=== PATIENT | male | born 1930 | race Caucasian/White ===

== ENCOUNTER → 2016-09-11 | Outpatient (REF) | payer MEDICARE | LOC: M SFHCPLAZ 17:48 | PROVIDERS: ATTEND Dermatology | DX: C44.42 Squamous cell carcinoma of skin of scalp and neck (principal) | CPT/HCPCS: 11100; 88305; G0463 ==

== ENCOUNTER 2017-03-07 16:56 | Inpatient (IN) | payer MEDICARE ==
[~2017-03-07] VITALS: Ht 193 cm; Wt 74.4 kg
[2017-03-07] MEDS ORDERED: ATEN25TA PO (17:24)
[2017-03-07] MEDS ORDERED: ELIQ2.5T PO (17:24)
[2017-03-07] MEDS ORDERED: FURO20TA2 PO ×2 (17:24→20:06)
[2017-03-07] MEDS ORDERED: ASPI1TAB PO (17:24)
[2017-03-07] MEDS ORDERED: LEVO25TA5 PO (17:24)
[2017-03-07] MEDS ORDERED: SPIR25TA2 PO (17:24)
[2017-03-07] MEDS ORDERED: MUCI600T37 PO (17:25)
[2017-03-07] MEDS ORDERED: cefTRIAXone SOD 2 GM in D5W 50 ML IV ONE (19:30)
[2017-03-07] MEDS ORDERED: AZITHROMYCIN INJ 500 MG, VIAL MATE ADAPTER 1 EACH in D5W 250 ML IV ONE (19:30)
--- NOTE | 2017-03-07 19:35 | REP ---
CHEST X-RAY, PA AND LATERAL: 03/07/2017. Comparison: 10/22/2012, 09/16/2012. Clinical history: Cough. Findings: Two views provided. Lungs are hyperinflated. 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 Patchy atelectasis or infiltrate adjacent to left heart border, likely in the lingula. Globular enlarged heart noted. Left atrial and ventricular enlargement may be present. Right heart is prominent. I cannot exclude a pericardial effusion. Heart has similar appearance, but smaller in the 2013 study. Pulmonary artery hypertension is seen. I do not see venous hypertension or pulmonary edema. The aorta and airway intact and normal for age. Degenerative changes in the spine. Impression. 1. Some patchy infiltrate, atelectasis in the lingula adjacent to left heart border. 2. Large cardiac silhouette somewhat globular with right heart enlargement. Appearance similar but the heart larger than on the 2013 study. 3. No vascular redistribution or pulmonary edema. Some fibrosis and COPD again seen. Signed by Jewel Hernandez MD 03/07/2017 08:17 P
[2017-03-07 20:02] LABS: BASO % 0.2 % (0.0-1.0); EOS # 0.2 10^3/uL (0.0-0.50); EOS % 2.7 % (0.0-3.0); IMMATURE GRANULOCYTE % 0.5 % (0-0); LYMPH # 1.9 10^3/uL (1.5-4.5); MEAN CORPUSCULAR HEMOGLOBIN 33.5 pg (27.0-33.0); MEAN CORPUSCULAR HGB CONC 33.5 g/dl (32.0-36.5); MONO # 0.4 10^3/uL (0.0-0.8); NEUTROPHILS # 5.5 10^3/uL (1.8-7.7); NEUTROPHILS % 67.6 % (36.0-66.0); PLATELET COUNT, AUTOMATED 287 10^3/uL (150-450); RED CELL DISTRIBUTION WIDTH 14.3 % (11.5-14.5); WHITE BLOOD COUNT 8.1 10^3/uL (4.0-10.0)
[2017-03-07] MEDS ORDERED: ATEN50TA2 PO (20:06)
[2017-03-07] MEDS ORDERED: VITMTA PO (20:06)
[2017-03-07 20:16] LABS: INR 1.33
[2017-03-07 20:35] LABS: ALBUMIN 3.6 GM/DL (3.2-5.2); ALKALINE PHOSPHATASE 119 U/L (45-117); ALT/SGPT 26 U/L (12-78); ANION GAP 4 MEQ/L (8-16); AST/SGOT 22 U/L (15-37); BILIRUBIN,DIRECT 0.5 MG/DL (0.0-0.2); BILIRUBIN,TOTAL 1.2 MG/DL (0.2-1.0); BLOOD UREA NITROGEN 24 MG/DL (7-18); CALCIUM LEVEL 9.2 MG/DL (8.8-10.2); CARBON DIOXIDE LEVEL 34 MEQ/L (21-32); CHLORIDE LEVEL 99 MEQ/L (98-107); CREATININE FOR GFR 1.22 MG/DL (0.70-1.30); GLOMERULAR FILTRATION RATE > 60.0 (>35); GLUCOSE, FASTING 112 MG/DL (83-110); POTASSIUM SERUM 3.9 MEQ/L (3.5-5.1); SODIUM LEVEL 137 MEQ/L (136-145); TOTAL PROTEIN 8.1 GM/DL (6.4-8.2)
[2017-03-07 22:11] LABS: FERRITIN 406 NG/ML (26-388); MAGNESIUM LEVEL 2.4 MG/DL (1.8-2.4); PERCENT SATURATION 12.5 % (19.7-50.0); TOTAL IRON BINDING CAPACITY 240 UG/DL (250-450)
[2017-03-07] MEDS ORDERED: ACETAMINOPHEN TAB 650MG DOSE (2X325MG) PO PRN (22:15)
[2017-03-07] MEDS ORDERED: BISACODYL 5 MG TAB PO PRN (22:15)
[2017-03-07] MEDS ORDERED: ONDANSETRON 4MG/2ML VIAL (J2405) IV PRN (22:15)
[2017-03-07 22:20] LABS: VITAMIN B12 LEVEL 756 PG/ML (247-911)
[2017-03-07 22:21] LABS: FOLATE > 24.0 NG/ML (>5.4)
--- NOTE | 2017-03-07 22:50 | REPUSA ---
CT of the chest without contrast Clinical statement: infiltrate, pleural effusion. Technique: Multiple axial CT images were obtained with 5 mm cuts through the chest without administra tion of contrast. Comparison: 11/07/2012. Findings: There is no thoracic lymphadenopathy. The visualized portions of the thyroid gland is unrem arkable. There is infiltrate and consolidation in the left upper lobe. Smaller areas of infiltrate ar e seen in the lower lobes bilaterally. Limited imaging of the upper abdomen does not demonstrate any acute abnormalities. There are no suspicious osseous lesions. Impression: 1. Left upper lobe pneumonia. 2. Minimal infiltrate/atelectasis in the lung bases bilaterally.
[2017-03-07] MEDS ORDERED: IPRATROPIUM 0.5MG/ALBUTEROL 2.5MG INH SOL UD 3ML (DUONEB)(J7620) NEB PRN (23:00)
--- NOTE | 2017-03-08 00:14 | HPE ---
DATE OF ADMISSION: 03/07/2017 ATTENDING DOCTOR: Dr. Arredondo TIME PATIENT WAS SEEN: 10:00 p.m. PRIMARY CARE PROVIDER: [facility] SPREADER OPERATOR AUTOMATIC: Dr. Vuong CHIEF COMPLAINT: Shortness of breath and chills. HISTORY OF THE PRESENT ILLNESS: An 86-year-old male with a past medical history of chronic anemia, elevated bilirubin, heart failure with unclear type, hypertension, chronic atrial fibrillation - on Eliquis, history of basal cell carcinoma and squamous cell carcinoma of the skin, hypothyroidism, presented with increased chills and shortness of breath for the past 4 days. Per patient, it was initially thought to be a cold. He went to primary care provider and was given Mucinex. He also had blood work done. However, result has not came back yet. Otherwise, he admits to some cough initially, which produces yellow sputum. However, he no longer coughs up sputum. Otherwise, he denies any chest pain, any palpitations, any abdominal pain, nausea, vomiting, diarrhea, constipation. Denies any problem with urination. Denies any blood in the urine. Denies any weight loss or sick contact. He does admit to some poor memory that started recently. He also will have a skin biopsy for back lesions in a few weeks. His last followup with Dr. Vuong was back in December; next one will be in April 2017. ALLERGIES: No known drug allergies. HOME MEDICATIONS: - Eliquis 2.5 mg one tablet by mouth twice a day - aspirin 81 mg one tablet by mouth daily - atenolol 25 mg one tablet by mouth daily - furosemide 40 mg one tablet by mouth three times per week - Saturday, Saturday, Saturday - furosemide 20 mg one tablet by mouth four times weekly - Saturday, Saturday, , Saturday - Mucinex 600 mg one tablet by mouth twice a day - Synthroid 25 mg one tablet by mouth daily - multivitamin one tablet by mouth daily - spironolactone 25 mg one tablet by mouth daily PAST MEDICAL HISTORY: 1. Anemia, macrocytic. 2. Elevated bilirubin. 3. History of heart failure; however, the patient is unclear the degree of heart failure. He was, in fact, unaware he has heart failure. 4. Hypertension. 5. Chronic atrial fibrillation. 6. History of basal cell carcinoma, squamous cell carcinoma in situ. 7. Hypothyroidism. PAST SURGICAL HISTORY: 1. Appendectomy. 2. Right knee cartilage removal. 3. Colonoscopy with polyps removed. 4. Cataract surgery. SOCIAL HISTORY: Patient lives alone and regularly mows the lawn and was able to walk one mile without any problem. 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 Denies any smoking, drinking or recreational drug use. FAMILY HISTORY: Noncontributory. REVIEW OF SYSTEMS: GENERAL: Denies any recent traveling, sick contact. Admits to chills. Denies any fever that was measured. Denies any weight changes. The patient does admit to poor memory lately. HEENT: Denies any changes with vision, smell, hearing or taste. CARDIOVASCULAR: Denies any chest pain. Admits to shortness of breath and the shortness of breath seems to increase with talking. PULMONARY: Denies any chest pain. Admits to shortness of breath. Again, breathing seems to be labored when patient lays down, per patient's daughter; however, only for the past few days. However, the patient denies any shortness of breath when he tried to walk or exert. GASTROINTESTINAL: Denies any abdominal pain, nausea, vomiting, diarrhea, constipation, any blood in the stool. GENITOURINARY: Denies any problem with urination, any blood in the urine, dysuria, burning on urination. MUSCULOSKELETAL: Denies any pain anywhere. ENDOCRINE: Denies any heat or cold intolerance. Denies any polydipsia. The patient does admit to polyuria, however, and he is on Lasix. HEMATOLOGY/ONCOLOGY: Denies any night sweats, any ease of bruising, any bleeding anywhere, any weight changes. NEUROLOGICAL: Denies any changes with sensations, any blurred vision, any weakness on any site of his body. SKIN: Denies any rash or ulcerations, lumps or bumps anywhere. PSYCHIATRIC: Denies any anxiety, depression. PHYSICAL EXAMINATION: VITAL SIGNS: Temperature 98.4, pulse 68, respirations 18, blood pressure 150/96, oxygen was saturating at 96% on room air. GENERAL: The patient is a thin looking elderly male who was alert, awake, oriented times three, who looks younger than his stated age and was pleasant and appears to be quite energetic for his age. HEENT: Normocephalic, atraumatic. Extraocular motor intact. Mucosa moist. NECK: Supple. No neck lymphadenopathy. CARDIOVASCULAR: Irregularly irregular. Variable S1, S2. No significant murmur. LUNGS: With diffuse rales and rhonchi on the left base of the lung; otherwise, no wheezing. ABDOMEN: Positive bowel sounds, soft, nontender, nondistended. No peritoneal signs. No ecchymosis. No organomegaly. EXTREMITIES: Patient does have trace pitting edema at bilateral ankle. SKIN: Warm and dry. NEUROLOGICAL: Cranial nerves II-XII intact. No focal neurologic deficit. LABORATORY DATA: WBC 8.1, hemoglobin 12.6, hematocrit 37.6 with a platelet count of 287, MCV of 100. Sodium 137, potassium 3.9, chloride 99, bicarbonate of 34, BUN 24, creatinine 1.22, GFR greater than 60, fasting glucose 112, calcium 9.2, magnesium 2.4, iron 30, TIBC 240, transferrin percentage saturation 12.5%, ferritin 406, total bilirubin 1.2, direct bilirubin 0.5, AST 22, ALT 26, alkaline phosphatase 119, CK 109, CK-MB 5.1, troponin less than 0.02. BNP was, however, elevated at 2418. However, baseline is unknown. Total protein 8.1, albumin 3.6, vitamin B12 756, folate greater than 24, TSH 1.06. Coagulation panel shows PT 16.8, INR 1.33, PTT 42. Blood culture times two are pending. The rest of the panel is pending. Influenza is negative. Patient had a PA and lateral chest x-ray in the emergency room - shows some patchy infiltrate, atelectasis in the lingula adjacent to left heart border, and a large cardiac silhouette somewhat globular with right heart enlargement and appearance similar but the heart is larger than 2013 study. Some fibrosis and COPD, again, was seen. CT of the chest without contrast was done as well. Official result is pending. We have reviewed the formal results, revealed that the patient does have a lingular infiltrate and does have a mild amount of atelectasis at the right base region as well, and the patient also has cardiomegaly. The patient does not have a pleural effusion, however. ASSESSMENT AND PLAN: 86-year-old male with a past medical history of heart failure, unknown type, chronic atrial fibrillation, hypertension, elevated bilirubin, chronic anemia, history of basal cell carcinoma and squamous cell carcinoma in situ, hypothyroidism, presented with: 1. Community-acquired pneumonia of left upper lingular. Patient did receive azithromycin and Rocephin in the emergency room. Will continue. Patient does not have an actual white count and does look quite energetic. Influenza panel in the emergency room has been negative. Will order respiratory panel as well and order the sputum culture. Otherwise, will continue to monitor the patient. Chest x-ray was read by radiologist that the patient has a certain degree of chronic obstructive pulmonary disease (COPD) changes; therefore, DuoNeb as needed has been added. In addition, CT does show some atelectasis. Therefore, incentive spirometry, as well as Acapella has been added. 2. History of heart failure with a BNP of 2418. However, on physical examination , the patient does not appear to be fluid overloaded. Continue to monitor. Continue home Lasix for now. Continue spironolactone and atenolol. 3. History of hypertension. Continue Lasix and atenolol. 4. History of chronic atrial fibrillation. Continue beta sd, Eliquis. 5. History of basal cell, squamous cell carcinoma in situ on the skin. Patient is scheduled to have a biopsy. The patient will have outpatient followup. 6. History of hypothyroidism. Thyroid-stimulating hormone (TSH) appears to be within normal range. Continue home Synthroid. 7. Deep vein thrombosis (DVT) prophylaxis with sequential compression device (SCD) and subcutaneous Lovenox. 8. Fluids, electrolytes and diet: The patient currently does not need any fluid due to patient is able to eat and drink normally. Potassium is at around 4, which is appropriate. Will continue patient on a 2-gram sodium and fluid restriction of 2 liters per 24 hours. CODE STATUS: Patient's daughter stated that he is DO NOT RESUSCITATE (DNR), DO NOT INTUBATE (DNI), and she will bring in the Medical Orders for Life-Sustaining Treatment (MOLST) form in the morning. DISPOSITION: The patient does have community-acquired pneumonia; however, no actual white count and he does look energetic. However, he does admit to shortness of breath as well, which is likely caused by pneumonia. Other possibilities are from heart failure exacerbation. The patient does have an increased BNP; however, this could be his baseline as well due to per him, he has not had any increased swelling and the examination does not show jugular venous distention (JVD). Continue to monitor patient for now. Will obtain records from Dr. Vuong's office regarding most recent echocardiogram due to patient's ejection fraction is not on record. Patient has been discussed with attending doctor, Dr. Arredondo. My preceptor for this patient encounter was Dr. Arredondo. The preceptor was physically present in the building during the encounter and was fully available. As needed, all aspects of the patient interview, examination, medical decision making process, and medical care plan development were reviewed and approved by the preceptor. The preceptor is aware and concurs with the plan as stated in the body of this note and will attest to such by his/her co-signature. ALESHA
[2017-03-08 00:50] VITALS: BP 150/84
[2017-03-08] MEDS: APIXABAN 2.5 MG TAB (ELIQUIS) PO SCH ×3 (01:05→20:10)
[2017-03-08] MEDS: guaiFENesin ER 600 MG TAB PO SCH ×3 (01:05→20:10)
[2017-03-08 04:22] LABS: BASO % 0.3 % (0.0-1.0); EOS # 0.2 10^3/uL (0.0-0.50); EOS % 2.5 % (0.0-3.0); IMMATURE GRANULOCYTE % 0.6 % (0-0); LYMPH # 1.6 10^3/uL (1.5-4.5); LYMPH % 20.5 % (24.0-44.0); MEAN CORPUSCULAR HEMOGLOBIN 33.5 pg (27.0-33.0); MEAN CORPUSCULAR HGB CONC 34.1 g/dl (32.0-36.5); MEAN CORPUSCULAR VOLUME 98.5 fl (80.0-96.0); MONO # 0.4 10^3/uL (0.0-0.8); MONO % 5.7 % (0.0-5.0); NEUTROPHILS # 5.4 10^3/uL (1.8-7.7); NEUTROPHILS % 70.4 % (36.0-66.0); PLATELET COUNT, AUTOMATED 234 10^3/uL (150-450); RED CELL DISTRIBUTION WIDTH 14.1 % (11.5-14.5); WHITE BLOOD COUNT 7.7 10^3/uL (4.0-10.0)
[2017-03-08 04:45] LABS: ANION GAP 3 MEQ/L (8-16); BLOOD UREA NITROGEN 23 MG/DL (7-18); CALCIUM LEVEL 8.7 MG/DL (8.8-10.2); CARBON DIOXIDE LEVEL 33 MEQ/L (21-32); CHLORIDE LEVEL 103 MEQ/L (98-107); CREATININE FOR GFR 1.14 MG/DL (0.70-1.30); GLOMERULAR FILTRATION RATE > 60.0 (>35); GLUCOSE, FASTING 102 MG/DL (83-110); POTASSIUM SERUM 4.1 MEQ/L (3.5-5.1); SODIUM LEVEL 139 MEQ/L (136-145)
[2017-03-08 05:00] LABS: MEAN CORPUSCULAR HEMOGLOBIN 33.1 pg (27.0-33.0); MEAN CORPUSCULAR HGB CONC 33.8 g/dl (32.0-36.5); MEAN CORPUSCULAR VOLUME 98.1 fl (80.0-96.0); PLATELET COUNT, AUTOMATED 234 10^3/uL (150-450); RED CELL DISTRIBUTION WIDTH 14.3 % (11.5-14.5); WHITE BLOOD COUNT 7.6 10^3/uL (4.0-10.0)
[2017-03-08 05:29] LABS: RETIC HEMOGLOBIN EQUIVALENT 34.2 pg (24-36); RETICULOCYTE % 0.7 % (0.5-1.5)
[2017-03-08 06:00] VITALS: BP 132/67
[2017-03-08] MEDS: LEVOTHYROXINE 25MCG TABLET (0.025MG) PO SCH (06:06)
--- NOTE | 2017-03-08 07:15 | ECGEPIP ---
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
[2017-03-08] MEDS ORDERED: FUROSEMIDE 40 MG TAB PO SCH (09:00)
[2017-03-08] MEDS ORDERED: FUROSEMIDE 40 MG/4 ML VIAL (J1940) IV SCH (09:00)
[2017-03-08] MEDS ORDERED: ENOXAPARIN 40 MG/0.4 ML SYRINGE (J1650) SC SCH (09:00)
[2017-03-08] MEDS: SENOKOT S TAB PO SCH ×2 (09:07→20:10)
[2017-03-08] MEDS: MULTIVITAMINS/MINERALS THERAP 1 TAB PO SCH (09:07)
[2017-03-08] MEDS: ASPIRIN 81 MG ENTERIC TAB PO SCH (09:07)
[2017-03-08] MEDS: ATENOLOL 25 MG TAB PO SCH (09:07)
[2017-03-08] MEDS: SPIRONOLACTONE 25 MG TAB PO SCH (09:07)
[2017-03-08 14:00] VITALS: BP 126/63
--- NOTE | 2017-03-08 14:28 | IPNPDOC ---
Date Seen The patient was seen on 03/08/17. Progress Note SUBJECTIVE: Patient complains of continued SOB and cough, he does not feel significantly different then his arrival to the ER. OBJECTIVE PHYSICAL EXAMINATION: VITAL SIGNS: Please see below. GENERAL: AAOx3, Tall healthy male sitting in bed, nad, appears well, coughs during exam HEENT: no cervical LAD, PERRL, EOMI, mmm CARDIOVASCULAR: S1S2 RESPIRATORY: Fairly clear to auscultation. ABDOMINAL: BS+, soft, nt, nd EXTREMITIES: no c/c/e LABORATORY DATA: Please see below. MICROBIOLOGY: Please see below. IMAGIN. Left upper lobe pneumonia. 2. Minimal infiltrate/atelectasis in the lung bases bilaterally. DVT prophylaxis ordered?: Lovenox ASSESSMENT AND PLAN: This is a 86-year-old man with Human Rhinovirus/ Enterovirus with possible superimposed CAP. PROBLEMS: 1. SOB/Cough: Likely secondary to rhinovirus, however he does have some imaging concerning for PNA, he does not have leukocytosis or fever. For now will con't with IV Abx and monitor, provide supportive care and monitor for improvement. My suspicion for PNA is lower but for now will f/u cultures and cover. 2. CHF: appears compensated c/w Lasix, Betablocker, aldactone. 3. AFIB: rate ctrld, and anticoagulated. 4. Hypothyroidism: con't with synthroid DISPOSITION: Pending clinical improvement, may be able to return home as early as tomorrow. VS, I&O, 24H, Fishbone Vital Signs/I&O Vital Signs Date Time Temp Pulse Resp B/P (MAP) Pulse Ox O2 Delivery O2 Flow Rate FiO2 03/08/17 09:07 77 132/67 03/08/17 06:00 98.8 19 98 Room Air I&O- Last 24 Hours up to 6 AM 03/09/17 06:00 Intake Total 300 ml Output Total 0 ml Balance 300 ml Laboratory Data 24H LABS Laboratory Tests 2 03/07/17 19:46: Immature Granulocyte % (Auto) 0.5H, White Blood Count 8.1, Red Blood Count 3.76L , Hemoglobin 12.6L, Hematocrit 37.6L, Mean Corpuscular Volume 100.0H, Mean Corpuscular Hemoglobin 33.5H, Mean Corpuscular Hemoglobin Concent 33.5, Red Cell Distribution Width 14.3, Platelet Count 287, Neutrophils (%) (Auto) 67.6H, Lymphocytes (%) (Auto) 24.0, Monocytes (%) (Auto) 5.0, Eosinophils (%) (Auto) 2.7, Basophils (%) (Auto) 0.2, Neutrophils # (Auto) 5.5, Lymphocytes # (Auto) 1.9, Monocytes # (Auto) 0.4, Eosinophils # (Auto) 0.2, Basophils # (Auto) 0.0, Immature Granulocyte # (Auto) 0.0, Nucleated Red Blood Cells % (auto) 0.0, Prothrombin Time 16.8H, Prothromb Time International Ratio 1.33, Activated Partial Thromboplast Time 42.0H, Anion Gap 4L, Glomerular Filtration Rate > 60.0 , Calcium Level 9.2, Magnesium Level 2.4, Iron Level 30L, Total Iron Binding Capacity 240L, Transferrin % Saturation 12.5L, Ferritin 406H, Aspartate Amino Transf (AST/SGOT) 22, Alanine Aminotransferase (ALT/SGPT) 26, Alkaline Phosphatase 119H, Total Bilirubin 1.2H, Direct Bilirubin 0.5H, Total Creatine Kinase 109, Creatine Kinase MB 5.1H, Creatine Kinase MB Relative Index 4.67H, Troponin I < 0.02, YX-[id number]-[id number]-Type Natriuretic Peptide 2418H, Total Protein 8.1, Albumin 3.6, Albumin/Globulin Ratio 0.80L, Vitamin B12 Level 756, Folate > 24.0 , Thyroid Stimulating Hormone (TSH) 1.060 03/08/17 04:15: Immature Granulocyte % (Auto) 0.6H, White Blood Count 7.7, Red Blood Count 3.25L , Hemoglobin 10.9L, Hematocrit 32.0L, Mean Corpuscular Volume 98.5H, Mean Corpuscular Hemoglobin 33.5H, Mean Corpuscular Hemoglobin Concent 34.1, Red Cell Distribution Width 14.1, Platelet Count 234, Neutrophils (%) (Auto) 70.4H, Lymphocytes (%) (Auto) 20.5L, Monocytes (%) (Auto) 5.7H, Eosinophils (%) (Auto) 2.5, Basophils (%) (Auto) 0.3, Neutrophils # (Auto) 5.4, Lymphocytes # (Auto) 1.6, Monocytes # (Auto) 0.4, Eosinophils # (Auto) 0.2, Basophils # (Auto) 0.0, Immature Granulocyte # (Auto) 0.1H, Nucleated Red Blood Cells % (auto) 0.0, Anion Gap 3L, Glomerular Filtration Rate > 60.0, Calcium Level 8.7L, Total Creatine Kinase 83, Creatine Kinase MB 4.0H, Creatine Kinase MB Relative Index 4.81H, Troponin I < 0.02, Blood Urea Nitrogen 23H, Creatinine 1.14, Sodium Level 139, Potassium Level 4.1, Chloride Level 103, Carbon Dioxide Level 33H 03/08/17 04:50: Nucleated Red Blood Cells % (auto) 0.0, Reticulocyte # (auto) 22.4, Percent Reticulocyte Count 0.7, Reticulocyte Hemoglobin Equivalent 34.2 03/08/17 11:47: Total Creatine Kinase 86, Creatine Kinase MB 3.6, Creatine Kinase MB Relative Index 4.18H, Troponin I < 0.02 CBC/BMP Laboratory Tests 03/07/17 19:46 Red Blood Count 3.76 L, Mean Corpuscular Volume 100.0 H, Mean Corpuscular Hemoglobin 33.5 H, Mean Corpuscular Hemoglobin Concent 33.5, Red Cell Distribution Width 14.3, Neutrophils (%) (Auto) 67.6 H, Lymphocytes (%) (Auto) 24.0, Monocytes (%) (Auto) 5.0, Eosinophils (%) (Auto) 2.7, Basophils (%) (Auto ) 0.2, Neutrophils # (Auto) 5.5, Lymphocytes # (Auto) 1.9, Monocytes # (Auto) 0.4, Eosinophils # (Auto) 0.2, Basophils # (Auto) 0.0 03/08/17 04:15 Red Blood Count 3.25 L, Mean Corpuscular Volume 98.5 H, Mean Corpuscular Hemoglobin 33.5 H, Mean Corpuscular Hemoglobin Concent 34.1, Red Cell Distribution Width 14.1, Neutrophils (%) (Auto) 70.4 H, Lymphocytes (%) (Auto) 20.5 L, Monocytes (%) (Auto) 5.7 H, Eosinophils (%) (Auto) 2.5, Basophils (%) ( Auto) 0.3, Neutrophils # (Auto) 5.4, Lymphocytes # (Auto) 1.6, Monocytes # (Auto ) 0.4, Eosinophils # (Auto) 0.2, Basophils # (Auto) 0.0, Calcium Level 8.7 L 03/08/17 04:50 Red Blood Count 3.08 L, Mean Corpuscular Volume 98.1 H, Mean Corpuscular Hemoglobin 33.1 H, Mean Corpuscular Hemoglobin Concent 33.8, Red Cell Distribution Width 14.3 Microbiology Microbiology 03/07/17 Blood Culture, Received Pending 03/07/17 Blood Culture, Received Pending 03/08/17 Respiratory Virus Panel (PCR) ([facility]) - Final, Complete Human Rhinovirus/Enterovirus 03/07/17 Influenza Virus Type A Antigen - Final, Complete 03/07/17 Influenza Virus Type B Antigen - Final, Complete RAMIRO ABBOTT MD Mar 08, 2017 14:28
[2017-03-08] MEDS ORDERED: cefTRIAXone SOD 1 GM in D5W 50 ML IV SCH (20:00)
[2017-03-08] MEDS ORDERED: AZITHROMYCIN INJ 500 MG, VIAL MATE ADAPTER 1 EACH in D5W 250 ML IV SCH (21:00)
[2017-03-08 22:00] VITALS: BP 120/60
[2017-03-09] MEDS: LEVOTHYROXINE 25MCG TABLET (0.025MG) PO SCH (05:50)
[2017-03-09 06:00] VITALS: BP 147/70
[2017-03-09 06:06] LABS: BASO % 0.3 % (0.0-1.0); EOS # 0.2 10^3/uL (0.0-0.50); EOS % 2.5 % (0.0-3.0); IMMATURE GRANULOCYTE % 0.7 % (0-0); LYMPH # 1.7 10^3/uL (1.5-4.5); LYMPH % 24.1 % (24.0-44.0); MEAN CORPUSCULAR HEMOGLOBIN 32.7 pg (27.0-33.0); MEAN CORPUSCULAR HGB CONC 32.8 g/dl (32.0-36.5); MEAN CORPUSCULAR VOLUME 99.7 fl (80.0-96.0); MONO # 0.4 10^3/uL (0.0-0.8); NEUTROPHILS # 4.6 10^3/uL (1.8-7.7); NEUTROPHILS % 66.4 % (36.0-66.0); PLATELET COUNT, AUTOMATED 261 10^3/uL (150-450); RED CELL DISTRIBUTION WIDTH 14.2 % (11.5-14.5); WHITE BLOOD COUNT 6.9 10^3/uL (4.0-10.0)
[2017-03-09 06:29] LABS: ANION GAP 4 MEQ/L (8-16); BLOOD UREA NITROGEN 26 MG/DL (7-18); CALCIUM LEVEL 8.8 MG/DL (8.8-10.2); CARBON DIOXIDE LEVEL 33 MEQ/L (21-32); CHLORIDE LEVEL 103 MEQ/L (98-107); CREATININE FOR GFR 1.15 MG/DL (0.70-1.30); GLOMERULAR FILTRATION RATE > 60.0 (>35); GLUCOSE, FASTING 105 MG/DL (83-110); POTASSIUM SERUM 4.2 MEQ/L (3.5-5.1); SODIUM LEVEL 140 MEQ/L (136-145)
[2017-03-09] MEDS ORDERED: INFLUENZA VIRUS VACCINE HIGH DOSE 0.5 ML SYRINGE (90662) IM ONE (09:00)
[2017-03-09] MEDS ORDERED: PREVNAR 13 VACCINE SYRINGE (CPT CODE:90670) IM ONE (09:00)
[2017-03-09] MEDS: guaiFENesin ER 600 MG TAB PO SCH (09:12)
[2017-03-09] MEDS: SENOKOT S TAB PO SCH (09:13)
[2017-03-09] MEDS: ASPIRIN 81 MG ENTERIC TAB PO SCH (09:13)
[2017-03-09] MEDS: MULTIVITAMINS/MINERALS THERAP 1 TAB PO SCH (09:13)
[2017-03-09] MEDS: APIXABAN 2.5 MG TAB (ELIQUIS) PO SCH (09:13)
[2017-03-09] MEDS: SPIRONOLACTONE 25 MG TAB PO SCH (09:13)
[2017-03-09 09:15] VITALS: BP 125/59
[2017-03-09] MEDS: ATENOLOL 25 MG TAB PO SCH (09:15)
[2017-03-09] MEDS ORDERED: LEVO500T3 PO (11:24)
--- NOTE | 2017-03-09 20:02 | DSES ---
DATE OF ADMISSION: 03/07/2017 DATE OF DISCHARGE: 03/09/2017 DISCHARGE DIAGNOSIS: Community-acquired pneumonia. SECONDARY DIAGNOSES: 1. Rhinovirus and enterovirus infection. 2. Shortness of breath. 3. Congestive heart failure (CHF). 4. Atrial fibrillation. 5. Hypothyroidism. HOSPITAL COURSE: The patient is an 86-year-old man who had progressively worsening shortness of breath, as well as worsening cough. He had some positive sick contacts. He lives alone. His daughter came to visit him and noted that he was feeling this way and did not feel well enough to go to his primary care provider and as such she brought him into the emergency room. He had some studies concerning for pneumonia. He was admitted to the medical service and started on treatment for community-acquired pneumonia. His symptoms have gradually improved. His respiratory PCR did return positive for human rhinovirus/enterovirus. We had suspicions that his symptoms were primarily related to this and not bacterial process. However, he had this for several days and the symptoms had worsened and it is possible that he had a superimposed bacterial infection. He did not have a fever or significant leukocytosis while here. He was treated with supportive measures and antibiotics and his symptoms improved. He did not require any supplemental oxygen. SUBJECTIVE: The patient feels great and wants to go home. He has no complaints. He tells me that he still has a mild cough with shortness of breath, but it is improving. OBJECTIVE: VITAL SIGNS: Temperature 97, pulse 60, respiratory rate 17, blood pressure 147/70, oxygen saturation 98% on room air. GENERAL: He is a very pleasant, elderly, man sitting up in a recliner playing cards. He did not appear to be in any acute distress whatsoever. HEENT: Cranial nerves II through XII grossly intact. He has moist mucous membranes. No elevation in central venous pressure. CARDIOVASCULAR EXAM: S1, S2. Regular. RESPIRATORY EXAM: Quite clear today. ABDOMINAL EXAM: Benign. EXTREMITIES: No clubbing, cyanosis or edema. LABORATORY STUDIES: WBC 6.9, hemoglobin 10.9, platelets 261. Chemistry panel: Sodium 140, potassium 4.2, chloride 103, bicarbonate 33, BUN 26, creatinine 1.1. He had multiple sets of cardiac enzymes, which were negative. He had TSH within normal limits. Microbiology is outlined above. IMAGING: The patient had a CT scan of his chest, which revealed left upper lobe pneumonia. Minimal infiltrate, atelectasis in the lung bases bilaterally. ASSESSMENT AND PLAN: This is an 86-year-old man with human rhinovirus infection with possible superimposed community-acquired pneumonia. 1. Shortness of breath and cough secondary to rhinovirus. He did have a concerning imaging for possible superimposed pneumonia. He was provided with ceftriaxone and azithromycin while in the hospital. He will be discharged on a short course of levofloxacin to cover for community-acquired pneumonia. I suspect that his symptoms are primarily due to rhinovirus and enterovirus and will resolve on their own. He did not require supplemental oxygen. No fevers. No leukocytosis. He is at his baseline functional status and independent of activities of daily living. A significant amount of time was spent at bedside answering all of his questions and his daughter's questions to their satisfaction. 2. Congestive heart failure (CHF). He appears compensated. He will continue with Lasix, beta sd and aldactone. 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 3. Atrial fibrillation. He is rate controlled and anticoagulated. This was continued during his stay. 4. Hypothyroidism. He was continued on Synthroid. DISPOSITION: The patient is being discharged home where he lives alone. He is independent with his activities of daily living. He is at his functional baseline. His clinical syndrome has improved. He is to followup with his primary care provider in 7 days. His activity and diet are as prior to admission. He is to return to the emergency room if his symptoms worsen. MEDICATIONS: At the time of discharge: - levofloxacin 500 mg daily for 5 days - Eliquis 2.5 mg twice a day - aspirin 81 mg daily - atenolol 25 mg daily - furosemide 40 mg three times a week on Saturday, Saturday and Saturday and 20 mg four times a week on Saturday, Saturday, and Saturday - Mucinex 600 mg twice a day as needed for cough - Synthroid 25 mcg daily - multivitamin one tablet daily - spironolactone 25 mg daily Greater than 30 minutes was spent organizing disposition.
[2017-03-10] MEDS ORDERED: FUROSEMIDE 20 MG TAB PO SCH (09:00)
== END 2017-03-09 15:31 | disposition home or self-care (01) | DRG 865 ==
LOC: M ED 16:56 → M ED INP 22:34 → M MSPAV 03-08 00:49
PROVIDERS: ADMIT Internal Medicine; ATTEND Internal Medicine
DX: B34.8 Other viral infections of unspecified site (principal); J18.9 Pneumonia, unspecified organism; D53.9 Nutritional anemia, unspecified; I11.0 Hypertensive heart disease with heart failure; I50.9 Heart failure, unspecified; I48.2 Chronic atrial fibrillation; J84.10 Pulmonary fibrosis, unspecified; E03.9 Hypothyroidism, unspecified; Z85.828 Personal history of other malignant neoplasm of skin; Z79.01 Long term (current) use of anticoagulants; Z79.82 Long term (current) use of aspirin; Z79.899 Other long term (current) drug therapy

== ENCOUNTER 2017-06-20 12:13 | Emergency (ER) | payer MEDICARE | END 2017-06-20 15:04 | disposition home or self-care (01) | LOC: M ED 12:13 | DX: S42.034A Nondisplaced fracture of lateral end of right clavicle, initial encounter for closed fracture (principal); I48.91 Unspecified atrial fibrillation; I15.9 Secondary hypertension, unspecified; I10 Essential (primary) hypertension; W00.0XXA Fall on same level due to ice and snow, initial encounter; Y92.89 Other specified places as the place of occurrence of the external cause; Y93.01 Activity, walking, marching and hiking | CPT/HCPCS: 73030 ==

== ENCOUNTER 2018-11-10 08:59 | Inpatient (IN) | payer MEDICARE ==
[~2018-11-10] VITALS: Ht 198.1 cm; Wt 74.2 kg
[~2018-11-10 08:59] MED LIST: ASPI81TA26 PO; ATEN25TA PO; ATEN50TA2 PO; ELIQ2.5T PO; FURO20TA2 PO; LEVO25TA5 PO; LEVO500T3 PO; MUCI600T37 PO; SPIR-10 PO; VITMTA PO
[2018-11-10] MEDS ORDERED: FUROSEMIDE 20 MG TAB PO SCH ×2 (09:00)
[2018-11-10] MEDS ORDERED: MORPHINE 2 MG/ML 1ML SYRINGE (J2270) IV ONE ×2 (09:30→10:15)
[2018-11-10] MEDS ORDERED: ONDANSETRON 4MG/2ML VIAL (J2405) IV ONE (09:30)
[2018-11-10 09:44] LABS: BASO % 0.1 % (0.0-1.0); EOS % 0.5 % (0.0-3.0); HEMATOCRIT 28.2 % (42.0-52.0); HEMOGLOBIN 9.6 g/dl (13.5-17.5); LYMPH # 1.4 10^3/uL (1.5-4.5); LYMPH % 18.1 % (24.0-44.0); MEAN CORPUSCULAR HEMOGLOBIN 34.8 pg (27.0-33.0); MEAN CORPUSCULAR VOLUME 102.2 fl (80.0-96.0); MONO # 0.4 10^3/uL (0.0-0.8); MONO % 4.7 % (0.0-5.0); NEUTROPHILS # 5.9 10^3/uL (1.8-7.7); NEUTROPHILS % 76.1 % (36.0-66.0); PLATELET COUNT, AUTOMATED 259 10^3/uL (150-450); RED BLOOD COUNT 2.76 10^6/uL (4.30-6.10); WHITE BLOOD COUNT 7.7 10^3/uL (4.0-10.0)
[2018-11-10 09:58] LABS: CALCIUM LEVEL 8.3 MG/DL (8.8-10.2); CREATININE FOR GFR 1.46 MG/DL (0.70-1.30); GLOMERULAR FILTRATION RATE 48.6 (>35)
--- NOTE | 2018-11-10 10:10 | REP ---
Clinical: Left lower extremity pain . Technique: Bear scale and color Doppler evaluation using linear high frequency transducer. Findings: Ultrasound examination of the left lower extremity deep venous structures from the common femoral vein to the popliteal vein demonstrates normal compressibility flow and wave patterns in response to respiration and augmentation. There is no evidence for deep venous thrombosis. 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 Impression: No evidence for deep venous thrombosis. Electronically Signed by Luis Angel Ash MD 11/10/2018 10:01 A
[2018-11-10 10:24] LABS: ERYTHROCYTE SEDIMENTATION RATE 107 mm/hr (0-30)
[2018-11-10] MEDS ORDERED: PHARMACY COMMENT (10:55)
[2018-11-10] MEDS ORDERED: MORPHINE 4 MG/ML 1ML VIAL/SYRINGE (J2270) IV PRN (11:45)
--- NOTE | 2018-11-10 12:06 | HPEPDOC ---
[facility] Medical History & Physical Date of Admission Nov 10, 2018 Date of Service: Nov 10, 2018 History and Physical CHIEF COMPLAINT: LLE pain and swelling HISTORY OF PRESENT ILLNESS: Patient is a 88-year-old female with past medical history of A. fib on Eliquis, hypertension, hypothyroid, heart failure brought into ER by [id number] with concern for worsening left lower extremity swelling after a lawnmower accident 1 week prior. Patient reportedly has had trauma to bilateral lower extremity below the knee from the lawnmower and has been following with Dr. Paez in wound care for the past week. Has had debridement post incident and has been doing fine up until this past weekend when his left leg become erythematous with worsening pain for the past 2 days. He denies any fever, chills or any other complaints apart from the pain. Family also expressed concern about patient's ability to take care of self as he lives alone at this time and unable to ambulate freely. PAST MEDICAL HISTORY: Refer to [facility] PAST SURGICAL HISTORY: Appendectomy Right knee surgery Cataract surgery Skin cancer of his scalp resection SOCIAL HISTORY: Denies tobacco, alcohol or illicit drug use. FAMILY HISTORY: father- CAD ALLERGIES: Please see below. REVIEW OF SYSTEMS: 10 point review of system negative except as stated in HPI HOME MEDICATIONS: Please see below. PHYSICAL EXAMINATION: General: Severe distress only with munipulation of leg and dressings otherwise comfortable, Alert Eyes: Normal sclera, EOMI, JESUS HENT: Atraumatic, neck supple, moist mucous membranes Cardiovascular: Normal rate, normal rhythm. No murmurs appreciated. Pulmonary: Clear to auscultation b/l, no wheezing GI: Soft, nontender, nondistended Skin: b/l dressing in LE below the knees. L. leg significantly larger than the right with surrounding erythema. Multiple open skin wounds covered underneath blue dressing. Significant tenderness. Neuro: CN grossly intact. No focal deficits. Strengths equal b/l. Psych: oriented x 3 LABORATORY DATA: See below. IMAGING: LE US- Impression: No evidence for deep venous thrombosis. MICROBIOLOGY: Please see below. ASSESSMENT AND PLAN: 1. LLE cellulitis - likely infection 2/2 traumatic wound. - Has been following with Dr. Paez, packing in place. - Consult wound care for in hospital care. - Given rapid progression of erythema and what appear to be pustulent areas, will start on vancomycin. - f/u bloood and wound cultures. - taper abx as soon as possible. - Pain control. 2. HTN - Resume home meds. 3. Afib - Resume home meds. - c/w Eliquis for AC. 4. CHF - Euvolemic at this time. - Resume home meds. 5. Hypothyroidism - c/w home dose synthroid DVT ppx: Already on Eliquis. No SCD given wounds. Code status: DNR Vital Signs Vital Signs Date Time Temp Pulse Resp B/P (MAP) Pulse Ox O2 Delivery O2 Flow Rate FiO2 11/10/18 10:13 20 11/10/18 09:41 71 197/90 98 11/10/18 09:14 96.6 Room Air Laboratory Data Labs 24H Laboratory Tests 2 11/10/18 09:22: Immature Granulocyte % (Auto) 0.5, White Blood Count 7.7, Red Blood Count 2.76L, Hemoglobin 9.6L, Hematocrit 28.2L, Mean Corpuscular Volume 102.2H, Mean Corpuscular Hemoglobin 34.8H, Mean Corpuscular Hemoglobin Concent 34.0, Red Cell Distribution Width 15.6H, Platelet Count 259, Neutrophils (%) (Auto) 76.1H, Lymphocytes (%) (Auto) 18.1L, Monocytes (%) (Auto) 4.7, Eosinophils (%) (Auto) 0.5, Basophils (%) (Auto) 0.1, Neutrophils # (Auto) 5.9, Lymphocytes # (Auto) 1.4L, Monocytes # (Auto) 0.4, Eosinophils # (Auto) 0.0, Basophils # (Auto) 0.0, Nucleated Red Blood Cells % (auto) 0.0, Erythrocyte Sedimentation Rate 107H, Anion Gap 8, Glomerular Filtration Rate 48.6, Blood Urea Nitrogen 30H, Creatinine 1.46H, Sodium Level 139, Potassium Level 4.0, Chloride Level 106, Carbon Dioxide Level 25, Calcium Level 8.3L, C-Reactive Protein, Quantitative 16.00H CBC/BMP Laboratory Tests 11/10/18 09:22 Red Blood Count 2.76 L, Mean Corpuscular Volume 102.2 H, Mean Corpuscular Hemoglobin 34.8 H, Mean Corpuscular Hemoglobin Concent 34.0, Red Cell Distribut ion Width 15.6 H, Neutrophils (%) (Auto) 76.1 H, Lymphocytes (%) (Auto) 18.1 L, Monocytes (%) (Auto) 4.7, Eosinophils (%) (Auto) 0.5, Basophils (%) (Auto) 0.1, Neutrophils # (Auto) 5.9, Lymphocytes # (Auto) 1.4 L, Monocytes # (Auto) 0.4, Eosinophils # (Auto) 0.0, Basophils # (Auto) 0.0, Calcium Level 8.3 L Microbiology Microbiology 11/10/18 Blood Culture, Received Pending 11/10/18 Blood Culture, Received Pending Home Medications Scheduled Apixaban (Eliquis) 2.5 Mg Tab, 2.5 MG PO BID Aspirin (Aspirin EC) 81 Mg Tab, 81 MG PO DAILY Atenolol (Atenolol) 50 Mg Tab, 25 MG PO DAILY Furosemide (Furosemide) 20 Mg Tab, 40 MG PO 3XW SATURDAY, SATURDAY, SATURDAY PATIENT TAKES 40MG IN THE MORNING, ALL OTHER DAYS OF THE WEEK PATIENT TAKES 20MG BID Furosemide (Furosemide) 20 Mg Tab, 20 MG PO BID SATURDAY, SATURDAY, SATURDAY PATIENT TAKES 40MG IN THE MORNING, ALL OTHER DAYS OF THE WEEK PATIENT TAKES 20MG BID Levothyroxine Sodium (Levothyroxine Sodium) 25 Mcg Tab, 25 MCG PO DAILY Multivitamins (Thera M Plus Tablet) 1 Tab Tab, 1 TAB PO DAILY Spironolactone (Spironolactone) 25 Mg Tab, 25 MG PO DAILY Miscellaneous Medications [Pharmacy Comment] PATIENT HAS NOT TAKEN ANY MEDS SINCE SATURDAY Allergies Coded Allergies: No Known Allergies (Unverified , 03/07/17) A-FIB/CHADSVASC A-FIB History Current/History of A-Fib/PAF?: Yes Current PO Anticoag Therapy: Yes IRA HAWTHORNE MD Nov 10, 2018 12:06
[2018-11-10] MEDS: oxyCODONE 5MG TAB PO PRN (12:13)
[2018-11-10] MEDS ORDERED: VANCOMYCIN HCL 1,000 MG, VIAL MATE ADAPTER 1 EACH in D5W 250 ML IV ONE (13:00)
[2018-11-10] MEDS ORDERED: ceFAZolin SOD 1 GM in D5W MINI-BAG PLUS 50 ML IV SCH (13:00)
[2018-11-10] MEDS: APIXABAN 2.5 MG TAB (ELIQUIS) PO SCH ×2 (13:20→21:49)
[2018-11-10] MEDS: SPIRONOLACTONE 25 MG TAB PO SCH (13:20)
[2018-11-10] MEDS: FUROSEMIDE 20 MG TAB PO SCH (13:20)
[2018-11-10] MEDS: ATENOLOL 25 MG TAB PO SCH (13:21)
[2018-11-10] MEDS: LEVOTHYROXINE 25MCG TABLET (0.025MG) PO SCH (13:21)
[2018-11-10] MEDS: MULTIVITAMINS/MINERALS THERAP 1 TAB PO SCH (13:22)
[2018-11-10] MEDS: ASPIRIN 81 MG ENTERIC TAB PO SCH (13:23)
[2018-11-10 14:00] VITALS: BP 153/71
--- NOTE | 2018-11-10 15:11 | PHACANCOPD ---
PHARMACY VANCOMYCIN DOSING Pt Demographics Demographics Patient Age:88 , Weight:74.200 , Gender: male Adjusted Body Weight Date: 11/10/18, Adjusted Body Weight: Kg Events Past 24 Hours Events Past 24 Hours: YES: Pending Diagnostics Vancomycin Vancomycin indication: LLE CELLULITIS Vancomycin Target Ranges: 15-20 mcg/ml Vancomycin Load Y/N: Yes Load Dose Date Time Vancomycin Load Dose: 1500mg Date: 11/10/18 Time: 1300 Vancomycin Dose Date: 11/10/18. Current Vancomycin Dose: Intermittent Dosing?: No Labs Labs Item Value Date Time Creatinine 1.46 MG/DL H 11/10/1822 Blood Urea Nitrogen 30 MG/DL H 11/10/1822 C-Reactive Protein, Quantitative 16.00 MG/DL H 11/10/18921 White Blood Count 7.7 10^3/uL 11/10/18921 Erythrocyte Sedimentation Rate 107 mm/hr H 11/10/18921 Micro Microbiology 11/10/18 Blood Culture, Received Pending 11/10/18 Blood Culture, Received Pending 11/10/18 Gram Stain, Received Pending 11/10/18 Wound Culture, Received Pending Creatinine Clearance Date:11/10/18. Est Creatinine Clearance: [~35ml/min]. Assessment and Plan Maintaining Current Dose?: Yes Reason for dose change: No Dose Change Pharmacist Note Pharmacist Note Date: 11/10/18. Pharmacist note: Day #1 empiric vancomycin therapy initiated with a 1500mg loading dose, followed by a maintenance regimen of 1g IV Q24H for the treatment of LLE cellulitis - aiming for a goal trough of 15-20mcg/ml. Patient presented with LLE swelling after a lawnmower accident ~1 week ago. He has been following with Dr Paez outpatient, and is s/p debridement of the area with no improvement. WBC is WNL, however, CRP and ESR are elevated. The patient is currently afebrile. No PMH of MRSA or vanco use here at [facility]. Blood and wound cultures are pending. Scr is 1.46 today - baseline unknown. It is noted hat the patient is also on diuretics. We will continue to monitor the patients renal function and schedule a trough level accordingly. NIKKI [facility] Nov 10, 2018 15:11
[2018-11-10] MEDS ORDERED: VANCOMYCIN HCL 500 MG in D5W MINI-BAG PLUS 100 ML IV ONE (16:00)
[2018-11-10] MEDS: ACETAMINOPHEN TAB 650MG DOSE (2X325MG) PO PRN (21:51)
[2018-11-10 22:00] VITALS: BP 119/84
[2018-11-11] MEDS: oxyCODONE 5MG TAB PO PRN ×2 (03:10→18:01)
[2018-11-11] MEDS: LEVOTHYROXINE 25MCG TABLET (0.025MG) PO SCH (05:40)
[2018-11-11 06:00] VITALS: BP 113/55
[2018-11-11 06:06] LABS: HEMATOCRIT 25.5 % (42.0-52.0); HEMOGLOBIN 8.4 g/dl (13.5-17.5); MEAN CORPUSCULAR HEMOGLOBIN 33.5 pg (27.0-33.0); MEAN CORPUSCULAR HGB CONC 32.9 g/dl (32.0-36.5); MEAN CORPUSCULAR VOLUME 101.6 fl (80.0-96.0); PLATELET COUNT, AUTOMATED 265 10^3/uL (150-450); RED BLOOD COUNT 2.51 10^6/uL (4.30-6.10); WHITE BLOOD COUNT 7.4 10^3/uL (4.0-10.0)
[2018-11-11 06:34] LABS: CALCIUM LEVEL 8.3 MG/DL (8.8-10.2); CREATININE FOR GFR 1.53 MG/DL (0.70-1.30); GLOMERULAR FILTRATION RATE 46.1 (>35)
[2018-11-11] MEDS: MULTIVITAMINS/MINERALS THERAP 1 TAB PO SCH (08:03)
[2018-11-11] MEDS: SPIRONOLACTONE 25 MG TAB PO SCH (08:03)
[2018-11-11] MEDS: ASPIRIN 81 MG ENTERIC TAB PO SCH (08:03)
[2018-11-11] MEDS: APIXABAN 2.5 MG TAB (ELIQUIS) PO SCH ×2 (08:03→21:02)
[2018-11-11] MEDS: FUROSEMIDE 20 MG TAB PO SCH ×2 (08:03→21:02)
[2018-11-11] MEDS: ATENOLOL 25 MG TAB PO SCH (08:07)
[2018-11-11] MEDS: ACETAMINOPHEN TAB 650MG DOSE (2X325MG) PO PRN (08:11)
[2018-11-11 09:45] LABS: ERYTHROCYTE SEDIMENTATION RATE 86 mm/hr (0-30)
[2018-11-11] MEDS ORDERED: ISOVUE-370 76% 100ML VIAL (Q9967) As Ordered ONE (09:49)
[2018-11-11] MEDS: PIPERACILLIN/TAZOBACTAM SOD 3.375 GM in D5W MINI-BAG PLUS 50 ML IV SCH ×3 (10:34→21:01)
--- NOTE | 2018-11-11 10:46 | IPNPDOC ---
Date Seen The patient was seen on 11/11/18. Progress Note SUBJECTIVE: Patient was stable overnight with no reported acute events. However, reported worsening pain and erythema and pain this morning. 10/10 at rest. Patient had no pain yesterday when LLE was not manipulated for wound observation. He remained afebrile and HD stable overnight. OBJECTIVE PHYSICAL EXAMINATION: VITAL SIGNS: Please see below. General: Mild distress but severe when LLE is munipulated. Eyes: Normal sclera, EOMI, JESUS HENT: Atraumatic, neck supple, moist mucous membranes Cardiovascular: Normal rate, normal rhythm. Pulmonary: Clear to auscultation b/l, no wheezing GI: Soft, nontender, nondistended Skin: b/l dressing in LE below the knees. L. leg larger than the right with surrounding erythema. Multiple open skin wounds covered underneath dressing. Severe tenderness. Neuro: CN grossly intact. No focal deficits. Strengths equal b/l. Psych: oriented x 3 LABORATORY DATA, IMAGING STUDIES, MICROBIOLOGY: Please see below. IMAGING: LE US- Impression: No evidence for deep venous thrombosis. MICROBIOLOGY: Please see below. ASSESSMENT AND PLAN: 1. LLE cellulitis - likely superimposing infection 2/2 traumatic wound. - Has been following with Dr. Paez, packing in place. - Consult wound care for in hospital care. - Patient had been on vancomycin. Rapid progression of pain and worsening erythema today is concerning. - Patient has no evidence of systemic toxicity however. Afebrile with no leukocytosis. Elevated ESR/CRP. - Concern for necrotic infection because of acute worsening in pain and erythema. - No crepitus was appreciated as of this morning although pain was out of proportion. - Zosyn and clindamycin added. - CT of LLE now. f/u findings. - Surgery consulted for evaluation. - Pain control. 2. HTN - Resume home meds. 3. Afib - Resume home meds. - c/w Eliquis for AC. 4. CHF - Euvolemic at this time. - Resume home meds. 5. Hypothyroidism - c/w home dose synthroid DVT ppx: Already on Eliquis. No SCD given wounds. Code status: DNR VS, I&O, 24H, Fishbone Vital Signs/I&O Vital Signs Date Time Temp Pulse Resp B/P (MAP) Pulse Ox O2 Delivery O2 Flow Rate FiO2 11/11/18 08:11 18 11/11/18 08:07 88 132/62 11/11/18 06:00 98.1 97 11/10/18 12:30 Room Air I&O- Last 24 Hours up to 6 AM 11/11/18 06:00 Intake Total 820 ml Output Total 2000 ml Balance -1180 ml Laboratory Data 24H LABS Laboratory Tests 2 11/11/18 05:27: Nucleated Red Blood Cells % (auto) 0.0, Erythrocyte Sedimentation Rate 86H, A nion Gap 7L, Glomerular Filtration Rate 46.1, Blood Urea Nitrogen 35H, Creatinine 1.53H, Sodium Level 139, Potassium Level 4.0, Chloride Level 105, Carbon Dioxide Level 27, Calcium Level 8.3L, Lactate Dehydrogenase 216, Total Creatine Kinase 63, C-Reactive Protein, Quantitative 13.00H CBC/BMP Laboratory Tests 11/11/18 05:27 Red Blood Count 2.51 L, Mean Corpuscular Volume 101.6 H, Mean Corpuscular Hemoglobin 33.5 H, Mean Corpuscular Hemoglobin Concent 32.9, Red Cell Distribu tion Width 16.0 H, Calcium Level 8.3 L Microbiology Microbiology 11/10/18 Blood Culture - Preliminary, Resulted No growth after 24 hours . All specim... 11/10/18 Blood Culture - Preliminary, Resulted No growth after 24 hours . All specim... 11/10/18 Gram Stain - Final, Resulted 11/10/18 Wound Culture, Resulted Pending IRA HAWTHORNE MD Nov 11, 2018 10:46
--- NOTE | 2018-11-11 10:49 | REP ---
CT of the left femur with IV contrast: There are no lytic, blastic or destructive skeletal changes to suggest osteomyelitis. There are small lucencies in the distal femoral metaphysis compatible with osteoporosis. There is slightly increased density in the fascial planes posteriorly medially compatible with inflammation. There is no focal fluid collection to suggest abscess or hematoma. There is no mass. Impression: Slightly increased density in the fascial planes posteriorly compatible with inflammation. There is no focal fluid collection to suggest abscess or hematoma. There is no mass. There is no evidence of osteomyelitis. There are tiny lucencies in the distal femur compatible with osteoporosis. Electronically Signed by Lokesh Fung MD 11/11/2018 10:40 A
[2018-11-11] MEDS: CLINDAMYCIN 600 MG in APPROPRIATE DILUENT 1 EA IV SCH ×2 (11:33→18:01)
[2018-11-11] MEDS ORDERED: VANCOMYCIN HCL 1,000 MG, VIAL MATE ADAPTER 1 EACH in D5W 250 ML IV SCH (13:00)
[2018-11-11 14:00] VITALS: BP 125/67
--- NOTE | 2018-11-11 14:13 | REP ---
CT of the left tibia fibula with IV contrast: There is diffuse soft tissue edema throughout the fascial planes and skin. There is no focal fluid collection to suggest abscess or hematoma. No mass is identified. There are no lytic, blastic or destructive skeletal changes to suggest osteomyelitis. There are small lucencies in the distal femoral metaphysis, the distal tibial metaphysis and a distal fibula compatible with osteoporosis. Impression: Diffuse soft tissue edema including edema of the skin. No focal fluid collection or mass to suggest abscess or hematoma. No evidence of osteomyelitis. Small lucencies in the distal femur, distal tibia and distal fibula compatible with osteoporosis Electronically Signed by Lokesh Fung MD 11/11/2018 02:04 P
[2018-11-11] MEDS: MORPHINE 4 MG/ML 1ML VIAL/SYRINGE (J2270) IV PRN ×2 (14:36→21:04)
[2018-11-11 22:00] VITALS: BP 134/70
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
[2018-11-12] MEDS: CLINDAMYCIN 600 MG in APPROPRIATE DILUENT 1 EA IV SCH ×3 (04:10→18:00)
[2018-11-12] MEDS: PIPERACILLIN/TAZOBACTAM SOD 3.375 GM in D5W MINI-BAG PLUS 50 ML IV SCH ×4 (05:44→22:32)
[2018-11-12] MEDS: LEVOTHYROXINE 25MCG TABLET (0.025MG) PO SCH (05:44)
[2018-11-12 06:00] VITALS: BP 126/72
[2018-11-12 06:35] LABS: HEMATOCRIT 27.3 % (42.0-52.0); HEMOGLOBIN 9.1 g/dl (13.5-17.5); MEAN CORPUSCULAR HEMOGLOBIN 33.7 pg (27.0-33.0); MEAN CORPUSCULAR HGB CONC 33.3 g/dl (32.0-36.5); MEAN CORPUSCULAR VOLUME 101.1 fl (80.0-96.0); PLATELET COUNT, AUTOMATED 305 10^3/uL (150-450); WHITE BLOOD COUNT 7.7 10^3/uL (4.0-10.0)
[2018-11-12 06:56] LABS: CALCIUM LEVEL 8.4 MG/DL (8.8-10.2); CREATININE FOR GFR 1.63 MG/DL (0.70-1.30); GLOMERULAR FILTRATION RATE 42.8 (>35); POTASSIUM SERUM 4.1 MEQ/L (3.5-5.1)
[2018-11-12] MEDS: oxyCODONE 5MG TAB PO PRN ×2 (07:19→22:31)
--- NOTE | 2018-11-12 08:39 | IPNPDOC ---
Date Seen The patient was seen on 11/12/18. Progress Note SUBJECTIVE: Patient reports feeling better today. Still has pain in LLE but had improved significantly from yesterday morning. Swelling and erythema also regressed as well. OBJECTIVE PHYSICAL EXAMINATION: VITAL SIGNS: Please see below. General: Mild distress but severe when LLE is munipulated. Eyes: Normal sclera, EOMI, JESUS HENT: Atraumatic, neck supple, moist mucous membranes Cardiovascular: Normal rate, normal rhythm. Pulmonary: Clear to auscultation b/l, no wheezing GI: Soft, nontender, nondistended Skin: b/l dressing in LE below the knees. L. leg larger than the right with rush rrounding erythema. Multiple open skin wounds with overlying necrotic tissue. Neuro: CN grossly intact. No focal deficits. Strengths equal b/l. Psych: oriented x 3 LABORATORY DATA, IMAGING STUDIES, MICROBIOLOGY: Please see below. IMAGING: LE US- Impression: No evidence for deep venous thrombosis. MICROBIOLOGY: Please see below. ASSESSMENT AND PLAN: 1. LLE cellulitis - likely superimposing infection 2/2 traumatic wound. - Has been following with Dr. Paez, packing in place. - Wound care consult. - Patient had been on vancomycin, added Zosyn and clinda yesterday 2/2 rapid progression of pain of erythema. Had improved significantly since then. - CT of LLE now with diffuse soft tissue swelling. - Surgery evaluated, appreciated assistance. - Pain control. 2. HTN - Resume home meds. 3. Afib - Resume home meds. - c/w Eliquis for AC. 4. CHF - Euvolemic at this time. - Resume home meds. 5. Hypothyroidism - c/w home dose synthroid DVT ppx: Already on Eliquis. No SCD given wounds. Code status: DNR VS, I&O, 24H, Fishbone Vital Signs/I&O Vital Signs Date Time Temp Pulse Resp B/P (MAP) Pulse Ox O2 Delivery O2 Flow Rate FiO2 11/12/18 07:50 18 11/12/18 06:00 97.4 63 126/72 (90) 98 11/10/18 12:30 Room Air I&O- Last 24 Hours up to 6 AM 11/12/18 06:00 Intake Total 1405 ml Output Total 1210 ml Balance 195 ml Laboratory Data 24H LABS Laboratory Tests 2 11/12/18 05:27: Nucleated Red Blood Cells % (auto) 0.0, Anion Gap 7L, Glomerular Filtration Rate 42.8, Blood Urea Nitrogen 36H, Creatinine 1.63H, Sodium Level 140, Potassium Level 4.1, Chloride Level 104, Carbon Dioxide Level 29, Calcium Level 8.4L CBC/BMP Laboratory Tests 11/12/18 05:27 Red Blood Count 2.70 L, Mean Corpuscular Volume 101.1 H, Mean Corpuscular Hemoglobin 33.7 H, Mean Corpuscular Hemoglobin Concent 33.3, Red Cell Distribution Width 15.9 H, Calcium Level 8.4 L Microbiology Microbiology 11/10/18 Blood Culture - Preliminary, Resulted No growth after 24 hours . All specim... 11/10/18 Blood Culture - Preliminary, Resulted No growth after 24 hours . All specim... 11/10/18 Gram Stain - Final, Resulted 11/10/18 Wound Culture, Resulted Pending IRA HAWTHORNE MD Nov 12, 2018 08:39
[2018-11-12] MEDS: MORPHINE 4 MG/ML 1ML VIAL/SYRINGE (J2270) IV PRN (08:49)
[2018-11-12] MEDS: FUROSEMIDE 20 MG TAB PO SCH (08:50)
[2018-11-12] MEDS: MULTIVITAMINS/MINERALS THERAP 1 TAB PO SCH (08:51)
[2018-11-12] MEDS: SPIRONOLACTONE 25 MG TAB PO SCH (08:51)
[2018-11-12] MEDS: ASPIRIN 81 MG ENTERIC TAB PO SCH (08:51)
[2018-11-12] MEDS: APIXABAN 2.5 MG TAB (ELIQUIS) PO SCH ×2 (08:51→22:30)
[2018-11-12] MEDS: ATENOLOL 25 MG TAB PO SCH (08:51)
[2018-11-12] MEDS ORDERED: DOCUSATE SODIUM 100 MG CAP PO PRN (13:45)
[2018-11-12 14:00] VITALS: BP 106/57
--- NOTE | 2018-11-12 14:05 | NUR ---
Pt w/ severe cognitive impairment, scoring 17/30 on Mini Mental State Exam. Significant deficits noted in immediate, delayed, and episodic recall, orientation to time, and mental flexibility. Supplemental informal assessments reinforce these observations and show modified independence w/ complex problem-solving ability. Pt w/ strongly aware of his memory deficits, which he reported began approximately 3 years ago. Clinician discussed results of cognitive evaluation w/ pt and w/ daughter via phone. Daughter confirms that pt's memory has declined w/ age, but believes that new medications w/ hospitalization may also play a factor. Regardless, the daughter was agreeable to seeking means of additional assistance for pt on discharge from facility. Clinician also educated the daughter and pt regarding cognitive skills needed for driving, and that based on his performance during evaluation, the pt would be safest to avoid driving. Cognitive tx recommended for compensatory strategy training and continued education to pt and family on cognitive limitations & needs. Addendum: 11/12/[address] [facility] Amended: Links added.
[2018-11-12] MEDS: SILVER SULFADIAZINE 1% CR 50 GM JAR TOP SCH ×3 (15:16→22:30)
[2018-11-12 22:00] VITALS: BP 134/70
[2018-11-12] MEDS: ACETAMINOPHEN TAB 650MG DOSE (2X325MG) PO PRN (22:32)
[2018-11-13] MEDS ORDERED: oxyCODONE 5MG TAB PO ONE (02:30)
[2018-11-13] MEDS: CLINDAMYCIN 600 MG in APPROPRIATE DILUENT 1 EA IV SCH ×3 (02:56→19:17)
[2018-11-13 05:55] LABS: HEMATOCRIT 28.9 % (42.0-52.0); HEMOGLOBIN 9.6 g/dl (13.5-17.5); MEAN CORPUSCULAR HEMOGLOBIN 33.3 pg (27.0-33.0); MEAN CORPUSCULAR HGB CONC 33.2 g/dl (32.0-36.5); MEAN CORPUSCULAR VOLUME 100.3 fl (80.0-96.0); PLATELET COUNT, AUTOMATED 340 10^3/uL (150-450); RED BLOOD COUNT 2.88 10^6/uL (4.30-6.10); WHITE BLOOD COUNT 10.4 10^3/uL (4.0-10.0)
[2018-11-13 06:00] VITALS: BP 138/70
[2018-11-13 06:19] LABS: CALCIUM LEVEL 8.1 MG/DL (8.8-10.2); CREATININE FOR GFR 1.77 MG/DL (0.70-1.30); GLOMERULAR FILTRATION RATE 38.9 (>35)
[2018-11-13] MEDS: PIPERACILLIN/TAZOBACTAM SOD 3.375 GM in D5W MINI-BAG PLUS 50 ML IV SCH ×4 (06:24→22:08)
[2018-11-13] MEDS: LEVOTHYROXINE 25MCG TABLET (0.025MG) PO SCH (06:25)
[2018-11-13] MEDS: SPIRONOLACTONE 25 MG TAB PO SCH (08:17)
[2018-11-13] MEDS: ASPIRIN 81 MG ENTERIC TAB PO SCH (08:17)
[2018-11-13] MEDS: SILVER SULFADIAZINE 1% CR 50 GM JAR TOP SCH ×2 (08:18→22:08)
[2018-11-13] MEDS: APIXABAN 2.5 MG TAB (ELIQUIS) PO SCH ×2 (08:18→22:08)
[2018-11-13] MEDS: MULTIVITAMINS/MINERALS THERAP 1 TAB PO SCH (08:18)
[2018-11-13] MEDS: ATENOLOL 25 MG TAB PO SCH (08:18)
[2018-11-13] MEDS: FUROSEMIDE 20 MG TAB PO SCH ×2 (08:18→22:07)
--- NOTE | 2018-11-13 10:42 | IPN ---
DATE: 11/12/2018 The patient overall has been doing relatively well. States that his left leg is hurting less than it was previously. He is not having any fevers or chills and his white count remains normal. His leg edema in his on his physical exam is much better than it was before you can see old ecchymosis, hematoma / eschar on his leg and I removed his dressing today and some eschar is starting to slough off. Otherwise no significant cellulitis is appreciated at this time. IMPRESSION AND PLAN: The patient has improvement of his overall status. I do feel that it is reasonable to have him continue with dressing changes, although after removal of the small amount of eschar with the dressings. He was having some significant discomfort and thus we changed over to Silvadene for him and I will recheck him tomorrow.
--- NOTE | 2018-11-13 10:56 | IPN ---
DATE: 11/13/2018 The patient has been doing well overnight. States that his pain is much better since starting the Silvadene and tolerated it better. His white count did bump a little bit this morning, although I wonder if it is starting to be some hemoconcentration given his hematocrit and platelet count also came up. Otherwise, his leg seems less edematous, no erythema, mostly ecchymosis that is resolving. His eschar is starting to lift on the medial aspect and it appears there is probably a hematoma underneath this. I was able to just remove the dark eschar showing the hematoma under this and we were able to just generally debride this back with some gauze. IMPRESSION AND PLAN: The patient has a hematoma as well as some skin loss in this area and first of all will continue with some dressing changes, but I do feel that depending on how he does we may need to start some packing of the wound. I have also asked the nurses to use some peroxide to clean out the old blood in this area and this I anticipate should start to clear out nicely. Active aggressive debridement with his anticoagulation is contraindicated at this time.
[2018-11-13] MEDS: oxyCODONE 5MG TAB PO PRN (11:54)
[2018-11-13] MEDS: LACTOBACILLUS ACIDOPHILUS CAP (BACID) PO SCH ×2 (12:18→22:08)
[2018-11-13 14:00] VITALS: BP 108/57
[2018-11-13 22:00] VITALS: BP 140/70
--- NOTE | 2018-11-13 22:12 | IPNPDOC ---
Subjective Date Seen The patient was seen on 11/13/18. Subjective Chief Complaint/HPI 88-year-old man with history of hypothyroidism, CHF and A. fib. Patient was admitted after a lawnmower accident resulting in leg wounds. He has developed superimposed cellulitis. Reports improved pain today General: Reports: Normal Appetite; Denies: Chills, Night Sweats, Fatigue, Malaise Eyes: Denies: Pain, Vision change ENT: Denies: Head Aches, Ear Pain, Dysphagia Skin: Denies: Rash, Lesions, Breakdown Pulmonary: Denies: Dyspnea, Cough Cardiovascular: Denies: Chest Pain, Palpitations, Orthopnea, Paroxysmal Noc. Dyspnea, Lt Headedness Gastrointestinal: Denies: Nausea, Vomiting, Abdominal Pain, Diarrhea, Constipation Hematologic: Denies: Bruising, Bleeding Excessively Musculoskeletal: Denies: Neck Pain, Back Pain, Joint Pain, Muscle Pain, Spasms Neurological: Denies: Weakness, Numbness, Change in speech, Confusion Psych: Reports: Mood Normal; Denies: Depression, Memory Issues Objective Physical Examination General Exam: Positive: Alert, No Acute Distress Eye Exam: Positive: PERRLA, Conjunctiva & lids normal, EOMI; Negative: Sclera icteric ENT Exam: Positive: Atraumatic, Mucous membr. moist/pink, Pharynx Normal Neck Exam: Positive: Supple; Negative: JVD, thyromegaly Chest Exam: Positive: Clear to auscultation, Normal air movement Heart Exam: Positive: Rate Normal, Regular Rhythm, Normal S1, Normal S2; Negative: Murmurs, Rubs Abdomen Exam: Positive: Normal bowel sounds, Soft; Negative: Tenderness, Hepatospenomegaly Extremity Exam: Positive: Edema, Tenderness Skin Exam: Positive: Rash Neuro Exam: Positive: Normal Gait, Normal Speech, Cranial Nerves 3-12 NL, Reflexes 2+ Psych Exam: Positive: Mental status NL, Mood NL, Oriented x 3 Assessment /Plan Assessment 88-year-old male with hypothyroid, CHF and A. fib presented with cellulitis around leg wounds continue clindamycin and zosyn for now surgery following continue wound care hypothyroid stable continue synthroid afib stable continue eliquis for stroke prevention continue rate control chronic chf euvolemic continue maintenance diuretics Plan/VTE VTE Prophylaxis Ordered?: Yes VS, I&O, 24H, Fishbone Vital Signs/I&O Vital Signs Date Time Temp Pulse Resp B/P (MAP) Pulse Ox O2 Delivery O2 Flow Rate FiO2 11/13/18 14:00 97.5 64 16 108/57 (74) 99 11/10/18 12:30 Room Air I&O- Last 24 Hours up to 6 AM 11/13/18 06:00 Intake Total 940 ml Output Total 1120 ml Balance -180 ml Laboratory Data 24H LABS Laboratory Tests 2 11/13/18 05:31: Nucleated Red Blood Cells % (auto) 0.0, Anion Gap 6L, Glomerular Filtration Rate 38.9, Blood Urea Nitrogen 36H, Creatinine 1.77H, Sodium Level 141, Potassium Level 4.0, Chloride Level 106, Carbon Dioxide Level 29, Calcium Level 8.1L CBC/BMP Laboratory Tests 11/13/18 05:31 Red Blood Count 2.88 L, Mean Corpuscular Volume 100.3 H, Mean Corpuscular Hemo globin 33.3 H, Mean Corpuscular Hemoglobin Concent 33.2, Red Cell Distribution Width 15.9 H, Calcium Level 8.1 L Microbiology Microbiology 11/10/18 Blood Culture - Preliminary, Resulted No Growth after 72 hours. All specime... 11/10/18 Blood Culture - Preliminary, Resulted No Growth after 72 hours. All specime... 11/10/18 Gram Stain - Final, Complete 11/10/18 Wound Culture - Final, Complete Pseudomonas Aeruginosa Enterococcus Faecalis HERIBERTO CHRISTENSEN MD Nov 13, 2018 22:12
[2018-11-14] MEDS: CLINDAMYCIN 600 MG in APPROPRIATE DILUENT 1 EA IV SCH ×3 (02:50→18:05)
[2018-11-14] MEDS: PIPERACILLIN/TAZOBACTAM SOD 3.375 GM in D5W MINI-BAG PLUS 50 ML IV SCH ×4 (03:41→23:20)
[2018-11-14] MEDS: oxyCODONE 5MG TAB PO PRN ×2 (04:30→20:18)
[2018-11-14] MEDS: LEVOTHYROXINE 25MCG TABLET (0.025MG) PO SCH (05:42)
[2018-11-14 05:56] LABS: HEMATOCRIT 28.6 % (42.0-52.0); HEMOGLOBIN 9.3 g/dl (13.5-17.5); MEAN CORPUSCULAR HEMOGLOBIN 33.2 pg (27.0-33.0); MEAN CORPUSCULAR HGB CONC 32.5 g/dl (32.0-36.5); MEAN CORPUSCULAR VOLUME 102.1 fl (80.0-96.0); PLATELET COUNT, AUTOMATED 337 10^3/uL (150-450); WHITE BLOOD COUNT 9.2 10^3/uL (4.0-10.0)
[2018-11-14 06:00] VITALS: BP 132/72
[2018-11-14 06:24] LABS: CALCIUM LEVEL 8.2 MG/DL (8.8-10.2); CREATININE FOR GFR 1.81 MG/DL (0.70-1.30); GLOMERULAR FILTRATION RATE 37.9 (>35)
[2018-11-14] MEDS: APIXABAN 2.5 MG TAB (ELIQUIS) PO SCH ×2 (08:58→20:19)
[2018-11-14] MEDS: LACTOBACILLUS ACIDOPHILUS CAP (BACID) PO SCH ×2 (08:58→20:17)
[2018-11-14] MEDS: FUROSEMIDE 20 MG TAB PO SCH (08:58)
[2018-11-14] MEDS: SILVER SULFADIAZINE 1% CR 50 GM JAR TOP SCH ×2 (08:59→20:20)
[2018-11-14] MEDS: SPIRONOLACTONE 25 MG TAB PO SCH (08:59)
[2018-11-14] MEDS: ASPIRIN 81 MG ENTERIC TAB PO SCH (08:59)
[2018-11-14] MEDS: ATENOLOL 25 MG TAB PO SCH (08:59)
[2018-11-14] MEDS: MULTIVITAMINS/MINERALS THERAP 1 TAB PO SCH (08:59)
[2018-11-14 14:00] VITALS: BP 136/66
--- NOTE | 2018-11-14 20:29 | IPNPDOC ---
Subjective Date Seen The patient was seen on 11/14/18. Subjective Chief Complaint/HPI 88-year-old man with history of hypothyroidism, CHF and A. fib. Patient was admitted after a lawnmower accident resulting in leg wounds. He has developed superimposed cellulitis. no complaints General: Reports: Normal Appetite; Denies: Chills, Night Sweats, Fatigue, Malaise Objective Physical Examination General Exam: Positive: Alert, No Acute Distress Eye Exam: Positive: PERRLA, Conjunctiva & lids normal, EOMI; Negative: Sclera icteric ENT Exam: Positive: Atraumatic, Mucous membr. moist/pink, Pharynx Normal Neck Exam: Positive: Supple; Negative: JVD, thyromegaly Chest Exam: Positive: Clear to auscultation, Normal air movement Heart Exam: Positive: Rate Normal, Regular Rhythm, Normal S1, Normal S2; Negative: Murmurs, Rubs Abdomen Exam: Positive: Normal bowel sounds, Soft; Negative: Tenderness, Hepatospenomegaly Extremity Exam: Positive: Edema, Tenderness Skin Exam: Positive: Rash Neuro Exam: Positive: Normal Gait, Normal Speech, Cranial Nerves 3-12 NL, Re flexes 2+ Psych Exam: Positive: Mental status NL, Mood NL, Oriented x 3 Assessment /Plan Assessment 88-year-old male with hypothyroid, CHF and A. fib presented with cellulitis around leg wounds continue clindamycin and zosyn for now surgery following continue wound care hypothyroid stable continue synthroid afib stable continue eliquis for stroke prevention continue rate control chronic chf euvolemic continue maintenance diuretics Plan/VTE VTE Prophylaxis Ordered?: Yes VS, I&O, 24H, Fishbone Vital Signs/I&O Vital Signs Date Time Temp Pulse Resp B/P (MAP) Pulse Ox O2 Delivery O2 Flow Rate FiO2 11/14/18 20:18 20 11/14/18 14:00 97.4 68 136/66 (89) 100 11/10/18 12:30 Room Air I&O- Last 24 Hours up to 6 AM 11/14/18 06:00 Intake Total 1840 ml Output Total 625 ml Balance 1215 ml Laboratory Data 24H LABS Laboratory Tests 2 11/14/18 05:28: Nucleated Red Blood Cells % (auto) 0.0, Anion Gap 7L, Glomerular Filtration Rate 37.9, Blood Urea Nitrogen 41H, Creatinine 1.81H, Sodium Level 138, Potassium Level 4.0, Chloride Level 104, Carbon Dioxide Level 27, Calcium Level 8.2L CBC/BMP Laboratory Tests 11/14/18 05:28 Red Blood Count 2.80 L, Mean Corpuscular Volume 102.1 H, Mean Corpuscular Hemoglobin 33.2 H, Mean Corpuscular Hemoglobin Concent 32.5, Red Cell Distribution Width 15.9 H, Calcium Level 8.2 L Microbiology Microbiology 11/10/18 Blood Culture - Preliminary, Resulted No Growth after 72 hours. All specime... 11/10/18 Blood Culture - Preliminary, Resulted No Growth after 72 hours. All specime... 11/10/18 Gram Stain - Final, Complete 11/10/18 Wound Culture - Final, Complete Pseudomonas Aeruginosa Enterococcus Faecalis HERIBERTO CHRISTENSEN MD Nov 14, 2018 20:29
[2018-11-14 22:00] VITALS: BP 130/61
[2018-11-14] MEDS ORDERED: CALCIUM CARBONATE 500 MG CHEW U/D PO ONE (23:00)
[2018-11-15] MEDS: CLINDAMYCIN 600 MG in APPROPRIATE DILUENT 1 EA IV SCH ×3 (04:26→18:24)
[2018-11-15] MEDS: diphenhydrAMINE CREAM 30GM TOP PRN (04:44)
[2018-11-15] MEDS: PIPERACILLIN/TAZOBACTAM SOD 3.375 GM in D5W MINI-BAG PLUS 50 ML IV SCH ×4 (05:57→22:18)
[2018-11-15] MEDS: LEVOTHYROXINE 25MCG TABLET (0.025MG) PO SCH (05:57)
[2018-11-15 06:00] VITALS: BP 136/63
[2018-11-15 06:11] LABS: BASO # 0.1 10^3/uL (0.0-0.2); BASO % 0.6 % (0.0-1.0); EOS # 0.2 10^3/uL (0.0-0.50); EOS % 2.4 % (0.0-3.0); HEMATOCRIT 27.4 % (42.0-52.0); HEMOGLOBIN 9.1 g/dl (13.5-17.5); LYMPH # 1.6 10^3/uL (1.5-4.5); LYMPH % 18.8 % (24.0-44.0); MEAN CORPUSCULAR HGB CONC 33.2 g/dl (32.0-36.5); MEAN CORPUSCULAR VOLUME 102.2 fl (80.0-96.0); MONO # 0.4 10^3/uL (0.0-0.8); MONO % 5.1 % (0.0-5.0); NEUTROPHILS # 6.1 10^3/uL (1.8-7.7); NEUTROPHILS % 72.1 % (36.0-66.0); PLATELET COUNT, AUTOMATED 331 10^3/uL (150-450); RED BLOOD COUNT 2.68 10^6/uL (4.30-6.10); WHITE BLOOD COUNT 8.4 10^3/uL (4.0-10.0)
[2018-11-15 06:43] LABS: ALBUMIN 2.8 GM/DL (3.2-5.2); BILIRUBIN,TOTAL 1.3 MG/DL (0.2-1.0); CALCIUM LEVEL 7.8 MG/DL (8.8-10.2); CREATININE FOR GFR 1.56 MG/DL (0.70-1.30); MAGNESIUM LEVEL 2.8 MG/DL (1.8-2.4); POTASSIUM SERUM 4.4 MEQ/L (3.5-5.1); TOTAL PROTEIN 6.1 GM/DL (6.4-8.2)
[2018-11-15] MEDS: LACTOBACILLUS ACIDOPHILUS CAP (BACID) PO SCH ×2 (09:58→22:18)
[2018-11-15] MEDS: ATENOLOL 25 MG TAB PO SCH (09:59)
[2018-11-15] MEDS: MULTIVITAMINS/MINERALS THERAP 1 TAB PO SCH (09:59)
[2018-11-15] MEDS: SPIRONOLACTONE 25 MG TAB PO SCH (09:59)
[2018-11-15] MEDS: ASPIRIN 81 MG ENTERIC TAB PO SCH (09:59)
[2018-11-15] MEDS: APIXABAN 2.5 MG TAB (ELIQUIS) PO SCH ×2 (09:59→22:17)
[2018-11-15] MEDS: FUROSEMIDE 20 MG TAB PO SCH ×2 (10:00→22:18)
[2018-11-15] MEDS: oxyCODONE 5MG TAB PO PRN (12:34)
[2018-11-15] MEDS: SILVER SULFADIAZINE 1% CR 50 GM JAR TOP SCH ×2 (13:30→22:18)
[2018-11-15 14:00] VITALS: BP 138/64
[2018-11-15] MEDS: MORPHINE 4 MG/ML 1ML VIAL/SYRINGE (J2270) IV PRN (16:15)
[2018-11-15 18:45] LABS: CK-MB VALUE MASS 2.9 NG/ML (<3.6); MB/CK RELATIVE INDEX 3.72 (< OR =4); TROPONIN I 0.02 NG/ML (< 0.10)
--- NOTE | 2018-11-15 20:37 | IPNPDOC ---
Subjective Date Seen The patient was seen on 11/15/18. Subjective Chief Complaint/HPI 88-year-old man with history of hypothyroidism, CHF and A. fib. Patient was admitted after a lawnmower accident resulting in leg wounds. He has developed superimposed cellulitis. having chest pain during dressing change. described as pinching lasting a minute and occurring every few minutes A full 10pt ROS was performed. Negative excepted as documented above in the hpi Objective Physical Examination General Exam: Positive: Alert, No Acute Distress Eye Exam: Positive: PERRLA, Conjunctiva & lids normal, EOMI; Negative: Sclera icteric ENT Exam: Positive: Atraumatic, Mucous membr. moist/pink, Pharynx Normal Neck Exam: Positive: Supple; Negative: JVD, thyromegaly Chest Exam: Positive: Clear to auscultation, Normal air movement Heart Exam: Positive: Rate Normal, Regular Rhythm, Normal S1, Normal S2; Negative: Murmurs, Rubs Abdomen Exam: Positive: Normal bowel sounds, Soft; Negative: Tenderness, Hepatospenomegaly Extremity Exam: Positive: Edema, Tenderness Skin Exam: Positive: Rash Neuro Exam: Positive: Normal Gait, Normal Speech, Cranial Nerves 3-12 NL, Reflexes 2+ Psych Exam: Positive: Mental status NL, Mood NL, Oriented x 3 Assessment /Plan Assessment 88-year-old male with hypothyroid, CHF and A. fib presented with cellulitis around leg wounds continue clindamycin and zosyn for now surgery following continue wound care hypothyroid stable continue synthroid afib stable continue eliquis for stroke prevention continue rate control chronic chf euvolemic continue maintenance diuretics chest pain atypical description ekg unchanged first troponin wnl repeat tonight low suspicion for cardiac cp Plan/VTE VTE Prophylaxis Ordered?: Yes VS, I&O, 24H, Fishbone Vital Signs/I&O Vital Signs Date Time Temp Pulse Resp B/P (MAP) Pulse Ox O2 Delivery O2 Flow Rate FiO2 11/15/18 16:26 18 11/15/18 14:00 97.4 83 138/64 (88) 100 11/10/18 12:30 Room Air I&O- Last 24 Hours up to 6 AM 11/15/18 05:59 Intake Total 2190 ml Output Total 800 ml Balance 1390 ml Laboratory Data 24H LABS Laboratory Tests 2 11/14/18 23:12: Troponin I 0.02 11/15/18 05:57: Troponin I < 0.02, Immature Granulocyte % (Auto) 1.0, White Blood Count 8.4, Red Blood Count 2.68L, Hemoglobin 9.1L, Hematocrit 27.4L, Mean Corpuscular Volume 102.2H, Mean Corpuscular Hemoglobin 34.0H, Mean Corpuscular Hemoglobin Concent 33.2, Red Cell Distribution Width 15.8H, Platelet Count 331, Neutrophils (%) (Auto) 72.1H, Lymphocytes (%) (Auto) 18.8L, Monocytes (%) (Auto) 5.1H, Eosinophils (%) (Auto) 2.4, Basophils (%) (Auto) 0.6, Neutrophils # (Auto) 6.1, Lymphocytes # (Auto) 1.6, Monocytes # (Auto) 0.4, Eosinophils # (Auto) 0.2, Bas ophils # (Auto) 0.1, Nucleated Red Blood Cells % (auto) 0.0, Anion Gap 9, Glomerular Filtration Rate 45.0, Blood Urea Nitrogen 42H, Creatinine 1.56H, Sodium Level 140, Potassium Level 4.4, Chloride Level 105, Carbon Dioxide Level 26, Calcium Level 7.8L, Aspartate Amino Transf (AST/SGOT) 20, Alanine Aminotransferase (ALT/SGPT) 19, Alkaline Phosphatase 77, Total Bilirubin 1.3H, Total Protein 6.1L, Albumin 2.8L, Magnesium Level 2.8H, Albumin/Globulin Ratio 0.85L, Procalcitonin 0.16 11/15/18 17:57: Troponin I 0.02, Total Creatine Kinase 78, Creatine Kinase MB 2.9, Creatine Kin ase MB Relative Index 3.72 CBC/BMP Laboratory Tests 11/15/18 05:57 Red Blood Count 2.68 L, Mean Corpuscular Volume 102.2 H, Mean Corpuscular Hemoglobin 34.0 H, Mean Corpuscular Hemoglobin Concent 33.2, Red Cell Distribution Width 15.8 H, Neutrophils (%) (Auto) 72.1 H, Lymphocytes (%) (Auto) 18.8 L, Monocytes (%) (Auto) 5.1 H, Eosinophils (%) (Auto) 2.4, Basophils (%) (Auto) 0.6, Neutrophils # (Auto) 6.1, Lymphocytes # (Auto) 1.6, Monocytes # (Auto) 0.4, Eosinophils # (Auto) 0.2, Basophils # (Auto) 0.1, Calcium Level 7.8 L, Aspartate Amino Transf (AST/SGOT) 20, Alanine Aminotransferase (ALT/SGPT) 19, Alkaline Phosphatase 77, Total Bilirubin 1.3 H, Total Protein 6.1 L, Albumin 2.8 L Microbiology Microbiology 11/10/18 Blood Culture - Final, Complete NO GROWTH AFTER 5 DAYS 11/10/18 Blood Culture - Final, Complete NO GROWTH AFTER 5 DAYS 11/10/18 Gram Stain - Final, Complete 11/10/18 Wound Culture - Final, Complete Pseudomonas Aeruginosa Enterococcus Faecalis HERIBERTO CHRISTENSEN MD Nov 15, 2018 20:37
[2018-11-15] MEDS ORDERED: RAMELTEON 8 MG TAB (ROZEREM) PO ONE (21:00)
[2018-11-15 22:00] VITALS: BP 124/64
[2018-11-15 23:47] LABS: CK-MB VALUE MASS 2.7 NG/ML (<3.6); CPK CREATINE PHOSPHOKINASE 65 U/L (39-308); MB/CK RELATIVE INDEX 4.15 (< OR =4); TROPONIN I < 0.02 NG/ML (< 0.10)
[2018-11-16] MEDS: CLINDAMYCIN 600 MG in APPROPRIATE DILUENT 1 EA IV SCH ×3 (03:22→18:07)
[2018-11-16] MEDS: PIPERACILLIN/TAZOBACTAM SOD 3.375 GM in D5W MINI-BAG PLUS 50 ML IV SCH ×4 (04:45→21:54)
[2018-11-16] MEDS: LEVOTHYROXINE 25MCG TABLET (0.025MG) PO SCH (05:11)
[2018-11-16] MEDS: ACETAMINOPHEN TAB 650MG DOSE (2X325MG) PO PRN (05:14)
[2018-11-16 06:00] VITALS: BP 141/70
[2018-11-16] MEDS ORDERED: CEPACOL LOZENGE PO PRN (06:00)
[2018-11-16] MEDS: ATENOLOL 25 MG TAB PO SCH (09:45)
[2018-11-16] MEDS: SPIRONOLACTONE 25 MG TAB PO SCH (09:45)
[2018-11-16] MEDS: FUROSEMIDE 20 MG TAB PO SCH ×2 (09:45→21:55)
[2018-11-16] MEDS: MULTIVITAMINS/MINERALS THERAP 1 TAB PO SCH (09:46)
[2018-11-16] MEDS: APIXABAN 2.5 MG TAB (ELIQUIS) PO SCH ×2 (09:46→21:54)
[2018-11-16] MEDS: ASPIRIN 81 MG ENTERIC TAB PO SCH (09:46)
[2018-11-16] MEDS: diphenhydrAMINE CREAM 30GM TOP PRN (09:46)
[2018-11-16] MEDS: LACTOBACILLUS ACIDOPHILUS CAP (BACID) PO SCH ×2 (09:46→21:54)
[2018-11-16] MEDS ORDERED: diphenhydrAMINE 25 MG CAP PO ONE (11:00)
[2018-11-16] MEDS: MORPHINE 4 MG/ML 1ML VIAL/SYRINGE (J2270) IV PRN ×2 (11:03→22:06)
[2018-11-16] MEDS: SILVER SULFADIAZINE 1% CR 50 GM JAR TOP SCH ×2 (11:07→21:55)
[2018-11-16 14:00] VITALS: BP 133/64
--- NOTE | 2018-11-16 18:02 | IPNPDOC ---
Subjective Date Seen The patient was seen on 11/16/18. Subjective Chief Complaint/HPI 88-year-old man with history of hypothyroidism, CHF and A. fib. Patient was admitted after a lawnmower accident resulting in leg wounds. He has developed superimposed cellulitis. no further chest pain A full 10pt ROS was performed. Negative excepted as documented above in the hpi Objective Physical Examination General Exam: Positive: Alert, No Acute Distress Eye Exam: Positive: PERRLA, Conjunctiva & lids normal, EOMI; Negative: Sclera icteric ENT Exam: Positive: Atraumatic, Mucous membr. moist/pink, Pharynx Normal Neck Exam: Positive: Supple; Negative: JVD, thyromegaly Chest Exam: Positive: Clear to auscultation, Normal air movement Heart Exam: Positive: Rate Normal, Regular Rhythm, Normal S1, Normal S2; Negative: Murmurs, Rubs Abdomen Exam: Positive: Normal bowel sounds, Soft; Negative: Tenderness, Hepatospenomegaly Extremity Exam: Positive: Edema, Tenderness Skin Exam: Positive: Rash Neuro Exam: Positive: Normal Gait, Normal Speech, Cranial Nerves 3-12 NL, Reflexes 2+ Psych Exam: Positive: Mental status NL, Mood NL, Oriented x 3 Assessment /Plan Plan/VTE VTE Prophylaxis Ordered?: Yes Plan 88-year-old male with hypothyroid, CHF and A. fib presented with cellulitis around leg wounds continue clindamycin and zosyn for now surgery following continue wound care hypothyroid stable continue synthroid afib stable continue eliquis for stroke prevention continue rate control chronic chf euvolemic continue maintenance diuretics chest pain resolved not cardiac in nature VS, I&O, 24H, Fishbone Vital Signs/I&O Vital Signs Date Time Temp Pulse Resp B/P (MAP) Pulse Ox O2 Delivery O2 Flow Rate FiO2 11/16/18 14:00 97.5 58 17 133/64 (87) 95 11/10/18 12:30 Room Air I&O- Last 24 Hours up to 6 AM 11/16/18 06:00 Intake Total 2380 ml Output Total 1870 ml Balance 510 ml Laboratory Data 24H LABS Laboratory Tests 2 11/15/18 23:10: Total Creatine Kinase 65, Creatine Kinase MB 2.7, Creatine Kinase MB Relative Index 4.15H, Troponin I < 0.02 Microbiology Microbiology 11/10/18 Blood Culture - Final, Complete NO GROWTH AFTER 5 DAYS 11/10/18 Blood Culture - Final, Complete NO GROWTH AFTER 5 DAYS 11/10/18 Gram Stain - Final, Complete 11/10/18 Wound Culture - Final, Complete Pseudomonas Aeruginosa Enterococcus Faecalis HERIBERTO CHRISTENSEN MD Nov 16, 2018 18:02
[2018-11-16] MEDS: oxyCODONE 5MG TAB PO PRN (18:06)
[2018-11-16 22:00] VITALS: BP 136/71
--- NOTE | 2018-11-17 01:21 | ECGEPIP ---
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 PRIOR TRACING ON 11/14/2018 AT 11:04 P.M. Electronically Signed on 11-17-2018 1:21:04 EDT by Dayne Vuong
[2018-11-17] MEDS: CLINDAMYCIN 600 MG in APPROPRIATE DILUENT 1 EA IV SCH ×3 (02:59→18:04)
[2018-11-17] MEDS: PIPERACILLIN/TAZOBACTAM SOD 3.375 GM in D5W MINI-BAG PLUS 50 ML IV SCH ×4 (03:30→22:00)
[2018-11-17 06:00] VITALS: BP 116/64
[2018-11-17] MEDS: LEVOTHYROXINE 25MCG TABLET (0.025MG) PO SCH (06:02)
[2018-11-17] MEDS: ASPIRIN 81 MG ENTERIC TAB PO SCH (09:47)
[2018-11-17] MEDS: LACTOBACILLUS ACIDOPHILUS CAP (BACID) PO SCH ×2 (09:47→22:01)
[2018-11-17] MEDS: SILVER SULFADIAZINE 1% CR 50 GM JAR TOP SCH ×2 (09:52→18:19)
[2018-11-17] MEDS: MULTIVITAMINS/MINERALS THERAP 1 TAB PO SCH (09:52)
[2018-11-17] MEDS: APIXABAN 2.5 MG TAB (ELIQUIS) PO SCH ×2 (09:52→22:01)
[2018-11-17] MEDS: MORPHINE 4 MG/ML 1ML VIAL/SYRINGE (J2270) IV PRN ×2 (09:59→14:55)
[2018-11-17 10:15] VITALS: BP 96/52
[2018-11-17 12:02] VITALS: BP 126/68
[2018-11-17] MEDS: FUROSEMIDE 20 MG TAB PO SCH (12:02)
[2018-11-17] MEDS: ATENOLOL 25 MG TAB PO SCH (12:02)
[2018-11-17] MEDS: SPIRONOLACTONE 25 MG TAB PO SCH (12:02)
[2018-11-17 12:04] VITALS: BP 126/68
[2018-11-17] MEDS: oxyCODONE 5MG TAB PO PRN (12:04)
[2018-11-17] MEDS ORDERED: CLIN150C14 PO (12:16)
[2018-11-17] MEDS ORDERED: LEVO250T12 PO (12:19)
[2018-11-17] MEDS ORDERED: RISATAB3 PO (12:21)
[2018-11-17] MEDS ORDERED: OXYCO5TA PO (12:21)
[2018-11-17 14:00] VITALS: BP 126/65
[2018-11-17] MEDS: diphenhydrAMINE CREAM 30GM TOP PRN (19:18)
[2018-11-17 22:00] VITALS: BP 118/60
[2018-11-18] MEDS: CLINDAMYCIN 600 MG in APPROPRIATE DILUENT 1 EA IV SCH ×2 (02:57→11:04)
[2018-11-18] MEDS: PIPERACILLIN/TAZOBACTAM SOD 3.375 GM in D5W MINI-BAG PLUS 50 ML IV SCH ×2 (03:42→09:35)
[2018-11-18] MEDS: LEVOTHYROXINE 25MCG TABLET (0.025MG) PO SCH (05:24)
[2018-11-18 06:00] VITALS: BP 115/56
[2018-11-18] MEDS: MORPHINE 4 MG/ML 1ML VIAL/SYRINGE (J2270) IV PRN (08:10)
[2018-11-18 08:26] VITALS: BP 122/56
[2018-11-18] MEDS: ATENOLOL 25 MG TAB PO SCH (08:37)
[2018-11-18] MEDS: APIXABAN 2.5 MG TAB (ELIQUIS) PO SCH (08:37)
[2018-11-18] MEDS: SPIRONOLACTONE 25 MG TAB PO SCH (08:37)
[2018-11-18] MEDS: LACTOBACILLUS ACIDOPHILUS CAP (BACID) PO SCH (08:38)
[2018-11-18] MEDS: SILVER SULFADIAZINE 1% CR 50 GM JAR TOP SCH (08:38)
[2018-11-18] MEDS: FUROSEMIDE 20 MG TAB PO SCH (08:38)
[2018-11-18] MEDS: MULTIVITAMINS/MINERALS THERAP 1 TAB PO SCH (08:38)
[2018-11-18] MEDS: ASPIRIN 81 MG ENTERIC TAB PO SCH (08:39)
[2018-11-18] MEDS: oxyCODONE 5MG TAB PO PRN (11:04)
--- NOTE | 2018-11-19 07:17 | ECGEPIP ---
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
--- NOTE | 2018-11-19 14:18 | IPNPDOC ---
Subjective Date Seen The patient was seen on 11/17/18. Subjective Chief Complaint/HPI 88-year-old man with history of hypothyroidism, CHF and A. fib. Patient was admitted after a lawnmower accident resulting in leg wounds. He has developed superimposed cellulitis. Pt is feeling better. We have discussed discharge options with his daughter and himself. Plan is to discharge to rehab. A full 10pt ROS was performed. Negative excepted as documented above in the hpi Objective Physical Examination General Exam: Positive: Alert, No Acute Distress Eye Exam: Positive: PERRLA, Conjunctiva & lids normal, EOMI; Negative: Sclera icteric ENT Exam: Positive: Atraumatic, Mucous membr. moist/pink, Pharynx Normal Neck Exam: Positive: Supple; Negative: JVD, thyromegaly Chest Exam: Positive: Clear to auscultation, Normal air movement Heart Exam: Positive: Rate Normal, Regular Rhythm, Normal S1, Normal S2; Negative: Murmurs, Rubs Abdomen Exam: Positive: Normal bowel sounds, Soft; Negative: Tenderness, Hepatospenomegaly Extremity Exam: Positive: Edema, Tenderness Skin Exam: Positive: Rash Neuro Exam: Positive: Normal Gait, Normal Speech, Cranial Nerves 3-12 NL, Reflexes 2+ Psych Exam: Positive: Mental status NL, Mood NL, Oriented x 3 Assessment /Plan Assessment 88-year-old male with hypothyroid, CHF and A. fib presented with cellulitis around leg wounds convert abx to po surgery following continue wound care hypothyroid stable continue synthroid afib stable continue eliquis for stroke prevention continue rate control chronic chf euvolemic continue maintenance diuretics chest pain resolved not cardiac in nature plan to dc today (11/17/18) Plan/VTE VTE Prophylaxis Ordered?: Yes VS, I&O, 24H, Fishbone Vital Signs/I&O Vital Signs Date Time Temp Pulse Resp B/P (MAP) Pulse Ox O2 Delivery O2 Flow Rate FiO2 11/18/18 11:34 16 11/18/18 08:26 122/56 (78) 11/18/18 06:00 97.2 66 98 I&O- Last 24 Hours up to 6 AM 11/19/18 05:59 Intake Total 845 ml Output Total 370 ml Balance 475 ml Laboratory Data Microbiology Microbiology 11/10/18 Blood Culture - Final, Complete NO GROWTH AFTER 5 DAYS 11/10/18 Blood Culture - Final, Complete NO GROWTH AFTER 5 DAYS 11/10/18 Gram Stain - Final, Complete 11/10/18 Wound Culture - Final, Complete Pseudomonas Aeruginosa Enterococcus Faecalis HERIBERTO CHRISTENSEN MD Nov 19, 2018 14:18
--- NOTE | 2018-11-19 14:25 | DS.PDOC ---
Discharge Summary General Date of Admission Nov 10, 2018 at 11:40 Date of Discharge 7 Discharge Summary PROCEDURES PERFORMED DURING STAY: [None]. ADMITTING DIAGNOSES: 1. Laceration to both legs 2. superimposed cellulitis on traumatic wound DISCHARGE DIAGNOSES: 1. Laceration to both legs 2. superimposed cellulitis on traumatic wound COMPLICATIONS/CHIEF COMPLAINT: Cellulitis Of Left Leg. HISTORY OF PRESENT ILLNESS: Patient is a 88-year-old female with past medical history of A. fib on Eliquis, hypertension, hypothyroid, heart failure brought into ER by [id number] with concern for worsening left lower extremity swelling after a lawnmower accident 1 week prior. Patient reportedly has had trauma to bilateral lower extremity below the knee from the lawnmower and has been following with Dr. Paez in wound care for the past week. Has had debridement post incident and has been doing fine up until this past weekend when his left leg become erythematous with worsening pain for the past 2 days. He denies any fever, chills or any other complaints apart from the pain. Family also expressed concern about patient's ability to take care of self as he lives alone at this time and unable to ambulate freely. HOSPITAL COURSE: pt was admitted and treated with iv antibiotics. Pain and exam worsened and surgery was called for wound care. He improved and antibiotics were changed to oral guided by wound culture. He was discharged to rehab for further wound care DISCHARGE MEDICATIONS: Please see below. ALLERGIES: Please see below. PHYSICAL EXAMINATION ON DISCHARGE: VITAL SIGNS: Please see below. General Exam: Positive: Alert, No Acute Distress Eye Exam: Positive: PERRLA, Conjunctiva & lids normal, EOMI; Negative: Sclera icteric ENT Exam: Positive: Atraumatic, Mucous membr. moist/pink, Pharynx Normal Neck Exam: Positive: Supple; Negative: JVD, thyromegaly Chest Exam: Positive: Clear to auscultation, Normal air movement Heart Exam: Positive: Rate Normal, Regular Rhythm, Normal S1, Normal S2; Negative: Murmurs, Rubs Abdomen Exam: Positive: Normal bowel sounds, Soft; Negative: Tenderness, Hepatospenomegaly Extremity Exam: Positive: Edema, Tenderness Skin Exam: Positive: Rash Neuro Exam: Positive: Normal Gait, Normal Speech, Cranial Nerves 3-12 NL, Reflexes 2+ Psych Exam: Positive: Mental status NL, Mood NL, Oriented x 3 LABORATORY DATA: Please see below. ACTIVITY: [As tolerated]. DIET: [cardiac] DISPOSITION: [facility]. DISCHARGE CONDITION: [Stable]. Vital Signs/I&Os Vital Signs Date Time Temp Pulse Resp B/P (MAP) Pulse Ox O2 Delivery O2 Flow Rate FiO2 11/18/18 11:34 16 11/18/18 08:26 122/56 (78) 11/18/18 06:00 97.2 66 98 I&O- Last 24 Hours up to 6 AM 11/19/18 05:59 Intake Total 845 ml Output Total 370 ml Balance 475 ml Microbiology Microbiology 11/10/18 Blood Culture - Final, Complete NO GROWTH AFTER 5 DAYS 11/10/18 Blood Culture - Final, Complete NO GROWTH AFTER 5 DAYS 11/10/18 Gram Stain - Final, Complete 11/10/18 Wound Culture - Final, Complete Pseudomonas Aeruginosa Enterococcus Faecalis Discharge Medications Scheduled Apixaban (Eliquis) 2.5 Mg Tab, 2.5 MG PO BID, (Reported) Aspirin (Aspirin EC) 81 Mg Tab, 81 MG PO DAILY, (Reported) Atenolol (Atenolol) 50 Mg Tab, 25 MG PO DAILY, (Reported) Clindamycin Hcl (Clindamycin HCl) 150 Mg Capsule, 150 MG PO TID, (Reported) Furosemide (Furosemide) 20 Mg Tab, 40 MG PO 3XW, (Reported) SATURDAY, SATURDAY, SATURDAY PATIENT TAKES 40MG IN THE MORNING, ALL OTHER DAYS OF THE WEEK PATIENT TAKES 20MG BID Furosemide (Furosemide) 20 Mg Tab, 20 MG PO BID, (Reported) SATURDAY, SATURDAY, SATURDAY PATIENT TAKES 40MG IN THE MORNING, ALL OTHER DAYS OF THE WEEK PATIENT TAKES 20MG BID L.acidoph/L.bulg/B.bif/S.therm (Shyann-Bid Caplet) 1 Each Tablet, 2 EA PO BID Levofloxacin (Levofloxacin) 250 Mg Tablet, 1 TAB PO Q48HP, (Reported) Levothyroxine Sodium (Levothyroxine Sodium) 25 Mcg Tab, 25 MCG PO DAILY, (Reported) Multivitamins (Thera M Plus Tablet) 1 Tab Tab, 1 TAB PO DAILY, (Reported) Spironolactone (Spironolactone) 25 Mg Tab, 25 MG PO DAILY, (Reported) Scheduled PRN Oxycodone HCl (Oxycodone HCl) 5 Mg Tablet, 5-10 MG PO Q6HP PRN for pain Allergies Coded Allergies: No Known Allergies (Unverified , 03/07/17) HERIBERTO CHRISTENSEN MD Nov 19, 2018 14:25
== END 2018-11-18 12:41 | DRG 605 ==
LOC: M ED 08:59 → EDBD 08:59 → M ED INP 11:40 → M MSPAV 12:48
PROVIDERS: ADMIT Student in an Organized Health Care Education/Training Program; ATTEND Hospitalist
DX: S81.812A Laceration without foreign body, left lower leg, initial encounter (principal); L03.116 Cellulitis of left lower limb; S81.811A Laceration without foreign body, right lower leg, initial encounter; I11.0 Hypertensive heart disease with heart failure; I48.91 Unspecified atrial fibrillation; I50.9 Heart failure, unspecified; E03.9 Hypothyroidism, unspecified; R07.89 Other chest pain; Z79.01 Long term (current) use of anticoagulants; Z90.49 Acquired absence of other specified parts of digestive tract; Z85.828 Personal history of other malignant neoplasm of skin; Z98.49 Cataract extraction status, unspecified eye; Z79.82 Long term (current) use of aspirin; Z79.899 Other long term (current) drug therapy; Z66 Do not resuscitate; W28.XXXA Contact with powered lawn mower, initial encounter; Y93.H9 Activity, other involving exterior property and land maintenance, building and construction; Y92.017 Garden or yard in single-family (private) house as the place of occurrence of the external cause

== ENCOUNTER → 2018-11-24 | Outpatient (CLI) | payer MEDICARE ==
[~2018-11-24] MED LIST changes: +ACET1TAB55 PO; +BISAC5TA PO; +CLIN150C14 PO; +JUVE1POW PO; +LASI40TA9 PO; +LEVO250T12 PO; +MILKSUS3 PO; +OXYC5CAP56 PO; +OXYCO5TA PO; +PHARMACY COMMENT; +RISATAB3 PO
== END ==
LOC: M RAD 11:56
PROVIDERS: ATTEND Physician Assistant
DX: I10 Essential (primary) hypertension (principal)

== ENCOUNTER → 2018-11-24 | Outpatient (REF) ==
[~2018-11-24] MED LIST changes: -ACET1TAB55 PO; -BISAC5TA PO; -JUVE1POW PO; -LASI40TA9 PO; -MILKSUS3 PO; -OXYC5CAP56 PO
[2018-11-24 12:28] LABS: HEMATOCRIT 27.9 % (42.0-52.0); MEAN CORPUSCULAR HEMOGLOBIN 33.3 pg (27.0-33.0); MEAN CORPUSCULAR HGB CONC 32.3 g/dl (32.0-36.5); MEAN CORPUSCULAR VOLUME 103.3 fl (80.0-96.0); PLATELET COUNT, AUTOMATED 318 10^3/uL (150-450); WHITE BLOOD COUNT 6.9 10^3/uL (4.0-10.0)
[2018-11-24 12:55] LABS: ERYTHROCYTE SEDIMENTATION RATE 67 mm/hr (0-30)
[2018-11-24 13:00] LABS: C REACTIVE PROTEIN QUANTITATIV 2.59 MG/DL (0.00-0.30); CREATININE FOR GFR 1.27 MG/DL (0.70-1.30); GLOMERULAR FILTRATION RATE 57.1 (>35); POTASSIUM SERUM 4.2 MEQ/L (3.5-5.1); THYROID STIMULATING HORMONE 3.03 uIU/ML (0.358-3.740)
== END ==
DX: I10 Essential (primary) hypertension (principal)

== ENCOUNTER → 2018-11-24 | Outpatient (CLI) | payer MEDICARE ==
[~2018-11-24] MED LIST changes: +ACET1TAB55 PO; +BISAC5TA PO; +JUVE1POW PO; +LASI40TA9 PO; +MILKSUS3 PO; +OXYC5CAP56 PO
--- NOTE | 2018-11-24 13:38 | REP ---
LEFT LOWER EXTREMITY DUPLEX DOPPLER ARTERIAL ULTRASOUND: Real-time ultrasound evaluation and duplex Doppler interrogation of the left lower extremity arterial system is performed. Triphasic waveforms are seen in the common femoral artery with monophasic waveforms in the superficial femoral and popliteal arteries as well as in all of the calf arteries. However, there is no evidence of significant stenosis or occlusion of any of the arterial structures. Left posterior tibial artery is not optimally evaluated due to an overlying open soft tissue wound with bandaging material. There is increased flow in the region of the foot with soft tissue edema. PEAK SYSTOLIC VELOCITY LEFT Common femoral artery 73.9 cm/s Profunda 57.6 Proximal SFA 81.8 Superficial femoral artery mid 76.2 Superficial femoral artery distal 97.6 Popliteal 68.2 Proximal anterior tibial artery 54.9 Tibial peroneal trunk 74.4 Proximal posterior tibial artery 76.2 Distal anterior tibial artery 147.0 IMPRESSION: No definite stenosis or occlusion of the left lower extremity arterial system. Electronically Signed by Lokesh Bear MD 11/25/2018 09:56 A
== END ==
LOC: M CARPUL 12:02
PROVIDERS: ATTEND Physician Assistant
DX: I51.7 Cardiomegaly (principal); Z79.82 Long term (current) use of aspirin; Z79.899 Other long term (current) drug therapy

== ENCOUNTER → 2018-11-27 | Outpatient (CLI) | payer MEDICARE ==
--- NOTE | 2018-11-27 21:11 | ECHO ---
DATE OF PROCEDURE: 11/27/2018 REFERRING PROVIDER: WALE Bridges INDICATION: Cardiomegaly. Height 198 cm, weight 75 kg. DIMENSIONS: IVS: 1.3 LV: 4.2 LVPW: 1.3 LA: 4.8 Aorta: 3.5 IVC: 3.3 FINDINGS The study is of good technical quality. The patient is in atrial fibrillation with controlled rate. Left ventricle is normal size and grossly normal systolic function, I estimate left ventricular ejection fraction (LVEF) around 60%. There is subtle septal wall motion abnormality, likely related to right ventricle (RV) dysfunction. Right ventricle is dilated and hypokinetic. There is severe biatrial enlargement, right atrium is much larger than left. No pericardial effusion is noted. Aortic valve appears sclerotic, but it has three cusps and preserved mobility. There is normally appearing mitral valve with some systolic buckling but no agnes prolapse. Tricuspid valve appears to be prolapsing mildly. Pulmonic valve appears normal. Doppler interrogation reveals no aortic stenosis and trace insufficiency. There is approximately moderate mitral insufficiency but severe tricuspid insufficiency with central TR jet likely corresponding to dilated tricuspid annulus. Mild pulmonic insufficiency is also noted. Calculated pulmonary artery pressure is in 40s corresponding to moderate pulmonary hypertension. Evaluation of diastolic function is inconclusive due to underlying atrial fibrillation. CONCLUSIONS: 1. Study is of good technical quality. 2. Normal left ventricular (LV) size with mild left ventricular hypertrophy (LVH) and preserved LV systolic function. 3. Dilated hypokinetic right ventricle. 4. Severe biatrial enlargement. 5. Moderate mitral insufficiency. 6. Severe tricuspid insufficiency. 7. Very high central venous pressure. 8. At least moderate pulmonary hypertension. COMMENT: Subacute bacterial endocarditis (SBE) prophylaxis is not recommended.
== END ==
LOC: M CARPUL 10:35
PROVIDERS: ATTEND Physician Assistant
DX: I51.7 Cardiomegaly (principal)

== ENCOUNTER → 2018-11-28 | Outpatient (REF) ==
[~2018-11-28] MED LIST changes: +ACET650T15 PO; +ACETTAB15 PO; +AMIT50TA PO; +APAP325T4 PO; +ASPE16CR TOP; +ASPI81CH33 PO; +ATOR40TA75 PO; +AYR0.65S NARES; +BISA10SU27 PR; +CEFD300CAP PO; +CIPR500T3 PO; +COLA100C5 PO; +ENEMENE PR; +ENSU1LIQ36 PO; +EUCE1CRE2 TOP; +FLAG500T PO; +FURO40TA2 PO; +LASI20TA3 PO; +MIRA3350 PO; +MULTCAP PO; +POTA20TA6 PO; +PROC20004 SC; +SODIGEL; +TYLE650T35 PO
[2018-11-28 17:50] LABS: BLOOD UREA NITROGEN 41 MG/DL (7-18); CALCIUM LEVEL 8.6 MG/DL (8.8-10.2); CARBON DIOXIDE LEVEL 29 MEQ/L (21-32); CHLORIDE LEVEL 106 MEQ/L (98-107); CREATININE FOR GFR 1.13 MG/DL (0.70-1.30); GLOMERULAR FILTRATION RATE > 60.0 (>35); GLUCOSE, FASTING 90 MG/DL (70-100); SODIUM LEVEL 143 MEQ/L (136-145)
[2018-11-28 17:56] LABS: POTASSIUM SERUM 4.8 MEQ/L (3.5-5.1)
== END ==
PROVIDERS: ATTEND Physician Assistant
DX: S81.802A Unspecified open wound, left lower leg, initial encounter (principal); Y92.89 Other specified places as the place of occurrence of the external cause; Y93.89 Activity, other specified; X58.XXXA Exposure to other specified factors, initial encounter; Y99.8 Other external cause status

== ENCOUNTER → 2018-12-01 | Outpatient (CLI) | payer MEDICARE ==
[~2018-12-01] MED LIST changes: -ACET650T15 PO; -ACETTAB15 PO; -AMIT50TA PO; -APAP325T4 PO; -ASPE16CR TOP; -ASPI81CH33 PO; -ATOR40TA75 PO; -AYR0.65S NARES; -BISA10SU27 PR; -CEFD300CAP PO; -CIPR500T3 PO; -COLA100C5 PO; -ENEMENE PR; -ENSU1LIQ36 PO; -EUCE1CRE2 TOP; -FLAG500T PO; -FURO40TA2 PO; -LASI20TA3 PO; -MIRA3350 PO; -MULTCAP PO; -POTA20TA6 PO; -PROC20004 SC; -SODIGEL; -TYLE650T35 PO
[2018-12-01 11:11] LABS: HEMATOCRIT 29.4 % (42.0-52.0); HEMOGLOBIN 9.5 g/dl (13.5-17.5); MEAN CORPUSCULAR HEMOGLOBIN 33.6 pg (27.0-33.0); MEAN CORPUSCULAR HGB CONC 32.3 g/dl (32.0-36.5); MEAN CORPUSCULAR VOLUME 103.9 fl (80.0-96.0); PLATELET COUNT, AUTOMATED 282 10^3/uL (150-450); RED BLOOD COUNT 2.83 10^6/uL (4.30-6.10); WHITE BLOOD COUNT 6.6 10^3/uL (4.0-10.0)
[2018-12-01 11:40] LABS: ALBUMIN 3.1 GM/DL (3.2-5.2); ALT/SGPT 17 U/L (12-78); BILIRUBIN,TOTAL 1.2 MG/DL (0.2-1.0); BLOOD UREA NITROGEN 42 MG/DL (7-18); CALCIUM LEVEL 8.8 MG/DL (8.8-10.2); CARBON DIOXIDE LEVEL 33 MEQ/L (21-32); CHLORIDE LEVEL 104 MEQ/L (98-107); CREATININE FOR GFR 1.16 MG/DL (0.70-1.30); GLOMERULAR FILTRATION RATE > 60.0 (>35); GLUCOSE, FASTING 88 MG/DL (70-100); POTASSIUM SERUM 4.4 MEQ/L (3.5-5.1); SODIUM LEVEL 141 MEQ/L (136-145); TOTAL PROTEIN 6.7 GM/DL (6.4-8.2)
== END ==
LOC: M LAB 10:36
PROVIDERS: ATTEND Surgery Vascular Surgery
DX: I70.202 Unspecified atherosclerosis of native arteries of extremities, left leg (principal)

== ENCOUNTER → 2018-12-01 | Outpatient (REF) | payer MEDICARE ==
[2018-12-01 19:59] LABS: ALBUMIN 3.1 GM/DL (3.2-5.2); ALT/SGPT 18 U/L (12-78); BILIRUBIN,TOTAL 0.9 MG/DL (0.2-1.0); BLOOD UREA NITROGEN 46 MG/DL (7-18); CALCIUM LEVEL 8.9 MG/DL (8.8-10.2); CARBON DIOXIDE LEVEL 30 MEQ/L (21-32); CHLORIDE LEVEL 103 MEQ/L (98-107); CREATININE FOR GFR 1.19 MG/DL (0.70-1.30); GLOMERULAR FILTRATION RATE > 60.0 (>35); GLUCOSE, FASTING 111 MG/DL (70-100); POTASSIUM SERUM 4.4 MEQ/L (3.5-5.1); SODIUM LEVEL 140 MEQ/L (136-145); TOTAL PROTEIN 6.4 GM/DL (6.4-8.2)
[2018-12-01 20:24] LABS: HEMATOCRIT 29.3 % (42.0-52.0); HEMOGLOBIN 9.5 g/dl (13.5-17.5); MEAN CORPUSCULAR HEMOGLOBIN 33.6 pg (27.0-33.0); MEAN CORPUSCULAR HGB CONC 32.4 g/dl (32.0-36.5); MEAN CORPUSCULAR VOLUME 103.5 fl (80.0-96.0); PLATELET COUNT, AUTOMATED 285 10^3/uL (150-450); RED BLOOD COUNT 2.83 10^6/uL (4.30-6.10); WHITE BLOOD COUNT 6.8 10^3/uL (4.0-10.0)
== END ==
PROVIDERS: ATTEND Physician Assistant
DX: I70.202 Unspecified atherosclerosis of native arteries of extremities, left leg (principal)

== ENCOUNTER → 2018-12-03 | Outpatient (CLI) | payer MEDICARE ==
[~2018-12-03] MED LIST changes: +BUPIVACAINE HCL 0.5% 10 ML VIAL As Ordered ONE; +HEPARIN 1,000 UNITS/ML 10ML VIAL (FOR RADIOLOGY& DIALYSIS ONLY) As Ordered ONE; +ISOVUE-300 61% 50ML VIAL (Q9967) As Ordered ONE; +LIDOCAINE 1% MDV 20ML VIAL As Ordered ONE; +LIDOCAINE 2% MDV 20 ML VIAL As Ordered ONE; +MIDAZOLAM INJ 2 MG/2 ML VIAL (J2250) As Ordered ONE; +PERCOCET 5MG/325MG TAB As Ordered ONE; +PROTAMINE SULF INJ 50 MG/5 ML VIAL (J2720) As Ordered ONE; +diazePAM 5 MG TAB As Ordered ONE; +diphenhydrAMINE INJ 50MG/ML VIAL (J1200) As Ordered ONE; +fentaNYL 100 MCG/2 ML INJECTION (J3010) As Ordered ONE
--- NOTE | 2018-12-03 14:52 | ROOPDOC ---
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 Ultrasound-guided access right common femoral artery 2. Left lower extremity arteriogram with runoff, and selective views left common femoral artery and left popliteal artery 3. Angioplasty of the left anterior tibial and peroneal arteries with 3 x 220 [place] balloon 4. Completion arteriograms 5. Attempted to place minx closure right common femoral artery, aborted 6. Closure with manual pressure right common femoral access site SURGEON: Delia Muñoz MD ANESTHESIA: 5 mL lidocaine local anesthesia. Moderate intravenous conscious sedation was supervised by Dr. Muñoz. The patient was independently mon itored by registered nurse assigned to the Department of radiology using automated blood pressure, EKG, and pulse oximetry. The detailed conscious sedation record is permanently stored in the hospital information system. The following is a conscious sedation record: Start time 13:30, stop time 14:33, Versed 1 mg IV, fentanyl 100 g IV. INDICATION FOR PROCEDURE: Mr. Osorio is a very pleasant 88-year-old patient with a severe crush injury and open wounds that has been nonhealing for 1 month on the left lower extremity, on the calf and ankle. He had a noninvasive arterial duplex that suggested some distal arterial insufficiency. His wound is severe, and at risk for limb loss, and we like to give him every opportunity for healing. We have discussed the risks benefits and alternatives to an arteriogram with potential intervention. His creatinine is 1.16 and GFR is greater than 60. We will use as minimal contrast is possible in this elderly patient. The patient is family were extensively counseled and informed consent was obtained. INTERPRETATION: 1. The iliofemoral system is widely patent including the common iliac artery, hypogastric, external iliac artery, common femoral artery, profunda, and superficial femoral artery. No areas of stenosis or significant plaque is noted. The popliteal artery is also widely patent. The patient has excellent flow through large vessels. No flow limitation noted in the proximal system. 2. Distally, in the tibial system, the main runoff is through the posterior tibial artery which is widely patent. The anterior tibial artery has several areas of focal stenosis of between 30 and 70% in the proximal and mid vessel. The peroneal artery has a few focal areas of heavy stenosis in the mid vessel. 3. After angioplasty of the anterior tibial and peroneal arteries, they are both widely patent with excellent 3 vessel runoff to the foot. No significant residual stenosis is noted. No emboli, dissection, or extravasation is noted. PROCEDURE: The patient was brought to the angiographic suite in stable condition and placed supine on the fluoroscopic table. His bilateral groins were prepped and draped in sterile fashion. A timeout was performed. Sedation was administered without complication. Local anesthesia was administered to the skin and subcutaneous tissue over the right common femoral artery and a microneedle was used to access the artery under ultrasound guidance. Wire was passed through this access and a micro-sheath was placed and flushed with saline. We then advanced a Glidewire and fluoroscopic guidance into the distal aorta and exchanger sheath for 6 [place] sheath and flushed the sheath with saline. We went up and over the bifurcation with his Omni flush catheter and arteriograms were performed first in the iliac system, then the catheter was advanced over the wire and the SFA and further arteriograms were performed. We were pleased to see widely patent flow throughout the iliofemoral system in the popliteal artery. There was some intermittent areas of stenosis throughout the anterior tibial in the proximal and mid vessel, and in the mid peroneal artery. We advanced her Glidewire into the popliteal artery under fluoroscopic guidance and exchanger sheath for 90 cm 6 [place] sheath and flushed the sheath with saline. We then selected the anterior tibial artery with the 18 wire and the glide cath. We angioplasty the proximal and mid anterior tibial artery 3 times at low i nflations for three-minute inflations with a 3 x 220 [place] balloon. Following this, there was a dramatic improvement in flow in the anterior tibial artery. We then selected the peroneal artery with the V 18 wire and angioplasty for 2 three-minute inflations with a 3 x 220 [place] balloon. Following this, we had widely patent 3 vessel runoff to the foot. No residual significant stenosis was present. We then exchange the sheath over the Glidewire for a short 6 [place] sheath. The sheath was flushed with saline. We attempted to deploy a minx closure device at the access site. The device did not fail, but the patient tried to sit up and he he Valsalva right we were deploying it and the balloon came through the vessel. We then held manual pressure for 30 minutes. Hemostasis was achieved and sterile dressings were applied. The patient was monitored for 5 hours post procedure. ESTIMATED BLOOD LOSS: Approximately 5 mL. COMPLICATIONS: None. PLAN: The patient will be discharged home after 5 hours of bedrest if stable. He can resume his anticoagulation in the morning. He will return to clinic in one week to check his perfusion in his groin access site on the right common femoral artery. He should resume local wound care per Dr. Paez's orders. DELIA MUÑOZ MD Dec 03, 2018 14:52
[2018-12-03] MEDS: diazePAM 5 MG TAB PO ONE (17:33)
[2018-12-03] MEDS: PERCOCET 5MG/325MG TAB PO ONE (17:34)
[2018-12-03 18:15] VITALS: BP 137/60
== END ==
LOC: M IRPRO 11:16
PROVIDERS: ATTEND Surgery Vascular Surgery
DX: I70.248 Atherosclerosis of native arteries of left leg with ulceration of other part of lower leg (principal); L97.829 Non-pressure chronic ulcer of other part of left lower leg with unspecified severity
CPT/HCPCS: 37228; 37232; 75710; 99152; 99153; C1725; C1760; C1769; C1887; C1894; J2250; J3010; Q9967

== ENCOUNTER → 2018-12-03 | Outpatient (REF) ==
[~2018-12-03] MED LIST changes: -BUPIVACAINE HCL 0.5% 10 ML VIAL As Ordered ONE; -HEPARIN 1,000 UNITS/ML 10ML VIAL (FOR RADIOLOGY& DIALYSIS ONLY) As Ordered ONE; -ISOVUE-300 61% 50ML VIAL (Q9967) As Ordered ONE; -LIDOCAINE 1% MDV 20ML VIAL As Ordered ONE; -LIDOCAINE 2% MDV 20 ML VIAL As Ordered ONE; -MIDAZOLAM INJ 2 MG/2 ML VIAL (J2250) As Ordered ONE; -PERCOCET 5MG/325MG TAB As Ordered ONE; -PROTAMINE SULF INJ 50 MG/5 ML VIAL (J2720) As Ordered ONE; -diazePAM 5 MG TAB As Ordered ONE; -diphenhydrAMINE INJ 50MG/ML VIAL (J1200) As Ordered ONE; -fentaNYL 100 MCG/2 ML INJECTION (J3010) As Ordered ONE
[2018-12-03 09:47] LABS: HEMATOCRIT 28.8 % (42.0-52.0); HEMOGLOBIN 9.4 g/dl (13.5-17.5); MEAN CORPUSCULAR HEMOGLOBIN 33.5 pg (27.0-33.0); MEAN CORPUSCULAR HGB CONC 32.6 g/dl (32.0-36.5); MEAN CORPUSCULAR VOLUME 102.5 fl (80.0-96.0); PLATELET COUNT, AUTOMATED 287 10^3/uL (150-450); RED BLOOD COUNT 2.81 10^6/uL (4.30-6.10); WHITE BLOOD COUNT 6.5 10^3/uL (4.0-10.0)
[2018-12-03 10:11] LABS: BLOOD UREA NITROGEN 42 MG/DL (7-18); C REACTIVE PROTEIN QUANTITATIV 5.44 MG/DL (0.00-0.30); CALCIUM LEVEL 8.9 MG/DL (8.8-10.2); CARBON DIOXIDE LEVEL 30 MEQ/L (21-32); CHLORIDE LEVEL 105 MEQ/L (98-107); CREATININE FOR GFR 1.18 MG/DL (0.70-1.30); GLOMERULAR FILTRATION RATE > 60.0 (>35); GLUCOSE, FASTING 91 MG/DL (70-100); POTASSIUM SERUM 4.7 MEQ/L (3.5-5.1); SODIUM LEVEL 140 MEQ/L (136-145)
[2018-12-03 10:15] LABS: ERYTHROCYTE SEDIMENTATION RATE 77 mm/hr (0-30)
== END ==
DX: S81.809A Unspecified open wound, unspecified lower leg, initial encounter (principal)

== ENCOUNTER → 2018-12-09 | Outpatient (REF) | payer MEDICARE ==
[2018-12-09 09:26] LABS: HEMATOCRIT 30.7 % (42.0-52.0); HEMOGLOBIN 9.9 g/dl (13.5-17.5); MEAN CORPUSCULAR HEMOGLOBIN 33.1 pg (27.0-33.0); MEAN CORPUSCULAR HGB CONC 32.2 g/dl (32.0-36.5); MEAN CORPUSCULAR VOLUME 102.7 fl (80.0-96.0); PLATELET COUNT, AUTOMATED 292 10^3/uL (150-450); RED BLOOD COUNT 2.99 10^6/uL (4.30-6.10); WHITE BLOOD COUNT 6.6 10^3/uL (4.0-10.0)
[2018-12-09 09:42] LABS: BLOOD UREA NITROGEN 47 MG/DL (7-18); C REACTIVE PROTEIN QUANTITATIV 2.51 MG/DL (0.00-0.30); CARBON DIOXIDE LEVEL 26 MEQ/L (21-32); CHLORIDE LEVEL 105 MEQ/L (98-107); CREATININE FOR GFR 1.18 MG/DL (0.70-1.30); GLOMERULAR FILTRATION RATE > 60.0 (>35); GLUCOSE, FASTING 128 MG/DL (70-100); POTASSIUM SERUM 4.1 MEQ/L (3.5-5.1); SODIUM LEVEL 141 MEQ/L (136-145)
[2018-12-09 10:01] LABS: ERYTHROCYTE SEDIMENTATION RATE 65 mm/hr (0-30)
== END ==
PROVIDERS: ATTEND Physician Assistant
DX: S81.809A Unspecified open wound, unspecified lower leg, initial encounter (principal)

== ENCOUNTER → 2018-12-16 | Outpatient (REF) ==
[2018-12-16 08:39] LABS: HEMATOCRIT 28.6 % (42.0-52.0); HEMOGLOBIN 9.1 g/dl (13.5-17.5); MEAN CORPUSCULAR HEMOGLOBIN 32.2 pg (27.0-33.0); MEAN CORPUSCULAR HGB CONC 31.8 g/dl (32.0-36.5); MEAN CORPUSCULAR VOLUME 101.1 fl (80.0-96.0); PLATELET COUNT, AUTOMATED 250 10^3/uL (150-450); RED BLOOD COUNT 2.83 10^6/uL (4.30-6.10); WHITE BLOOD COUNT 6.4 10^3/uL (4.0-10.0)
[2018-12-16 09:15] LABS: BLOOD UREA NITROGEN 39 MG/DL (7-18); C REACTIVE PROTEIN QUANTITATIV 1.84 MG/DL (0.00-0.30); CALCIUM LEVEL 8.5 MG/DL (8.8-10.2); CARBON DIOXIDE LEVEL 29 MEQ/L (21-32); CHLORIDE LEVEL 105 MEQ/L (98-107); CREATININE FOR GFR 1.14 MG/DL (0.70-1.30); FREE T4 1.12 NG/DL (0.76-1.46); GLOMERULAR FILTRATION RATE > 60.0 (>35); GLUCOSE, FASTING 85 MG/DL (70-100); POTASSIUM SERUM 4.1 MEQ/L (3.5-5.1); SODIUM LEVEL 141 MEQ/L (136-145)
[2018-12-16 09:25] LABS: ERYTHROCYTE SEDIMENTATION RATE 60 mm/hr (0-30)
[2018-12-16 11:01] LABS: FERRITIN 159 NG/ML (26-388); IRON (FE) 26 UG/DL (65-175); PERCENT SATURATION 9.3 % (19.7-50.0); TOTAL IRON BINDING CAPACITY 279 UG/DL (250-450)
[2018-12-16 11:06] LABS: FOLATE > 24.0 NG/ML (>5.4); VITAMIN B12 LEVEL 471 PG/ML (247-911)
== END ==
DX: I70.248 Atherosclerosis of native arteries of left leg with ulceration of other part of lower leg (principal)

== ENCOUNTER → 2018-12-22 | Outpatient (REF) | DX: N18.9 Chronic kidney disease, unspecified (principal) ==

== ENCOUNTER → 2018-12-23 | Outpatient (REF) ==
[2018-12-23 10:41] LABS: HEMATOCRIT 29.2 % (42.0-52.0); HEMOGLOBIN 9.3 g/dl (13.5-17.5); MEAN CORPUSCULAR HEMOGLOBIN 31.6 pg (27.0-33.0); MEAN CORPUSCULAR HGB CONC 31.8 g/dl (32.0-36.5); MEAN CORPUSCULAR VOLUME 99.3 fl (80.0-96.0); PLATELET COUNT, AUTOMATED 269 10^3/uL (150-450); RED BLOOD COUNT 2.94 10^6/uL (4.30-6.10); WHITE BLOOD COUNT 6.2 10^3/uL (4.0-10.0)
== END ==
DX: D64.9 Anemia, unspecified (principal)

== ENCOUNTER → 2018-12-30 | Outpatient (REF) ==
[2018-12-30 09:47] LABS: HEMOGLOBIN 9.4 g/dl (13.5-17.5); MEAN CORPUSCULAR HEMOGLOBIN 31.3 pg (27.0-33.0); MEAN CORPUSCULAR HGB CONC 32.4 g/dl (32.0-36.5); MEAN CORPUSCULAR VOLUME 96.7 fl (80.0-96.0); PLATELET COUNT, AUTOMATED 285 10^3/uL (150-450); WHITE BLOOD COUNT 6.2 10^3/uL (4.0-10.0)
[2018-12-30 10:18] LABS: C REACTIVE PROTEIN QUANTITATIV 2.17 MG/DL (0.00-0.30); CALCIUM LEVEL 8.8 MG/DL (8.8-10.2); CREATININE FOR GFR 1.27 MG/DL (0.70-1.30); GLOMERULAR FILTRATION RATE 57.1 (>35); POTASSIUM SERUM 4.3 MEQ/L (3.5-5.1)
[2018-12-30 10:45] LABS: ERYTHROCYTE SEDIMENTATION RATE 60 mm/hr (0-30)
== END ==
DX: I87.313 Chronic venous hypertension (idiopathic) with ulcer of bilateral lower extremity (principal)

== ENCOUNTER → 2018-12-31 | Outpatient (REF) ==
[2018-12-31 15:18] LABS: HEMATOCRIT 28.1 % (42.0-52.0); HEMOGLOBIN 8.9 g/dl (13.5-17.5); MEAN CORPUSCULAR HGB CONC 31.7 g/dl (32.0-36.5); MEAN CORPUSCULAR VOLUME 97.9 fl (80.0-96.0); PLATELET COUNT, AUTOMATED 259 10^3/uL (150-450); RED BLOOD COUNT 2.87 10^6/uL (4.30-6.10); WHITE BLOOD COUNT 6.3 10^3/uL (4.0-10.0)
[2018-12-31 16:21] LABS: CALCIUM LEVEL 8.9 MG/DL (8.8-10.2); CREATININE FOR GFR 1.28 MG/DL (0.70-1.30); GLOMERULAR FILTRATION RATE 56.6 (>35); POTASSIUM SERUM 4.3 MEQ/L (3.5-5.1)
== END ==
DX: E87.70 Fluid overload, unspecified (principal)

== ENCOUNTER → 2019-01-02 | Outpatient (REF) ==
[~2019-01-02] MED LIST changes: +ACET650T15 PO; +ACETTAB15 PO; +AMIT50TA PO; +APAP325T4 PO; +ASPE16CR TOP; +ASPI81CH33 PO; +ATOR40TA75 PO; +AYR0.65S NARES; +BISA10SU27 PR; +CEFD300CAP PO; +CIPR500T3 PO; +COLA100C5 PO; +ENEMENE PR; +ENSU1LIQ36 PO; +EUCE1CRE2 TOP; +FLAG500T PO; +FURO40TA2 PO; +LASI20TA3 PO; +MIRA3350 PO; +MULTCAP PO; +POTA20TA6 PO; +PROC20004 SC; +SODIGEL; +TYLE650T35 PO
[2019-01-02 09:55] LABS: HEMOGLOBIN 9.4 g/dl (13.5-17.5); MEAN CORPUSCULAR HEMOGLOBIN 31.3 pg (27.0-33.0); MEAN CORPUSCULAR HGB CONC 32.4 g/dl (32.0-36.5); MEAN CORPUSCULAR VOLUME 96.7 fl (80.0-96.0); PLATELET COUNT, AUTOMATED 279 10^3/uL (150-450); WHITE BLOOD COUNT 6.2 10^3/uL (4.0-10.0)
[2019-01-02 10:27] LABS: CALCIUM LEVEL 8.9 MG/DL (8.8-10.2); CREATININE FOR GFR 1.22 MG/DL (0.70-1.30); GLOMERULAR FILTRATION RATE 59.8 (>35); POTASSIUM SERUM 4.1 MEQ/L (3.5-5.1)
== END ==
DX: R60.9 Edema, unspecified (principal)

== ENCOUNTER → 2019-01-06 | Outpatient (REF) ==
[~2019-01-06] MED LIST changes: -ACET650T15 PO; -ACETTAB15 PO; -AMIT50TA PO; -APAP325T4 PO; -ASPE16CR TOP; -ASPI81CH33 PO; -ATOR40TA75 PO; -AYR0.65S NARES; -BISA10SU27 PR; -CEFD300CAP PO; -CIPR500T3 PO; -COLA100C5 PO; -ENEMENE PR; -ENSU1LIQ36 PO; -EUCE1CRE2 TOP; -FLAG500T PO; -FURO40TA2 PO; -LASI20TA3 PO; -MIRA3350 PO; -MULTCAP PO; -POTA20TA6 PO; -PROC20004 SC; -SODIGEL; -TYLE650T35 PO
[2019-01-06 08:42] LABS: HEMATOCRIT 28.1 % (42.0-52.0); HEMOGLOBIN 9.2 g/dl (13.5-17.5); MEAN CORPUSCULAR HEMOGLOBIN 32.2 pg (27.0-33.0); MEAN CORPUSCULAR HGB CONC 32.7 g/dl (32.0-36.5); MEAN CORPUSCULAR VOLUME 98.3 fl (80.0-96.0); PLATELET COUNT, AUTOMATED 235 10^3/uL (150-450); RED BLOOD COUNT 2.86 10^6/uL (4.30-6.10)
[2019-01-06 09:13] LABS: C REACTIVE PROTEIN QUANTITATIV 2.74 MG/DL (0.00-0.30); CALCIUM LEVEL 8.7 MG/DL (8.8-10.2); CREATININE FOR GFR 1.24 MG/DL (0.70-1.30); GLOMERULAR FILTRATION RATE 58.7 (>35); POTASSIUM SERUM 4.1 MEQ/L (3.5-5.1)
[2019-01-06 09:16] LABS: ERYTHROCYTE SEDIMENTATION RATE 65 mm/hr (0-30)
== END ==
DX: I87.313 Chronic venous hypertension (idiopathic) with ulcer of bilateral lower extremity (principal)

== ENCOUNTER → 2019-01-06 | Outpatient (REF) | DX: R60.9 Edema, unspecified (principal) ==

== ENCOUNTER → 2019-01-09 | Outpatient (REF) ==
[2019-01-09 11:06] LABS: BLOOD UREA NITROGEN 62 MG/DL (7-18); CALCIUM LEVEL 8.5 MG/DL (8.8-10.2); CARBON DIOXIDE LEVEL 31 MEQ/L (21-32); CHLORIDE LEVEL 102 MEQ/L (98-107); CREATININE FOR GFR 1.21 MG/DL (0.70-1.30); GLOMERULAR FILTRATION RATE > 60.0 (>35); GLUCOSE, FASTING 83 MG/DL (70-100); POTASSIUM SERUM 4.3 MEQ/L (3.5-5.1); SODIUM LEVEL 141 MEQ/L (136-145)
== END ==
DX: L97.911 Non-pressure chronic ulcer of unspecified part of right lower leg limited to breakdown of skin (principal); L97.912 Non-pressure chronic ulcer of unspecified part of right lower leg with fat layer exposed

== ENCOUNTER → 2019-01-13 | Outpatient (REF) ==
--- NOTE | 2019-01-13 16:43 | REP ---
Chest, single AP view with the patient upright: Comparison is 03/07/2017. There is cardiomegaly, unchanged. There is mild diffuse interstitial coarsening, unchanged. This could represent vascular engorgement or chronic lung disease. The jennifer, mediastinum, skeletal structures are unremarkable. Electronically Signed by Lokesh Fung MD 01/13/2019 04:35 P
== END ==
PROVIDERS: ATTEND Physician Assistant
DX: I51.7 Cardiomegaly (principal)

== ENCOUNTER → 2019-01-14 | Outpatient (REF) ==
[~2019-01-14] MED LIST changes: +ACET650T15 PO; +ACETTAB15 PO; +AMIT50TA PO; +APAP325T4 PO; +ASPE16CR TOP; +ASPI81CH33 PO; +ATOR40TA75 PO; +AYR0.65S NARES; +BISA10SU27 PR; +CEFD300CAP PO; +CIPR500T3 PO; +COLA100C5 PO; +ENEMENE PR; +ENSU1LIQ36 PO; +EUCE1CRE2 TOP; +FLAG500T PO; +FURO40TA2 PO; +LASI20TA3 PO; +MIRA3350 PO; +MULTCAP PO; +POTA20TA6 PO; +PROC20004 SC; +SODIGEL; +TYLE650T35 PO
== END ==
PROVIDERS: ATTEND Physician Assistant
DX: I51.7 Cardiomegaly (principal)

== ENCOUNTER → 2019-01-16 | Outpatient (REF) ==
[~2019-01-16] MED LIST changes: -ACET650T15 PO; -ACETTAB15 PO; -AMIT50TA PO; -APAP325T4 PO; -ASPE16CR TOP; -ASPI81CH33 PO; -ATOR40TA75 PO; -AYR0.65S NARES; -BISA10SU27 PR; -CEFD300CAP PO; -CIPR500T3 PO; -COLA100C5 PO; -ENEMENE PR; -ENSU1LIQ36 PO; -EUCE1CRE2 TOP; -FLAG500T PO; -FURO40TA2 PO; -LASI20TA3 PO; -MIRA3350 PO; -MULTCAP PO; -POTA20TA6 PO; -PROC20004 SC; -SODIGEL; -TYLE650T35 PO
--- NOTE | 2019-01-16 12:44 | REP ---
Left hip: Two views. History: Left hip pain after a fall. Findings: AP and frog-leg views of the left hip show no evidence of fracture or subluxation. Femoral head is smooth and rounded. Joint spaces preserved. Periarticular soft tissues are unremarkable. Impression: Negative radiographs of the left hip. No fracture seen. Electronically Signed by Jeffery Dimas MD 01/16/2019 04:01 P
--- NOTE | 2019-01-16 12:45 | REP ---
Lumbar spine series: Five views. History: Low back pain after a fall. Findings: Lumbar vertebral body heights are preserved. No fracture or collapse is seen. There are degenerative spondylosis changes with fairly advanced degenerative disc disease at L5-S1, L2-3, and to some degree L4-5. There is osteoarthritic facet sclerosis and hypertrophy bilaterally at L4-5 and L5-S1. Sacrum and SI joints are intact. Psoas margins are symmetric. Impression: Degenerative spondylosis changes. No fracture seen. Electronically Signed by Jeffery Dimas MD 01/16/2019 04:02 P
== END ==
PROVIDERS: ATTEND Physician Assistant
DX: M47.9 Spondylosis, unspecified (principal); M25.552 Pain in left hip

== ENCOUNTER → 2019-01-20 | Outpatient (REF) | payer MEDICARE ==
[2019-01-20 11:01] LABS: HEMATOCRIT 29.1 % (42.0-52.0); HEMOGLOBIN 9.5 g/dl (13.5-17.5); MEAN CORPUSCULAR HGB CONC 32.6 g/dl (32.0-36.5); PLATELET COUNT, AUTOMATED 252 10^3/uL (150-450); RED BLOOD COUNT 2.97 10^6/uL (4.30-6.10); WHITE BLOOD COUNT 5.6 10^3/uL (4.0-10.0)
[2019-01-20 11:20] LABS: C REACTIVE PROTEIN QUANTITATIV 6.8 MG/DL (0.00-0.30); CALCIUM LEVEL 8.7 MG/DL (8.8-10.2); CREATININE FOR GFR 1.22 MG/DL (0.70-1.30); GLOMERULAR FILTRATION RATE 59.8 (>35); POTASSIUM SERUM 4.2 MEQ/L (3.5-5.1)
[2019-01-20 11:24] LABS: ERYTHROCYTE SEDIMENTATION RATE 70 mm/hr (0-20)
== END ==
PROVIDERS: ATTEND Physician Assistant
DX: D64.9 Anemia, unspecified (principal); R60.9 Edema, unspecified

== ENCOUNTER → 2019-02-03 | Outpatient (REF) ==
[2019-02-03 10:10] LABS: HEMATOCRIT 29.8 % (42.0-52.0); HEMOGLOBIN 9.5 g/dl (13.5-17.5); MEAN CORPUSCULAR HEMOGLOBIN 30.6 pg (27.0-33.0); MEAN CORPUSCULAR HGB CONC 31.9 g/dl (32.0-36.5); MEAN CORPUSCULAR VOLUME 96.1 fl (80.0-96.0); PLATELET COUNT, AUTOMATED 273 10^3/uL (150-450); WHITE BLOOD COUNT 6.8 10^3/uL (4.0-10.0)
[2019-02-03 10:32] LABS: C REACTIVE PROTEIN QUANTITATIV 7.17 MG/DL (0.00-0.30); CALCIUM LEVEL 8.8 MG/DL (8.8-10.2); CREATININE FOR GFR 1.34 MG/DL (0.70-1.30); GLOMERULAR FILTRATION RATE 53.7 (>35); POTASSIUM SERUM 3.8 MEQ/L (3.5-5.1)
[2019-02-03 10:46] LABS: ERYTHROCYTE SEDIMENTATION RATE 68 mm/hr (0-20)
== END ==
PROVIDERS: ATTEND Physician Assistant
DX: D64.9 Anemia, unspecified (principal)

== ENCOUNTER 2019-02-09 00:45 | Emergency (ER) | payer MEDICARE ==
[~2019-02-09] VITALS: Ht 198.1 cm; Wt 84.1 kg
[2019-02-09 01:15] LABS: BASO % 0.4 % (0.0-1.0); EOS # 0.1 10^3/uL (0.0-0.5); EOS % 1.5 % (0.0-3.0); HEMATOCRIT 26.3 % (42.0-52.0); HEMOGLOBIN 8.4 g/dl (13.5-17.5); LYMPH # 1.8 10^3/uL (1.5-5.0); LYMPH % 24.4 % (24.0-44.0); MEAN CORPUSCULAR HEMOGLOBIN 30.1 pg (27.0-33.0); MEAN CORPUSCULAR HGB CONC 31.9 g/dl (32.0-36.5); MEAN CORPUSCULAR VOLUME 94.3 fl (80.0-96.0); MONO # 0.6 10^3/uL (0.0-0.8); MONO % 7.4 % (0.0-5.0); NEUTROPHILS % 65.9 % (36.0-66.0); PLATELET COUNT, AUTOMATED 228 10^3/uL (150-450); RED BLOOD COUNT 2.79 10^6/uL (4.30-6.10); WHITE BLOOD COUNT 7.5 10^3/uL (4.0-10.0)
[2019-02-09 01:26] LABS: INR 1.64; PROTHROMBIN TIME 19.2 SECONDS (11.8-14.0)
[2019-02-09] MEDS ORDERED: ASPIRIN 81 MG CHEW TABLET PO ONE (01:30)
[2019-02-09 01:43] LABS: ALBUMIN 2.8 GM/DL (3.2-5.2); ALT/SGPT 16 U/L (12-78); BILIRUBIN,DIRECT 0.3 MG/DL (0.0-0.2); BILIRUBIN,TOTAL 0.6 MG/DL (0.2-1.0); CK-MB VALUE MASS 2.3 NG/ML (<3.6); CPK CREATINE PHOSPHOKINASE 72 U/L (39-308); LIPASE 318 U/L (73-393); MB/CK RELATIVE INDEX 3.19 (< OR =4); TOTAL PROTEIN 6.5 GM/DL (6.4-8.2); TROPONIN I < 0.02 NG/ML (< 0.10)
[2019-02-09 02:58] LABS: CALCIUM LEVEL 8.3 MG/DL (8.8-10.2); CREATININE FOR GFR 1.38 MG/DL (0.70-1.30); GLOMERULAR FILTRATION RATE 51.9 (>35); POTASSIUM SERUM 4.7 MEQ/L (3.5-5.1)
[2019-02-09 03:30] VITALS: BP 129/60
--- NOTE | 2019-02-09 07:50 | ED PDOC ---
Post-Departure Follow-Up received a call from dr mckenzie. last night cxr - he cannot r/o left sided ptx vs skin fold. sw adrian mckenzie - to call pt for c/b mlg Wojciech-Carlos Bear MD Feb 09, 2019 07:50
--- NOTE | 2019-02-09 07:58 | REP ---
Portable chest, 01:06 a.m., single AP view with the patient upright: Comparison is 01/13/2019 . There is a focal lucency along the right lateral chest wall, possibly a pneumothorax. No interstitial markings projected within this zone of lucency. As a change from the comparison study. Lung tenorio otherwise clear. Cardiac size is enlarged, unchanged. The jennifer, mediastinum, skeletal structures are well. Impression: Probable pneumothorax along the right lateral chest wall. Results are discussed by telephone with emergency room physician, Dr. Bear. Electronically Signed by Lokesh Fung MD 02/09/2019 07:50 A
--- NOTE | 2019-02-09 21:23 | ECGEPIP ---
[facility] - ED Test Date: 2019-02-09 Pat Name: RONALD GILL Department: Room: - Gender: Male Speech Pathologist: raysa : 1930 Requested By: SOFÍA Manjarrez Order Number: [id number] Reading MD: Manoj Nunez Measurements Intervals [place] Rate: 75 P: [place]: 0 QRS: 78 QRSD: 98 T: 33 QT: 399 QTc: 448 Interpretive Statements ATRIAL FIBRILLATION Nonspecific T wave abnormality Similar to tracing done 11-15-18 but with normalized QTc Electronically Signed on 02-09-2019 21:23:00 EDT by Manoj Nunez
== END 2019-02-09 04:52 | disposition home or self-care (01) ==
LOC: M ED 00:45 → EDBD 00:45 → M ED 04:52
DX: R07.89 Other chest pain (principal); I48.91 Unspecified atrial fibrillation; I25.9 Chronic ischemic heart disease, unspecified; Z79.82 Long term (current) use of aspirin; Z79.891 Long term (current) use of opiate analgesic; Z79.899 Other long term (current) drug therapy

== ENCOUNTER → 2019-02-09 | Outpatient (REF) ==
--- NOTE | 2019-02-09 18:52 | REP ---
CHEST PA AND LATERAL: 02/09/2019. Comparison: Portable chest 02/09/2019, 01/13/2019: two-view 03/07/2017, CT 03/07/2017. Clinical history: Possible pneumothorax. Two-view show the lungs well inflated. There is some basilar fibrotic change. Cardiomegaly with left atrial and ventricular enlargement and some right heart enlargement again seen. A lucency along the right lateral chest wall and portable chest earlier today is not present and markings are seen. This represents a skin fold on the portable chest. No apical pneumothorax, mediastinal air or other acute finding. Calcified tortuous aorta unchanged. Airway intact. Some minor apical pleural scarring noted. Degenerative changes in the spine and shoulders as before. No free air. Impression: 1. There is no evidence of pneumothorax, the finding on the portable chest represented a skin fold. It is no longer visible. 2. 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 No agnes edema, dense consolidation or definite effusion. Electronically Signed by Jewel Hernandez MD 02/09/2019 07:20 P
== END ==
LOC: M RAD 11:13
PROVIDERS: ATTEND Physician Assistant
DX: J44.9 Chronic obstructive pulmonary disease, unspecified (principal); J84.10 Pulmonary fibrosis, unspecified; I51.7 Cardiomegaly

== ENCOUNTER → 2019-02-17 | Outpatient (REF) ==
[2019-02-17 09:26] LABS: MEAN CORPUSCULAR HEMOGLOBIN 29.9 pg (27.0-33.0); MEAN CORPUSCULAR VOLUME 93.3 fl (80.0-96.0); PLATELET COUNT, AUTOMATED 224 10^3/uL (150-450); RED BLOOD COUNT 2.68 10^6/uL (4.30-6.10); WHITE BLOOD COUNT 5.5 10^3/uL (4.0-10.0)
[2019-02-17 09:43] LABS: C REACTIVE PROTEIN QUANTITATIV 3.49 MG/DL (0.00-0.30); CALCIUM LEVEL 8.6 MG/DL (8.8-10.2); CREATININE FOR GFR 1.29 MG/DL (0.70-1.30); GLOMERULAR FILTRATION RATE 56.1 (>35); POTASSIUM SERUM 4.1 MEQ/L (3.5-5.1)
[2019-02-17 10:05] LABS: ERYTHROCYTE SEDIMENTATION RATE 126 mm/hr (0-20)
== END ==
PROVIDERS: ATTEND Internal Medicine
DX: S81.802D Unspecified open wound, left lower leg, subsequent encounter (principal); S81.801S Unspecified open wound, right lower leg, sequela

== ENCOUNTER → 2019-02-18 | Outpatient (REF) ==
[2019-02-18 08:56] LABS: HEMOGLOBIN 8.7 g/dl (13.5-17.5); MEAN CORPUSCULAR HEMOGLOBIN 30.1 pg (27.0-33.0); MEAN CORPUSCULAR HGB CONC 32.2 g/dl (32.0-36.5); MEAN CORPUSCULAR VOLUME 93.4 fl (80.0-96.0); PLATELET COUNT, AUTOMATED 231 10^3/uL (150-450); RED BLOOD COUNT 2.89 10^6/uL (4.30-6.10); WHITE BLOOD COUNT 5.2 10^3/uL (4.0-10.0)
== END ==
PROVIDERS: ATTEND Internal Medicine
DX: D64.9 Anemia, unspecified (principal)

== ENCOUNTER → 2019-03-02 | Outpatient (CLI) | payer MEDICARE ==
--- NOTE | 2019-03-02 13:29 | REP ---
Bilateral lower extremity duplex venous ultrasound: Reflux exam. History: Venous insufficiency. Findings: The deep veins are anechoic and fully from the groin to the popliteal fossa in both lower extremities on two-dimensional scanning. Color flow and spectral Doppler interrogation are unremarkable bilaterally. There is no evidence of DVT on either side. Reflux findings: No true or typical greater saphenous vein is seen on either side. Anterior and posterior communicating vessels are seen. A single anterior communicating vein courses in the right lower extremity straight to the distal thigh with reflux greater than 0.5 seconds within it. This measures 4 mm in AP dimension at midthigh level, 3.7 mm proximally, and 3.0 mm distally. At mid thigh there is 1.6 seconds of duration reflux and at the knee 2.3 second duration reflux. The lesser saphenous vein on the right measures 4.1 mm with no observable reflux. Reflux greater than 0.5 seconds was observed in the right common femoral, proximal mid and distal femoral vein on the right side as well. On the left the anterior communicator main bifurcates in the proximal thigh and these two vessels continue to the distal thigh without observable reflux. This measures 6.5 mm in AP dimension in the proximal thigh and tapers to 1.4 mm at the knee. No deep system or superficial system reflux is observed on the left. IMPRESSION: There is no evidence of DVT on either side. Superficial and deep system reflux are noted on the right. Electronically Signed by Jeffery Dimas MD 03/02/2019 01:56 P
== END ==
LOC: M RAD 10:37
PROVIDERS: ATTEND Surgery Vascular Surgery
DX: I87.2 Venous insufficiency (chronic) (peripheral) (principal); I70.242 Atherosclerosis of native arteries of left leg with ulceration of calf; I70.243 Atherosclerosis of native arteries of left leg with ulceration of ankle

== ENCOUNTER → 2019-03-10 | Outpatient (REF) ==
[2019-03-10 15:58] LABS: HEMOGLOBIN 7.9 g/dl (13.5-17.5); MEAN CORPUSCULAR HEMOGLOBIN 30.9 pg (27.0-33.0); MEAN CORPUSCULAR HGB CONC 31.6 g/dl (32.0-36.5); MEAN CORPUSCULAR VOLUME 97.7 fl (80.0-96.0); PLATELET COUNT, AUTOMATED 182 10^3/uL (150-450); RED BLOOD COUNT 2.56 10^6/uL (4.30-6.10); WHITE BLOOD COUNT 4.2 10^3/uL (4.0-10.0)
[2019-03-10 16:28] LABS: ALBUMIN 2.8 GM/DL (3.2-5.2); ALT/SGPT 17 U/L (12-78); BILIRUBIN,TOTAL 0.9 MG/DL (0.2-1.0); BLOOD UREA NITROGEN 76 MG/DL (7-18); CALCIUM LEVEL 8.6 MG/DL (8.8-10.2); CARBON DIOXIDE LEVEL 26 MEQ/L (21-32); CHLORIDE LEVEL 107 MEQ/L (98-107); CK-MB VALUE MASS 3.1 NG/ML (<3.6); CPK CREATINE PHOSPHOKINASE 106 U/L (39-308); CREATININE FOR GFR 1.48 MG/DL (0.70-1.30); GLOMERULAR FILTRATION RATE 47.9 (>35); GLUCOSE, FASTING 116 MG/DL (70-100); MB/CK RELATIVE INDEX 2.92 (< OR =4); POTASSIUM SERUM 4.6 MEQ/L (3.5-5.1); SODIUM LEVEL 139 MEQ/L (136-145); TOTAL PROTEIN 7.6 GM/DL (6.4-8.2); TROPONIN I < 0.02 NG/ML (< 0.10)
== END ==
PROVIDERS: ATTEND Internal Medicine
DX: R07.89 Other chest pain (principal)

== ENCOUNTER → 2019-03-11 | Outpatient (REF) ==
[2019-03-11 08:56] LABS: CALCIUM LEVEL 8.8 MG/DL (8.8-10.2); CREATININE FOR GFR 1.43 MG/DL (0.70-1.30); GLOMERULAR FILTRATION RATE 49.8 (>35); POTASSIUM SERUM 4.1 MEQ/L (3.5-5.1)
== END ==
PROVIDERS: ATTEND Internal Medicine
DX: D64.9 Anemia, unspecified (principal)

== ENCOUNTER → 2019-03-13 | Outpatient (REF) | PROVIDERS: ATTEND Internal Medicine | DX: D64.9 Anemia, unspecified (principal) ==

== ENCOUNTER → 2019-03-16 | Outpatient (REF) ==
[~2019-03-16] MED LIST changes: +TYLE650T35 PO
[2019-03-16 11:27] LABS: HEMATOCRIT 23.4 % (42.0-52.0); HEMOGLOBIN 7.6 g/dl (13.5-17.5); MEAN CORPUSCULAR HEMOGLOBIN 31.9 pg (27.0-33.0); MEAN CORPUSCULAR HGB CONC 32.5 g/dl (32.0-36.5); MEAN CORPUSCULAR VOLUME 98.3 fl (80.0-96.0); PLATELET COUNT, AUTOMATED 202 10^3/uL (150-450); RED BLOOD COUNT 2.38 10^6/uL (4.30-6.10); WHITE BLOOD COUNT 5.2 10^3/uL (4.0-10.0)
[2019-03-16 11:47] LABS: ERYTHROCYTE SEDIMENTATION RATE 129 mm/hr (0-20)
[2019-03-16 12:01] LABS: BLOOD UREA NITROGEN 81 MG/DL (7-18); C REACTIVE PROTEIN QUANTITATIV 3.28 MG/DL (0.00-0.30); CALCIUM LEVEL 8.7 MG/DL (8.8-10.2); CARBON DIOXIDE LEVEL 26 MEQ/L (21-32); CHLORIDE LEVEL 106 MEQ/L (98-107); CREATININE FOR GFR 1.49 MG/DL (0.70-1.30); FERRITIN 78 NG/ML (26-388); FREE T4 0.83 NG/DL (0.76-1.46); GLOMERULAR FILTRATION RATE 47.5 (>35); GLUCOSE, FASTING 102 MG/DL (70-100); IRON (FE) 32 UG/DL (65-175); PERCENT SATURATION 8.9 % (19.7-50.0); POTASSIUM SERUM 4.1 MEQ/L (3.5-5.1); SODIUM LEVEL 140 MEQ/L (136-145); TOTAL IRON BINDING CAPACITY 361 UG/DL (250-450); TOTAL PROTEIN 7.4 GM/DL (6.4-8.2)
[2019-03-17 13:42] LABS: ALBUMIN 3.21 GM/DL (3.29-5.55); ALBUMIN % 43.4 % (55.8-66.1); ALPHA-1-GLOBULIN % 4.9 % (2.9-4.9); ALPHA-1-GLOBULINS 0.36 GM/DL (0.17-0.41); ALPHA-2-GLOBULINS 0.63 GM/DL (0.42-0.99); ALPHA-2-GLOBULINS % 8.5 % (7.1-11.8); BETA-1-GLOBULINS 0.53 GM/DL (0.28-0.60); BETA-1-GLOBULINS % 7.2 % (4.7-7.2); BETA-2-GLOBULINS 1.26 GM/DL (0.19-0.55)
[2019-03-17 13:43] LABS: GAMMA GLOBULINS 1.41 GM/DL (0.65-1.58)
== END ==
PROVIDERS: ATTEND Internal Medicine
DX: D64.9 Anemia, unspecified (principal)

== ENCOUNTER 2019-03-17 08:08 | Outpatient (CLI) | payer MEDICARE ==
[2019-03-17] VITALS (9 sets, daily range): BP systolic 122–141; BP diastolic 60–84
[~2019-03-17] VITALS: Ht 193 cm; Wt 91.8 kg
[~2019-03-17 08:08] MED LIST changes: -TYLE650T35 PO
[2019-03-17] MEDS ORDERED: TYLE650T35 PO (08:50)
[2019-03-17] MEDS ORDERED: diphenhydrAMINE 25 MG CAP PO ONE (09:00)
[2019-03-17] MEDS ORDERED: ACETAMINOPHEN TAB 650MG DOSE (2X325MG) PO ONE (09:00)
[2019-03-17] MEDS ORDERED: FUROSEMIDE 40 MG TAB PO ONE (11:00)
== END 2019-03-17 14:00 | disposition home or self-care (01) ==
LOC: M INFU 08:08
PROVIDERS: ATTEND Physician Assistant
DX: D64.9 Anemia, unspecified (principal)
CPT/HCPCS: 36430; P9016

== ENCOUNTER → 2019-03-18 | Outpatient (REF) ==
[~2019-03-18] MED LIST changes: +TYLE650T35 PO
[2019-03-18 09:43] LABS: HEMATOCRIT 25.5 % (42.0-52.0); HEMOGLOBIN 8.1 g/dl (13.5-17.5); MEAN CORPUSCULAR HGB CONC 31.8 g/dl (32.0-36.5); MEAN CORPUSCULAR VOLUME 97.7 fl (80.0-96.0); PLATELET COUNT, AUTOMATED 182 10^3/uL (150-450); RED BLOOD COUNT 2.61 10^6/uL (4.30-6.10); WHITE BLOOD COUNT 5.2 10^3/uL (4.0-10.0)
== END ==
PROVIDERS: ATTEND Physician Assistant
DX: D64.9 Anemia, unspecified (principal)

== ENCOUNTER → 2019-03-19 | Outpatient (REF) ==
[2019-03-19 11:06] LABS: HEMATOCRIT 27.7 % (42.0-52.0); HEMOGLOBIN 8.6 g/dl (13.5-17.5); MEAN CORPUSCULAR HEMOGLOBIN 30.9 pg (27.0-33.0); MEAN CORPUSCULAR VOLUME 99.6 fl (80.0-96.0); PLATELET COUNT, AUTOMATED 200 10^3/uL (150-450); RED BLOOD COUNT 2.78 10^6/uL (4.30-6.10); WHITE BLOOD COUNT 5.7 10^3/uL (4.0-10.0)
== END ==
PROVIDERS: ATTEND Physician Assistant
DX: D64.9 Anemia, unspecified (principal)

== ENCOUNTER 2019-03-25 11:19 | Outpatient (CLI) | payer MEDICARE ==
[~2019-03-25] VITALS: Ht 198.1 cm; Wt 91.8 kg
[2019-03-25] VITALS (8 sets, daily range): BP systolic 116–140; BP diastolic 57–79
[~2019-03-25 11:19] MED LIST changes: +ACETAMINOPHEN TAB 650MG DOSE (2X325MG) PO SCH; +diphenhydrAMINE 25 MG CAP PO SCH
[2019-03-25] MEDS ORDERED: FUROSEMIDE 40 MG TAB PO ONE (11:30)
== END 2019-03-25 18:10 | disposition home or self-care (01) ==
LOC: M INFU 11:19
PROVIDERS: ATTEND Physician Assistant
DX: D64.9 Anemia, unspecified (principal)
CPT/HCPCS: 36415; 36430; 86850; 86900; 86901; 86920; P9016

== ENCOUNTER → 2019-03-25 | Outpatient (REF) ==
[2019-03-25 10:10] LABS: MEAN CORPUSCULAR HEMOGLOBIN 31.4 pg (27.0-33.0); MEAN CORPUSCULAR HGB CONC 31.7 g/dl (32.0-36.5); PLATELET COUNT, AUTOMATED 187 10^3/uL (150-450); RED BLOOD COUNT 2.04 10^6/uL (4.30-6.10); WHITE BLOOD COUNT 5.1 10^3/uL (4.0-10.0)
[2019-03-25 10:13] LABS: HEMATOCRIT 20.2 % (42.0-52.0)
[2019-03-25 10:14] LABS: HEMOGLOBIN 6.4 g/dl (13.5-17.5)
== END ==
PROVIDERS: ATTEND Physician Assistant
DX: D64.9 Anemia, unspecified (principal)

== ENCOUNTER → 2019-03-26 | Outpatient (REF) ==
[~2019-03-26] MED LIST changes: -ACETAMINOPHEN TAB 650MG DOSE (2X325MG) PO SCH; -diphenhydrAMINE 25 MG CAP PO SCH
[2019-03-26 07:09] LABS: HEMATOCRIT 24.8 % (42.0-52.0); HEMOGLOBIN 7.9 g/dl (13.5-17.5); MEAN CORPUSCULAR HEMOGLOBIN 31.2 pg (27.0-33.0); MEAN CORPUSCULAR HGB CONC 31.9 g/dl (32.0-36.5); PLATELET COUNT, AUTOMATED 181 10^3/uL (150-450); RED BLOOD COUNT 2.53 10^6/uL (4.30-6.10); WHITE BLOOD COUNT 6.3 10^3/uL (4.0-10.0)
== END ==
PROVIDERS: ATTEND Internal Medicine
DX: D64.9 Anemia, unspecified (principal)

== ENCOUNTER 2019-03-27 08:22 | Outpatient (CLI) | payer MEDICARE ==
[2019-03-27] VITALS (8 sets, daily range): BP systolic 117–141; BP diastolic 59–78
[~2019-03-27] VITALS: Ht 200.7 cm; Wt 91.8 kg
[~2019-03-27 08:22] MED LIST changes: +ACETAMINOPHEN TAB 650MG DOSE (2X325MG) PO SCH; +diphenhydrAMINE 25 MG CAP PO SCH
[2019-03-27] MEDS ORDERED: FUROSEMIDE 40 MG TAB PO ONE (09:00)
== END 2019-03-27 14:00 | disposition home or self-care (01) ==
LOC: M INFU 08:22
PROVIDERS: ATTEND Physician Assistant
DX: D64.9 Anemia, unspecified (principal)
CPT/HCPCS: 36430; P9016

== ENCOUNTER → 2019-03-30 | Outpatient (REF) ==
[~2019-03-30] MED LIST changes: -ACETAMINOPHEN TAB 650MG DOSE (2X325MG) PO SCH; -diphenhydrAMINE 25 MG CAP PO SCH
[2019-03-30 10:39] LABS: HEMATOCRIT 25.8 % (42.0-52.0); MEAN CORPUSCULAR HEMOGLOBIN 31.3 pg (27.0-33.0); MEAN CORPUSCULAR VOLUME 100.8 fl (80.0-96.0); PLATELET COUNT, AUTOMATED 231 10^3/uL (150-450); RED BLOOD COUNT 2.56 10^6/uL (4.30-6.10); WHITE BLOOD COUNT 6.3 10^3/uL (4.0-10.0)
== END ==
PROVIDERS: ATTEND Internal Medicine
DX: D64.9 Anemia, unspecified (principal)

== ENCOUNTER → 2019-04-01 | Outpatient (REF) ==
[2019-04-01 09:50] LABS: HEMOGLOBIN 7.2 g/dl (13.5-17.5); MEAN CORPUSCULAR HEMOGLOBIN 30.8 pg (27.0-33.0); MEAN CORPUSCULAR VOLUME 102.6 fl (80.0-96.0); PLATELET COUNT, AUTOMATED 211 10^3/uL (150-450); RED BLOOD COUNT 2.34 10^6/uL (4.30-6.10); WHITE BLOOD COUNT 5.8 10^3/uL (4.0-10.0)
[2019-04-01 10:08] LABS: BLOOD UREA NITROGEN 61 MG/DL (7-18); C REACTIVE PROTEIN QUANTITATIV 4.55 MG/DL (0.00-0.30); CALCIUM LEVEL 8.5 MG/DL (8.8-10.2); CARBON DIOXIDE LEVEL 26 MEQ/L (21-32); CHLORIDE LEVEL 109 MEQ/L (98-107); CREATININE FOR GFR 1.36 MG/DL (0.70-1.30); GLOMERULAR FILTRATION RATE 52.8 (>35); GLUCOSE, FASTING 108 MG/DL (70-100); POTASSIUM SERUM 3.9 MEQ/L (3.5-5.1); SODIUM LEVEL 141 MEQ/L (136-145)
[2019-04-01 10:17] LABS: ERYTHROCYTE SEDIMENTATION RATE 106 mm/hr (0-20)
[2019-04-01 11:08] LABS: VITAMIN B12 LEVEL 751 PG/ML
[2019-04-01 11:09] LABS: FOLATE 21.1 NG/ML
[2019-04-02 11:15] LABS: IMMUNOTYPING SERUM IGM ABNORMAL (NORMAL); IMMUNOTYPING SERUM KAPPA ABNORMAL (NORMAL)
== END ==
PROVIDERS: ATTEND Internal Medicine
DX: D64.9 Anemia, unspecified (principal)

== ENCOUNTER → 2019-04-04 | Outpatient (REF) | payer MEDICARE ==
[2019-04-04 11:03] LABS: HEMOGLOBIN 8.6 g/dl (13.5-17.5); MEAN CORPUSCULAR HEMOGLOBIN 31.4 pg (27.0-33.0); MEAN CORPUSCULAR HGB CONC 31.9 g/dl (32.0-36.5); MEAN CORPUSCULAR VOLUME 98.5 fl (80.0-96.0); PLATELET COUNT, AUTOMATED 202 10^3/uL (150-450); RED BLOOD COUNT 2.74 10^6/uL (4.30-6.10); WHITE BLOOD COUNT 6.1 10^3/uL (4.0-10.0)
== END ==
LOC: M LABSMT 10:43
PROVIDERS: ATTEND Internal Medicine
DX: D64.9 Anemia, unspecified (principal)

== ENCOUNTER → 2019-04-05 | Outpatient (REF) | payer MEDICARE ==
[2019-04-05 07:30] LABS: HEMATOCRIT 27.3 % (42.0-52.0); HEMOGLOBIN 8.5 g/dl (13.5-17.5); MEAN CORPUSCULAR HEMOGLOBIN 31.4 pg (27.0-33.0); MEAN CORPUSCULAR HGB CONC 31.1 g/dl (32.0-36.5); MEAN CORPUSCULAR VOLUME 100.7 fl (80.0-96.0); PLATELET COUNT, AUTOMATED 195 10^3/uL (150-450); RED BLOOD COUNT 2.71 10^6/uL (4.30-6.10)
== END ==
PROVIDERS: ATTEND Internal Medicine
DX: Z79.899 Other long term (current) drug therapy (principal)

== ENCOUNTER → 2019-04-06 | Outpatient (REF) | payer MEDICARE ==
[2019-04-06 12:20] LABS: HEMATOCRIT 32.1 % (42.0-52.0); HEMOGLOBIN 9.9 g/dl (13.5-17.5); MEAN CORPUSCULAR HEMOGLOBIN 30.8 pg (27.0-33.0); MEAN CORPUSCULAR HGB CONC 30.8 g/dl (32.0-36.5); PLATELET COUNT, AUTOMATED 179 10^3/uL (150-450); RED BLOOD COUNT 3.21 10^6/uL (4.30-6.10); WHITE BLOOD COUNT 5.7 10^3/uL (4.0-10.0)
--- NOTE | 2019-04-06 18:00 | REPPI ---
RIGHT HAND AND FINGERS: Three views of the right hand and fingers are performed. I see no acute fracture or dislocation. There is moderately severe narrowing at the radiocarpal and ulnocarpal joints with subchondral sclerosis. There is mild diffuse narrowing of the second through fifth metacarpal phalangeal and interphalangeal joints with mild scattered spurring. Oval calcification along the third middle phalanx laterally may represent an old fracture. Scattered vascular calcifications are seen. IMPRESSION: Degenerative changes without acute fracture or dislocation. Unreviewed
== END ==
PROVIDERS: ATTEND Physician Assistant
DX: D64.9 Anemia, unspecified (principal)

== ENCOUNTER → 2019-04-08 | Outpatient (REF) ==
[2019-04-08 09:00] LABS: HEMATOCRIT 27.2 % (42.0-52.0); HEMOGLOBIN 8.4 g/dl (13.5-17.5); MEAN CORPUSCULAR HEMOGLOBIN 30.5 pg (27.0-33.0); MEAN CORPUSCULAR HGB CONC 30.9 g/dl (32.0-36.5); MEAN CORPUSCULAR VOLUME 98.9 fl (80.0-96.0); PLATELET COUNT, AUTOMATED 223 10^3/uL (150-450); RED BLOOD COUNT 2.75 10^6/uL (4.30-6.10); WHITE BLOOD COUNT 6.4 10^3/uL (4.0-10.0)
== END ==
PROVIDERS: ATTEND Internal Medicine
DX: D64.9 Anemia, unspecified (principal)

== ENCOUNTER 2019-04-12 13:15 | Inpatient (IN) | payer MEDICARE ==
[~2019-04-12] VITALS: Ht 198.1 cm; Wt 106.1 kg
--- NOTE | 2019-04-12 14:22 | REP ---
REASON FOR EXAMINATION: Altered mental status. TECHNIQUE: 4.5 mm contiguous transaxial sections were obtained from the skull base to the cerebral convexities with thin cuts through the posterior fossa without the administration of intravenous contrast. FINDINGS: The ventricles and sulci are consistent with the patient's age. There are no extra-axial fluid collections. There is no mass effect. The deep cerebral white matter is consistent with the patient's age. The orbital and petrous structures , cerebellopontine angles, and posterior fossa are unremarkable. The sella turcica, cavernous, and paracavernous structures are essentially unremarkable. The visualized portions of the paranasal sinuses and mastoid air cells are clear. Images of the skull base show no gross abnormality. IMPRESSION: Essentially unremarkable CT examination of the brain. No change from 06/20/2017. There are age-related changes, status quo. Electronically Signed by Mani Yepez DO 04/12/2019 03:08 P
[2019-04-12 14:28] LABS: BASO % 0.3 % (0.0-1.0); EOS # 0.1 10^3/uL (0.0-0.5); HEMOGLOBIN 7.9 g/dl (13.5-17.5); LYMPH # 1.1 10^3/uL (1.5-5.0); LYMPH % 12.8 % (24.0-44.0); MEAN CORPUSCULAR HEMOGLOBIN 30.7 pg (27.0-33.0); MEAN CORPUSCULAR HGB CONC 30.4 g/dl (32.0-36.5); MEAN CORPUSCULAR VOLUME 101.2 fl (80.0-96.0); MONO # 0.7 10^3/uL (0.0-0.8); MONO % 7.3 % (0.0-5.0); NEUTROPHILS # 6.9 10^3/uL (1.5-8.5); NEUTROPHILS % 78.1 % (36.0-66.0); PLATELET COUNT, AUTOMATED 224 10^3/uL (150-450); RED BLOOD COUNT 2.57 10^6/uL (4.30-6.10); WHITE BLOOD COUNT 8.9 10^3/uL (4.0-10.0)
--- NOTE | 2019-04-12 14:30 | REP ---
REASON: Altered mental status. No trauma. There is a cervical kyphosis. Vertebral body height is within normal limits. There is advanced disc space narrowing at every level. This is seen particularly universally at C5-6. The facet joints are well aligned bilaterally. Hypertrophic degenerative facet and uncovertebral joint changes are present at every level bilaterally. There is no abnormal perispinal soft tissue swelling. IMPRESSION: Advanced chronic changes as described above. Electronically Signed by Mani Yepez DO 04/12/2019 03:08 P
--- NOTE | 2019-04-12 14:35 | REP ---
REASON: History of fibrosis and cardiomegaly. Now having altered mental status. There is global cardiomegaly. There is interstitial fibrosis. There is discoid atelectasis on the left. IMPRESSION: Likely chronic changes as described above. Correlate clinically to rule out the possibility of acute disease superimposed on chronic change. Electronically Signed by Mani Yepez DO 04/12/2019 03:09 P
[2019-04-12 15:08] LABS: ALBUMIN 2.5 GM/DL (3.2-5.2); ALT/SGPT 24 U/L (12-78); BILIRUBIN,DIRECT 0.5 MG/DL (0.0-0.2); BLOOD UREA NITROGEN 79 MG/DL (7-18); CALCIUM LEVEL 8.3 MG/DL (8.8-10.2); CARBON DIOXIDE LEVEL 26 MEQ/L (21-32); CHLORIDE LEVEL 107 MEQ/L (98-107); CK-MB VALUE MASS 2.9 NG/ML (<3.6); CPK CREATINE PHOSPHOKINASE 149 U/L (39-308); CREATININE FOR GFR 1.93 MG/DL (0.70-1.30); GLOMERULAR FILTRATION RATE 35.2 (>35); GLUCOSE, FASTING 125 MG/DL (70-100); MB/CK RELATIVE INDEX 1.95 (< OR =4); POTASSIUM SERUM 4.5 MEQ/L (3.5-5.1); SODIUM LEVEL 140 MEQ/L (136-145); TOTAL PROTEIN 7.6 GM/DL (6.4-8.2); TROPONIN I < 0.02 NG/ML (< 0.10)
[2019-04-12] MEDS ORDERED: APAP325T4 PO (15:25)
[2019-04-12] MEDS ORDERED: LASI20TA3 PO (15:25)
[2019-04-12] MEDS ORDERED: COLA100C5 PO (15:26)
[2019-04-12] MEDS ORDERED: AYR0.65S NARES (15:33)
[2019-04-12] MEDS ORDERED: ACETTAB15 PO (15:33)
[2019-04-12] MEDS ORDERED: ATEN25TA PO (15:33)
[2019-04-12] MEDS ORDERED: ATOR40TA75 PO (15:33)
[2019-04-12] MEDS ORDERED: ENEMENE PR (15:33)
[2019-04-12] MEDS ORDERED: MULTCAP PO (15:33)
[2019-04-12] MEDS ORDERED: SODIGEL (15:33)
[2019-04-12] MEDS ORDERED: MILKSUS3 PO (15:33)
[2019-04-12] MEDS ORDERED: SPIR-10 PO (15:33)
[2019-04-12] MEDS ORDERED: EUCE1CRE2 TOP (15:33)
[2019-04-12] MEDS ORDERED: MIRA3350 PO (15:33)
[2019-04-12] MEDS ORDERED: ENSU1LIQ36 PO (15:33)
[2019-04-12] MEDS ORDERED: POTA20TA6 PO (15:33)
[2019-04-12] MEDS ORDERED: AMIT50TA PO (15:33)
[2019-04-12] MEDS ORDERED: ASPE16CR TOP (15:33)
[2019-04-12] MEDS ORDERED: BISA10SU27 PR (15:33)
[2019-04-12] MEDS ORDERED: ACET650T15 PO (15:33)
[2019-04-12] MEDS ORDERED: ASPI81CH33 PO (15:33)
[2019-04-12] MEDS ORDERED: DOCUSATE SODIUM 100 MG CAP PO SCH (16:00)
--- NOTE | 2019-04-12 17:13 | REPVR ---
PROCEDURE INFORMATION: Exam: US Duplex Bilateral Lower Extremity Veins Exam date and time: 04/12/2019 4:47 PM Age: 88 years old Clinical history: Edema, localized; Lower extremity, bilateral; Additional info: Swelling legs TECHNIQUE: Imaging protocol: Real-time duplex ultrasound of the Bilateral Lower Extremities with 2-D sparks scale, color Doppler flow and spectral waveform analysis with image documentation. Complete exam focused on the bilateral lower extremity veins. COMPARISON: US Duplex, Ext LOWER veins, bilat 03/02/2019 10:55 AM FINDINGS: Right deep veins: Unremarkable. The common femoral, femoral, proximal profunda femoral and popliteal veins are patent without thrombus. Normal Doppler waveforms. Normal compressibility and/or augmentation response. Right superficial veins: Saphenofemoral junction is patent without thrombus. Left deep veins: Unremarkable. The common femoral, femoral, proximal profunda femoral and popliteal veins are patent without thrombus. Normal Doppler waveforms. Normal compressibility and/or augmentation response. Left superficial veins: Saphenofemoral junction is patent without thrombus. Soft tissues: Edema of bilateral lower extremity. IMPRESSION: No DVT of bilateral lower extremity. Electronically signed by: Zacarias Quigley On 04/12/2019 17:13:17 PM
[2019-04-12] MEDS ORDERED: GLUCOSE 4 GM CHEW TABLET PO PRN (17:15)
[2019-04-12] MEDS ORDERED: DEXTROSE 50% 50 ML SYRINGE IV PRN (17:15)
[2019-04-12] MEDS ORDERED: GLUCAGON FOR INJ 1 MG VIAL (J1610) SC PRN (17:15)
[2019-04-12] MEDS ORDERED: SODIUM CHLORIDE NASAL 0.65% SPRAY BTL (OCEAN) PRN (17:15)
[2019-04-12] MEDS ORDERED: NS 500 ML IV ONE (17:30)
[2019-04-12] MEDS ORDERED: GOLYTELY SOLN 4000 ML BTL PO ONE (18:00)
[2019-04-12 18:30] VITALS: BP 136/79
--- NOTE | 2019-04-12 19:13 | IPNPDOC ---
Date Seen The patient was seen on 04/12/19. Progress Note GI RECOMMENDATIONS, DR. COPE: PCU transfer postpone endoscopy until pt is more stable either or sat. liquid diet VS, I&O, 24H, Fishbone Vital Signs/I&O Vital Signs Date Time Temp Pulse Resp B/P (MAP) Pulse Ox O2 Delivery O2 Flow Rate FiO2 04/12/19 18:30 97.5 90 12 136/79 (98) 95 Room Air Laboratory Data 24H LABS Laboratory Tests 2 04/12/19 14:02: Immature Granulocyte % (Auto) 0.5, Neutrophils (%) (Auto) 78.1H, Lymphocytes (%) (Auto) 12.8L, Monocytes (%) (Auto) 7.3H, Eosinophils (%) (Auto) 1.0, Basophils (%) (Auto) 0.3, Neutrophils # (Auto) 6.9, Lymphocytes # (Auto) 1.1L, Monocytes # (Auto) 0.7, Eosinophils # (Auto) 0.1, Basophils # (Auto) 0.0, Nucleated Red Blood Cells % (auto) 0.0, Urine Color YELLOW, Urine Appearance CLOUDYH, Urine pH 5.0, Urine Specific [place] 1.013, Urine Protein 2+H, Urine Glucose (UA) NEGATIVE, Urine Ketones NEGATIVE, Urine Blood 3+H, Urine Nitrite NEGATIVE, Urine Bilirubin NEGATIVE, Urine Urobilinogen 0.2, Urine Leukocyte Esterase 3+H, Urine WBC (Auto) 79H, Urine RBC (Auto) TNTCH, Urine Hyaline Casts (Auto) 0, Urine Bacteria (Auto) 2+H, Urine Squamous Epithelial Cells 0, Urine Mucus (Auto) SMALL, Urine Sperm (Auto) , Anion Gap 7L, Glomerular Filtration Rate 35.2, Lactic Acid Level 2.2*H, Calcium Level 8.3L, Total Bilirubin 1.0, Direct Bilirubin 0.5H, Aspartate Amino Transf (AST/SGOT) 29, Alanine Aminotransferase (ALT/SGPT) 24, Alkaline Phosphatase 170H, Ammonia 17, Total Creatine Kinase 149, Creatine Kinase MB 2.9, Creatine Kinase MB Relative Index 1.95, Troponin I < 0.02, Total Protein 7.6, Albumin 2.5L, Albumin/Globulin Ratio 0.49L, Thyroid Stimulating Hormone (TSH) 10.400H 04/12/19 14:03: Bedside Glucose (Misc Panel) 129H CBC/BMP Laboratory Tests 04/12/19 14:02 Microbiology Microbiology 04/12/19 Blood Culture, Received Pending 04/12/19 Urine Culture, Received Pending 04/12/19 Blood Culture, Received Pending CATE OWENS MD Apr 12, 2019 19:13
--- NOTE | 2019-04-12 19:24 | ECGEPIP ---
[facility] - ED Test Date: 2019-04-12 Pat Name: RONALD GILL Department: Room: - Gender: Male Crisis Therapist: YIFAN : 1930 Requested By: Carlos Rossi Order Number: [id number] Reading MD: Carlos Rossi Measurements Intervals [place] Rate: 90 P: DC: 0 QRS: 89 QRSD: 101 T: 93 QT: 384 QTc: 470 Interpretive Statements ATRIAL FIBRILLATION NONSPECIFIC T-WAVE ABNORMALITY - TO CONSIDER ISCHEMIA ABNORMAL RHYTHM ECG PROLONGED QTC BASELINE ARTIFACT MAY AFFECT READING BASELINE WANDERING MAY AFFECT READING CW 02/09/[address] T WAVE CHANGES - TO CONSIDER ISCHEMIA CLINICAL CORRELATION ADVISED Electronically Signed on 04-12-2019 19:24:31 EST by Carlos Rossi
--- NOTE | 2019-04-12 19:58 | HPE ---
DATE OF ADMISSION: 04/12/2019 PRIMARY CARE PROVIDER: Devan Ureña MD at [facility] CHIEF COMPLAINT: Generalized weakness. HISTORY OF PRESENT ILLNESS: This is an 88-year-old male, [facility] resident, DO NOT RESUSCITATE, DO NOT INTUBATE, healthcare proxy is the patient's daughter, Camilla Oro [phone], brought to the emergency room due to complaints of fall, found on the floor today at 4:00 a.m. and generalized weakness. The patient has altered mental status and appeared to be delusional, worsened in the past 2 days. History is obtained from the patient's daughter present at the bedside. According to the daughter, the patient has been found to be severely anemic for the past 3 weeks requiring 2 unit red blood cell transfusion, became constipated on oral iron supplements and was given intravenous iron by primary care provider at [facility]. He was sent to gastroenterology on 04/03/2019, Dr. Kapadia, with plans for a colonoscopy after medical clearance from Dr. Vuong. The patient saw Dr. Vuong on 04/08/2019, who felt that the patient was stable for anesthesia to undergo an esophagogastroduodenoscopy (EGD) and colonoscopy. The patient's Eliquis has been held since then. He also saw oncology and had a bone marrow biopsy on 04/09/2019, Dr. Richter, and an outpatient appointment with ENT scheduled for 04/21/2019 for epistaxis as cause for the patient's blood loss anemia. He had one out of three heme positive stools as an outpatient, and per the daughter at the bedside, she had him stick paper clips into his nose. Per nursing at [facility], the patient had epistaxis with Eliquis that was about a teaspoon of blood loss, which subsides with pressure. The patient is usually picking his nose at the residential because of severe dryness and picks at the formed clots. Per the daughter at the bedside, the patient usually clots without any problems, but no significant blood loss has been seen where the patient has required cauterization or an emergency room visit. The patient otherwise is very demented and denied any bright red blood per rectum, melena or black tarry stools. Yesterday he had complained of soreness in his groin. He was found to have edematous testicles and at 4:00 a.m. this morning he was found on the floor at [facility] where he had injured his scalp and his arm on the right where he had fallen, as well as the right knee. The patient appeared to be delusional according to the daughter at the bedside, but he still recognizes her. At times he will not make any sense. He complained of generalized weakness, lower extremity weakness that has worsened for the past 2 days but has been going for the past month. The patient did not recall falling today at 4:00 a.m. He has cuts on his right hand, which have been swollen before. Hand x-rays were negative according to the patient's daughter. He has chronic lower extremity wounds with two on the left and one on the right, chronically bound. He had an evaluation by Dr. Muñoz of vascular surgery in the past and usually managed by Dr. Paez with daily wound care and dressing changes. He was told to continue with compression stockings and to elevate his lower extremities. The patient has refused as it hurts his back even with a recliner and two pillows when he is sitting down. The patient otherwise denies any chest pain, pressure, tightness, palpitations, lightheadedness, or dizziness at the bedside. No history of peptic ulcer disease. He had prior colonoscopy with polyps removed many years ago. PAST MEDICAL HISTORY: 1. Chronic anemia. 2. Diastolic heart failure. 3. Pulmonary hypertension. 4. Severe tricuspid regurgitation. 5. Left ventricle hypertrophy. 6. Moderate mitral insufficiency. 7. Anemia requiring 8 units red blood cell transfusion. 8. Bone marrow biopsy 04/09/[address] Richter. 9. Epistaxis. 10. Hypertension. 11. Chronic atrial fibrillation on Eliquis, held since 03/27/2019. 12. History of basal cell carcinoma, squamous cell carcinoma in situ. 13. Hypothyroidism. 14. Atherosclerosis with nonhealing wounds of the left lower extremity. 15. Chronic kidney disease stage III. 16. Enterococcus pseudomonas on the left lower extremity. PAST SURGICAL HISTORY: 1. Ultrasound guided access of the right common femoral artery. 2. Left lower extremity arteriogram with run off. 3. Angioplasty of left anterior tibial and peroneal arteries with 3 x 220 [place] balloon completion arteriograms, attempted Mynx closure of the right common femoral, which was aborted. 4. Appendectomy. 5. Right knee cartilage removal. 6. Colonoscopy with polyps removed. 7. Cataract surgery. SOCIAL HISTORY: DO NOT RESUSCITATE, DO NOT INTUBATE. Camilla is the healthcare proxy, daughter, . The patient lives at [facility]. FAMILY HISTORY: Noncontributory due to advanced age. REVIEW OF SYSTEMS: As per history of present illness. PHYSICAL EXAMINATION: VITAL SIGNS: Temperature 97.4, pulse 82, respiratory rate 18, blood pressure 119/68, 97% on room air. GENERAL: Awake, alert and oriented to person only. He does answer questions and he is cooperative but disoriented to date. Anicteric sclerae. No jaundice. Slight pallor. Dry, mucous membranes. No jugular venous distention (JVD). No thyromegaly. NECK: Supple. Full range of motion. No cervical lymphadenopathy or thyromegaly. LUNGS: Diminished but clear to auscultation. No wheezing, rales or rhonchi. HEART: S1, S2. Systolic ejection murmur at the left lower sternal border. EXTREMITIES: Open wound on the right lower extremity. Some serosanguineous drainage. No tunneling noted. Left lower extremity with serosanguineous drainage, no tunneling. Localized edema. LABORATORY DATA: White count 8.9, hemoglobin 7.9, hematocrit 26, platelet count 224. Previous hemoglobin 8.1, hematocrit 25.9. Lactic acid of 2.2, creatinine 1.93. Sodium 140, potassium 4.5, chloride 107, bicarbonate 26, and glucose of 125. IMAGING STUDIES: CT of the head negative, no change from 06/20/2017. Age related changes. Chest x-ray showed chronic changes, correlate to rule out possibility of acute disease superimposed on chronic changes. Cervical spine CT showed advanced chronic changes, C5-C6. Finger x-ray on 04/06/2019 showed degenerative changes without acute fracture or dislocation. ASSESSMENT AND PLAN: 88-year-old [facility] resident with advanced dementia, occult GI bleed versus myelodysplastic syndrome or myeloma, chronic kidney disease stage III, atrial fibrillation on chronic Eliquis, held since 03/27/2019, presents with heme positive stool, fall due to symptomatic anemia. CURRENT ISSUES: 1. Symptomatic anemia with generalized weakness and falls secondary to anemia. The patient has been typed and crossed and will be transfused 2 units of red blood cells. Per Dr. Kapadia, who has been consulted, the patient is to have a bowel prep and esophagogastroduodenoscopy (EGD) and colonoscopy in the morning, nothing by mouth after midnight and IV fluids if needed. The patient's Eliquis has been held. He has been cleared by his breakfast and room attendant, Dr. Vuong. 2. Medical clearance. The patient had a visit with Dr. Vuong on 04/08/2019 and cleared the patient for colonoscopy and EGD. 3. Diastolic heart failure, currently compensated with severe tricuspid regurgitation. Monitor input and output and daily weights. 4. Epistaxis. The patient is currently off of Eliquis. He was is to see ENT. Saline nasal spray three times a day and every 2 hours as needed. 5. Acute blood loss anemia with heme positive stool, occult GI bleed. The patient has not had any agnes bright red blood melena or black tarry stools. EGD and colonoscopy tomorrow with Dr. Kapadia, who has been consulted. The patient is nothing by mouth after midnight. Clears for dinner this evening and only medications to be given. 6. Chronic atrial fibrillation. Currently rate controlled off the Eliquis for EGD and colonoscopy. 7. Hypothyroidism. We will check TSH level. 8. History of basal cell and squamous cell cancer in situ. 9. Abnormal SPEP and UPEP. The patient had a bone marrow biopsy by Dr. Richter, await results in the morning. 10. Acute on chronic renal failure stage III. Gentle IV fluid hydration while nothing by mouth. Fingersticks every 6 hours and hypoglycemic protocol. 11. Deep vein thrombosis (DVT) prophylaxis with compression stockings. 12. Chronic lower extremity wounds with peripheral vascular disease. Teleconferencing with Dr. Paez. Resume home regimen.
--- NOTE | 2019-04-12 20:08 | REPVR ---
PROCEDURE INFORMATION: Exam: US Scrotum Exam date and time: 04/12/2019 6:15 PM Age: 88 years old Clinical history: Edema; Additional info: Edema R/O torsion TECHNIQUE: Imaging protocol: Real-time ultrasound of the scrotum and contents with color Doppler and image documentation. COMPARISON: No relevant prior studies available. FINDINGS: Right testicle: The right testicle measures 2.6 x 2.1 x 2.5 cm. Homogeneous echotexture. Normal vascular flow. Left testicle: The left testicle measures 2.6 x 2.1 x 2.1 cm. Normal vascular flow. A simple 4.4 mm left testicular cyst is noted. Inferior to the left testicle, there is demonstration of a lobulated cystic structure or lesion which measures 4.4 x 2.4 x 2.1 cm. This appearance is nonspecific. Consider epididymal body cysts versus herniated bowel. Epididymides: The right epididymal head measures 6.7 mm. The left epididymal head measures 7.0 mm. Scrotum: There are bilateral hydroceles. The scrotal wall is diffusely thickened and edematous/phlegmonous, more so on the right. The right scrotal wall is more hypervascular. IMPRESSION: 1. No testicular torsion. 2. Bilateral hydroceles. 3. Bilateral scrotal wall thickening with edema/phlegmon, more prominent and more hypervascular on the right. 4. Left testicular cyst incidentally noted. Electronically signed by: Brenda Monzon On 04/12/2019 20:07:33 PM
[2019-04-12 21:00] VITALS: BP 129/80
[2019-04-12] MEDS: SODIUM CHLORIDE NASAL 0.65% SPRAY BTL (OCEAN) SCH (21:00)
[2019-04-12 21:50] VITALS: BP 129/80
[2019-04-12] MEDS: ACETAMINOPHEN TAB 650MG DOSE (2X325MG) PO PRN (21:55)
[2019-04-12] MEDS: MIRALAX *UNIT DOSE* 17GM PACKET PO SCH (21:56)
[2019-04-12 22:15] VITALS: BP 137/67
[2019-04-12 22:20] VITALS: BP 118/57; PULSE 92
[2019-04-12] MEDS: NITROGLYCERIN 0.4 MG SUBL TABLET SL PRN ×2 (22:55→23:10)
[2019-04-12 23:00] VITALS: BP 118/57
[2019-04-13] VITALS (11 sets, daily range): BP systolic 110–146; BP diastolic 57–88
[2019-04-13 00:23] LABS: HEMATOCRIT 27.6 % (42.0-52.0); HEMOGLOBIN 8.6 g/dl (13.5-17.5)
[2019-04-13 00:43] LABS: CK-MB VALUE MASS 2.4 NG/ML (<3.6); CPK CREATINE PHOSPHOKINASE 139 U/L (39-308); MB/CK RELATIVE INDEX 1.72 (< OR =4); TROPONIN I < 0.02 NG/ML (< 0.10)
[2019-04-13] MEDS ORDERED: MORPHINE 2 MG/ML 1ML VIAL (J2270) IV ONE ×2 (01:15→04:15)
[2019-04-13] MEDS ORDERED: D5W/0.45% SODIUM CHLORIDE 1,000 ML IV SCH (02:00)
[2019-04-13] MEDS ORDERED: QUEtiapine FUMARATE 25 MG TAB PO ONE (04:15)
[2019-04-13] MEDS: cefTRIAXone SOD 1 GM in D5W MINI-BAG PLUS 50 ML IV SCH ×2 (04:20→17:30)
[2019-04-13] MEDS: ACETAMINOPHEN TAB 650MG DOSE (2X325MG) PO PRN ×2 (04:46→21:23)
[2019-04-13 05:52] LABS: CK-MB VALUE MASS 2.6 NG/ML (<3.6); CPK CREATINE PHOSPHOKINASE 154 U/L (39-308); MB/CK RELATIVE INDEX 1.68 (< OR =4); TROPONIN I < 0.02 NG/ML (< 0.10)
[2019-04-13 07:51] LABS: HEMATOCRIT 30.5 % (42.0-52.0); HEMOGLOBIN 9.5 g/dl (13.5-17.5); MEAN CORPUSCULAR HEMOGLOBIN 30.5 pg (27.0-33.0); MEAN CORPUSCULAR HGB CONC 31.1 g/dl (32.0-36.5); MEAN CORPUSCULAR VOLUME 98.1 fl (80.0-96.0); PLATELET COUNT, AUTOMATED 242 10^3/uL (150-450); RED BLOOD COUNT 3.11 10^6/uL (4.30-6.10); WHITE BLOOD COUNT 9.1 10^3/uL (4.0-10.0)
[2019-04-13 07:55] LABS: CALCIUM LEVEL 8.5 MG/DL (8.8-10.2); CREATININE FOR GFR 1.79 MG/DL (0.70-1.30); GLOMERULAR FILTRATION RATE 38.4 (>35); POTASSIUM SERUM 4.5 MEQ/L (3.5-5.1)
[2019-04-13] MEDS ORDERED: ACETAMINOPHEN 500 MG TAB PO ONE (08:30)
[2019-04-13] MEDS ORDERED: GOLYTELY SOLN 4000 ML BTL PO ONE ×2 (09:00→16:00)
[2019-04-13] MEDS: SODIUM CHLORIDE NASAL 0.65% SPRAY BTL (OCEAN) SCH ×3 (09:23→21:23)
[2019-04-13] MEDS: MIRALAX *UNIT DOSE* 17GM PACKET PO SCH ×2 (09:26→21:22)
[2019-04-13 10:48] LABS: FREE T4 0.96 NG/DL (0.76-1.46); THYROID STIMULATING HORMONE 8.96 uIU/ML (0.358-3.740)
--- NOTE | 2019-04-13 10:49 | IPNPDOC ---
Date Seen The patient was seen on 04/13/19. Progress Note SUBJECTIVE: Patient is a poor historian. It was reported overnight that the patient was unable to sleep at night due to low back pain but the patient denies that this morning. Otherwise patient denies chest pain, shortness breath, nausea, vomiting, fevers, chills. OBJECTIVE PHYSICAL EXAMINATION: VITAL SIGNS: Please see below. GENERAL: Pleasant 88 year old male sitting up in bed awake alert but not oriented (baseline) speaking in complete sentences no acute distress HEENT: Moist mucous membranes no JVD CARDIOVASCULAR: S1 S2 regular no additional heart sounds appreciated. (There is hx of tricuspid regurg but unable to asses on todays exam) RESPIRATORY: Clear to auscultation bilaterally. ABDOMINAL: Bowel sounds present abdomen soft and nontender EXTREMITIES: No clubbing cyanosis or edema. Chronic wounds in the lower extremity bilaterally wrapped. No weeping or discharge noted. NEUROLOGICAL: no gross focal deficits appreciated PSYCHOLOGICAL: Appropriate LABORATORY DATA, MICROBIOLOGY: Please see below. IMAGING STUDIES: 04/12/[address] CT examination of the brain. No change from 06/20/2017. There are age-related changes, status quo. Chest X-ray Likely chronic changes as described above. Correlate clinically to rule out the possibility of acute disease superimposed on chronic change. Cervical Spine CT There is a cervical kyphosis. Vertebral body height is within normal limits. There is advanced disc space narrowing at every level. This is seen parti cularly universally at C5-6. The facet joints are well aligned bilaterally. Hypertrophic degenerative facet and uncovertebral joint changes are present at every level bilaterally. There is no abnormal perispinal soft tissue swelling. Vascular US No DVT of bilateral lower extremity. Scrotum US 1. No testicular torsion. 2. Bilateral hydroceles. 3. Bilateral scrotal wall thickening with edema/phlegmon, more prominent and more hypervascular on the right. 4. Left testicular cyst incidentally noted. ASSESSMENT AND PLAN: This is a 88-year-old Male presents with fall secondary symptomatic anemia. PROBLEMS: 1. Symptomatic anemia with generalized weakness -transfused 2 units of red blood cells. -Dr. Kapadia consulted - EGD and colonoscopy tomorrow, prep today -Eliquis on hold, -Cardiac clearance from cardiology (Dr. Vuong) will be faxed over today. -Bone marrow biopsy done 04/10/19, results pending 2. Fall secondary to Symptomatic anemia. Refer to above for plan. 3. Diastolic heart failure with severe tricuspid regurgitation. - currently compensated - input and output and daily weights. 4. Epistaxis. - hold Eliquis -c/w Saline nasal spray TID and q2h PRN 5. Chronic atrial fibrillation -rate controlled hold Eliquis -EGD and colonoscopy tomorrow 6. Hypothyroidism -TSH level are elevated >10 -Possible secondary to euthyroid sick syndrome? -repeat levels today 7 History of basal cell and squamous cell cancer in situ. 8. Abnormal SPEP and UPEP - Dr. Richter,- Bone marrow biopsy done 04/10/19, results pending 9. Acute on chronic renal failure stage III. Gentle IV fluid hydration while NPO -FSBS q6hR. 10. Chronic lower extremity wounds with peripheral vascular disease. -See Dr. Paez outpatient - Resume home regimen. 11. Low back pain -K-pad -Tylenol 1,000mg once now 12. Dementia -Baseline mentation- only aware of self, but not place or time -Daughter is healthcare proxy 13. Abnormal UA -not the best historian -Currently on Ceftriaxone -Urine Culture had >100,000 gram negative rods, ID in the AM -desclate in the AM, once sensitivity return, -need antibiotics therapy for 7 days today, because UTI in male DVT prophylaxis: Teds and sequentials DISPOSITION: Prep today for EGD and colonoscopy tomorrow MEDICAL ATTENDING PHYSICIAN ADDENDUM: I have independently interviewed and examined the patient, and agree with the physical findings, assessment, and management plan as documented above by my Resident physician. VS, I&O, 24H, Fishbone Vital Signs/I&O Vital Signs Date Time Temp Pulse Resp B/P (MAP) Pulse Ox O2 Delivery O2 Flow Rate FiO2 04/13/19 08:00 I&O- Last 24 Hours up to 6 AM 04/13/19 06:00 Intake Total 1390 ml Output Total 1400 ml Balance -10 ml Laboratory Data 24H LABS Laboratory Tests 2 04/12/19 14:02: Immature Granulocyte % (Auto) 0.5, Neutrophils (%) (Auto) 78.1H, Lymphocytes (%) (Auto) 12.8L, Monocytes (%) (Auto) 7.3H, Eosinophils (%) (Auto) 1.0, Basophils (%) (Auto) 0.3, Neutrophils # (Auto) 6.9, Lymphocytes # (Auto) 1.1L, Monocytes # (Auto) 0.7, Eosinophils # (Auto) 0.1, Basophils # (Auto) 0.0, Nucleated Red Blood Cells % (auto) 0.0, Urine Color YELLOW, Urine Appearance CLOUDYH, Urine pH 5.0, Urine Specific [place] 1.013, Urine Protein 2+H, Urine Glucose (UA) NEGATIVE, Urine Ketones NEGATIVE, Urine Blood 3+H, Urine Nitrite NEGATIVE, Urine Bilirubin NEGATIVE, Urine Urobilinogen 0.2, Urine Leukocyte Esterase 3+H, Urine WBC (Auto) 79H, Urine RBC (Auto) TNTCH, Urine Hyaline Casts (Auto) 0, Urine Bacteria (Auto) 2+H, Urine Squamous Epithelial Cells 0, Urine Mucus (Auto) SMALL, Urine Sperm (Auto) , Anion Gap 7L, Glomerular Filtration Rate 35.2, Lactic Acid Level 2.2*H, Calcium Level 8.3L, Total Bilirubin 1.0, Direct Bilirubin 0.5H, Aspartate Amino Transf (AST/SGOT) 29, Alanine Aminotransferase (ALT/SGPT) 24, Alkaline Phosphatase 170H, Ammonia 17, Total Creatine Kinase 149, Creatine Kinase MB 2.9, Creatine Kinase MB Relative Index 1.95, Troponin I < 0.02, Total Protein 7.6, Albumin 2.5L, Albumin/Globulin Ratio 0.49L, Thyroid Stimulating Hormone (TSH) 10.400H 04/12/19 14:03: Bedside Glucose (Misc Panel) 129H 04/12/19 23:22: Lactic Acid Level 1.5, Total Creatine Kinase 139, Creatine Kinase MB 2.4, Creatine Kinase MB Relative Index 1.72, Troponin I < 0.02 04/13/19 05:17: Nucleated Red Blood Cells % (auto) 0.2H, Anion Gap 11, Glomerular Filtration Rate 38.4, Calcium Level 8.5L, Total Creatine Kinase 154, Creatine Kinase MB 2.6, Creatine Kinase MB Relative Index 1.68, Troponin I < 0.02 CBC/BMP Laboratory Tests 04/12/19 14:02 04/13/19 00:07 04/13/19 05:17 Microbiology Microbiology 04/12/19 Blood Culture, Received Pending 04/12/19 Urine Culture, Received Pending 04/12/19 Blood Culture, Received Pending ANGIE PATEL DO Apr 13, 2019 10:49 CATE OWENS MD Apr 13, 2019 16:26
[2019-04-13 12:09] LABS: HEMATOCRIT 30.2 % (42.0-52.0); HEMOGLOBIN 9.6 g/dl (13.5-17.5)
[2019-04-13] MEDS ORDERED: SLF 3 ML SYR IV PRN (17:15)
[2019-04-13] MEDS: PHENAZOPYRIDINE 100 MG TAB PO SCH ×2 (17:34→21:23)
[2019-04-13] MEDS: POLYVINYL ALCOHOL OPHTH SOLN 15 ML(LIQUITEARS) OU SCH ×2 (17:34→21:23)
--- NOTE | 2019-04-13 21:14 | ECGEPIP ---
[facility] Test Date: 2019-04-13 Pat Name: RONALD GILL Department: Room: [place] [address] Gender: Male Fork Operator: BRUCE : [id number] Requested By: Belén Metcalf [facility] Order Number: [id number] Reading MD: Natalya Vivar Measurements Intervals [place] Rate: 88 P: [place]: 0 QRS: 83 QRSD: 117 T: 150 QT: 417 QTc: 507 Interpretive Statements ATRIAL FIBRILLATION MODERATE INTRAVENTRICULAR CONDUCTION DELAY NONSPECIFIC T-WAVE ABNORMALITY PROLONGED QT INTERVAL SIMILAR TO 04/12/19, DIFFERENCE LIKELY DUE TO LEAD PLACEMENT Electronically Signed on 04-13-2019 21:14:28 EST by Natalya Vivar
[2019-04-13] MEDS: SLF 3 ML SYR IV SCH (21:23)
[2019-04-14] VITALS: BP 136/80
[2019-04-14 04:00] VITALS: BP 162/74
[2019-04-14] MEDS: SLF 3 ML SYR IV SCH ×3 (05:04→20:20)
[2019-04-14 05:47] LABS: HEMATOCRIT 30.9 % (42.0-52.0); HEMOGLOBIN 9.6 g/dl (13.5-17.5); MEAN CORPUSCULAR HEMOGLOBIN 30.3 pg (27.0-33.0); MEAN CORPUSCULAR HGB CONC 31.1 g/dl (32.0-36.5); MEAN CORPUSCULAR VOLUME 97.5 fl (80.0-96.0); PLATELET COUNT, AUTOMATED 243 10^3/uL (150-450); RED BLOOD COUNT 3.17 10^6/uL (4.30-6.10); WHITE BLOOD COUNT 8.1 10^3/uL (4.0-10.0)
[2019-04-14 06:09] LABS: CALCIUM LEVEL 8.6 MG/DL (8.8-10.2); CREATININE FOR GFR 1.42 MG/DL (0.70-1.30); GLOMERULAR FILTRATION RATE 50.2 (>35); POTASSIUM SERUM 3.5 MEQ/L (3.5-5.1)
[2019-04-14 08:00] VITALS: BP 133/81
[2019-04-14] MEDS: DIMETHICONE 2% OINTMENT(VANIPLY) 70GM TUBE TOP SCH ×2 (09:00→18:25)
[2019-04-14] MEDS: POLYVINYL ALCOHOL OPHTH SOLN 15 ML(LIQUITEARS) OU SCH ×3 (09:35→20:20)
[2019-04-14] MEDS: SODIUM CHLORIDE NASAL 0.65% SPRAY BTL (OCEAN) SCH ×3 (09:36→20:20)
[2019-04-14] MEDS: PHENAZOPYRIDINE 100 MG TAB PO SCH ×3 (09:36→20:20)
[2019-04-14] MEDS: MIRALAX *UNIT DOSE* 17GM PACKET PO SCH ×2 (09:37→20:19)
[2019-04-14 12:00] VITALS: BP 140/71
[2019-04-14] MEDS: ACETAMINOPHEN TAB 650MG DOSE (2X325MG) PO PRN (12:27)
[2019-04-14] MEDS ORDERED: KETOROLAC 30 MG/ML VIAL (J1885) IV ONE (13:15)
[2019-04-14] MEDS ORDERED: CETIRIZINE (ZyrTEC) 10 MG TAB PO ONE (13:30)
[2019-04-14] MEDS ORDERED: BENZONATATE 100 MG CAP PO ONE (13:30)
--- NOTE | 2019-04-14 14:04 | IPNPDOC ---
Date Seen The patient was seen on 04/14/19. Progress Note SUBJECTIVE: Patient is a poor historian. It was reported that he finished his prep for the colonoscopy this afternoon. He will have his teleconference with Jeannine later this morning. He continues to have itchy eyes, no productive cough and some possible discomfort in his left rib with inhalation during exam. Otherwise patient denies shortness breath, nausea, vomiting, fevers, chills. OBJECTIVE PHYSICAL EXAMINATION: VITAL SIGNS: Please see below. GENERAL: Pleasant 88 year old male sitting up in bed awake alert but not ruben ented (baseline) speaking in complete sentences no acute distress HEENT: Moist mucous membranes, JVD noted on exam CARDIOVASCULAR: S1 S2 irregular slightly tachycardic (102bpm) with 1/6 systolic murmur in the left 5th intercostal space with no radiation RESPIRATORY: Clear to auscultation bilaterally. no wheezing ronchi, rales noted. ABDOMINAL: Bowel sounds present abdomen soft and nontender GENITOURINARY: Significant and genitalia swelling of the scrotum and penis with Lugo in place. Urine in bag orange in color likely secondary to Pyridium. EXTREMITIES: No clubbing cyanosis or edema. Chronic wounds in the lower extremity examined during teleconference , some greenish discharge noted on the left medial with no necrotic tissue noted bilatearlly. 3+ pitting edema bilaterally up to hips. NEUROLOGICAL: no gross focal deficits appreciated PSYCHOLOGICAL: Appropriate LABORATORY DATA, MICROBIOLOGY: Please see below. IMAGING STUDIES: 04/12/[address] CT examination of the brain. No change from 06/20/2017. There are age-related changes, status quo. Chest X-ray Likely chronic changes as described above. Correlate clinically to rule out the possibility of acute disease superimposed on chronic change. Cervical Spine CT There is a cervical kyphosis. Vertebral body height is within normal limits. There is advanced disc space narrowing at every level. This is seen particularly universally at C5-6. The facet joints are well aligned bilaterally. Hypertrophic degenerative facet and uncovertebral joint changes are present at every level bilaterally. There is no abnormal perispinal soft tissue swelling. Vascular US No DVT of bilateral lower extremity. Scrotum US 1. No testicular torsion. 2. Bilateral hydroceles. 3. Bilateral scrotal wall thickening with edema/phlegmon, more prominent and more hypervascular on the right. 4. Left testicular cyst incidentally noted. ASSESSMENT AND PLAN: This is a 88-year-old Male presents with fall secondary symptomatic anemia. PROBLEMS: 1. Symptomatic anemia with generalized weakness -transfused 2 units of red blood cells. -Dr. Kapadia consulted -EGD and colonoscopy today -Eliquis on hold -Cardiac clearance from cardiology (Dr. Vuong) will be faxed over today. -Bone marrow biopsy done 04/10/19, results pending, pathology was called and was possible results after thanksgiving. 2. Fall secondary to Symptomatic anemia. Refer to above for plan -imaging on admission negative for fracture -pain on exam today. -toradol 15mg x1 iv today, monitor to see if improving. if helps with pain can put on Toradol 10mg x5 days. -can consider left rib xray if still suspicious of rib fracture after colonoscopy later this evening. 3. Diastolic heart failure with severe tricuspid regurgitation with moderate elevated pulmonary artery pressures - currently compensated - input and output and daily weights. 4. Epistaxis. - hold Eliquis -c/w Saline nasal spray TID and q2h PRN 5. Chronic atrial fibrillation -rate controlled, no rvr noted. -continue to hold Eliquis -EGD and colonoscopy today 6. Hypothyroidism -Possible secondary to euthyroid sick syndrome? 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 8. Abnormal SPEP and UPEP - Dr. Richter,- Bone marrow biopsy done 04/10/19, results pending 9. Acute on chronic renal failure stage III.(improving) -Gentle IV fluid hydration while NPO 10. Chronic lower extremity wounds with peripheral vascular disease. -See Dr. Paez outpatient -teleconference today at12:45. follow his recommendations. 11. Cough -with dry itchy eyes and cough. will treat with zyrtec and monitor if symptoms improve, it not can consider PPI after EGD findings today 12. Dementia -Baseline mentation- only aware of self, but not place or time -Daughter is healthcare proxy 13. Complicated UTI -Abnormal UA in male -not the best historian -Currently on Ceftriaxone -Urine Culture + E. coli - Sensitive to 3rd gen cephalosporins -switch to cefdinir for antibiotics coverage for 10-14 days. -pyridium on board for possible bladder spasm discontinue in 2 days. DVT prophylaxis: Teds and sequentials DISPOSITION: EGD and colonoscopy today, wound consult today, ATTENDING NOTE I have personally evaluated and examined the patient. Discussed with residents and student regarding plan of care and agree with the above assessment and plan. VS, I&O, 24H, Fishbone Vital Signs/I&O Vital Signs Date Time Temp Pulse Resp B/P (MAP) Pulse Ox O2 Delivery O2 Flow Rate FiO2 04/14/19 08:00 97.9 97 18 133/81 (98) 93 Nasal Cannula 2.0 I&O- Last 24 Hours up to 6 AM 04/14/19 05:59 Intake Total 480 ml Output Total 800 ml Balance -320 ml Laboratory Data 24H LABS Laboratory Tests 2 04/14/19 04:50: Nucleated Red Blood Cells % (auto) 0.2H, Anion Gap 7L, Glomerular Filtration Rate 50.2, Calcium Level 8.6L CBC/BMP Laboratory Tests 04/14/19 04:50 Microbiology Microbiology 04/12/19 Blood Culture - Preliminary, Resulted No growth after 24 hours . All specim... 04/12/19 Urine Culture - Final, Complete Escherichia Coli 04/12/19 Blood Culture - Preliminary, Resulted No growth after 24 hours . All specim... ANGIE PATEL DO Apr 14, 2019 12:04 IRA HAWTHORNE MD Apr 14, 2019 18:32
--- NOTE | 2019-04-14 14:07 | CR.PDOC ---
General Date of Consultation: Apr 14, 2019 Referring Provider: CATE OWENS MD Attending Physician: SALONI COPE MD Consultation PCP / Hospitalist: Dr. Owens. Reason for consult: Anemia and rule out GI bleeding. 88 year old male patient ( [facility] resident), with HTN, Atrial fibrillation (on Eliquis, which is on hold due to new onset severe anemia), CHF (following with the Dr. Vuong), peripheral venous insufficiency, venous ulcers in lower extremity, CKD III ( Cr- 1.36), was recently seen in GI clinic and planned for EGD and Colonoscopy and ENT evaluation for epistaxis is now admitted to hospital for altered mental status and fall and left testicular enlargement. Patiet is being treated for UTI, normal CT head and no testicular torsion on Ultrasound. Patient is also noted with anemia and GI consulted inpatient evaluation for EGD and Colonoscopy. Patient is alert and awake but not able to provide any history and is only oriented to person. Patient denies any active GI symptoms except for constipation. Patient does not recal lthe last time he noted nasal bleeding. Pertinent negative GI symptoms: Patient denies fever, sick contacts, recent travel, nausea, vomiting, diarrhea, abdominal pain, loss of appetite, early satiety or unintentional weight loss. No history of hematemesis, melena or hematochezia. Patient reports regular bowel movements. Review of Systems: Limited due to patient's mental status. Home medications: reviewed. Antithrombotic agents: - Eliquis on hold by his PCP in [facility]. Medical h/o: As above. Surgical h/o: None on abdomen. Social h/o: currently in [facility], patient has HCP -- daughter- Camilla Oro ( # [phone]), Alcohol: Denies , smoking: Denies , IVDA/ drugs: denies . Family h/o of GI cancers - None Prior Endoscopies: None in [facility]. Prior GI evaluations: - as above was seen in GI clinic around 1-2 weeks ago. Exam: Vitals: reviewed General: Alert and oriented x 1, not in distress HEENT: NO pallor, no icterus. Normal oropharynx, NO cervical lymph nodes. Chest: symmetric with bilateral clear air entry, CVS: S1, S2 heard, normal, no murmurs . Abdomen: non-distended, no surgical scars, soft, non-tender, no palpable masses, normal bowel sounds heard. Rectal exam: Patient refused / Deferred at this time in view of scheduled colonoscopy. Extremities: no pedal edema, pulses palpable. 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 Moves all extremities Skin: no rash. Labs: reviewed. Imaging: reviewed. Impression: -- Severe anemia with drop in hemoglobin depite blood transfusion, in patient previously on anticoagulation -- with chronic constipation and dark formed stools which are Occult blood positive, but no overt active GI bleeding. DDx- Colon polyps vs AVM vs PUD vs less likely small bowel AVMs. In view of severe anemia - need to rule out other hematological disorders -- patient following with hematology ( bone marrow biopsy pending). -- Nose bleeding -- patient is scheduled to see ENT in clinic in april. -- Chronic constipation -- no prior Colonoscopy. Recommendations: -- Patient and his daughter are educated about the test results, possible differential diagnoses and All questions answered. -- Further work up and management for scrotal swelling and worsening mental status as per primary team. -- Monitor Hemoglobin and transfuse as needed to keep hemoglobin around 8-9 gm/ dL. -- Optimization of the patient medical status prior to Endoscopic procedures. -- Will schedule for EGD and diagnostic colonoscopy after optimization of the patient by primary team. The procedures, indications, risks (bleeding, perforation, infection, hypotension, respiratory depression, allergy, need for endotracheal intubation, surgery, colostomy, cardiac arrest, even ), benefits, limitations (e.g., missing a lesion), and all other alternatives (including no intervention) were explained to the patient and his daughter ( HCP) who understood and gave consent for the procedures. -- Post procedure recommendations as per operative/ procedure notes. Plan of care discussed with patient and primary team. Patient verbalized understanding and agreed with the plan. Vital Signs/I&O Vital Signs Date Time Temp Pulse Resp B/P (MAP) Pulse Ox O2 Delivery O2 Flow Rate FiO2 04/14/19 12:00 98.0 98 18 140/71 (94) 96 Nasal Cannula 2.0 I&O- Last 24 Hours up to 6 AM 04/14/19 06:00 Intake Total 480 ml Output Total 1350 ml Balance -870 ml Laboratory Data Labs 24H Laboratory Tests 2 04/14/19 04:50: Nucleated Red Blood Cells % (auto) 0.2H, Anion Gap 7L, Glomerular Filtration Rate 50.2, Calcium Level 8.6L CBC/BMP Laboratory Tests 04/14/19 04:50 Microbiology Microbiology 04/12/19 Blood Culture - Preliminary, Resulted No growth after 24 hours . All specim... 04/12/19 Urine Culture - Final, Complete Escherichia Coli 04/12/19 Blood Culture - Preliminary, Resulted No growth after 24 hours . All specim... Allergies Coded Allergies: No Known Allergies (Unverified , 03/07/17) Home Medications Scheduled Acetaminophen (Acetaminophen ER) 650 Mg Tablet.er, 650 MG PO BID, (Reported) Amitriptyline HCl (Amitriptyline HCl) 50 Mg Tablet, 50 MG PO QHS, (Reported) Argin/Glut/Cahmb/Collag/Mv-Min (Shahid Packet) 1 Each Powd.pack, 1 EACH PO BID, (Reported) Aspirin (Aspirin) 81 Mg Tab.chew, 81 MG PO DAILY, (Reported) Atenolol (Atenolol) 25 Mg Tablet, 25 MG PO DAILY, (Reported) Atorvastatin Calcium (Atorvastatin Calcium) 40 Mg Tablet, 40 MG PO QHS, (Reported) Colloidal Oatmeal (Eucerin Eczema Relief) 226 Gm Cream..g., 1 APLCT TOP DAILY, (Reported) Docusate Sodium (Colace) 100 Mg Capsule, 100 MG PO TID, (Reported) Furosemide (Lasix) 20 Mg Tablet, 60 MG PO BID, (Reported) FOR 3 DAYS, STARTED 04/10/19 Lactose-Reduced Food (Ensure Enlive) 237 Ml Liquid, 237 ML PO BID, (Reported) Lidocaine HCl (Aspercreme) 4% Cream..g., 1 APLCT TOP TID, (Reported) Multivitamin (Multivitamins) 1 Each Capsule, 1 CAP PO DAILY, (Reported) Polyethylene Glycol 3350 (Miralax) 119 Gm Powder, 17 GRAM PO BID, (Reported) DISSOLVE IN 4-6 OZ OF LIQUID Potassium Chloride (Potassium Chloride) 20 Meq Tab.er.prt, 20 MEQ PO DAILY, (Reported) Sodium Chloride ([place] Saline) 0.65% [place], 1 SPRAY NARES BID, (Reported) USE PRIOR TO USING NOSE GEL Sodium Chloride ([place] Saline Nasal Gel) 14.1 Gm Gel..gram., 1 APLCT NA BID, (Reported) Spironolactone (Spironolactone) 25 Mg Tablet, 25 MG PO DAILY, (Reported) Scheduled PRN Acetaminophen (Acetaminophen) 325 Mg Tablet, 650 MG PO DAILY PRN for FEVER, (Reported) Acetaminophen/Diphenhydramine (Acetadryl 500-25 mg [place]) 1 Each Tablet, 1 EACH PO QHS PRN for INSOMNIA, (Reported) Bisacodyl (Bisacodyl) 10 Mg Supp.rect, 10 MG [place] DAILY PRN for CONSTIPATION, (Reported) Magnesium Hydroxide (Milk of Magnesia) 400 Mg/5 Ml Oral.susp, 2,400 MG PO DAILY PRN for CONSTIPATION, (Reported) Sodium Phosphate,[place]-Dibasic (Enema) 133 Ml Enema, 1 HANS [place] DAILY PRN for CON STIPATION, (Reported) SALONI COPE MD Apr 14, 2019 14:07
[2019-04-14] MEDS ORDERED: FUROSEMIDE 40 MG/4 ML VIAL (J1940) IV ONE (14:30)
[2019-04-14] MEDS ORDERED: LIDOCAINE 2% INJ 100 MG/5 ML SDV (FOR ANES.) As Ordered ONE (15:54)
[2019-04-14] MEDS ORDERED: PROPOFOL 500 MG/50 ML VIAL As Ordered ONE (15:54)
[2019-04-14] MEDS ORDERED: fentaNYL 100 MCG/2 ML INJECTION (J3010) As Ordered ONE (15:54)
[2019-04-14] MEDS ORDERED: PHENYLephrine HCL 500 MCG/5 ML (100MCG/ML) SYRINGE (J2370) As Ordered ONE (16:56)
[2019-04-14] MEDS ORDERED: ePHEDrine SULFATE 25 MG/5 ML(5MG/ML) SYRINGE As Ordered ONE (17:03)
--- NOTE | 2019-04-14 17:35 | ROOR ---
Patient Name: Jacobo Nava Procedure Date: 04/14/2019 2:27 PM Date of : 1930 Age: 88 Gender: Male Note Status: Finalized Procedure: Upper GI endoscopy Indications: Gastrointestinal bleeding of unknown origin, Acute post hemorrhagic anemia, Occult blood in stool Providers: Cain Kapadia MD Referring MD: Octavia Arellano MD Requesting Provider: TOMMIE SINGER JR, MD Medicines: Monitored Anesthesia Care Complications: No immediate complications. Procedure: Pre-Anesthesia Assessment: - Prior to the procedure, a History and Physical was performed, and patient medications and allergies were reviewed. The patient is competent. The risks and benefits of the procedure and the sedation options and risks were discussed with the patient. All questions were answered and informed consent was obtained. Patient identification and proposed procedure were verified by the physician, the nurse and the anesthesiologist in the procedure room. Mental Status Examination: alert and oriented. Airway Examination: normal oropharyngeal airway and neck mobility. Respiratory Examination: clear to auscultation. CV Examination: normal. Prophylactic Antibiotics: The patient does not require prophylactic antibiotics. Prior Anticoagulants: The patient has taken no previous anticoagulant or antiplatelet agents. ASA Grade Assessment: III - A patient with severe systemic disease. After reviewing the risks and benefits, the patient was deemed in satisfactory condition to undergo the procedure. The anesthesia plan was to use monitored anesthesia care (MAC). Immediately prior to administration of medications, the patient was re-assessed for adequacy to receive sedatives. The heart rate, respiratory rate, oxygen saturations, blood pressure, adequacy of pulmonary ventilation, and response to care were monitored throughout the procedure. The physical status of the patient was re-assessed after the procedure. The Endoscope was introduced through the mouth, and advanced to the second part of duodenum. The upper GI endoscopy was accomplished without difficulty. The patient tolerated the procedure well. Findings: LA Grade A (one or more mucosal breaks less than 5 mm, not extending between tops of 2 mucosal folds) esophagitis with no bleeding was found in the distal esophagus. Scattered moderate inflammation characterized by erosions, erythema, friability and granularity was found in the gastric body and in the gastric antrum. There is no endoscopic evidence of bleeding or angioectasia in the entire examined stomach. A few diffuse erosions without bleeding were found in the duodenal bulb. The second portion of the duodenum was normal. Impression: - LA Grade A reflux esophagitis. - Gastritis. - Duodenal erosions without bleeding. - Normal second portion of the duodenum. - No specimens collected. Recommendation: - Patient has a contact number available for emergencies. The signs and symptoms of potential delayed complications were discussed with the patient. Return to normal activities tomorrow. Written discharge instructions were provided to the patient. - Resume previous diet. - Perform an H. pylori serology. - If positive for H. pylori, give therapy with antibiotic course.. - Use Prilosec (omeprazole) 40 mg PO Daily - to be taken front maker lockstitch on empty stomach for 8 weeks. - Return to primary care physician. Cain Kapadia MD Cain Kapadia MD 04/14/2019 5:35:16 PM Electronically signed by Cain Kapadia MD Number of Addenda: 0 Note Initiated On: 04/14/2019 2:27 PM Estimated Blood Loss: Estimated blood loss was minimal.
--- NOTE | 2019-04-14 17:41 | ROOR ---
Patient Name: Jacobo Nava Procedure Date: 04/14/2019 2:22 PM Date of : 1930 Age: 88 Gender: Male Note Status: Finalized Procedure: Colonoscopy Indications: Heme positive stool, Acute post hemorrhagic anemia Providers: Cain Kapadia MD Referring MD: Octavia Arellano MD Requesting Provider: TOMMIE SINGER JR, MD Medicines: Monitored Anesthesia Care Complications: No immediate complications. Procedure: Pre-Anesthesia Assessment: - Prior to the procedure, a History and Physical was performed, and patient medications and allergies were reviewed. The patient is competent. The risks and benefits of the procedure and the sedation options and risks were discussed with the patient. All questions were answered and informed consent was obtained. Patient identification and proposed procedure were verified by the physician, the nurse and the anesthesiologist in the procedure room. Mental Status Examination: alert and oriented. Prophylactic Antibiotics: The patient does not require prophylactic antibiotics. Prior Anticoagulants: The patient has taken no previous anticoagulant or antiplatelet agents. After reviewing the risks and benefits, the patient was deemed in satisfactory condition to undergo the procedure. The anesthesia plan was to use minimal sedation / analgesia (anxiolysis). Immediately prior to administration of medications, the patient was re-assessed for adequacy to receive sedatives. The heart rate, respiratory rate, oxygen saturations, blood pressure, adequacy of pulmonary ventilation, and response to care were monitored throughout the procedure. The physical status of the patient was re-assessed after the procedure. The Colonoscope was introduced through the anus and advanced to the terminal ileum, with identification of the appendiceal orifice and IC valve. The colonoscopy was performed without difficulty. The patient tolerated the procedure well. The quality of the bowel preparation was good. The terminal ileum, ileocecal valve, appendiceal orifice, and rectum were photographed. Scope insertion time was 4 minutes. Scope withdrawal time was 8 minutes. The total duration of the procedure was 12 minutes. Findings: The perianal and digital rectal examinations were normal. Two semi-sessile polyps were found in the recto-sigmoid colon and cecum. The polyps were 3 to 6 mm in size. Polypectomy was not attempted due to the patient having a bleeding disorder and avoid additional bleeding. Multiple small and large-mouthed diverticula were found in the sigmoid colon. There was evidence of diverticular spasm. Non-bleeding external and internal hemorrhoids were found during retroflexion. The hemorrhoids were large. There is no endoscopic evidence of bleeding or angioectasia in the entire colon. Impression: - Two 3 to 6 mm polyps at the recto-sigmoid colon and in the cecum. Resection not attempted. - Moderate diverticulosis in the sigmoid colon. There was evidence of diverticular spasm. - Non-bleeding external and internal hemorrhoids. - No specimens collected. Recommendation: - Patient has a contact number available for emergencies. The signs and symptoms of potential delayed complications were discussed with the patient. Return to normal activities tomorrow. Written discharge instructions were provided to the patient. - High fiber diet. - Continue present medications. - Repeat colonoscopy in 6 months per protocol, for retreatment and depending on clinical and functional status. - Return to GI clinic in 6 months. - Refer to an ENT specialist as previously scheduled. - Return to primary care physician. Cain Kapadia MD Cain Kapadia MD 04/14/2019 5:41:06 PM Electronically signed by Cain Kapadia MD Number of Addenda: 0 Note Initiated On: 04/14/2019 2:22 PM Estimated Blood Loss: Estimated blood loss: none.
[2019-04-14] MEDS ORDERED: ONDANSETRON 4MG/2ML VIAL (J2405) IV PRN (17:45)
[2019-04-14] MEDS ORDERED: NS 1,000 ML IV SCH (17:45)
[2019-04-14] MEDS: KETOROLAC TROMETHAMINE 10 MG TAB PO SCH ×2 (18:00→23:38)
[2019-04-14 18:15] VITALS: BP 126/66
[2019-04-14 20:00] VITALS: BP 131/62
[2019-04-14] MEDS: CEFDINIR 300 MG CAP (OMNICEF) PO SCH (20:20)
[2019-04-14] MEDS ORDERED: FUROSEMIDE 40 MG/4 ML VIAL (J1940) IV SCH (21:00)
[2019-04-14] MEDS: FUROSEMIDE 40 MG/4 ML VIAL (J1940) IV SCH (23:38)
[2019-04-15] VITALS: BP 152/82
[2019-04-15] MEDS: ACETAMINOPHEN TAB 650MG DOSE (2X325MG) PO PRN ×3 (02:32→21:34)
[2019-04-15] MEDS ORDERED: METHOCARBAMOL 500 MG TAB PO ONE (02:45)
[2019-04-15] MEDS: BENZONATATE 100 MG CAP PO PRN (03:15)
[2019-04-15 04:00] VITALS: BP 133/78
[2019-04-15 05:25] LABS: HEMATOCRIT 30.3 % (42.0-52.0); HEMOGLOBIN 9.3 g/dl (13.5-17.5); MEAN CORPUSCULAR HEMOGLOBIN 30.4 pg (27.0-33.0); MEAN CORPUSCULAR HGB CONC 30.7 g/dl (32.0-36.5); PLATELET COUNT, AUTOMATED 234 10^3/uL (150-450); RED BLOOD COUNT 3.06 10^6/uL (4.30-6.10); WHITE BLOOD COUNT 8.8 10^3/uL (4.0-10.0)
[2019-04-15] MEDS: KETOROLAC TROMETHAMINE 10 MG TAB PO SCH (05:39)
[2019-04-15] MEDS: FUROSEMIDE 40 MG/4 ML VIAL (J1940) IV SCH (05:39)
[2019-04-15] MEDS: SLF 3 ML SYR IV SCH ×3 (05:39→21:34)
[2019-04-15 05:46] LABS: CALCIUM LEVEL 7.7 MG/DL (8.8-10.2); CREATININE FOR GFR 1.43 MG/DL (0.70-1.30); GLOMERULAR FILTRATION RATE 49.8 (>35); POTASSIUM SERUM 3.2 MEQ/L (3.5-5.1)
[2019-04-15] MEDS ORDERED: POTASSIUM CHLORIDE 10 MEQ SR TABLET PO ONE ×2 (07:30→13:00)
[2019-04-15 07:51] LABS: MAGNESIUM LEVEL 2.4 MG/DL (1.8-2.4)
[2019-04-15 08:00] VITALS: BP 129/74
--- NOTE | 2019-04-15 08:53 | REP ---
Clinical: Trauma. Technique: Frontal view of the chest with multiple views of the the left hemithorax. Findings: Frontal view of the chest demonstrates stable cardiomegaly with chronic changes and suggestions for perihilar opacities and right basilar atelectasis. Multiple views of the left hemithorax demonstrates no obvious acute rib fracture or pathology. Impression: 1. Stable cardiomegaly and diffuse chronic interstitial changes. Subtle perihilar opacities and right basilar atelectasis cannot be excluded. 2. No left rib fracture or obvious pathology appreciated. Electronically Signed by Luis Angel Ash MD 04/15/2019 08:45 A
[2019-04-15] MEDS: MIRALAX *UNIT DOSE* 17GM PACKET PO SCH ×2 (09:21→20:26)
[2019-04-15] MEDS: SODIUM CHLORIDE NASAL 0.65% SPRAY BTL (OCEAN) SCH ×3 (09:22→21:33)
[2019-04-15] MEDS: CEFDINIR 300 MG CAP (OMNICEF) PO SCH ×2 (09:22→21:34)
[2019-04-15] MEDS: PHENAZOPYRIDINE 100 MG TAB PO SCH (09:22)
[2019-04-15] MEDS: POLYVINYL ALCOHOL OPHTH SOLN 15 ML(LIQUITEARS) OU SCH ×3 (09:23→21:34)
[2019-04-15] MEDS ORDERED: metOLazone 5 MG TAB PO ONE (10:00)
[2019-04-15] MEDS ORDERED: BUMETANIDE 1 MG TAB PO SCH (11:15)
--- NOTE | 2019-04-15 11:15 | IPNPDOC ---
Date Seen The patient was seen on 04/15/19. Progress Note SUBJECTIVE: Patient is a poor historian. States that he is feeling much better this morning he does not have any discomfort. When asked about his left rib pain that he is complaining about is yesterday he states he is unable to elaborate. He continues to have fluid overload in the lower extremities. He is happy that he is sitting up and he is not coughing as much this morning. He denies shortness breath, nausea, vomiting, fevers, chills. OBJECTIVE PHYSICAL EXAMINATION: VITAL SIGNS: Please see below. GENERAL: Pleasant 88 year old male sitting up in chair awake alert but not oriented (baseline) speaking in complete sentences no acute distress HEENT: Moist mucous membranes, JVD noted on exam (improving but still present) CARDIOVASCULAR: S1 S2 irregular but rate controlled with 1/6 systolic murmur in the left 5th intercostal space with no radiation RESPIRATORY: Diminished bilaterally due to lack of effort but sounds clear with minimal bibasilar crackles ABDOMINAL: Bowel sounds present abdomen soft and nontender GENITOURINARY: Significant and genitalia swelling of the scrotum and penis with Lugo in place. Urine in bag orange in color likely secondary to Pyridium. EXTREMITIES: No clubbing cyanosis. Some greenish discharge noted on the left medial with no necrotic tissue noted bilatearlly. 3+ pitting edema bilaterally up to hips. NEUROLOGICAL: no gross focal deficits appreciated PSYCHOLOGICAL: Appropriate LABORATORY DATA, MICROBIOLOGY: Please see below. IMAGING STUDIES: 04/12/[address] CT examination of the brain. No change from 06/20/2017. There are age-related changes, status quo. Chest X-ray Likely chronic changes as described above. Correlate clinically to rule out the possibility of acute disease superimposed on chronic change. Cervical Spine CT There is a cervical kyphosis. Vertebral body height is within normal limits. There is advanced disc space narrowing at every level. This is seen particularly universally at C5-6. The facet joints are well aligned bilaterally. Hypertrophic degenerative facet and uncovertebral joint changes are present at every level bilaterally. There is no abnormal perispinal soft tissue swelling. Vascular US No DVT of bilateral lower extremity. Scrotum US 1. No testicular torsion. 2. Bilateral hydroceles. 3. Bilateral scrotal wall thickening with edema/phlegmon, more prominent and more hypervascular on the right. 4. Left testicular cyst incidentally noted. ASSESSMENT AND PLAN: This is a 88-year-old Male presents with fall secondary symptomatic anemia. PROBLEMS: 1. Symptomatic anemia with generalized weakness (Stable) - Transfused 2 units of red blood cells. - Colonscopy - Two 3 to 6 mm polyps at the recto-sigmoid colon and in the cecum. No resection. - EGD- LA Grade A reflux esophagitis. Gastritis. Duodenal erosions without bleeding. - Continue to hold Eliquis, discussed with family about risk vs benefit - Bone marrow biopsy done 04/10/19, results pending, pathology was called and was possible results after thanksgiving. 2. Fall secondary to Symptomatic anemia. Refer to above for plan - imaging on admission negative for fracture - pain control today. Was given Robaxin overnight. We'll monitor - Rib x-ray negative for fractures 3. Diastolic heart failure with severe tricuspid regurgitation with moderate elevated pulmonary artery pressures - currently uncompensated - Bumex 2 mg twice a day and one-time dose metolazone today to achieve euvolemic status - input and output and daily weights. 4. Epistaxis. - c/w Saline nasal spray TID and q2h PRN 5. Chronic atrial fibrillation -rate controlled, no rvr noted. -continue to hold Eliquis and will need discuss with family about risks versus benefits if need to continue 6. Hypothyroidism -Possible secondary to euthyroid sick syndrome? 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 8. Abnormal SPEP and UPEP - Dr. Richter,- Bone marrow biopsy done 04/10/19, results pending 9. Acute on chronic renal failure stage III.(improving) -Gentle IV fluid hydration while NPO 10. Chronic lower extremity wounds with peripheral vascular disease. -See Dr. Paez outpatient will follow his recommendations. 11. Cough -with dry itchy eyes and cough -c/w Fifi Hyman 12. Dementia -Baseline mentation- only aware of self, but not place or time -Daughter is healthcare proxy 13. Complicated UTI -Urine Culture + E. coli - Sensitive to 3rd gen cephalosporins -C/w efdinir for antibiotics coverage for 10-14 days. DVT prophylaxis: Teds and sequentials DISPOSITION: Achieve euvolemic status possible discharge in 24-48 hrs. ATTENDING NOTE I have personally evaluated and examined the patient. Discussed with residents and student regarding plan of care and agree with the above assessment and plan. VS, I&O, 24H, Fishbone Vital Signs/I&O Vital Signs Date Time Temp Pulse Resp B/P (MAP) Pulse Ox O2 Delivery O2 Flow Rate FiO2 04/15/19 08:00 97.7 97 20 129/74 (92) 94 Nasal Cannula 2.0 I&O- Last 24 Hours up to 6 AM 04/15/19 06:00 Intake Total 800 ml Output Total 1200 ml Balance -400 ml Laboratory Data 24H LABS Laboratory Tests 2 04/15/19 05:01: Nucleated Red Blood Cells % (auto) 0.0, Anion Gap 7L, Glomerular Filtration Rate 49.8, Calcium Level 7.7L, Magnesium Level 2.4 CBC/BMP Laboratory Tests 04/15/19 05:01 Microbiology Microbiology 04/12/19 Blood Culture - Preliminary, Resulted No Growth after 48 hours. All Specime... 04/12/19 Urine Culture - Final, Complete Escherichia Coli 04/12/19 Blood Culture - Preliminary, Resulted No Growth after 48 hours. All Specime... ANGIE PATEL DO Apr 15, 2019 11:15 IRA HAWTHORNE MD Apr 15, 2019 13:40
[2019-04-15 12:00] VITALS: BP 118/66
[2019-04-15] MEDS ORDERED: BUMETANIDE 1 MG TAB PO ONE (12:00)
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
[2019-04-15 20:00] VITALS: BP 152/78
[2019-04-15] MEDS: BUMETANIDE 1 MG TAB PO SCH (21:34)
[2019-04-16] VITALS: BP 129/72
[2019-04-16] MEDS ORDERED: AMITRIPTYLINE 50 MG TAB PO ONE (01:30)
[2019-04-16] MEDS: ACETAMINOPHEN TAB 650MG DOSE (2X325MG) PO PRN ×2 (01:46→20:07)
[2019-04-16 04:00] VITALS: BP 160/86
[2019-04-16] MEDS ORDERED: SARNA LOTION 225 ML BTL TOP PRN (04:15)
[2019-04-16 05:16] LABS: HEMATOCRIT 31.2 % (42.0-52.0); HEMOGLOBIN 9.7 g/dl (13.5-17.5); MEAN CORPUSCULAR HEMOGLOBIN 29.9 pg (27.0-33.0); MEAN CORPUSCULAR HGB CONC 31.1 g/dl (32.0-36.5); MEAN CORPUSCULAR VOLUME 96.3 fl (80.0-96.0); PLATELET COUNT, AUTOMATED 246 10^3/uL (150-450); RED BLOOD COUNT 3.24 10^6/uL (4.30-6.10); WHITE BLOOD COUNT 7.8 10^3/uL (4.0-10.0)
[2019-04-16 05:31] LABS: CALCIUM LEVEL 8.3 MG/DL (8.8-10.2); CREATININE FOR GFR 1.61 MG/DL (0.70-1.30); GLOMERULAR FILTRATION RATE 43.4 (>35); POTASSIUM SERUM 3.6 MEQ/L (3.5-5.1)
[2019-04-16] MEDS: SLF 3 ML SYR IV SCH ×3 (05:49→22:00)
[2019-04-16] MEDS: POLYVINYL ALCOHOL OPHTH SOLN 15 ML(LIQUITEARS) OU SCH ×3 (08:14→20:06)
[2019-04-16] MEDS: CEFDINIR 300 MG CAP (OMNICEF) PO SCH ×2 (08:14→20:07)
[2019-04-16] MEDS: DIMETHICONE 2% OINTMENT(VANIPLY) 70GM TUBE TOP SCH (08:14)
[2019-04-16] MEDS: BUMETANIDE 1 MG TAB PO SCH ×2 (08:14→20:07)
[2019-04-16] MEDS: SODIUM CHLORIDE NASAL 0.65% SPRAY BTL (OCEAN) SCH ×3 (08:14→20:06)
[2019-04-16] MEDS: MIRALAX *UNIT DOSE* 17GM PACKET PO SCH ×2 (08:14→20:07)
[2019-04-16 08:34] VITALS: BP 146/86
[2019-04-16] MEDS ORDERED: VANICREAM MOISTURIZING SKIN CREAM 113GM TUBE TOP SCH (09:00)
--- NOTE | 2019-04-16 09:29 | IPNPDOC ---
Date Seen The patient was seen on 04/16/19. Progress Note SUBJECTIVE: Patient is a poor historian. but is feeling well. He does not complaining of itchy skin this morning but overnight it was reported patient was pruritic overnight. He denies shortness breath, nausea, vomiting, fevers, chills. OBJECTIVE PHYSICAL EXAMINATION: VITAL SIGNS: Please see below. GENERAL: Pleasant 88 year old male sitting up in chair awake alert but not oriented (baseline) speaking in complete sentences no acute distress HEENT: Moist mucous membranes, JVD noted on exam ( continue improving but still present) CARDIOVASCULAR: S1 S2 irregular slightly (tachycardic) with 1/6 systolic murmur in the left 5th intercostal space with no radiation RESPIRATORY: Diminished bilaterally due to lack of effort but sounds clear with minimal bibasilar crackles ABDOMINAL: Bowel sounds present abdomen soft and nontender GENITOURINARY: Significant and genitalia swelling of the scrotum and penis with Lugo in place. Urine in bag orange in color likely secondary to Pyridium. EXTREMITIES: No clubbing cyanosis. Some greenish discharge noted on the left medial with no necrotic tissue noted bilatearlly. 3+ pitting edema bilaterally up to hips. NEUROLOGICAL: no gross focal deficits appreciated PSYCHOLOGICAL: Appropriate LABORATORY DATA, MICROBIOLOGY: Please see below. IMAGING STUDIES: 04/12/[address] examination of the brain. No change from 06/20/2017. There are age-related changes, status quo. Chest X-ray Likely chronic changes as described above. Correlate clinically to rule out the possibility of acute disease superimposed on chronic change. Cervical Spine CT There is a cervical kyphosis. Vertebral body height is within normal limits. There is advanced disc space narrowing at every level. This is seen particularly universally at C5-6. The facet joints are well aligned bilaterally. Hypertrophic degenerative facet and uncovertebral joint changes are present at every level bilaterally. There is no abnormal perispinal soft tissue swelling. Vascular US No DVT of bilateral lower extremity. Scrotum US 1. No testicular torsion. 2. Bilateral hydroceles. 3. Bilateral scrotal wall thickening with edema/phlegmon, more prominent and more hypervascular on the right. 4. Left testicular cyst incidentally noted. 04/15/19 Ribs X-ray Impression: 1. Stable cardiomegaly and diffuse chronic interstitial changes. Subtle perihilar opacities and right basilar atelectasis cannot be excluded. 2. No left rib fracture or obvious pathology appreciated. ASSESSMENT AND PLAN: This is a 88-year-old Male presents with fall secondary symptomatic anemia. PROBLEMS: Diastolic heart failure with severe tricuspid regurgitation with moderate elevated pulmonary artery pressures - currently uncompensated but improving - c/w Bumex 2 mg twice a day - input and output and daily weights. -monitor kidney function Symptomatic anemia with generalized weakness (Stable) - 2 units PRBC - Colonscopy - Two 3 to 6 mm polyps at the recto-sigmoid colon and in the cecum. No resection. - EGD- LA Grade A reflux esophagitis. Gastritis. Duodenal erosions without bleeding. - we recommend discontinue home Elquis, need to discuss with family about risk vs benefit - Bone marrow biopsy done 04/10/19, results pending, pathology was called and was possible results after thanksgi. Fall secondary to Symptomatic anemia. Refer to above for plan - imaging on admission negative for fracture - pain control today. Was given Robaxin overnight. We'll monitor - Rib x-ray negative for fractures Epistaxis. - c/w Saline nasal spray TID and q2h PRN] -ENT appointment next week 04/21? Chronic atrial fibrillation -rate controlled, no rvr noted. - we recommend discontinue home Eliquis, need to discuss with family about risk vs benefit Hypothyroidism -Possible secondary to euthyroid sick syndrome? 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 Abnormal SPEP and UPEP - Dr. 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 -See Dr. Paez outpatient will follow his recommendations. Dementia -Baseline mentation- only aware of self, but not place or time Complicated UTI -Urine Culture + E. coli - Sensitive to 3rd gen cephalosporins -C/w efdinir for antibiotics coverage for 10-14 days. DVT prophylaxis: Teds and sequentials DISPOSITION: Achieve euvolemic status possible discharge in the AM, ATTENDING NOTE I have personally evaluated and examined the patient. Discussed with residents and student regarding plan of care and agree with the above assessment and plan. VS, I&O, 24H, Fishbone Vital Signs/I&O Vital Signs Date Time Temp Pulse Resp B/P (MAP) Pulse Ox O2 Delivery O2 Flow Rate FiO2 04/16/19 08:34 98.0 107 20 146/86 (106) 97 Nasal Cannula 2.0 I&O- Last 24 Hours up to 6 AM 04/16/19 06:00 Intake Total 3222 ml Output Total 5250 ml Balance -2028 ml Laboratory Data 24H LABS Laboratory Tests 2 04/16/19 04:43: Nucleated Red Blood Cells % (auto) 0.0, Anion Gap 6L, Glomerular Filtration Rate 43.4, Calcium Level 8.3L CBC/BMP Laboratory Tests 04/16/19 04:43 Microbiology Microbiology 04/12/19 Blood Culture - Preliminary, Resulted No Growth after 72 hours. All specime... 04/12/19 Urine Culture - Final, Complete Escherichia Coli 04/12/19 Blood Culture - Preliminary, Resulted No Growth after 72 hours. All specime... ANGIE PATEL DO Apr 16, 2019 09:29 IRA HAWTHORNE MD Apr 16, 2019 10:17
[2019-04-16 09:43] LABS: MAGNESIUM LEVEL 2.2 MG/DL (1.8-2.4)
[2019-04-16 12:00] VITALS: BP 154/79
[2019-04-16] MEDS ORDERED: CEFD300CAP PO (14:27)
[2019-04-16] MEDS: BENZONATATE 100 MG CAP PO PRN ×2 (15:34→20:07)
[2019-04-16] MEDS: ATENOLOL 25 MG TAB PO SCH (15:34)
[2019-04-16 16:00] VITALS: BP 148/85
[2019-04-16 20:00] VITALS: BP 124/73
[2019-04-16] MEDS ORDERED: AMITRIPTYLINE 50 MG TAB PO SCH (21:00)
[2019-04-17] VITALS: BP 117/66
[2019-04-17 04:00] VITALS: BP 102/59
[2019-04-17] MEDS: SLF 3 ML SYR IV SCH (04:49)
[2019-04-17] MEDS: ACETAMINOPHEN TAB 650MG DOSE (2X325MG) PO PRN (04:50)
[2019-04-17] MEDS: BENZONATATE 100 MG CAP PO PRN (04:50)
[2019-04-17 05:45] LABS: HEMATOCRIT 29.5 % (42.0-52.0); HEMOGLOBIN 9.3 g/dl (13.5-17.5); MEAN CORPUSCULAR HEMOGLOBIN 29.9 pg (27.0-33.0); MEAN CORPUSCULAR HGB CONC 31.5 g/dl (32.0-36.5); MEAN CORPUSCULAR VOLUME 94.9 fl (80.0-96.0); PLATELET COUNT, AUTOMATED 247 10^3/uL (150-450); RED BLOOD COUNT 3.11 10^6/uL (4.30-6.10); WHITE BLOOD COUNT 7.6 10^3/uL (4.0-10.0)
[2019-04-17 06:08] LABS: CALCIUM LEVEL 8.4 MG/DL (8.8-10.2); CREATININE FOR GFR 1.48 MG/DL (0.70-1.30); GLOMERULAR FILTRATION RATE 47.9 (>35); MAGNESIUM LEVEL 1.9 MG/DL (1.8-2.4); POTASSIUM SERUM 3.1 MEQ/L (3.5-5.1)
[2019-04-17] MEDS ORDERED: POTASSIUM CHLORIDE 10 MEQ SR TABLET PO ONE ×2 (06:45→07:45)
[2019-04-17] MEDS: MIRALAX *UNIT DOSE* 17GM PACKET PO SCH (07:50)
[2019-04-17] MEDS: BUMETANIDE 1 MG TAB PO SCH (07:50)
[2019-04-17] MEDS: SODIUM CHLORIDE NASAL 0.65% SPRAY BTL (OCEAN) SCH (07:50)
[2019-04-17] MEDS: POLYVINYL ALCOHOL OPHTH SOLN 15 ML(LIQUITEARS) OU SCH (07:50)
[2019-04-17 07:51] VITALS: BP 102/59
[2019-04-17] MEDS: ATENOLOL 25 MG TAB PO SCH (07:51)
[2019-04-17] MEDS: CEFDINIR 300 MG CAP (OMNICEF) PO SCH (07:51)
[2019-04-17 08:00] VITALS: BP 127/67
[2019-04-17] MEDS ORDERED: LASI20TA3 PO (11:36)
--- NOTE | 2019-04-17 15:25 | DS.PDOC ---
Discharge Summary General Date of Admission Apr 12, 2019 at 15:26 Date of Discharge 04/17/2019 Discharge Summary DISCHARGE DIAGNOSIS: Diastolic heart failure with severe tricuspid regurgitation with moderate elevated pulmonary artery pressures SECONDARY DIAGNOSIS: 1. Symptomatic anemia 2. Fall secondary to symptomatic anemia 3. Epistaxis 4. Chronic atrial fibrillation 5. Hypothyroidism 6. 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 Abnormal SPEP and UPEP 8. Chronic renal failure stage III 9. Chronic lower extremity wounds with peripheral vascular disease 10. Dementia 11. Computed UTI PROCEDURES PERFORMED DURING STAY: 04/14/2019 Dr. Cain Kapadia, [facility] EGD - Impression: - LA Grade A reflux esophagitis. - Gastritis. - Duodenal erosions without bleeding. - Normal second portion of the duodenum. - No specimens collected. Colonoscopy Impression: - Two 3 to 6 mm polyps at the recto-sigmoid colon and in the cecum. Resection not attempted. - Moderate diverticulosis in the sigmoid colon. There was evidence of diverticular spasm. - Non-bleeding external and internal hemorrhoids. - No specimens collected. CONSULTANTS: Wound consult, Dr. Paez HOSPITAL COURSE: While the patient was admitted to PCU floor he was placed on telemetry. For his symptomatic anemia with generalized weakness, he got 2 units of PRBCs and completed a colonoscopy and EGD which showed 2 polyps and esophagitis. Recommendations were made not to remove the polyps. Throat is admission aspirin and Eliquis was not continued and was recommended to fariha ordoñez upon discharge as well. Patient did have elevated JVD and 3+ pitting edema up to the waist. He has a history of diastolic heart failure with severe tricuspid regurgitation with moderate elevated pulmonary artery pressures. His home furosemide was held and he was started on Bumex 2mg twice a day to achieve euvolemic status. Because of the altered mental status that he had initially on admission UA and culture was done which showed growth of Escherichia coli. After urine culture sensitivity he was switched to a 3rd gen cephalosporin he was treated for complicated UTI and was placed on antibiotic coverage for 10-14 days. He was discharged on cefdinir 500 mg twice a day. Throughout his stay his bone marrow biopsy done 04/10/2019 was followed up on but the official report not return while he was omitted. An appointment was made with oncology to follow-up with them on April 20 at 9:15 AM to review the results of the biopsy. On the day of discharge all the plans were stated to his daughter who is agreeable to the plan. Patient was stable to be transported back to [facility]. DISCHARGE MEDICATIONS: Please see below. ALLERGIES: Please see below. SUBJECTIVE: Patient is a poor historian, states he did not sleep well last night and is very tired this morning. He denies chest pain, shortness, breath, nausea, vomiting, fevers and chills. OBJECTIVE: PHYSICAL EXAMINATION: VITAL SIGNS: Please see below. GENERAL: Pleasant 88 year old male sitting up in chair awake alert but not orie nted (baseline) speaking in complete sentences no acute distress HEENT: Moist mucous membranes, JVD noted on exam ( continue improving but still present) CARDIOVASCULAR: S1 S2 irregularly irregular rate controlled with 1/6 systolic murmur in the left 5th intercostal space with no radiation RESPIRATORY: Diminished bilaterally due to lack of effort but sounds clear with minimal bibasilar crackles ABDOMINAL: Bowel sounds present abdomen soft and nontender GENITOURINARY: Significant and genitalia swelling of the scrotum and penis with Lugo in place. EXTREMITIES: No clubbing cyanosis. Some greenish discharge noted on the left medial with no necrotic tissue noted bilaterally. 3+ pitting edema bilaterally up to hips. NEUROLOGICAL: no gross focal deficits appreciated PSYCHOLOGICAL: Appropriate LABORATORY DATA, MICROBIOLOGY: Please see below. IMAGING STUDIES: 04/12/[address] CT examination of the brain. No change from 06/20/2017. There are age-related changes, status quo. Chest X-ray Likely chronic changes as described above. Correlate clinically to rule out the possibility of acute disease superimposed on chronic change. Cervical Spine CT There is a cervical kyphosis. Vertebral body height is within normal limits. There is advanced disc space narrowing at every level. This is seen particularly universally at C5-6. The facet joints are well aligned bilaterally. Hypertrophic degenerative facet and uncovertebral joint changes are present at every level bilaterally. There is no abnormal perispinal soft tissue swelling. Vascular US No DVT of bilateral lower extremity. Scrotum US 1. No testicular torsion. 2. Bilateral hydroceles. 3. Bilateral scrotal wall thickening with edema/phlegmon, more prominent and more hypervascular on the right. 4. Left testicular cyst incidentally noted. 04/15/19 Ribs X-ray Impression: 1. Stable cardiomegaly and diffuse chronic interstitial changes. Subtle perihilar opacities and right basilar atelectasis cannot be excluded. 2. No left rib fracture or obvious pathology appreciated. DVT prophylaxis ordered: Yes ASSESSMENT AND PLAN: This is a 88-year-old Male presents with fall secondary symptomatic anemia. PROBLEMS: Diastolic heart failure with severe tricuspid regurgitation with moderate elevated pulmonary artery pressures - currently uncompensated but improving - c/w Bumex 2 mg twice a day - input and output and daily weights. -monitor kidney function Symptomatic anemia with generalized weakness (Stable) - 2 units PRBC - Colonscopy - Two 3 to 6 mm polyps at the recto-sigmoid colon and in the cecum. No resection. - EGD- LA Grade A reflux esophagitis. Gastritis. Duodenal erosions without bleeding. - we recommend discontinue home Elquis, need to discuss with family about risk vs benefit - Bone marrow biopsy done 04/10/19, results pending, pathology was called and was possible results after thanksgiving. Fall secondary to Symptomatic anemia. Refer to above for plan - imaging on admission negative for fracture - pain control today. Was given Robaxin overnight. We'll monitor - Rib x-ray negative for fractures Epistaxis. - c/w Saline nasal spray TID and q2h PRN] -ENT appointment next week 04/21? Chronic atrial fibrillation -rate controlled, no rvr noted. - we recommend discontinue home Eliquis, need to discuss with family about risk vs benefit Hypothyroidism -Possible secondary to euthyroid sick syndrome? 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 Abnormal SPEP and UPEP - Dr. Ricther,- Bone marrow biopsy done 04/10/19, results pending Acute on chronic renal failure stage III -will monitor for he is on Bumex to achieve euvolemic status Chronic lower extremity wounds with peripheral vascular disease. -See Dr. Paez outpatient will follow his recommendations. Dementia -Baseline mentation- only aware of self, but not place or time Complicated UTI -Urine Culture + E. coli - Sensitive to 3rd gen cephalosporins -C/w efdinir for antibiotics coverage for 10-14 days. DVT prophylaxis: Teds and sequentials DISPOSITION: SSV DISCHARGE CONDITION: Stable PROGNOSIS: Poor FOLLOW UP: 1. Follow-up with her primary care provider in 7-10 days 2. Stop Eliquis and aspirin 3. Follow-up with oncology bone marrow results as janusz on saturday or saturday. 4. Follow-up with ENT as scheduled 5. Follow a low-sodium diet and 2500 mL fluid restriction. 6. Complete antibiotics as prescribed for the next 6 days 7. If symptoms return or worsen please call your primary care provider or return to the ER. ACTIVITY: As tolerated and supplement with PT with passive movement if possible DIET: low-sodium diet and 2500 mL fluid restriction. TIME SPENT ON DISCHARGE: 50 minutes Vital Signs/I&Os Vital Signs Date Time Temp Pulse Resp B/P (MAP) Pulse Ox O2 Delivery O2 Flow Rate FiO2 04/17/19 08:00 98.1 92 20 127/67 (87) 94 Room Air 04/17/19 04:00 2.0 I&O- Last 24 Hours up to 6 AM 04/17/19 06:00 Intake Total 2290 ml Output Total 8150 ml Balance -5860 ml Laboratory Data Labs 24H Laboratory Tests 2 04/17/19 04:56: Nucleated Red Blood Cells % (auto) 0.0, Anion Gap 6L, Glomerular Filtration Rate 47.9, Calcium Level 8.4L, Magnesium Level 1.9 CBC/BMP Laboratory Tests 04/17/19 04:56 Microbiology Microbiology 04/12/19 Blood Culture - Final, Complete NO GROWTH AFTER 5 DAYS 04/12/19 Urine Culture - Final, Complete Escherichia Coli 04/12/19 Blood Culture - Final, Complete NO GROWTH AFTER 5 DAYS Discharge Medications Scheduled Acetaminophen (Acetaminophen ER) 650 Mg Tablet.er, 650 MG PO BID, (Reported) Amitriptyline HCl (Amitriptyline HCl) 50 Mg Tablet, 50 MG PO QHS, (Reported) Argin/Glut/Cahmb/Collag/Mv-Min (Shahid Packet) 1 Each Powd.pack, 1 EACH PO BID, (Reported) Atorvastatin Calcium (Atorvastatin Calcium) 40 Mg Tablet, 40 MG PO QHS, (Reported) Cefdinir (Cefdinir) 300 Mg Capsule, 300 MG PO BID Colloidal Oatmeal (Eucerin Eczema Relief) 226 Gm Cream..g., 1 APLCT TOP DAILY, (Reported) Docusate Sodium (Colace) 100 Mg Capsule, 100 MG PO TID, (Reported) Furosemide (Lasix) 20 Mg Tablet, 60 MG PO BID Lactose-Reduced Food (Ensure Enlive) 237 Ml Liquid, 237 ML PO BID, (Reported) Lidocaine HCl (Aspercreme) 4% Cream..g., 1 APLCT TOP TID, (Reported) Multivitamin (Multivitamins) 1 Each Capsule, 1 CAP PO DAILY, (Reported) Polyethylene Glycol 3350 (Miralax) 119 Gm Powder, 17 GRAM PO BID, (Reported) DISSOLVE IN 4-6 OZ OF LIQUID Potassium Chloride (Potassium Chloride) 20 Meq Tab.er.prt, 20 MEQ PO DAILY, (Reported) Sodium Chloride ([place] Saline) 0.65% Molino, 1 SPRAY NARES BID, (Reported) USE PRIOR TO USING NOSE GEL Sodium Chloride ([place] Saline Nasal Gel) 14.1 Gm Gel..gram., 1 APLCT NA BID, (Reported) Spironolactone (Spironolactone) 25 Mg Tablet, 25 MG PO DAILY, (Reported) Scheduled PRN Acetaminophen (Acetaminophen) 325 Mg Tablet, 650 MG PO DAILY PRN for FEVER, (Reported) Acetaminophen/Diphenhydramine (Acetadryl 500-25 mg Caplet) 1 Each Tablet, 1 EACH PO QHS PRN for INSOMNIA, (Reported) Bisacodyl (Bisacodyl) 10 Mg Supp.rect, 10 MG SD DAILY PRN for CONSTIPATION, (Reported) Magnesium Hydroxide (Milk of Magnesia) 400 Mg/5 Ml Oral.susp, 2,400 MG PO DAILY PRN for CONSTIPATION, (Reported) Sodium Phosphate,Hamlin-Dibasic (Enema) 133 Ml Enema, 1 HANS SD DAILY PRN for CONSTIPATION, (Reported) Allergies Coded Allergies: No Known Allergies (Unverified , 03/07/17) ATTENDING NOTE I have personally evaluated and examined the patient. Discussed with residents/students regarding plan of care and agree with the above assessment and plan. ANGIE PATEL DO Apr 17, 2019 15:25 IRA HAWTHORNE MD Apr 17, 2019 16:03
== END 2019-04-17 11:30 | DRG 811 ==
LOC: M ED 13:15 → M ED INP 15:26 → M MS5PR 18:27 → M PCU 21:31
PROVIDERS: ADMIT General Practice; ATTEND Student in an Organized Health Care Education/Training Program
PROC: 30233N1 Transfusion of Nonautologous Red Blood Cells into Peripheral Vein, Percutaneous Approach (ICD-10-PCS; 2019-04-12)
PROC: 0DJD8ZZ Inspection of Lower Intestinal Tract, Via Natural or Artificial Opening Endoscopic (ICD-10-PCS; 2019-04-14)
PROC: 0DJ08ZZ Inspection of Upper Intestinal Tract, Via Natural or Artificial Opening Endoscopic (ICD-10-PCS; principal; 2019-04-14 16:40)
DX: D62 Acute posthemorrhagic anemia (principal); I50.33 Acute on chronic diastolic (congestive) heart failure; I48.20 Chronic atrial fibrillation, unspecified; I13.0 Hypertensive heart and chronic kidney disease with heart failure and stage 1 through stage 4 chronic kidney disease, or unspecified chronic kidney disease; K92.2 Gastrointestinal hemorrhage, unspecified; N39.0 Urinary tract infection, site not specified; I27.20 Pulmonary hypertension, unspecified; I36.1 Nonrheumatic tricuspid (valve) insufficiency; K57.30 Diverticulosis of large intestine without perforation or abscess without bleeding; R04.0 Epistaxis; Z66 Do not resuscitate; D12.5 Benign neoplasm of sigmoid colon; D12.0 Benign neoplasm of cecum; F03.90 Unspecified dementia, unspecified severity, without behavioral disturbance, psychotic disturbance, mood disturbance, and anxiety; E03.9 Hypothyroidism, unspecified; I70.202 Unspecified atherosclerosis of native arteries of extremities, left leg; K21.0 Gastro-esophageal reflux disease with esophagitis; K29.70 Gastritis, unspecified, without bleeding; B96.20 Unspecified Escherichia coli [E. coli] as the cause of diseases classified elsewhere; N18.3 Chronic kidney disease, stage 3 (moderate); Z98.49 Cataract extraction status, unspecified eye; Z85.828 Personal history of other malignant neoplasm of skin; S81.801D Unspecified open wound, right lower leg, subsequent encounter; S91.002D Unspecified open wound, left ankle, subsequent encounter; W28.XXXD Contact with powered lawn mower, subsequent encounter; Y92.9 Unspecified place or not applicable

== ENCOUNTER → 2019-04-21 | Outpatient (REF) ==
[~2019-04-21] MED LIST changes: +ACET650T15 PO; +ACETTAB15 PO; +AMIT50TA PO; +APAP325T4 PO; +ASPE16CR TOP; +ASPI81CH33 PO; +ATOR40TA75 PO; +AYR0.65S NARES; +BISA10SU27 PR; +CEFD300CAP PO; +COLA100C5 PO; +ENEMENE PR; +ENSU1LIQ36 PO; +EUCE1CRE2 TOP; +LASI20TA3 PO; +MIRA3350 PO; +MULTCAP PO; +POTA20TA6 PO; +SODIGEL
[2019-04-21 10:15] LABS: HEMATOCRIT 33.2 % (42.0-52.0); HEMOGLOBIN 9.9 g/dl (13.5-17.5); MEAN CORPUSCULAR HEMOGLOBIN 29.5 pg (27.0-33.0); MEAN CORPUSCULAR HGB CONC 29.8 g/dl (32.0-36.5); MEAN CORPUSCULAR VOLUME 98.8 fl (80.0-96.0); PLATELET COUNT, AUTOMATED 288 10^3/uL (150-450); RED BLOOD COUNT 3.36 10^6/uL (4.30-6.10); WHITE BLOOD COUNT 5.1 10^3/uL (4.0-10.0)
[2019-04-21 10:47] LABS: CALCIUM LEVEL 9.5 MG/DL (8.8-10.2); CREATININE FOR GFR 1.38 MG/DL (0.70-1.30); GLOMERULAR FILTRATION RATE 51.9 (>35)
== END ==
PROVIDERS: ATTEND Internal Medicine
DX: D64.9 Anemia, unspecified (principal)

== ENCOUNTER → 2019-04-28 | Outpatient (REF) ==
[2019-04-28 11:56] LABS: HEMATOCRIT 30.2 % (42.0-52.0); HEMOGLOBIN 9.1 g/dl (13.5-17.5); MEAN CORPUSCULAR HEMOGLOBIN 29.6 pg (27.0-33.0); MEAN CORPUSCULAR HGB CONC 30.1 g/dl (32.0-36.5); MEAN CORPUSCULAR VOLUME 98.4 fl (80.0-96.0); PLATELET COUNT, AUTOMATED 267 10^3/uL (150-450); RED BLOOD COUNT 3.07 10^6/uL (4.30-6.10); WHITE BLOOD COUNT 5.2 10^3/uL (4.0-10.0)
[2019-04-28 12:27] LABS: CALCIUM LEVEL 8.7 MG/DL (8.8-10.2); CREATININE FOR GFR 1.31 MG/DL (0.70-1.30); GLOMERULAR FILTRATION RATE 55.1 (>35); POTASSIUM SERUM 4.2 MEQ/L (3.5-5.1)
== END ==
PROVIDERS: ATTEND Internal Medicine
DX: D64.9 Anemia, unspecified (principal)

== ENCOUNTER → 2019-05-05 | Outpatient (REF) ==
[2019-05-05 12:23] LABS: HEMATOCRIT 30.3 % (42.0-52.0); HEMOGLOBIN 9.3 g/dl (13.5-17.5); MEAN CORPUSCULAR HGB CONC 30.7 g/dl (32.0-36.5); MEAN CORPUSCULAR VOLUME 97.7 fl (80.0-96.0); PLATELET COUNT, AUTOMATED 302 10^3/uL (150-450); WHITE BLOOD COUNT 4.6 10^3/uL (4.0-10.0)
== END ==
PROVIDERS: ATTEND Internal Medicine
DX: I50.9 Heart failure, unspecified (principal)

== ENCOUNTER → 2019-05-12 | Outpatient (REF) ==
[2019-05-12 10:49] LABS: HEMOGLOBIN 10.9 g/dl (13.5-17.5); MEAN CORPUSCULAR HEMOGLOBIN 29.7 pg (27.0-33.0); MEAN CORPUSCULAR HGB CONC 31.1 g/dl (32.0-36.5); MEAN CORPUSCULAR VOLUME 95.4 fl (80.0-96.0); PLATELET COUNT, AUTOMATED 288 10^3/uL (150-450); RED BLOOD COUNT 3.67 10^6/uL (4.30-6.10); WHITE BLOOD COUNT 4.7 10^3/uL (4.0-10.0)
[2019-05-12 11:14] LABS: CREATININE FOR GFR 1.32 MG/DL (0.70-1.30); GLOMERULAR FILTRATION RATE 54.6 (>35); POTASSIUM SERUM 4.1 MEQ/L (3.5-5.1)
== END ==
PROVIDERS: ATTEND Internal Medicine
DX: D64.9 Anemia, unspecified (principal)

== ENCOUNTER 2019-05-18 18:45 | Inpatient (IN) | payer MEDICARE ==
[~2019-05-18] VITALS: Ht 188 cm; Wt 81.0 kg
[~2019-05-18 18:45] MED LIST changes: -CIPR500T3 PO; -FLAG500T PO; -FURO40TA2 PO; -PROC20004 SC
[2019-05-18] MEDS ORDERED: PROC20004 SC (19:19)
[2019-05-18] MEDS ORDERED: FURO40TA2 PO (19:19)
[2019-05-18 19:44] LABS: BASO % 0.2 % (0.0-1.0); EOS % 0.1 % (0.0-3.0); HEMATOCRIT 37.4 % (42.0-52.0); HEMOGLOBIN 11.6 g/dl (13.5-17.5); LYMPH # 0.7 10^3/uL (1.5-5.0); LYMPH % 6.6 % (24.0-44.0); MEAN CORPUSCULAR HEMOGLOBIN 29.6 pg (27.0-33.0); MEAN CORPUSCULAR VOLUME 95.4 fl (80.0-96.0); MONO # 0.4 10^3/uL (0.0-0.8); NEUTROPHILS # 9.7 10^3/uL (1.5-8.5); NEUTROPHILS % 88.7 % (36.0-66.0); PLATELET COUNT, AUTOMATED 253 10^3/uL (150-450); RED BLOOD COUNT 3.92 10^6/uL (4.30-6.10); WHITE BLOOD COUNT 10.9 10^3/uL (4.0-10.0)
[2019-05-18 20:15] LABS: ALT/SGPT 19 U/L (12-78); BLOOD UREA NITROGEN 55 MG/DL (7-18); CARBON DIOXIDE LEVEL 29 MEQ/L (21-32); CHLORIDE LEVEL 98 MEQ/L (98-107); CK-MB VALUE MASS 1.4 NG/ML (<3.6); CPK CREATINE PHOSPHOKINASE 67 U/L (39-308); CREATININE FOR GFR 1.33 MG/DL (0.70-1.30); GLOMERULAR FILTRATION RATE 54.1 (>35); GLUCOSE, FASTING 136 MG/DL (70-100); MB/CK RELATIVE INDEX 2.09 (< OR =4); POTASSIUM SERUM 4.2 MEQ/L (3.5-5.1); SODIUM LEVEL 136 MEQ/L (136-145)
[2019-05-18 20:16] LABS: ALBUMIN 3.6 GM/DL (3.2-5.2); BILIRUBIN,DIRECT 0.5 MG/DL (0.0-0.2); BILIRUBIN,TOTAL 1.2 MG/DL (0.2-1.0); LIPASE 436 U/L (73-393); TOTAL PROTEIN 8.8 GM/DL (6.4-8.2); TROPONIN I < 0.02 NG/ML (< 0.10)
[2019-05-18 20:30] LABS: APPEARANCE, URINE CLEAR (CLEAR); BACTERIA, URINE AUTO NEGATIVE (NEGATIVE); BILIRUBIN, URINE AUTO NEGATIVE (NEGATIVE); BLOOD, URINE BLOOD NEGATIVE (NEGATIVE); COLOR, URINE YELLOW (YELLOW); GLUCOSE, URINE (UA) AUTO NEGATIVE (NEGATIVE); KETONE, URINE AUTO NEGATIVE (NEGATIVE); LEUKOCYTE ESTERASE, URINE AUTO NEGATIVE (NEGATIVE); NITRITE, URINE AUTO NEGATIVE (NEGATIVE); PROTEIN, URINE AUTO NEGATIVE (NEGATIVE); RBC, URINE AUTO 1 /HPF (0-3); SPECIFIC GRAVITY URINE AUTO 1.009 (1.002-1.035); SQUAMOUS EPITHELIAL CELL UR AU 0 /HPF (0-6); UROBILINOGEN, URINE AUTO 0.2 mg/dL (0.0-2.0); WBC, URINE AUTO 0 /HPF (0-3)
[2019-05-18] MEDS ORDERED: NS 500 ML IV ONE (20:30)
[2019-05-18] MEDS ORDERED: ISOVUE-370 76% 100ML VIAL (Q9967) As Ordered ONE (20:33)
[2019-05-18] MEDS: AMITRIPTYLINE 50 MG TAB PO SCH (21:00)
[2019-05-18] MEDS: ATORVASTATIN 20 MG TAB PO SCH (21:00)
--- NOTE | 2019-05-18 21:11 | REPVR ---
PROCEDURE INFORMATION: Exam: CT Abdomen And Pelvis With Contrast Exam date and time: 05/18/2019 8:45 PM Age: 88 years old Clinical indication: Abdominal pain; Additional info: Ap TECHNIQUE: Imaging protocol: Computed tomography of the abdomen and pelvis with intravenous contrast. Radiation optimization: All CT scans at this facility use at least one of these dose optimization techniques: automated exposure control; mA and/or kV adjustment per patient size (includes targeted exams where dose is matched to clinical indication); or iterative reconstruction. Contrast material: ISOVUE 370; Contrast volume: 100 ml; Contrast route: IV; COMPARISON: CT ABD PELVIS W/O FOL BY WIT 11/13/2013 8:40 AM FINDINGS: Heart: Massive right atrial enlargement measures 10 cm in diameter. Liver: Examination of the liver demonstrates a lobular surface contour, and enlargement of the left and caudate lobes, findings consistent with cirrhosis. Hepatomegaly. Gallbladder and bile ducts: There are gallstones present. Mild thickening of the gallbladder wall. Findings may represent cholecystitis. Pancreas: Normal. No ductal dilation. Spleen: Normal. No splenomegaly. Adrenals: Normal. No mass. Kidneys and ureters: Normal. No hydronephrosis. Stomach and bowel: Moderate diverticulosis is present in the distal colon. No diverticulitis. Appendix: Enlarged appendix measures 9.6 mm maximally. Possible appendicitis Intraperitoneal space: Unremarkable. No free air. No significant fluid collection. Vasculature: Cardiomegaly.There is mild atherosclerotic calcification of the coronary arteries. The aorta demonstrates mild atherosclerotic calcification. Lymph nodes: Unremarkable. No enlarged lymph nodes. Bladder: Unremarkable as visualized. Reproductive: The prostate gland demonstrates mild hyperplasia. Bones/joints: Moderate central spinal stenosis L1-L2, L2-L3, severe central spinal stenosis L3-L4, severe spinal stenosis L4-L5. Soft tissues: Bilateral bowel containing inguinal hernias. No incarceration. Unremarkable. Other findings: Osteoporosis. IMPRESSION: 1. Examination of the liver consistent with cirrhosis. Hepatomegaly. 2. There are gallstones present. Mild thickening of the gallbladder wall. Findings may represent cholecystitis. 3. Moderate diverticulosis is present in the distal colon. No diverticulitis. 4. Mild prostatic hyperplasia. 5. Bilateral bowel containing inguinal hernias. No incarceration. 6. Enlarged appendix may indicate appendicitis. Electronically signed by: Jerad De Souza On 05/18/2019 21:11:06 PM
[2019-05-18] MEDS ORDERED: ACETAMINOPHEN 500 MG TAB PO ONE (23:30)
[2019-05-19] MEDS ORDERED: CIPROFLOXACIN 400 MG in IV 1 EA IV ONE (00:15)
--- NOTE | 2019-05-19 00:58 | HPEPDOC ---
[facility] Medical History & Physical Date of Admission May 19, 2019 Date of Service: May 19, 2019 Attending Physician: ERIN LONG MD History and Physical CHIEF COMPLAINT: Abdominal pain HISTORY OF PRESENT ILLNESS: 88-year-old male with past medical history of CHF, peripheral vascular disease, dementia, atrial fibrillation not on anticoagulation, presents with abdominal pain which started earlier today. Patient is unable to provide any history due to dementia, information obtained from daughter at bedside. She reports he started having pain around 2 PM, also vomited once at 6 PM, no other symptoms. She denies any diarrhea or fever. Patient currently having mild epigastric/right upper quadrant pain, no other complaint. In the ED, CT of the abdomen and pelvis shows liver cirrhosis, gallstones with mild thickening of gallbladder wall consistent with possible cholecystitis and possible appendicitis. Gen. surgery was consulted by the emergency department, no plan for any immediate intervention, will await official consultation. 10 point review of system is negative except for above PAST MEDICAL HISTORY: 1. Dementia. 2. Cirrhosis. 3. Peripheral vascular disease. 4. Atrial fibrillation. 5. CHF PAST SURGICAL HISTORY: 1. Knee surgery 2. Left lower extremity angioplasty. SOCIAL HISTORY: Never smoker. No alcohol use. No drug use FAMILY HISTORY: Mother had an unknown malignancy ALLERGIES: Please see below. HOME MEDICATIONS: Please see below. PHYSICAL EXAMINATION: VITAL SIGNS: Please see below. GENERAL: No distress, frail HEENT: Normocephalic, atraumatic, moist mucous membranes NECK: Supple CARDIOVASCULAR EXAMINATION: S1, S2, no murmurs RESPIRATORY EXAMINATION: Scattered rhonchi, no wheezing ABDOMINAL EXAMINATION: Soft, mild right upper quadrant tenderness to palpation, no rebound, nondistended, positive bowel sounds EXTREMITIES: Range of motion intact SKIN: Lower extremity ulcerations with erythema NEUROLOGICAL EXAMINATION: Alert and oriented 1, no focal deficits PSYCHIATRIC EXAMINATION: Calm and cooperative LABORATORY DATA: See below. IMAGING: CT abdomen and pelvis showing possible cholecystitis and questionable appendicitis MICROBIOLOGY: Please see below. ASSESSMENT: 88-year-old male with past medical history of dementia, distant heart failure, atrial fibrillation and peripheral vascular disease presents with symptoms and imaging concerning for acute cholecystitis. PLAN: 1. Possible acute cholecystitis. Right upper quadrant pain with CT imaging showing gallstones with mild thickening of gallbladder wall, surgical evaluation pending, Cipro, Flagduyen, nothing by mouth, pain control. 2. Congestive heart failure. Stable, hold off on diuretics as patient is nothing by mouth, 3. Atrial fibrillation. Was previously on anti-coagulation, stopped 2 months ago due to GI bleed, not on rate control medication in the outpatient setting, currently in A. fib, tachycardic, start metoprolol 25 mg twice a day. 4. Peripheral vascular disease. Status post left partial reangioplasty. Continue statin DVT prophylaxis: Heparin subcutaneous GI prophylaxis: Not needed Vital Signs Vital Signs Date Time Temp Pulse Resp B/P (MAP) Pulse Ox O2 Delivery O2 Flow Rate FiO2 05/19/19 00:01 120 19 165/97 (119) 93 Room Air 05/18/19 18:54 99.5 Laboratory Data Labs 24H Laboratory Tests 2 05/18/19 19:25: Immature Granulocyte % (Auto) 0.4, Neutrophils (%) (Auto) 88.7H, Lymphocytes (%) (Auto) 6.6L, Monocytes (%) (Auto) 4.0, Eosinophils (%) (Auto) 0.1, Basophils (%) (Auto) 0.2, Neutrophils # (Auto) 9.7H, Lymphocytes # (Auto) 0.7L, Monocytes # (Auto) 0.4, Eosinophils # (Auto) 0.0, Basophils # (Auto) 0.0, Nucleated Red Blood Cells % (auto) 0.0, Urine Color YELLOW, Urine Appearance CLEAR, Urine pH 6.0, Urine Specific [place] 1.009, Urine Protein NEGATIVE, Urine Glucose (Auto)(UA) NEGATIVE, Urine Ketones (Auto) NEGATIVE, Urine Blood NEGATIVE, Urine Nitrite NEGATIVE, Urine Bilirubin NEGATIVE, Urine Urobilinogen 0.2, Urine Leukocyte Esterase (Auto) NEGATIVE, Urine WBC (Auto) 0, Urine RBC (Auto) 1, Urine Hyaline Casts (Auto) 0, Urine Bacteria (Auto) NEGATIVE, Urine Squamous Epithelial Cells 0, Urine Sperm (Auto) , Anion Gap 9, Glomerular Filtration Rate 54.1, Lactic Acid Level 1.3, Calcium Level 9.0, Total Bilirubin 1.2H, Direct Bilirubin 0.5H, Aspartate Amino Transf (AST/SGOT) 28, Alanine Aminotransferase (ALT/SGPT) 19, Alkaline Phosphatase 172H, Total Creatine Kinase 67, Creatine Kinase MB 1.4, Creatine Kinase MB Relative Index 2.09, Troponin I < 0.02, Total Protein 8.8H, Albumin 3.6, Albumin/Globulin Ratio 0.69L, Lipase 436H CBC/BMP Laboratory Tests 05/18/19 19:25 Microbiology Microbiology 05/18/19 Urine Culture, Received Pending 05/18/19 Blood Culture, Received Pending Home Medications Scheduled Acetaminophen (Acetaminophen ER) 650 Mg Tablet.er, 650 MG PO BID Amitriptyline HCl (Amitriptyline HCl) 50 Mg Tablet, 50 MG PO QHS Argin/Glut/Cahmb/Collag/Mv-Min (Shahid Packet) 1 Each Powd.pack, 23 GM PO BID MIX WITH 8 0Z LIQUID Atorvastatin Calcium (Atorvastatin Calcium) 40 Mg Tablet, 40 MG PO QHS Docusate Sodium (Colace) 100 Mg Capsule, 100 MG PO TID Epoetin Vincent (Procrit) 20,000 Unit/1 Ml Vial, 40,000 UNIT SC QWEEK TUESDAYS AT 1300 Furosemide (Furosemide) 40 Mg Tablet, 60 MG PO BID 0800/1400 Lactose-Reduced Food (Ensure Enlive) 237 Ml Liquid, 240 ML PO BID Lidocaine HCl (Aspercreme) 4% Cream..g., 1 APLCT TOP TID APPLY TO BILATERAL LEGS, FEET AND KNEES Multivitamin (Multivitamins) 1 Each Capsule, 1 CAP PO DAILY Polyethylene Glycol 3350 (Miralax) 119 Gm Powder, 17 GRAM PO BID DISSOLVE IN 4-6 OZ OF LIQUID Potassium Chloride (Potassium Chloride) 20 Meq Tab.er.prt, 20 MEQ PO DAILY Sodium Chloride ([place] Saline) 0.65% Dennis, 1 SPRAY NARES QID Spironolactone (Spironolactone) 25 Mg Tablet, 25 MG PO DAILY Scheduled PRN Acetaminophen (Acetaminophen) 325 Mg Tablet, 650 MG PO Q8H PRN for PAIN Acetaminophen/Diphenhydramine (Acetadryl 500-25 mg [place]) 1 Each Tablet, 1 TAB PO QHS PRN for INSOMNIA Bisacodyl (Bisacodyl) 10 Mg Supp.rect, 10 MG ME DAILY PRN for CONSTIPATION Magnesium Hydroxide (Milk of Magnesia) 400 Mg/5 Ml Oral.susp, 2,400 MG PO DAILY PRN for CONSTIPATION Sodium Phosphate,[place]-Dibasic (Enema) 133 Ml Enema, 1 HANS ME DAILY PRN for CONSTIPATION Allergies Coded Allergies: No Known Allergies (Unverified , 03/07/17) A-FIB/CHADSVASC A-FIB History Current/History of A-Fib/PAF?: Yes Current PO Anticoag Therapy: No Treatment Reason Anticoagulant not given: Other Other reason anticoagulant not: h/o GI bleed ERIN LONG MD May 19, 2019 00:57
[2019-05-19 01:20] VITALS: BP 136/80
[2019-05-19] MEDS: MORPHINE 2 MG/ML 1ML VIAL (J2270) IV PRN ×2 (01:43→09:11)
[2019-05-19] MEDS: metroNIDAZOLE 500 MG in IV 1 EA IV SCH ×4 (01:43→20:07)
[2019-05-19] MEDS: ACETAMINOPHEN TAB 650MG DOSE (2X325MG) PO SCH ×3 (05:52→18:31)
[2019-05-19 06:08] LABS: HEMOGLOBIN 11.1 g/dl (13.5-17.5); MEAN CORPUSCULAR HEMOGLOBIN 29.4 pg (27.0-33.0); MEAN CORPUSCULAR HGB CONC 30.8 g/dl (32.0-36.5); MEAN CORPUSCULAR VOLUME 95.5 fl (80.0-96.0); PLATELET COUNT, AUTOMATED 239 10^3/uL (150-450); RED BLOOD COUNT 3.77 10^6/uL (4.30-6.10); WHITE BLOOD COUNT 6.8 10^3/uL (4.0-10.0)
[2019-05-19 06:34] LABS: ALBUMIN 3.1 GM/DL (3.2-5.2); ALT/SGPT 19 U/L (12-78); BILIRUBIN,TOTAL 1.6 MG/DL (0.2-1.0); BLOOD UREA NITROGEN 52 MG/DL (7-18); CALCIUM LEVEL 8.8 MG/DL (8.8-10.2); CARBON DIOXIDE LEVEL 30 MEQ/L (21-32); CHLORIDE LEVEL 100 MEQ/L (98-107); CREATININE FOR GFR 1.21 MG/DL (0.70-1.30); GLOMERULAR FILTRATION RATE > 60.0 (>35); GLUCOSE, FASTING 107 MG/DL (70-100); MAGNESIUM LEVEL 2.7 MG/DL (1.8-2.4); POTASSIUM SERUM 3.8 MEQ/L (3.5-5.1); SODIUM LEVEL 135 MEQ/L (136-145); TOTAL PROTEIN 8.7 GM/DL (6.4-8.2)
[2019-05-19 08:00] VITALS: BP 141/81
[2019-05-19] MEDS: METOPROLOL TART 25 MG TABLET PO SCH ×2 (08:56→20:06)
[2019-05-19] MEDS: HEPARIN SOD (PORCINE) 5000 UNITS/ML VIAL SC SCH ×2 (08:57→20:07)
--- NOTE | 2019-05-19 10:17 | CR ---
DATE OF CONSULTATION: 05/19/2019 BRIEF HISTORY OF PRESENT ILLNESS: History was obtained from medical record, given the patient has difficulty with history secondary to dementia. The patient has had some nausea and vomiting yesterday. He came into the emergency room with evidence of elevated white count, thickening of the gallbladder wall, possible cholecystitis, and evidence of some cirrhosis with mildly elevated lipase. The patient was admitted about 3 weeks ago with a gastrointestinal (GI) bleed and history of anemia. He had an upper and lower endoscopy. He is currently being seen in the wound clinic for bilateral lower extremities. His past medical history is significant for history of peripheral vascular disease, history of dementia, history of atrial fibrillation, history of GI bleeding, history of congestive heart failure, history of knee surgery, history of angioplasty. PHYSICAL EXAMINATION: Reveals an 88-year-old male who looks stated age. HEENT is unremarkable. Lungs are clear anteriorly. Heart is regular with multiple irregular beats. Abdomen is soft, nontender except in the right upper quadrant with some guarding without significant rebound. Extremities: Warm, well-perfused. His white count was elevated yesterday at 10.9, and it is down to 6.8 today. His chemistries yesterday show some still elevated bili and alkaline phosphatase, but the AST and ALT are not elevated. His lipase was not repeated for today as of yet. He is to be obtaining a gallbladder ultrasound today. IMPRESSION AND PLAN: The patient has evidence of elevated lipase and questionable evidence of cirrhosis; and with the perihepatic edema that I am seeing, I am wondering if part of the edema that is appreciated in the right side and possibly even the right-sided pain might be to right heart failure or cirrhosis issues more so than just acute cholecystitis or even gallstone pancreatitis. Thus at this point given that his white count has dropped and he has stabilized and without nausea or vomiting overnight and does not complain of increasing pain, I do feel that it is reasonable to see what the ultrasound shows us and hopefully treat this nonoperatively. 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 Kapadia, reevaluate him once he has settled down and better assess his liver function issues. 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 prior to intervention. Otherwise, given his current findings, I anticipate he should continue to improve over the ensuing 24-48 hours, and I would slowly progress his diet on a clear-liquid diet, advance him to a regular diet over the ensuing few days. However, if he develops increasing fevers, chills, pain discomfort, he may need a HIDA scan to evaluate his gallbladder and to rule out acute cholecystitis. If he has developing acute cholecystitis, may benefit from a percutaneous drainage instead of operative intervention if we deem him a high operative risk, as I am concerned that we will. More importantly, family desires and the patient desires concerning operative treatment will need to be discussed at length once his diagnosis is better established.
--- NOTE | 2019-05-19 10:36 | REP ---
Clinical: Right upper quadrant pain. Technique: Real time sparks scale and color evaluation using linear high frequency transducer. Findings: Liver has a subtle coarsened echotexture with mild nodular contour suggesting cirrhosis. The pancreas is incompletely evaluated due to interposed bowel gas but visualized portions appear normal. Gallbladder demonstrates mobile stones without wall thickening or pericholecystic fluid. No biliary ductal dilatation is appreciated and the common bile duct measures 5.5 mm diameter. The right kidney is normal in reniform shape with 1.7 cm mid pole simple cyst and measures 9.8 x 3.6 x 3.8 cm without hydronephrosis. Trace perihepatic fluid is nonspecific. Impression: 1. Cholelithiasis. 2. Hepatocellular disease possible cirrhosis. 3. Simple benign right renal cyst. Electronically Signed by Luis Angel Ash MD 05/19/2019 10:28 A
[2019-05-19] MEDS: NS 1,000 ML IV SCH ×2 (10:52→22:30)
--- NOTE | 2019-05-19 11:13 | IPNPDOC ---
Date Seen The patient was seen on 05/19/19. Progress Note SUBJECTIVE: Patient was seen and examined at the bedside this morning. He states he has trouble remembering why he is here and what recently transpired in regards to his abdominal pain. He states he is not in any pain at this point in time. OBJECTIVE PHYSICAL EXAMINATION: VITAL SIGNS: Please see below. GENERAL APPEARANCE: Laying in bed, appears stated age, no acute distress, calm, cooperative HEENT: EOMI, PERRLA, neck is supple with no thyromegaly or lymphadenopathy RESPIRATORY: Lungs are clear to auscultation bilaterally with no adventitious breath sounds appreciated CARDIOVASCULAR: no JVD, RRR, no murmurs/rubs/gallops ABDOMEN: The patient is nontender to light and deep palpation in all four quadrants with positive bowel sounds and no organomegaly; Possible positive varghese's sign on exam as pain is illicited in the R flank/upper quadrant with deep breath EXTREMITIES: no clubbing, cyanosis or edema noted NEUROLOGICAL: No obvious focal deficits PSYCHIATRIC: normal mood/affect; patient is not oriented to time. Very calm/cooperative on exam Skin: No rashes or ulcers. LN: No significant cervical or inguinal lymphadenopathy LABORATORY DATA, IMAGING STUDIES, MICROBIOLOGY: Please see below. CT ABD/PEL With IV CONTRAST (05/18/19): IMPRESSION: 1. Examination of the liver consistent with cirrhosis. Hepatomegaly. 2. There are gallstones present. Mild thickening of the gallbladder wall. Findings may represent cholecystitis. 3. Moderate diverticulosis is present in the distal colon. No diverticulitis. 4. Mild prostatic hyperplasia. 5. Bilateral bowel containing inguinal hernias. No incarceration. 6. Enlarged appendix may indicate appendicitis. GALLBLADDER US (): Impression: 1. Cholelithiasis. 2. Hepatocellular disease possible cirrhosis. 3. Simple benign right renal cyst. DVT prophylaxis ordered?: [facility] ASSESSMENT AND PLAN: This is an 88-year-old male with history of atrial fibrillation and recent GI bleed who presents with nausea, vomiting, found to have questionable cholecystitis. PROBLEMS: 1. Cholecystitis: -CT Abd/Pelvis in ED suggestive of cholecystitis. Surgery consulted (Dr. Barbosa), who feels R-sided abdominal pain may be 2/2 R-sided heart failure and possible hepatic congestion. He did have somewhat elevated lipase on admission. -Gallbladder US today demonstrates cholelithiasis but no ductal dilatation. -Per surgery, if patient's clinical status worsens, will pursue HIDA scan -Will continue empiric antibiotics, Cipro and Flagyl, as well as IVF. Will be cautious with fluids 2/2 CHF -Patient is NPO at this point, will upgrade diet to clears as tolerated -Afebrile, WBC normal, no acute evidence of infection at this time. Appendicitis on imaging - No evidence of appendicitis on review of imaging again - Discussed with surgery; patient has had an appendectomy in the past; findings from related to over-read of stool filled colon 2. Chronic atrial fibrillation -Continue Lopressor 25mg BID -Not on anticoagulation 2/2 recent UGI bleed 3. History of Congestive heart failure (diastolic? with LVEF 60% per most recent Echo on 11/27/18): -Patient does not appear to be in acute exacerbation. Will continue fluids while NPO for now and will stop after he is able to tolerate diet 4. History of peripheral vascular disease: -Continue Atorvastatin 5. Mood disorder: -Continue Elavil DISPO: Pending clinical improvement DISPOSITION: . VS, I&O, 24H, [facility] Vital Signs/I&O Vital Signs Date Time Temp Pulse Resp B/P (MAP) Pulse Ox O2 Delivery O2 Flow Rate FiO2 05/19/19 09:11 18 05/19/19 08:56 105 130/86 05/19/19 08:00 96.2 96 Room Air I&O- Last 24 Hours up to 6 AM 05/19/19 05:59 Intake Total 0 ml Output Total 0 ml Balance 0 ml Laboratory Data 24H LABS Laboratory Tests 2 05/18/19 19:25: Immature Granulocyte % (Auto) 0.4, Neutrophils (%) (Auto) 88.7H, Lymphocytes (%) (Auto) 6.6L, Monocytes (%) (Auto) 4.0, Eosinophils (%) (Auto) 0.1, Basophils (%) (Auto) 0.2, Neutrophils # (Auto) 9.7H, Lymphocytes # (Auto) 0.7L, Monocytes # (Auto) 0.4, Eosinophils # (Auto) 0.0, Basophils # (Auto) 0.0, Nucleated Red Blood Cells % (auto) 0.0, Urine Color YELLOW, Urine Appearance CLEAR, Urine pH 6.0, Urine Specific [place] 1.009, Urine Protein NEGATIVE, Urine Glucose (Auto)(UA) NEGATIVE, Urine Ketones (Auto) NEGATIVE, Urine Blood NEGATIVE, Urine Nitrite NEGATIVE, Urine Bilirubin NEGATIVE, Urine Urobilinogen 0.2, Urine Leukocyte Esterase (Auto) NEGATIVE, Urine WBC (Auto) 0, Urine RBC (Auto) 1, Urine Hyaline Casts (Auto) 0, Urine Bacteria (Auto) NEGATIVE, Urine Squamous Epithelial Cells 0, Urine Sperm (Auto) , Anion Gap 9, Glomerular Filtration Rate 54.1, Lactic Acid Level 1.3, Calcium Level 9.0, Total Bilirubin 1.2H, Direct Bilirubin 0.5H, Aspartate Amino Transf (AST/SGOT) 28, Alanine Aminotransferase (ALT/SGPT) 19, Alkaline Phosphatase 172H, Total Creatine Kinase 67, Creatine Kinase MB 1.4, Creatine Kinase MB Relative Index 2.09, Troponin I < 0.02, Total Protein 8.8H, Albumin 3.6, Albumin/Globulin Ratio 0.69L, Lipase 436H 05/19/19 05:49: Nucleated Red Blood Cells % (auto) 0.0, Anion Gap 5L, Glomerular Filtration Rate > 60.0, Calcium Level 8.8, Total Bilirubin 1.6H, Aspartate Amino Transf (AST/SGOT) 22, Alanine Aminotransferase (ALT/SGPT) 19, Alkaline Phosphatase 150H, Total Protein 8.7H, Albumin 3.1L, Albumin/Globulin Ratio 0.55L, Magnesium Level 2.7H CBC/BMP Laboratory Tests 05/18/19 19:25 05/19/19 05:49 Microbiology Microbiology 05/18/19 Urine Culture, Received Pending 05/18/19 Blood Culture, Received Pending GME ATTESTATION GME ATTESTATION My faculty preceptor for this patient encounter was physically present during the encounter and was fully available. All aspects of the patient interview, examination, medical decision making process, and medical care plan development were reviewed and approved by the faculty preceptor. The faculty preceptor is aware and concurs with the plan as stated in the body of this note and will attest to such by his/her cosignature. ATTENDING NOTE I, Josh Lubin, have independently examined this patient and performed my own physical exam, as well as reviewed the documentation and edited where necessary. I have discussed in detail with the resident / student the findings and plan of treatment as documented by the resident / student and edited their note. I agree with their findings and treatment plan and have edited their documentation. I will continue to follow the patient during this hospital stay. SARA BECKFORD MD May 19, 2019 11:13 JOSH LUBIN MD May 19, 2019 15:07
[2019-05-19 12:00] VITALS: BP 151/72
[2019-05-19 20:00] VITALS: BP 130/78
[2019-05-19] MEDS: ATORVASTATIN 20 MG TAB PO SCH (20:05)
[2019-05-19] MEDS: AMITRIPTYLINE 50 MG TAB PO SCH (20:06)
[2019-05-19] MEDS: CIPROFLOXACIN 400 MG in IV 1 EA IV SCH (21:40)
[2019-05-19 22:50] VITALS: BP 119/67
[2019-05-20] MEDS: metroNIDAZOLE 500 MG in IV 1 EA IV SCH ×4 (01:09→20:58)
[2019-05-20] MEDS: NS 1,000 ML IV SCH (03:36)
[2019-05-20 06:00] VITALS: BP 122/71
[2019-05-20] MEDS: ACETAMINOPHEN TAB 650MG DOSE (2X325MG) PO SCH ×5 (06:00→23:58)
[2019-05-20 06:12] LABS: BASO % 0.4 % (0.0-1.0); EOS # 0.1 10^3/uL (0.0-0.5); HEMATOCRIT 32.6 % (42.0-52.0); HEMOGLOBIN 9.8 g/dl (13.5-17.5); LYMPH # 1.3 10^3/uL (1.5-5.0); LYMPH % 25.4 % (24.0-44.0); MEAN CORPUSCULAR HEMOGLOBIN 28.9 pg (27.0-33.0); MEAN CORPUSCULAR HGB CONC 30.1 g/dl (32.0-36.5); MEAN CORPUSCULAR VOLUME 96.2 fl (80.0-96.0); MONO # 0.3 10^3/uL (0.0-0.8); MONO % 6.1 % (0.0-5.0); NEUTROPHILS # 3.2 10^3/uL (1.5-8.5); NEUTROPHILS % 65.9 % (36.0-66.0); PLATELET COUNT, AUTOMATED 202 10^3/uL (150-450); RED BLOOD COUNT 3.39 10^6/uL (4.30-6.10); WHITE BLOOD COUNT 4.9 10^3/uL (4.0-10.0)
[2019-05-20 06:32] LABS: BLOOD UREA NITROGEN 37 MG/DL (7-18); CALCIUM LEVEL 8.8 MG/DL (8.8-10.2); CARBON DIOXIDE LEVEL 27 MEQ/L (21-32); CHLORIDE LEVEL 105 MEQ/L (98-107); CREATININE FOR GFR 1.21 MG/DL (0.70-1.30); GLOMERULAR FILTRATION RATE > 60.0 (>35); GLUCOSE, FASTING 88 MG/DL (70-100); POTASSIUM SERUM 3.8 MEQ/L (3.5-5.1); SODIUM LEVEL 139 MEQ/L (136-145)
--- NOTE | 2019-05-20 07:24 | ECGEPIP ---
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
[2019-05-20] MEDS: METOPROLOL TART 25 MG TABLET PO SCH ×2 (08:30→20:58)
[2019-05-20] MEDS: HEPARIN SOD (PORCINE) 5000 UNITS/ML VIAL SC SCH ×2 (08:30→20:59)
--- NOTE | 2019-05-20 11:03 | IPNPDOC ---
Date Seen The patient was seen on 05/20/19. Progress Note SUBJECTIVE: Patient was seen and examined sitting at the bedside this morning. . He states his abdominal pain has improved but he still gets intermittent twitches of pain in his right upper quadrant. It is not severe enough for him to ask for pain medication. But, it is still present. He states he thinks he is ready to start trying to eat and would like his diet upgraded today. Otherwise, he has no complaints. No changes/issues overnight. OBJECTIVE PHYSICAL EXAMINATION: VITAL SIGNS: Please see below. GENERAL APPEARANCE: Laying in bed, appears stated age, no acute distress, calm, cooperative HEENT: EOMI, PERRLA, neck is supple with no thyromegaly or lymphadenopathy RESPIRATORY: Lungs are clear to auscultation bilaterally with no adventitious breath sounds appreciated CARDIOVASCULAR: no JVD, RRR, no murmurs/rubs/gallops ABDOMEN: The patient is nontender to palpation in all four quadrants with positive bowel sounds and no organomegaly; EXTREMITIES: no clubbing, cyanosis or edema noted NEUROLOGICAL: No obvious focal deficits PSYCHIATRIC: normal mood/affect; patient is not oriented to time. Very calm/cooperative on exam Skin: No rashes or ulcers. LN: No significant cervical or inguinal lymphadenopathy LABORATORY DATA, IMAGING STUDIES, MICROBIOLOGY: Please see below. CT ABD/PEL With IV CONTRAST (05/18/19): IMPRESSION: 1. Examination of the liver consistent with cirrhosis. Hepatomegaly. 2. There are gallstones present. Mild thickening of the gallbladder wall. Findings may represent cholecystitis. 3. Moderate diverticulosis is present in the distal colon. No diverticulitis. 4. Mild prostatic hyperplasia. 5. Bilateral bowel containing inguinal hernias. No incarceration. 6. Enlarged appendix may indicate appendicitis. GALLBLADDER US (): Impression: 1. Cholelithiasis. 2. Hepatocellular disease possible cirrhosis. 3. Simple benign right renal cyst. DVT prophylaxis ordered?: [facility] ASSESSMENT AND PLAN: This is an 88-year-old male with history of atrial fibrillation and recent GI bleed who presents with nausea, vomiting, found to have questionable cholecystitis. PROBLEMS: 1. Cholecystitis: -CT Abd/Pelvis in ED suggestive of cholecystitis. Surgery consulted (Dr. Barbosa), who feels R-sided abdominal pain may be 2/2 R-sided heart failure and possible hepatic congestion. He did have somewhat elevated lipase on admission. -Gallbladder US today demonstrates cholelithiasis but no ductal dilatation. -Per surgery, if patient's clinical status worsens, will pursue HIDA scan -Will continue empiric antibiotics, Cipro and Flagyl, as well as IVF. Will be cautious with fluids 2/2 CHF -Will upgrade diet to clear liquids and see how he tolerates it today. If he is able to eventually tolerate semi-solids and soft foods we will discharge home for outpatient follow up. -Afebrile, WBC normal, Procalcitonin 0.29, no acute evidence/low risk of infection at this time. Appendicitis on imaging - No evidence of appendicitis on review of imaging again - Discussed with surgery; patient has had an appendectomy in the past; findings from related to over-read of stool filled colon 2. Chronic atrial fibrillation -Continue Lopressor 25mg BID -Not on anticoagulation 2/2 recent UGI bleed 3. History of Congestive heart failure (diastolic? with LVEF 60% per most recent Echo on 11/27/18): -Patient does not appear to be in acute exacerbation. Will continue fluids while NPO for now and will stop after he is able to tolerate diet 4. History of peripheral vascular disease: -Continue Atorvastatin 5. Mood disorder: -Continue Elavil DISPO: Pending clinical improvement VS, I&O, 24H, Teodora Vital Signs/I&O Vital Signs Date Time Temp Pulse Resp B/P (MAP) Pulse Ox O2 Delivery O2 Flow Rate FiO2 05/20/19 06:00 98.1 93 19 122/71 (88) 93 Room Air I&O- Last 24 Hours up to 6 AM 05/20/19 06:00 Intake Total 1820 ml Output Total 650 ml Balance 1170 ml Laboratory Data 24H LABS Laboratory Tests 2 05/19/19 18:55: Bedside Glucose (Misc Panel) 102 05/20/19 00:33: Bedside Glucose (Misc Panel) 109 05/20/19 05:47: Immature Granulocyte % (Auto) 0.2, Neutrophils (%) (Auto) 65.9, Lymphocytes (%) (Auto) 25.4, Monocytes (%) (Auto) 6.1H, Eosinophils (%) (Auto) 2.0, Basophils (%) (Auto) 0.4, Neutrophils # (Auto) 3.2, Lymphocytes # (Auto) 1.3L, Monocytes # (Auto) 0.3, Eosinophils # (Auto) 0.1, Basophils # (Auto) 0.0, Nucleated Red Blood Cells % (auto) 0.0, Anion Gap 7L, Glomerular Filtration Rate > 60.0, Calcium Level 8.8 CBC/BMP Laboratory Tests 05/20/19 05:47 Microbiology Microbiology 05/18/19 Urine Culture - Final, Complete 05/18/19 Blood Culture - Preliminary, Resulted No growth after 24 hours . All specim... GME ATTESTATION GME ATTESTATION My faculty preceptor for this patient encounter was physically present during the encounter and was fully available. All aspects of the patient interview, examination, medical decision making process, and medical care plan development were reviewed and approved by the faculty preceptor. The faculty preceptor is aware and concurs with the plan as stated in the body of this note and will attest to such by his/her cosignature. ATTENDING NOTE I, Josh Chris, have independently examined this patient and performed my own physical exam, as well as reviewed the documentation and edited where necessary. I have discussed in detail with the resident / student the findings and plan of treatment as documented by the resident / student and edited their note. I agree with their findings and treatment plan and have edited their documentation. I will continue to follow the patient during this hospital stay. SARA BECKFORD MD May 20, 2019 11:02 JOSH CHRIS MD May 21, 2019 18:41
[2019-05-20 14:00] VITALS: BP 138/85
[2019-05-20 20:58] VITALS: BP 136/81
[2019-05-20] MEDS: ATORVASTATIN 20 MG TAB PO SCH (20:58)
[2019-05-20] MEDS: AMITRIPTYLINE 50 MG TAB PO SCH (20:58)
[2019-05-20] MEDS ORDERED: RAMELTEON 8 MG TAB (ROZEREM) PO SCH (21:00)
[2019-05-20 22:00] VITALS: BP 119/73
[2019-05-20] MEDS: CIPROFLOXACIN 400 MG in IV 1 EA IV SCH (22:06)
[2019-05-21] MEDS: metroNIDAZOLE 500 MG in IV 1 EA IV SCH ×2 (03:02→08:40)
[2019-05-21 06:00] VITALS: BP 114/75
[2019-05-21] MEDS: ACETAMINOPHEN TAB 650MG DOSE (2X325MG) PO SCH (06:47)
[2019-05-21 07:21] LABS: BASO % 0.5 % (0.0-1.0); EOS # 0.1 10^3/uL (0.0-0.5); EOS % 2.3 % (0.0-3.0); HEMATOCRIT 30.9 % (42.0-52.0); HEMOGLOBIN 9.6 g/dl (13.5-17.5); LYMPH # 1.2 10^3/uL (1.5-5.0); LYMPH % 28.7 % (24.0-44.0); MEAN CORPUSCULAR HEMOGLOBIN 29.8 pg (27.0-33.0); MEAN CORPUSCULAR HGB CONC 31.1 g/dl (32.0-36.5); MONO # 0.3 10^3/uL (0.0-0.8); MONO % 7.6 % (0.0-5.0); NEUTROPHILS # 2.6 10^3/uL (1.5-8.5); NEUTROPHILS % 60.7 % (36.0-66.0); PLATELET COUNT, AUTOMATED 190 10^3/uL (150-450); RED BLOOD COUNT 3.22 10^6/uL (4.30-6.10); WHITE BLOOD COUNT 4.3 10^3/uL (4.0-10.0)
[2019-05-21 07:48] LABS: BLOOD UREA NITROGEN 31 MG/DL (7-18); CALCIUM LEVEL 8.7 MG/DL (8.8-10.2); CARBON DIOXIDE LEVEL 25 MEQ/L (21-32); CHLORIDE LEVEL 108 MEQ/L (98-107); CREATININE FOR GFR 1.16 MG/DL (0.70-1.30); GLOMERULAR FILTRATION RATE > 60.0 (>35); GLUCOSE, FASTING 93 MG/DL (70-100); POTASSIUM SERUM 3.7 MEQ/L (3.5-5.1); SODIUM LEVEL 141 MEQ/L (136-145)
--- NOTE | 2019-05-21 08:10 | IPN ---
DATE: 05/21/2019 The patient overall did well last night. He is eating a regular low fat diet this morning and seems to be making some slow progressive improvement. He had some significant dehydration seen on his original BUN and creatinine and he has slowly resolved that with his creatinine dropping down nicely and his BUN dropping, suggesting some significant dehydration, but with that also his hematocrit has dropped to some extent. He feels pretty good at this point. He is not complaining of any abdominal pain and his white count has been normal for 3 days. However, if we go back to his original white count of being slightly elevated, my concern is that this elevation is more a hemoconcentration than a true response to active inflammatory changes. If that is the case and theoretically no elevated white count on admission and some cirrhosis issues, etc., it tends to make me lean towards nonoperative treatment of this individual unless he can be optimized as an outpatient from the GI physicians or if the GI physicians feel that this was not related to his gallbladder. In any case, first, I would suggest that if he tolerates his diet as he seems to be doing that he can be discharged home on a low-fat diet and follow up with me in 2-3 weeks and also follow up with GI as an outpatient.
[2019-05-21] MEDS: METOPROLOL TART 25 MG TABLET PO SCH (08:40)
[2019-05-21] MEDS: HEPARIN SOD (PORCINE) 5000 UNITS/ML VIAL SC SCH (08:40)
[2019-05-21] MEDS ORDERED: FLAG500T PO (09:41)
[2019-05-21] MEDS ORDERED: CIPR500T3 PO (09:41)
--- NOTE | 2019-05-21 11:23 | DS.PDOC ---
Discharge Summary General Date of Admission May 19, 2019 at 00:01 Date of Discharge May 21, 2019 Primary Care Physician: VERONICA NY PA-C Attending Physician: JOSH LUBIN MD Specialist/Consultants Involve: Dean Barbosa Jr Discharge Summary PROCEDURES PERFORMED DURING STAY: [None]. ADMITTING DIAGNOSES: 1. Abdominal pain concerning for cholecystitis 2. Chronic atrial fibrillation not on AC 2/2 recent GIB DISCHARGE DIAGNOSES: 1. Cholelithiasis 2. Chronic atrial fibrillation not on AC 2/2 recent GIB COMPLICATIONS/CHIEF COMPLAINT: Abdominal Pain, Afib, Chf, Pvd. HISTORY OF PRESENT ILLNESS: 88-year-old male with past medical history of CHF, peripheral vascular disease, dementia, atrial fibrillation not on anticoagulatio n, presents with abdominal pain which started earlier today. Patient is unable to provide any history due to dementia, information obtained from daughter at bedside. She reports he started having pain around 2 PM, also vomited once at 6 PM, no other symptoms. She denies any diarrhea or fever. Patient currently having mild epigastric/right upper quadrant pain, no other complaint. In the ED, CT of the abdomen and pelvis shows liver cirrhosis, gallstones with mild thickening of gallbladder wall consistent with possible cholecystitis and possible appendicitis. Gen. surgery was consulted by the emergency department, no plan for any immediate intervention, will await official consultation. HOSPITAL COURSE: Patient was admitted for suspected acute cholecysitis. General surgery was consulted and patient was placed on empiric ciprofloxacin and Flagyl as well as IV fluids and bowel rest. The patient originally had exquisite tenderness in the right upper and lower quadrant. He underwent right upper quadrant ultrasound, which found cholelithiasis without evidence of cholecystitis. The patient did not experience any nausea, vomiting or diarrhea throughout his hospitalization. His pain was well managed with morphine. On hospital day 2, the patient's diet was increased to clear liquids, which he tolerated. His diet was then increased to BRAT diet, which he also tolerated. On the day of discharge, his abdominal exam was benign, he was no longer complaining of pain, and he had not vomited. He was discharged back to [facility] and will follow up with general surgery and GI in 2-3 weeks. DISCHARGE MEDICATIONS: Please see below. ALLERGIES: Please see below. PHYSICAL EXAMINATION ON DISCHARGE: VITAL SIGNS: Please see below. GENERAL APPEARANCE: Laying in bed, appears stated age, no acute distress, calm, cooperative HEENT: EOMI, PERRLA, neck is supple with no thyromegaly or lymphadenopathy RESPIRATORY: Lungs are clear to auscultation bilaterally with no adventitious breath sounds appreciated CARDIOVASCULAR: no JVD, RRR, no murmurs/rubs/gallops ABDOMEN: The patient is nontender to palpation in all four quadrants with positive bowel sounds and no organomegaly; EXTREMITIES: no clubbing, cyanosis or edema noted NEUROLOGICAL: No obvious focal deficits PSYCHIATRIC: normal mood/affect; patient is not oriented to time. Very calm/cooperative on exam Skin: No rashes or ulcers. LN: No significant cervical or inguinal lymphadenopathy LABORATORY DATA: Please see below. IMAGING: CT Abd/Pelvis (05/18/19): IMPRESSION: 1. Examination of the liver consistent with cirrhosis. Hepatomegaly. 2. There are gallstones present. Mild thickening of the gallbladder wall. Findings may represent cholecystitis. 3. Moderate diverticulosis is present in the distal colon. No diverticulitis. 4. Mild prostatic hyperplasia. 5. Bilateral bowel containing inguinal hernias. No incarceration. 6. Enlarged appendix may indicate appendicitis. GALLBLADDER US (05/19/19): Impression: 1. Cholelithiasis. 2. Hepatocellular disease possible cirrhosis. 3. Simple benign right renal cyst. PROGNOSIS: fair ACTIVITY: [As tolerated]. DIET: as tolerated DISCHARGE PLAN: [facility] DISPOSITION: SS DISCHARGE INSTRUCTIONS: 1. Follow-up with general surgery and asked her GI outpatient in 2-3 weeks 2. Return to the ER if you experience any problems ITEMS TO FOLLOWUP ON ON OUTPATIENT: 1. None DISCHARGE CONDITION: [Stable]. TIME SPENT ON DISCHARGE: Greater than 30 minutes. Vital Signs/I&Os Vital Signs Date Time Temp Pulse Resp B/P (MAP) Pulse Ox O2 Delivery O2 Flow Rate FiO2 05/21/19 06:00 98.1 92 18 114/75 (88) 92 05/20/19 22:00 Room Air I&O- Last 24 Hours up to 6 AM 05/21/19 06:00 Intake Total 1995 ml Output Total 200 ml Balance 1795 ml Laboratory Data Labs 24H Laboratory Tests 2 05/20/19 11:34: Bedside Glucose (Misc Panel) 80L 05/20/19 18:04: Bedside Glucose (Misc Panel) 118H 05/20/19 23:47: Bedside Glucose (Misc Panel) 87 05/21/19 06:22: Immature Granulocyte % (Auto) 0.2, Neutrophils (%) (Auto) 60.7, Lymphocytes (%) (Auto) 28.7, Monocytes (%) (Auto) 7.6H, Eosinophils (%) (Auto) 2.3, Basophils (%) (Auto) 0.5, Neutrophils # (Auto) 2.6, Lymphocytes # (Auto) 1.2L, Monocytes # (Auto) 0.3, Eosinophils # (Auto) 0.1, Basophils # (Auto) 0.0, Nucleated Red Blood Cells % (auto) 0.0, Anion Gap 8, Glomerular Filtration Rate > 60.0, Calcium Level 8.7L CBC/BMP Laboratory Tests 05/21/19 06:22 FSBS Laboratory Tests Test 05/20/19 11:34 05/20/19 18:04 05/20/19 23:47 Range/Units Bedside Glucose (Misc Panel) 80 118 87 83-110 MG/DL Microbiology Microbiology 05/18/19 Urine Culture - Final, Complete 05/18/19 Blood Culture - Preliminary, Resulted No Growth after 48 hours. All Specime... Discharge Medications Scheduled Acetaminophen (Acetaminophen ER) 650 Mg Tablet.er, 650 MG PO BID, (Reported) Amitriptyline HCl (Amitriptyline HCl) 50 Mg Tablet, 50 MG PO QHS, (Reported) Argin/Glut/Cahmb/Collag/Mv-Min (Shahid Packet) 1 Each Powd.pack, 23 GM PO BID, (Reported) MIX WITH 8 0Z LIQUID Atorvastatin Calcium (Atorvastatin Calcium) 40 Mg Tablet, 40 MG PO QHS, (Reported) Ciprofloxacin HCl (Ciprofloxacin HCl) 500 Mg Tablet, 500 MG PO BID Docusate Sodium (Colace) 100 Mg Capsule, 100 MG PO TID, (Reported) Epoetin Vincent (Procrit) 20,000 Unit/1 Ml Vial, 40,000 UNIT SC QWEEK, (Reported) TUESDAYS AT 1300 Furosemide (Furosemide) 40 Mg Tablet, 60 MG PO BID, (Reported) 0800/1400 Lactose-Reduced Food (Ensure Enlive) 237 Ml Liquid, 240 ML PO BID, (Reported) Lidocaine HCl (Aspercreme) 4% Cream..g., 1 APLCT TOP TID, (Reported) APPLY TO BILATERAL LEGS, FEET AND KNEES Metronidazole (Flagyl) 500 Mg Tablet, 500 MG PO BID Multivitamin (Multivitamins) 1 Each Capsule, 1 CAP PO DAILY, (Reported) Polyethylene Glycol 3350 (Miralax) 119 Gm Powder, 17 GRAM PO BID, (Reported) DISSOLVE IN 4-6 OZ OF LIQUID Potassium Chloride (Potassium Chloride) 20 Meq Tab.er.prt, 20 MEQ PO DAILY, (Reported) Sodium Chloride ([place] Saline) 0.65% [place], 1 SPRAY NARES QID, (Reported) Spironolactone (Spironolactone) 25 Mg Tablet, 25 MG PO DAILY, (Reported) Scheduled PRN Acetaminophen (Acetaminophen) 325 Mg Tablet, 650 MG PO Q8H PRN for PAIN, (Reported) Acetaminophen/Diphenhydramine (Acetadryl 500-25 mg [place]) 1 Each Tablet, 1 TAB PO QHS PRN for INSOMNIA, (Reported) Bisacodyl (Bisacodyl) 10 Mg Supp.rect, [address] DAILY PRN for CONSTIPATION, (Reported) Magnesium Hydroxide (Milk of Magnesia) 400 Mg/5 Ml Oral.susp, 2,400 MG PO DAILY PRN for CONSTIPATION, (Reported) Sodium Phosphate,Steele-Dibasic (Enema) 133 Ml Enema, [address] DAILY PRN for CONS TIPATION, (Reported) Allergies Coded Allergies: No Known Allergies (Unverified , 03/07/17) GME ATTESTATION GME ATTESTATION My faculty preceptor for this patient encounter was physically present during the encounter and was fully available. All aspects of the patient interview, examination, medical decision making process, and medical care plan development were reviewed and approved by the faculty preceptor. The faculty preceptor is aware and concurs with the plan as stated in the body of this note and will a ttest to such by his/her cosignature. ATTENDING NOTE I, Josh Lubin, have independently examined this patient and performed my own physical exam, as well as reviewed the documentation and edited where necessary. I have discussed in detail with the resident / student the findings and plan of treatment as documented by the resident / student and edited their note. I agree with their findings and treatment plan and have edited their documentation. I will continue to follow the patient during this hospital stay. Time spent on discharge 36 minutes SARA BECKFORD MD May 21, 2019 11:23 JOSH LUBIN MD May 21, 2019 15:52
== END 2019-05-21 11:35 | DRG 445 ==
LOC: M ED 18:45 → EDBD 18:45 → M ED INP 05-19 00:01 → M PCU 05-19 01:13 → M MSPAV 05-19 22:49
PROVIDERS: ADMIT Internal Medicine; ATTEND Internal Medicine
DX: K80.20 Calculus of gallbladder without cholecystitis without obstruction (principal); I48.20 Chronic atrial fibrillation, unspecified; I50.30 Unspecified diastolic (congestive) heart failure; I73.9 Peripheral vascular disease, unspecified; F03.90 Unspecified dementia, unspecified severity, without behavioral disturbance, psychotic disturbance, mood disturbance, and anxiety; K74.60 Unspecified cirrhosis of liver; K37 Unspecified appendicitis; Z79.899 Other long term (current) drug therapy; Z87.19 Personal history of other diseases of the digestive system; I50.810 Right heart failure, unspecified; F39 Unspecified mood [affective] disorder; E86.0 Dehydration

== ENCOUNTER → 2019-05-18 | Outpatient (REF) ==
[~2019-05-18] MED LIST changes: +CIPR500T3 PO; +FLAG500T PO; +FURO40TA2 PO; +PROC20004 SC
[2019-05-18 11:48] LABS: HEMOGLOBIN 11.1 g/dl (13.5-17.5); MEAN CORPUSCULAR HEMOGLOBIN 29.4 pg (27.0-33.0); MEAN CORPUSCULAR HGB CONC 30.8 g/dl (32.0-36.5); MEAN CORPUSCULAR VOLUME 95.2 fl (80.0-96.0); PLATELET COUNT, AUTOMATED 255 10^3/uL (150-450); RED BLOOD COUNT 3.78 10^6/uL (4.30-6.10); WHITE BLOOD COUNT 4.9 10^3/uL (4.0-10.0)
[2019-05-18 18:17] LABS: ALBUMIN 3.8 GM/DL (3.2-5.2); BILIRUBIN,TOTAL 1.2 MG/DL (0.2-1.0); CREATININE FOR GFR 1.26 MG/DL (0.70-1.30); GLOMERULAR FILTRATION RATE 57.6 (>35); POTASSIUM SERUM 4.3 MEQ/L (3.5-5.1); TOTAL PROTEIN 9.1 GM/DL (6.4-8.2)
== END ==
PROVIDERS: ATTEND Internal Medicine
DX: I50.9 Heart failure, unspecified (principal)

== ENCOUNTER → 2019-05-26 | Outpatient (REF) | payer MEDICARE ==
[~2019-05-26] MED LIST changes: +CIPR500T3 PO; +FLAG500T PO; +FURO40TA2 PO; +PROC20004 SC
[2019-05-26 12:23] LABS: HEMATOCRIT 32.3 % (42.0-52.0); HEMOGLOBIN 10.4 g/dl (13.5-17.5); MEAN CORPUSCULAR HEMOGLOBIN 30.3 pg (27.0-33.0); MEAN CORPUSCULAR HGB CONC 32.2 g/dl (32.0-36.5); MEAN CORPUSCULAR VOLUME 94.2 fl (80.0-96.0); PLATELET COUNT, AUTOMATED 223 10^3/uL (150-450); RED BLOOD COUNT 3.43 10^6/uL (4.30-6.10); WHITE BLOOD COUNT 4.1 10^3/uL (4.0-10.0)
[2019-05-26 13:38] LABS: FREE T4 0.56 NG/DL (0.76-1.46); THYROID STIMULATING HORMONE 11.8 uIU/ML (0.358-3.740)
[2019-05-26 13:40] LABS: CALCIUM LEVEL 9.3 MG/DL (8.8-10.2); CREATININE FOR GFR 1.3 MG/DL (0.70-1.30); GLOMERULAR FILTRATION RATE 55.6 (>35); POTASSIUM SERUM 4.3 MEQ/L (3.5-5.1)
== END ==
PROVIDERS: ATTEND Internal Medicine
DX: D64.9 Anemia, unspecified (principal)

== ENCOUNTER → 2019-06-01 | Outpatient (REF) ==
[2019-06-01 09:49] LABS: HEMATOCRIT 35.6 % (42.0-52.0); HEMOGLOBIN 11.2 g/dl (13.5-17.5); MEAN CORPUSCULAR HEMOGLOBIN 29.6 pg (27.0-33.0); MEAN CORPUSCULAR HGB CONC 31.5 g/dl (32.0-36.5); MEAN CORPUSCULAR VOLUME 94.2 fl (80.0-96.0); PLATELET COUNT, AUTOMATED 262 10^3/uL (150-450); RED BLOOD COUNT 3.78 10^6/uL (4.30-6.10); WHITE BLOOD COUNT 3.9 10^3/uL (4.0-10.0)
== END ==
PROVIDERS: ATTEND Internal Medicine
DX: E03.9 Hypothyroidism, unspecified (principal)

== ENCOUNTER → 2019-06-15 | Outpatient (REF) ==
[2019-06-15 19:30] LABS: HEMATOCRIT 36.1 % (42.0-52.0); HEMOGLOBIN 11.6 g/dl (13.5-17.5); MEAN CORPUSCULAR HEMOGLOBIN 30.3 pg (27.0-33.0); MEAN CORPUSCULAR HGB CONC 32.1 g/dl (32.0-36.5); MEAN CORPUSCULAR VOLUME 94.3 fl (80.0-96.0); PLATELET COUNT, AUTOMATED 255 10^3/uL (150-450); RED BLOOD COUNT 3.83 10^6/uL (4.30-6.10); WHITE BLOOD COUNT 5.1 10^3/uL (4.0-10.0)
== END ==
PROVIDERS: ATTEND Internal Medicine
DX: D64.9 Anemia, unspecified (principal)

== ENCOUNTER → 2019-06-24 | Outpatient (REF) | PROVIDERS: ATTEND Internal Medicine | DX: D64.9 Anemia, unspecified (principal) ==

== ENCOUNTER → 2019-06-29 | Outpatient (REF) ==
[2019-06-29 09:25] LABS: HEMOGLOBIN 11.4 g/dl (13.5-17.5); MEAN CORPUSCULAR HEMOGLOBIN 30.6 pg (27.0-33.0); MEAN CORPUSCULAR HGB CONC 31.7 g/dl (32.0-36.5); MEAN CORPUSCULAR VOLUME 96.8 fl (80.0-96.0); PLATELET COUNT, AUTOMATED 209 10^3/uL (150-450); RED BLOOD COUNT 3.72 10^6/uL (4.30-6.10); WHITE BLOOD COUNT 4.3 10^3/uL (4.0-10.0)
== END ==
PROVIDERS: ATTEND Internal Medicine
DX: D64.9 Anemia, unspecified (principal)

== ENCOUNTER → 2019-07-13 | Outpatient (REF) ==
[2019-07-13 11:50] LABS: HEMATOCRIT 35.7 % (42.0-52.0); HEMOGLOBIN 11.7 g/dl (13.5-17.5); MEAN CORPUSCULAR HEMOGLOBIN 31.1 pg (27.0-33.0); MEAN CORPUSCULAR HGB CONC 32.8 g/dl (32.0-36.5); MEAN CORPUSCULAR VOLUME 94.9 fl (80.0-96.0); PLATELET COUNT, AUTOMATED 221 10^3/uL (150-450); RED BLOOD COUNT 3.76 10^6/uL (4.30-6.10); WHITE BLOOD COUNT 4.3 10^3/uL (4.0-10.0)
== END ==
PROVIDERS: ATTEND Internal Medicine
DX: D64.9 Anemia, unspecified (principal)

== ENCOUNTER → 2019-07-27 | Outpatient (REF) ==
[2019-07-27 10:59] LABS: HEMATOCRIT 33.7 % (42.0-52.0); MEAN CORPUSCULAR HEMOGLOBIN 31.3 pg (27.0-33.0); MEAN CORPUSCULAR HGB CONC 32.6 g/dl (32.0-36.5); PLATELET COUNT, AUTOMATED 221 10^3/uL (150-450); RED BLOOD COUNT 3.51 10^6/uL (4.30-6.10); WHITE BLOOD COUNT 4.1 10^3/uL (4.0-10.0)
== END ==
PROVIDERS: ATTEND Internal Medicine
DX: D64.9 Anemia, unspecified (principal)

== ENCOUNTER → 2019-08-10 | Outpatient (REF) ==
[2019-08-10 09:51] LABS: HEMATOCRIT 35.4 % (42.0-52.0); HEMOGLOBIN 11.6 g/dl (13.5-17.5); MEAN CORPUSCULAR HEMOGLOBIN 32.8 pg (27.0-33.0); MEAN CORPUSCULAR HGB CONC 32.8 g/dl (32.0-36.5); PLATELET COUNT, AUTOMATED 226 10^3/uL (150-450); RED BLOOD COUNT 3.54 10^6/uL (4.30-6.10); WHITE BLOOD COUNT 4.7 10^3/uL (4.0-10.0)
== END ==
PROVIDERS: ATTEND Internal Medicine
DX: D64.9 Anemia, unspecified (principal)

== ENCOUNTER → 2019-08-24 | Outpatient (REF) ==
[2019-08-24 11:34] LABS: BASO % 0.2 % (0.0-1.0); EOS # 0.1 10^3/uL (0.0-0.5); EOS % 1.6 % (0.0-3.0); HEMATOCRIT 34.3 % (42.0-52.0); HEMOGLOBIN 11.2 g/dl (13.5-17.5); LYMPH # 1.1 10^3/uL (1.5-5.0); LYMPH % 25.2 % (24.0-44.0); MEAN CORPUSCULAR HEMOGLOBIN 33.1 pg (27.0-33.0); MEAN CORPUSCULAR HGB CONC 32.7 g/dl (32.0-36.5); MEAN CORPUSCULAR VOLUME 101.5 fl (80.0-96.0); MONO # 0.3 10^3/uL (0.0-0.8); MONO % 6.9 % (0.0-5.0); NEUTROPHILS # 2.9 10^3/uL (1.5-8.5); NEUTROPHILS % 65.6 % (36.0-66.0); PLATELET COUNT, AUTOMATED 213 10^3/uL (150-450); RED BLOOD COUNT 3.38 10^6/uL (4.30-6.10); WHITE BLOOD COUNT 4.4 10^3/uL (4.0-10.0)
== END ==
PROVIDERS: ATTEND Internal Medicine
DX: D64.9 Anemia, unspecified (principal)

== ENCOUNTER → 2019-09-07 | Outpatient (REF) ==
[2019-09-07 11:44] LABS: HEMATOCRIT 33.2 % (42.0-52.0); HEMOGLOBIN 11.1 g/dl (13.5-17.5); MEAN CORPUSCULAR HGB CONC 33.4 g/dl (32.0-36.5); MEAN CORPUSCULAR VOLUME 101.8 fl (80.0-96.0); PLATELET COUNT, AUTOMATED 220 10^3/uL (150-450); RED BLOOD COUNT 3.26 10^6/uL (4.30-6.10); WHITE BLOOD COUNT 4.5 10^3/uL (4.0-10.0)
== END ==
PROVIDERS: ATTEND Internal Medicine
DX: D64.9 Anemia, unspecified (principal)

== ENCOUNTER → 2019-09-14 | Outpatient (REF) ==
[2019-09-14 18:08] LABS: CALCIUM LEVEL 9.3 MG/DL (8.8-10.2); CREATININE FOR GFR 1.25 MG/DL (0.70-1.30); POTASSIUM SERUM 4.2 MEQ/L (3.5-5.1)
== END ==
PROVIDERS: ATTEND Internal Medicine
DX: N18.9 Chronic kidney disease, unspecified (principal)

== ENCOUNTER → 2019-09-21 | Outpatient (REF) ==
[2019-09-21 11:23] LABS: HEMATOCRIT 36.2 % (42.0-52.0); MEAN CORPUSCULAR HEMOGLOBIN 33.9 pg (27.0-33.0); MEAN CORPUSCULAR HGB CONC 33.1 g/dl (32.0-36.5); MEAN CORPUSCULAR VOLUME 102.3 fl (80.0-96.0); PLATELET COUNT, AUTOMATED 242 10^3/uL (150-450); RED BLOOD COUNT 3.54 10^6/uL (4.30-6.10); WHITE BLOOD COUNT 4.5 10^3/uL (4.0-10.0)
== END ==
PROVIDERS: ATTEND Internal Medicine
DX: N18.9 Chronic kidney disease, unspecified (principal)

== ENCOUNTER → 2019-10-05 | Outpatient (REF) ==
[2019-10-05 12:40] LABS: BASO % 0.4 % (0.0-1.0); EOS # 0.1 10^3/uL (0.0-0.5); EOS % 1.5 % (0.0-3.0); HEMATOCRIT 35.4 % (42.0-52.0); HEMOGLOBIN 11.7 g/dl (13.5-17.5); LYMPH # 1.3 10^3/uL (1.5-5.0); MEAN CORPUSCULAR HEMOGLOBIN 33.9 pg (27.0-33.0); MEAN CORPUSCULAR HGB CONC 33.1 g/dl (32.0-36.5); MEAN CORPUSCULAR VOLUME 102.6 fl (80.0-96.0); MONO # 0.4 10^3/uL (0.0-0.8); MONO % 7.9 % (0.0-5.0); NEUTROPHILS # 3.1 10^3/uL (1.5-8.5); PLATELET COUNT, AUTOMATED 228 10^3/uL (150-450); RED BLOOD COUNT 3.45 10^6/uL (4.30-6.10); WHITE BLOOD COUNT 4.8 10^3/uL (4.0-10.0)
[2019-10-05 13:47] LABS: IMMUNOGLOBULIN G 1130 MG/DL (681-1648)
[2019-10-05 16:19] LABS: VITAMIN B12 LEVEL 735 PG/ML
[2019-10-05 16:20] LABS: FOLATE > 24.0 NG/ML
== END ==
PROVIDERS: ATTEND Internal Medicine
DX: D64.9 Anemia, unspecified (principal)

== ENCOUNTER → 2019-10-05 | Outpatient (REF) | PROVIDERS: ATTEND Internal Medicine | DX: Z03.818 Encounter for observation for suspected exposure to other biological agents ruled out (principal) ==

== ENCOUNTER → 2019-10-13 | Outpatient (REF) ==
[2019-10-13 12:39] LABS: CALCIUM LEVEL 8.9 MG/DL (8.8-10.2); CREATININE FOR GFR 1.34 MG/DL (0.70-1.30); GLOMERULAR FILTRATION RATE 53.6 (>35); POTASSIUM SERUM 4.1 MEQ/L (3.5-5.1)
== END ==
PROVIDERS: ATTEND Internal Medicine
DX: D64.9 Anemia, unspecified (principal)

== ENCOUNTER → 2019-10-19 | Outpatient (REF) ==
[~2019-10-19] MED LIST changes: +EUCECRE8 TOP; +SYNT75TA PO; +[UNRECOGNIZED DRUG - CODE] TOP
[2019-10-19 10:39] LABS: HEMATOCRIT 36.3 % (42.0-52.0); HEMOGLOBIN 11.6 g/dl (13.5-17.5); MEAN CORPUSCULAR HEMOGLOBIN 32.9 pg (27.0-33.0); MEAN CORPUSCULAR VOLUME 102.8 fl (80.0-96.0); PLATELET COUNT, AUTOMATED 255 10^3/uL (150-450); RED BLOOD COUNT 3.53 10^6/uL (4.30-6.10); WHITE BLOOD COUNT 4.8 10^3/uL (4.0-10.0)
== END ==
PROVIDERS: ATTEND Internal Medicine
DX: D64.9 Anemia, unspecified (principal)

== ENCOUNTER 2019-10-21 01:42 | Emergency (ER) | payer MEDICARE ==
[~2019-10-21] VITALS: Ht 182.9 cm; Wt 82.7 kg
[~2019-10-21 01:42] MED LIST changes: +ACET650T61 PO; -CLIN150C14 PO; +CLIN150C15 PO; -EUCECRE8 TOP; -SYNT75TA PO; -TYLE650T35 PO; -[UNRECOGNIZED DRUG - CODE] TOP
[2019-10-21 02:30] LABS: HEMATOCRIT 36.9 % (42.0-52.0); HEMOGLOBIN 12.2 g/dl (13.5-17.5); MEAN CORPUSCULAR HEMOGLOBIN 32.9 pg (27.0-33.0); MEAN CORPUSCULAR HGB CONC 33.1 g/dl (32.0-36.5); MEAN CORPUSCULAR VOLUME 99.5 fl (80.0-96.0); PLATELET COUNT, AUTOMATED 245 10^3/uL (150-450); RED BLOOD COUNT 3.71 10^6/uL (4.30-6.10); WHITE BLOOD COUNT 13.1 10^3/uL (4.0-10.0)
[2019-10-21] MEDS ORDERED: NS 500 ML IV ONE (02:45)
[2019-10-21] MEDS ORDERED: ACETAMINOPHEN TAB 650MG DOSE (2X325MG) PO ONE (02:45)
[2019-10-21 02:52] LABS: LYMPHOCYTES 2 % (16-44); NEUTROPHILS 90 % (28-66); PLATELET ESTIMATE NORMAL (NORMAL)
[2019-10-21 02:56] LABS: ALBUMIN 3.8 GM/DL (3.2-5.2); BILIRUBIN,DIRECT 0.4 MG/DL (0.0-0.2); BILIRUBIN,TOTAL 0.9 MG/DL (0.2-1.0); CALCIUM LEVEL 9.1 MG/DL (8.8-10.2); CREATININE FOR GFR 1.41 MG/DL (0.70-1.30); GLOMERULAR FILTRATION RATE 50.5 (>35); POTASSIUM SERUM 3.4 MEQ/L (3.5-5.1); TOTAL PROTEIN 7.9 GM/DL (6.4-8.2)
[2019-10-21] MEDS ORDERED: SYNT75TA PO (03:35)
[2019-10-21] MEDS ORDERED: ENSU1LIQ36 PO (03:35)
[2019-10-21] MEDS ORDERED: EUCECRE8 TOP (03:35)
[2019-10-21] MEDS ORDERED: [UNRECOGNIZED DRUG - CODE] TOP (03:45)
--- NOTE | 2019-10-21 03:48 | REPVR ---
PROCEDURE INFORMATION: Exam: XR Chest, 1 View Exam date and time: 10/21/2019 2:45 AM Age: 89 years old Clinical indication: Other: Sepsis/ shock; Additional info: Sepsis/shock TECHNIQUE: Imaging protocol: XR of the chest Views: 1 view. COMPARISON: CR Ribs uni W-PA CHEST ONLY 04/15/2019 8:23 AM FINDINGS: Lungs: Some linear interstitial scarring or atelectasis in the left lower lobe. No airspace infiltrates or masses. Pleural space: Unremarkable. No pleural effusion. No pneumothorax. Heart/Mediastinum: Prominent cardiomegaly. Bones/joints: Skeletal degenerative changes are noted. IMPRESSION: Cardiomegaly. No acute findings. Electronically signed by: Joel Au On 10/21/2019 03:48:23 AM
[2019-10-21] MEDS: GASTROGRAFIN SOLUTION 30ML PO SCH ×3 (03:51→03:55)
[2019-10-21] MEDS ORDERED: ISOVUE-370 76% 100ML VIAL As Ordered ONE (05:14)
--- NOTE | 2019-10-21 05:57 | REPVR ---
PROCEDURE INFORMATION: Exam: CT Abdomen And Pelvis With Contrast Exam date and time: 10/21/2019 3:16 AM Age: 89 years old Clinical indication: Abdominal pain; Generalized; Additional info: Gen abd pain, fever TECHNIQUE: Imaging protocol: Computed tomography of the abdomen and pelvis with intravenous contrast. Radiation optimization: All CT scans at this facility use at least one of these dose optimization techniques: automated exposure control; mA and/or kV adjustment per patient size (includes targeted exams where dose is matched to clinical indication); or iterative reconstruction. Contrast material: ISO; Contrast volume: 100 ml; Contrast route: AC; Other contrast: Oral, ggraphin, 600; COMPARISON: CT ABD/PEL W/IV CONTRAST ONLY 05/18/2019 8:42 PM FINDINGS: Heart: There is massive cardiomegaly. Lungs: Atelectatic changes seen in the lung bases. Liver: Normal. No mass. Gallbladder and bile ducts: Layering stones seen in the gallbladder. Pancreas: Normal. No ductal dilation. Spleen: Normal. No splenomegaly. Adrenals: Normal. No mass. Kidneys and ureters: There is 1.9 cm right lower renal pole cyst. Stomach and bowel: There is sigmoid colon diverticulosis. Appendix: No evidence of appendicitis. Intraperitoneal space: Unremarkable. No free air. No significant fluid collection. Vasculature: There is moderate aortic and iliac mural calcifications. Lymph nodes: There is questionable thickening of some small bowel loops with mildly hazy mesentery and shotty mesenteric lymph nodes. Bladder: Unremarkable as visualized. Reproductive: Unremarkable as visualized. Bones/joints: There is lumbar spine scoliosis with diffuse lumbar spine DJD sparing L3-L4. There is diffuse lumbar spine facet arthrosis. There is focal rarefaction of the inferior endplate of L1 vertebral body best seen on coronal image 61. This likely represent small Schmorl's node Soft tissues: Unremarkable. IMPRESSION: 1. Questionable thickening of some small bowel loops with hazy mesentery and shotty lymph nodes. Correlate clinically for enteritis. 2. Cholelithiasis. 3. 1.9 cm simple right lower renal pole cyst. No follow-up is necessary. 4. Sigmoid colon diverticulosis with no CT evidence of diverticulitis. 5. Massive cardiomegaly. Electronically signed by: Cesario Combs On 10/21/2019 05:57:13 AM
[2019-10-21 06:36] VITALS: BP 127/68
--- NOTE | 2019-10-21 08:46 | ECGEPIP ---
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 : 1930 Requested By: LAURA Jeffries Order Number: [id number] Reading MD: Carlos Rossi Measurements Intervals [place] Rate: 123 P: NE: 0 QRS: 81 QRSD: 111 T: 12 QT: 330 QTc: 473 Interpretive Statements ATRIAL FIBRILLATION WITH RAPID VENTRICULAR RESPONSE WITH ABERRANT CONDUCTION OR VE VENTRICULAR PREMATURE COMPLEXES MODERATE INTRAVENTRICULAR CONDUCTION DELAY NONSPECIFIC T-WAVE ABNORMALITY DELAYED R WAVE PROGRESSION PROLONGED QTC NONSPECIFIC ST T WAVE CHANGES CW 05/18/[address] T WAVE CHANGES NEW PROLONGED QTC Electronically Signed on 10-21-2019 8:46:25 EDT by Carlos Rossi
[2020-03-24] MEDS ORDERED: AMIT25TA17 PO (14:32)
[2020-03-24] MEDS ORDERED: FURO80TA2 PO (14:32)
[2020-03-24] MEDS ORDERED: MILKSUS3 PO (14:32)
[2020-03-24] MEDS ORDERED: DOCU8.6T PO (14:32)
[2020-03-24] MEDS ORDERED: DULC10SU2 PR (14:32)
[2020-03-24] MEDS ORDERED: ENEMENE6 PR (14:32)
[2020-03-24] MEDS ORDERED: LEVO50TA5 PO (14:32)
[2020-03-24] MEDS ORDERED: ARTIDRO OP (14:32)
== END 2019-10-21 07:01 | disposition home or self-care (01) ==
LOC: M ED 01:42
DX: K52.9 Noninfective gastroenteritis and colitis, unspecified (principal); J44.9 Chronic obstructive pulmonary disease, unspecified; I10 Essential (primary) hypertension; I48.91 Unspecified atrial fibrillation; G30.9 Alzheimer's disease, unspecified; I51.7 Cardiomegaly; Z79.899 Other long term (current) drug therapy; Z79.890 Hormone replacement therapy; Z79.82 Long term (current) use of aspirin
CPT/HCPCS: 51701; 71045; 74177; 80048; 80076; 81001; 83605; 83690; 85025; 87040; 87086; 87486; 87581; 87633; 87798; 93005; 93041; 94760; 96360; 99285; Q9963; Q9967; U0003

== ENCOUNTER → 2019-10-22 | Outpatient (CLI) | payer MEDICARE ==
[~2019-10-22] MED LIST changes: -ACET650T61 PO; +CLIN150C14 PO; -CLIN150C15 PO; +EUCECRE8 TOP; +SYNT75TA PO; +TYLE650T35 PO; +[UNRECOGNIZED DRUG - CODE] TOP
--- NOTE | 2019-10-22 15:53 | REP ---
REASON: Nonhealing wounds. RIGHT: SATNAM unobtainable. 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 98 cm/s Triphasic Profunda 75 cm/s Triphasic SFA proximal 79 cm/s Triphasic SFA mid 100 cm/s Triphasic SFA distal 72 cm/s Triphasic Popliteal 65 cm/s Triphasic LIZBET proximal 47 cm/s Monophasic Tibioperoneal Trunk 57 cm/s Monophasic HEMODIALYSIS CHARGE NURSE proximal 67 cm/s Monophasic HEMODIALYSIS CHARGE NURSE distal 97 cm/s Monophasic LIZBET distal 67 cm/s Monophasic LEFT: The SATNAM was unobtainable 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 98 cm/s Monophasic Profunda 81 cm/s Triphasic SFA proximal 94 cm/s Monophasic SFA mid 117 cm/s Monophasic SFA distal 98 cm/s Monophasic Popliteal 94 cm/s Monophasic LIZBET proximal 66 cm/s Monophasic Tibioperoneal Trunk 88 cm/s Monophasic HEMODIALYSIS CHARGE NURSE proximal 76 cm/s Monophasic HEMODIALYSIS CHARGE NURSE distal 97 cm/s Monophasic LIZBET distal 99 cm/s Monophasic Seen in the right leg, mild plaque was noted but no significant stenosis or luminal narrowing. Heavily calcified vessels were seen in the calf. On the left, mild plaque was seen but no significant stenosis or luminal narrowing. Electronically Signed by Mani Yepez DO 10/22/2019 04:46 P
== END ==
LOC: M RAD 11:53
PROVIDERS: ATTEND Surgery Vascular Surgery
DX: I70.233 Atherosclerosis of native arteries of right leg with ulceration of ankle (principal); I70.243 Atherosclerosis of native arteries of left leg with ulceration of ankle; L97.329 Non-pressure chronic ulcer of left ankle with unspecified severity; L97.319 Non-pressure chronic ulcer of right ankle with unspecified severity

== ENCOUNTER → 2019-10-22 | Outpatient (REF) ==
[2019-10-22 10:19] LABS: HEMATOCRIT 34.3 % (42.0-52.0); HEMOGLOBIN 11.4 g/dl (13.5-17.5); MEAN CORPUSCULAR HEMOGLOBIN 33.5 pg (27.0-33.0); MEAN CORPUSCULAR HGB CONC 33.2 g/dl (32.0-36.5); MEAN CORPUSCULAR VOLUME 100.9 fl (80.0-96.0); PLATELET COUNT, AUTOMATED 233 10^3/uL (150-450); WHITE BLOOD COUNT 7.3 10^3/uL (4.0-10.0)
[2019-10-22 10:48] LABS: CALCIUM LEVEL 8.8 MG/DL (8.8-10.2); CREATININE FOR GFR 1.39 MG/DL (0.70-1.30); GLOMERULAR FILTRATION RATE 51.3 (>35); POTASSIUM SERUM 4.1 MEQ/L (3.5-5.1)
== END ==
PROVIDERS: ATTEND Internal Medicine
DX: R11.0 Nausea (principal)

== ENCOUNTER → 2019-11-02 | Outpatient (REF) ==
[2019-11-02 13:54] LABS: HEMOGLOBIN 11.1 g/dl (13.5-17.5); MEAN CORPUSCULAR HEMOGLOBIN 32.4 pg (27.0-33.0); MEAN CORPUSCULAR HGB CONC 31.7 g/dl (32.0-36.5); PLATELET COUNT, AUTOMATED 256 10^3/uL (150-450); RED BLOOD COUNT 3.43 10^6/uL (4.30-6.10); WHITE BLOOD COUNT 4.4 10^3/uL (4.0-10.0)
== END ==
PROVIDERS: ATTEND Internal Medicine
DX: D64.9 Anemia, unspecified (principal)

== ENCOUNTER → 2019-11-09 | Outpatient (REF) ==
[2019-11-09 11:36] LABS: CALCIUM LEVEL 9.3 MG/DL (8.8-10.2); CREATININE FOR GFR 1.23 MG/DL (0.70-1.30); GLOMERULAR FILTRATION RATE 59.1 (>35)
== END ==
PROVIDERS: ATTEND Internal Medicine
DX: I50.9 Heart failure, unspecified (principal); N18.9 Chronic kidney disease, unspecified

== ENCOUNTER 2019-11-13 09:42 | Emergency (ER) | payer MEDICARE ==
[~2019-11-13] VITALS: Ht 190.5 cm; Wt 83.3 kg
[2019-11-13 10:15] LABS: BASO % 0.2 % (0.0-1.0); EOS # 0.1 10^3/uL (0.0-0.5); EOS % 2.2 % (0.0-3.0); HEMATOCRIT 35.3 % (42.0-52.0); HEMOGLOBIN 11.6 g/dl (13.5-17.5); LYMPH # 1.3 10^3/uL (1.5-5.0); LYMPH % 22.7 % (24.0-44.0); MEAN CORPUSCULAR HGB CONC 32.9 g/dl (32.0-36.5); MEAN CORPUSCULAR VOLUME 100.3 fl (80.0-96.0); MONO # 0.5 10^3/uL (0.0-0.8); MONO % 9.6 % (0.0-5.0); NEUTROPHILS # 3.6 10^3/uL (1.5-8.5); NEUTROPHILS % 65.1 % (36.0-66.0); PLATELET COUNT, AUTOMATED 230 10^3/uL (150-450); RED BLOOD COUNT 3.52 10^6/uL (4.30-6.10); WHITE BLOOD COUNT 5.5 10^3/uL (4.0-10.0)
--- NOTE | 2019-11-13 10:25 | REP ---
Portable chest x-ray: Single view. History: Chest pain. Comparison study: October 21, 2019. Findings: Monitoring electrodes overlie the chest. The heart is enlarged as before. The aorta somewhat tortuous. Pleural angles are sharp. No focal infiltrate is seen. Impression: Moderate cardiomegaly. No focal infiltrate. Electronically Signed by Jeffery Dimas MD 11/13/2019 10:17 A
[2019-11-13] MEDS ORDERED: ASPI-161 PO (10:35)
[2019-11-13 10:40] LABS: ALBUMIN 3.6 GM/DL (3.2-5.2); BILIRUBIN,DIRECT 0.4 MG/DL (0.0-0.2); BILIRUBIN,TOTAL 1.2 MG/DL (0.2-1.0); TOTAL PROTEIN 8.1 GM/DL (6.4-8.2)
[2019-11-13 13:21] LABS: BASO % 0.2 % (0.0-1.0); EOS # 0.1 10^3/uL (0.0-0.5); EOS % 1.1 % (0.0-3.0); LYMPH # 1.6 10^3/uL (1.5-5.0); LYMPH % 24.5 % (24.0-44.0); MONO # 0.5 10^3/uL (0.0-0.8); MONO % 7.3 % (0.0-5.0); NEUTROPHILS # 4.4 10^3/uL (1.5-8.5); NEUTROPHILS % 66.4 % (36.0-66.0); WHITE BLOOD COUNT 6.5 10^3/uL (4.0-10.0)
[2019-11-13 13:44] LABS: ALBUMIN 3.5 GM/DL (3.2-5.2); BILIRUBIN,DIRECT 0.4 MG/DL (0.0-0.2); BILIRUBIN,TOTAL 1.3 MG/DL (0.2-1.0); TOTAL PROTEIN 7.5 GM/DL (6.4-8.2)
--- NOTE | 2019-11-13 14:26 | REP ---
RIGHT UPPER QUADRANT SONOGRAPHY: HISTORY: Right upper quadrant pain. Known gallstones. Rule out cholecystitis. Comparison right upper quadrant sonography, May 19, 2019. Comparison CT study, October 21, 2019. SONOGRAPHIC FINDINGS: Scanning through the right upper quadrant demonstrates significant tenderness over the gallbladder. There are echogenic stones with acoustic shadowing in the gallbladder. Gallbladder is partially obscured by bowel gas. Common bile duct is normal measuring 0.4 cm in greatest diameter. Liver texture is coarse. No focal liver mass lesion is seen. There is no evidence of ascites. Right kidney measures 10.0 x 4.0 x 4.3 cm. There is a 1.7 cm right renal cyst. IMPRESSION: Cholelithiasis with significant tenderness to scanning over the gallbladder. The gallbladder is not well seen due to bowel gas. Normal CBD. Coarse liver texture. Small cyst right kidney. Otherwise negative. Electronically Signed by Jeffery Dimas MD 11/13/2019 02:40 P
[2019-11-13] MEDS ORDERED: CIPR250T3 PO (15:41)
[2019-11-13] MEDS ORDERED: CIPROFLOXACIN 250MG TAB PO ONE (15:45)
[2019-11-13 16:17] VITALS: BP 142/76
--- NOTE | 2019-11-13 20:36 | ECGEPIP ---
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
== END 2019-11-13 16:19 | disposition home or self-care (01) ==
LOC: M ED 09:42 → EDBD 09:42 → M ED 16:19
DX: K80.60 Calculus of gallbladder and bile duct with cholecystitis, unspecified, without obstruction (principal); I10 Essential (primary) hypertension; N18.3 Chronic kidney disease, stage 3 (moderate); E07.9 Disorder of thyroid, unspecified; I48.91 Unspecified atrial fibrillation; F03.90 Unspecified dementia, unspecified severity, without behavioral disturbance, psychotic disturbance, mood disturbance, and anxiety; Z79.899 Other long term (current) drug therapy; Z79.890 Hormone replacement therapy; Z79.82 Long term (current) use of aspirin

== ENCOUNTER → 2019-11-23 | Outpatient (REF) ==
[~2019-11-23] MED LIST changes: +ASPI-161 PO; +CIPR250T3 PO
[2019-11-23 09:51] LABS: HEMATOCRIT 37.3 % (42.0-52.0); HEMOGLOBIN 11.8 g/dl (13.5-17.5); MEAN CORPUSCULAR HEMOGLOBIN 32.2 pg (27.0-33.0); MEAN CORPUSCULAR HGB CONC 31.6 g/dl (32.0-36.5); MEAN CORPUSCULAR VOLUME 101.6 fl (80.0-96.0); PLATELET COUNT, AUTOMATED 227 10^3/uL (150-450); RED BLOOD COUNT 3.67 10^6/uL (4.30-6.10); WHITE BLOOD COUNT 5.5 10^3/uL (4.0-10.0)
== END ==
PROVIDERS: ATTEND Internal Medicine
DX: D64.9 Anemia, unspecified (principal)

== ENCOUNTER → 2019-12-07 | Outpatient (REF) ==
[2019-12-07 12:17] LABS: HEMATOCRIT 35.5 % (42.0-52.0); HEMOGLOBIN 11.5 g/dl (13.5-17.5); MEAN CORPUSCULAR HEMOGLOBIN 32.2 pg (27.0-33.0); MEAN CORPUSCULAR HGB CONC 32.4 g/dl (32.0-36.5); MEAN CORPUSCULAR VOLUME 99.4 fl (80.0-96.0); PLATELET COUNT, AUTOMATED 228 10^3/uL (150-450); RED BLOOD COUNT 3.57 10^6/uL (4.30-6.10); WHITE BLOOD COUNT 4.6 10^3/uL (4.0-10.0)
== END ==
PROVIDERS: ATTEND Internal Medicine
DX: D64.9 Anemia, unspecified (principal)

== ENCOUNTER → 2019-12-14 | Outpatient (REF) | payer MEDICARE ==
[~2019-12-14] MED LIST changes: +ACET650T61 PO; +AMIT25TA PO; +ARTIDRO OP; +DOCU8.6T PO; +DULC10SU2 PR; +ENEMENE6 PR; +FURO80TA2 PO; +LEVO50TA5 PO; -TYLE650T35 PO; +URSO300C3 PO
[2020-01-29 09:18] LABS: BASO % 0.3 % (0.0-1.0); EOS # 0.1 10^3/uL (0.0-0.5); EOS % 1.7 % (0.0-3.0); HEMATOCRIT 37.1 % (42.0-52.0); HEMOGLOBIN 12.3 g/dl (13.5-17.5); LYMPH # 1.4 10^3/uL (1.5-5.0); LYMPH % 22.3 % (24.0-44.0); MEAN CORPUSCULAR HGB CONC 33.2 g/dl (32.0-36.5); MEAN CORPUSCULAR VOLUME 99.5 fl (80.0-96.0); MONO # 0.5 10^3/uL (0.0-0.8); MONO % 7.8 % (0.0-5.0); NEUTROPHILS # 4.1 10^3/uL (1.5-8.5); NEUTROPHILS % 67.4 % (36.0-66.0); PLATELET COUNT, AUTOMATED 213 10^3/uL (150-450); RED BLOOD COUNT 3.73 10^6/uL (4.30-6.10); WHITE BLOOD COUNT 6.1 10^3/uL (4.0-10.0)
[2020-01-31 00:51] LABS: CK-MB VALUE MASS 1.7 NG/ML (<3.6); CPK CREATINE PHOSPHOKINASE 78 U/L (39-308); MB/CK RELATIVE INDEX 2.17 (< OR =4); TROPONIN I < 0.02 NG/ML (< 0.10)
[2020-02-19 14:54] LABS: GLUCOSE, FASTING SEE SEPARATE REPORT MG/DL
== END ==
PROVIDERS: ATTEND Internal Medicine
DX: D64.9 Anemia, unspecified (principal)

== ENCOUNTER → 2019-12-16 | Outpatient (REF) | payer MEDICARE, MEDICAID | PROVIDERS: ATTEND Physician Assistant | DX: D64.9 Anemia, unspecified (principal) ==

== ENCOUNTER → 2019-12-21 | Outpatient (REF) | payer MEDICARE ==
[2020-03-02 13:13] LABS: HEMATOCRIT 35.6 % (42.0-52.0); HEMOGLOBIN 11.5 g/dl (13.5-17.5); MEAN CORPUSCULAR HEMOGLOBIN 32.7 pg (27.0-33.0); MEAN CORPUSCULAR HGB CONC 32.3 g/dl (32.0-36.5); MEAN CORPUSCULAR VOLUME 101.1 fl (80.0-96.0); PLATELET COUNT, AUTOMATED 203 10^3/uL (150-450); RED BLOOD COUNT 3.52 10^6/uL (4.30-6.10); WHITE BLOOD COUNT 4.6 10^3/uL (4.0-10.0)
== END ==
PROVIDERS: ATTEND Internal Medicine
DX: D64.9 Anemia, unspecified (principal)

== ENCOUNTER → 2020-01-04 | Outpatient (REF) | payer MEDICARE ==
[2020-02-17 11:54] LABS: ALBUMIN 4.17 GM/DL (3.29-5.55); ALBUMIN % 52.1 % (55.8-66.1); ALPHA-1-GLOBULIN % 3.9 % (2.9-4.9); ALPHA-1-GLOBULINS 0.31 GM/DL (0.17-0.41); ALPHA-2-GLOBULINS % 8.8 % (7.1-11.8); BETA-1-GLOBULINS % 6.2 % (4.7-7.2); BETA-2-GLOBULINS 1.41 GM/DL (0.19-0.55); BETA-2-GLOBULINS % 17.6 % (3.2-6.5); GAMMA GLOBULIN % 11.4 % (11.1-18.8); GAMMA GLOBULINS 0.91 GM/DL (0.65-1.58)
[2020-02-17 14:22] LABS: ALBUMIN 3.9 GM/DL (3.2-5.2); ALT/SGPT 18 U/L (12-78); BILIRUBIN,TOTAL 1.5 MG/DL (0.2-1.0); BLOOD UREA NITROGEN 62 MG/DL (7-18); CALCIUM LEVEL 9.6 MG/DL (8.8-10.2); CARBON DIOXIDE LEVEL 34 MEQ/L (21-32); CHLORIDE LEVEL 98 MEQ/L (98-107); CREATININE FOR GFR 1.33 MG/DL (0.70-1.30); GLUCOSE, FASTING 137 MG/DL (70-100); IMMUNOGLOBULIN G 1150 MG/DL (681-1648); POTASSIUM SERUM 4.2 MEQ/L (3.5-5.1); SODIUM LEVEL 135 MEQ/L (136-145)
[2020-03-12 11:41] LABS: HEMATOCRIT 37.6 % (42.0-52.0); HEMOGLOBIN 12.3 g/dl (13.5-17.5); MEAN CORPUSCULAR HGB CONC 32.7 g/dl (32.0-36.5); MEAN CORPUSCULAR VOLUME 100.8 fl (80.0-96.0); PLATELET COUNT, AUTOMATED 234 10^3/uL (150-450); RED BLOOD COUNT 3.73 10^6/uL (4.30-6.10); WHITE BLOOD COUNT 5.5 10^3/uL (4.0-10.0)
== END ==
PROVIDERS: ATTEND Internal Medicine
DX: D64.9 Anemia, unspecified (principal)

== ENCOUNTER 2020-01-30 12:45 | Observation (INO) | payer MEDICARE, MEDICAID ==
[~2020-01-30] VITALS: Ht 198.1 cm; Wt 84.5 kg
[~2020-01-30 12:45] MED LIST changes: -AMIT25TA PO; -ARTIDRO OP; -DOCU8.6T PO; -DULC10SU2 PR; -ENEMENE6 PR; -FURO80TA2 PO; -LEVO50TA5 PO; -URSO300C3 PO
[2020-01-30 13:48] LABS: BASO % 0.3 % (0.0-1.0); EOS # 0.1 10^3/uL (0.0-0.5); EOS % 1.2 % (0.0-3.0); HEMATOCRIT 39.3 % (42.0-52.0); HEMOGLOBIN 12.9 g/dl (13.5-17.5); LYMPH # 1.4 10^3/uL (1.5-5.0); LYMPH % 23.4 % (24.0-44.0); MEAN CORPUSCULAR HEMOGLOBIN 33.2 pg (27.0-33.0); MEAN CORPUSCULAR HGB CONC 32.8 g/dl (32.0-36.5); MEAN CORPUSCULAR VOLUME 101.3 fl (80.0-96.0); MONO # 0.3 10^3/uL (0.0-0.8); MONO % 5.1 % (0.0-5.0); NEUTROPHILS # 4.2 10^3/uL (1.5-8.5); NEUTROPHILS % 69.7 % (36.0-66.0); PLATELET COUNT, AUTOMATED 246 10^3/uL (150-450); RED BLOOD COUNT 3.88 10^6/uL (4.30-6.10); WHITE BLOOD COUNT 6.1 10^3/uL (4.0-10.0)
[2020-01-30 14:11] LABS: ALBUMIN 3.7 GM/DL (3.2-5.2); BILIRUBIN,TOTAL 1.4 MG/DL (0.2-1.0); CREATININE FOR GFR 1.26 MG/DL (0.70-1.30); GLOMERULAR FILTRATION RATE 57.5 (>35); POTASSIUM SERUM 3.7 MEQ/L (3.5-5.1)
[2020-01-30] MEDS ORDERED: FURO20TA2 PO (15:06)
[2020-01-30] MEDS ORDERED: URSO300C3 PO (15:06)
--- NOTE | 2020-01-30 16:36 | HPEPDOC ---
General Date of Admission January 30, 2020 Date of Service: Jan 30, 2020 Attending Physician: ISIDRO BAKER DO Chief Complaint The patient is a 89-year-old male admitted with a reason for visit of inability to care for at home Source: Patient, Family Exam Limitations: Dementia History of Present Illness Mr. Nava is a 89 year old male with dementia, atrial fibrillation not anticoagulation, and CHF here with inability to care for at home. 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 After that hospitalization, he was put in [facility] and has been there since. Due to the COVID pandemic, the daughter was not able to see her father as often as she would like or take him out to nice dinners. Due to this, she signed him out AMA on 01/27/2020 and took him to his own home. Quickly she realized that he would not do well home alone. Afterwards, she took him to her place. In the past two days, he has been up at night wandering her house which made her afraid that he would fall. She had difficulty with her medications. She was afraid to change the bandage for the left leg wound. She wanted him to be safe and realized that she had made a mistake taking him out of the [facility]. She brought him back into a prison. Nursing instrument shop supervisor contacted social work specialist. flow worker spoke with the family and explained that they may have to pay for this admission. Daughter wanted to know how much, but we are unable to obtain this information. Daughter made the decision that she wanted her father to be safe, and she could not care for him at home. She still wanted the a dmission. She is hoping that he would be able to get into [facility] where his is currently located. Otherwise, when I spoke with the patient, he had no complaints. Denies fever/chills, dyspnea, chest pain, abdominal pain, diarrhea, or dysuria. He has a wound on the left lower leg near the ankle on the medial side. It has yellow slough, but otherwise does not appear infected. Spoke with daughter about CODE Status. She wants to continue DNR/DNI Home Medications Scheduled Acetaminophen (Acetaminophen ER) 650 Mg Tablet.er, 650 MG PO BID, (Reported) Amitriptyline HCl (Amitriptyline HCl) 50 Mg Tablet, 50 MG PO QHS, (Reported) Aspirin (Aspirin EC) 81 Mg Tablet.dr, 81 MG PO DAILY, (Reported) Atorvastatin Calcium (Atorvastatin Calcium) 40 Mg Tablet, 40 MG PO QHS, (Reported) Bacitracin Zinc/Polymyxin B (Double Antibiotic Ointment) 28.4 Gm Oint...g., 1 APPLIC TOP BID, (Reported) APPLY TO BUMPS ON HEAD AND NECK Docusate Sodium (Colace) 100 Mg Capsule, 100 MG PO BID, (Reported) Furosemide (Furosemide) 20 Mg Tablet, 40 MG PO DAILY, (Reported) Lactose-Reduced Food (Ensure Enlive) 237 Ml Liquid, 240 ML PO BID, (Reported) Lactose-Reduced Food (Ensure Enlive) 237 Ml Liquid, 120 ML PO DAILY, (Reported) @1400 Lanolin Alcohol/Mo/W.pet/[place] (Eucerin Creme) 454 Gm Cream..g., 1 APPLIC TOP BID, (Reported) APPLY TO LEGS AFTER TAKING MEDIGRIP STOCKINGS OFF Levothyroxine Sodium (Synthroid) 75 Mcg Tablet, 37.5 MCG PO DAILY, (Reported) Multivitamin (Multivitamins) 1 Each Capsule, 1 CAP PO DAILY, (Reported) Potassium Chloride (Potassium Chloride) 20 Meq Tab.er.prt, 20 MEQ PO DAILY, (Reported) Sodium Chloride ([place] Saline) 0.65% [place], 1 SPRAY NARES QID, (Reported) Spironolactone (Spironolactone) 25 Mg Tablet, 25 MG PO DAILY, (Reported) Ursodiol (Ursodiol) 300 Mg Capsule, 300 MG PO TID, (Reported) Scheduled PRN Lidocaine HCl (Aspercreme) 4% Cream..g., 1 APLCT TOP TID PRN for PAIN, (Reported) APPLY TO BILATERAL LEGS, FEET AND KNEES Allergies Coded Allergies: No Known Allergies (Unverified , 10/21/19) Past Medical History Medical History 1. Dementia. 2. Cirrhosis. 3. Peripheral vascular disease. 4. Atrial fibrillation. 5. CHF 6. Left leg ulcer secondary to clinical operations specialist accident Surgical History 1. Knee surgery 2. Left lower extremity angioplasty. Family History Father in his sleep from unknown cause. No other known medical history. Mother had unknown cancer Social History * Smoker: non-smoker Alcohol: Denies Drugs: denies A-FIB/CHADSVASC A-FIB History Current/History of A-Fib/PAF?: Yes Current PO Anticoag Therapy: No Age/Risk Factor Scoring CHADSVASC: CHADSVASC Response (Comments) Value Age Risk Factor Age >/= 75 years old 2 Gender Risk Factor Male 0 Hx of CHF Yes 1 Hx of HTN No 0 Hx of Stroke/TIA/or VTE No 0 Hx of Diabetes No 0 Hx of Vascular Disease Yes 1 Total 4 Treatment Treatment ordered: NONE Reason Anticoagulant not given: Patient refusal (Family decided no anticoag ulation due to requiring multiple transfusion in past. ) Review of Systems Constitutional: Denies: Chills, Fever Eyes: Denies: Pain, Vision change ENT: Denies: Head Aches Skin: Reports: Rash Pulmonary: Denies: Dyspnea Cardiovascular: Denies: Chest Pain Gastrointestinal: Denies: Nausea, Abdominal Pain, Diarrhea Genitourinary: Denies: Dysuria Neurological: Reports: Incoordination Psych: Reports: Mood Normal; Denies: Anxiety, Depression Physical Examination General Exam: Positive: Cooperative, No Acute Distress Eye Exam: Positive: EOMI ENT Exam: Negative: Atraumatic, Mucous membr. moist/pink Neck Exam: Positive: Supple Chest Exam: Negative: Clear to auscultation Heart Exam: Positive: Rate Normal, Regular Rhythm Abdomen Exam: Positive: Normal bowel sounds, Soft; Negative: Tenderness Extremity Exam: Positive: Edema Skin Exam: Positive: Breakdown (Left lower leg, medial side, near ankle, yellow slough but does not appear to be infected) Neuro Exam: Negative: Normal Gait (Shuffling gait) Psych Exam: Negative: Memory Intact (Dementia) Vital Signs Vital Signs Date Time Temp Pulse Resp B/P (MAP) Pulse Ox O2 Delivery O2 Flow Rate FiO2 01/30/20 13:06 01/30/20 12:45 98.4 89 16 97 Room Air Laboratory Data Labs 24H Laboratory Tests 2 01/30/20 13:06: Immature Granulocyte % (Auto) 0.3, Neutrophils (%) (Auto) 69.7H, Lymphocytes (%) (Auto) 23.4L, Monocytes (%) (Auto) 5.1H, Eosinophils (%) (Auto) 1.2, Basophils (%) (Auto) 0.3, Neutrophils # (Auto) 4.2, Lymphocytes # (Auto) 1.4L, Monocytes # (Auto) 0.3, Eosinophils # (Auto) 0.1, Basophils # (Auto) 0.0, Nucleated Red Blood Cells % (auto) 0.0, Anion Gap 5L, Glomerular Filtration Rate 57.5, Calcium Level 9.0, Total Bilirubin 1.4H, Aspartate Amino Transf (AST/SGOT) 22, Alanine Aminotransferase (ALT/SGPT) 20, Alkaline Phosphatase 113, Total Protein 8.0, Albumin 3.7, Albumin/Globulin Ratio 0.9 CBC/BMP Laboratory Tests 01/30/20 13:06 Assessment/Plan Mr. Nava is an 89 year old male with dementia, atrial fibrillation not on anticoagulation, and CHF here for inability to care for at home. Daughter is hopeful to get him into [facility] where the is located. Plan / VTE VTE Prophylaxis Ordered?: Yes Plan Plan 1. Dementia - Unable to care for self at home. Sometimes awake at night and wanders around. Will place patient on fall precautions. Will need reorientation and redirection. 2. CHF - Last echocardiogram 11/2018 demonstrated EF of 60% - Currently stable. Continue furosemide and spironolactone 3. Paroxysmal atrial fibrillation - Not in atrial fibrillation at this moment - Not on anticoagulation. Family decided against coagulation due to bleed in past requiring multiple transfusions - Continue aspirin 4. Hypothyroidism - Continue levothyroxine 5. Left leg ulcer secondary to clinical operations specialist accident - Healing well. Continue with Neomycin and wound dressing 6. Shuffling gait - Daughter concerned about his shuffling gait and risk of falls. Will place patient on fall precautions. PT evaluation requested 7. DVT ppx - Heparin Subq 8. Placement - Not safe at home. He wanders at night. Daughter does not feel safe managing multiple medications or wound care. Request [facility] for placement. Workers Compensation Attorney referral requested. ISIDRO BAKER DO Jan 30, 2020 16:35
[2020-01-30 17:00] VITALS: BP 139/84
[2020-01-30] MEDS ORDERED: PILL CUTTER 1 EACH XX PRN (17:15)
[2020-01-30] MEDS: ursodioL 300 MG CAP PO SCH ×2 (18:06→21:11)
[2020-01-30] MEDS: ATORVASTATIN 20 MG TAB PO SCH (21:10)
[2020-01-30] MEDS: SODIUM CHLORIDE NASAL 0.65% SPRAY BTL (OCEAN) SCH (21:10)
[2020-01-30] MEDS: ACETAMINOPHEN 650MG ER TAB (TYLENOL ARTHRITIS) PO SCH (21:10)
[2020-01-30] MEDS: NEOSPORIN TOP OINT 15GM TOP SCH (21:10)
[2020-01-30] MEDS: AMITRIPTYLINE 50 MG TAB PO SCH (21:11)
[2020-01-30] MEDS: DOCUSATE SODIUM 100 MG CAP PO SCH (21:11)
[2020-01-30] MEDS: HEPARIN SOD (PORCINE) 5000UNITS/ML 1ML VIAL/SYRINGE SC SCH (21:11)
[2020-01-30 22:00] VITALS: BP 141/86
[2020-01-31] MEDS: LEVOTHYROXINE 75MCG TABLET (0.075MG) PO SCH (05:30)
[2020-01-31] MEDS: HEPARIN SOD (PORCINE) 5000UNITS/ML 1ML VIAL/SYRINGE SC SCH ×3 (05:31→20:51)
[2020-01-31 06:00] VITALS: BP 140/86
[2020-01-31 06:29] LABS: BASO % 0.6 % (0.0-1.0); EOS # 0.1 10^3/uL (0.0-0.5); EOS % 2.1 % (0.0-3.0); HEMATOCRIT 39.4 % (42.0-52.0); HEMOGLOBIN 12.8 g/dl (13.5-17.5); LYMPH # 1.8 10^3/uL (1.5-5.0); LYMPH % 33.4 % (24.0-44.0); MEAN CORPUSCULAR HEMOGLOBIN 32.9 pg (27.0-33.0); MEAN CORPUSCULAR HGB CONC 32.5 g/dl (32.0-36.5); MEAN CORPUSCULAR VOLUME 101.3 fl (80.0-96.0); MONO # 0.4 10^3/uL (0.0-0.8); NEUTROPHILS # 2.9 10^3/uL (1.5-8.5); NEUTROPHILS % 55.7 % (36.0-66.0); PLATELET COUNT, AUTOMATED 264 10^3/uL (150-450); RED BLOOD COUNT 3.89 10^6/uL (4.30-6.10); WHITE BLOOD COUNT 5.3 10^3/uL (4.0-10.0)
[2020-01-31 06:37] LABS: CALCIUM LEVEL 9.5 MG/DL (8.8-10.2); CREATININE FOR GFR 1.31 MG/DL (0.70-1.30)
[2020-01-31] MEDS: ACETAMINOPHEN 650MG ER TAB (TYLENOL ARTHRITIS) PO SCH ×2 (09:53→20:50)
[2020-01-31] MEDS: POTASSIUM CHLORIDE 10 MEQ SR TABLET PO SCH (09:53)
[2020-01-31] MEDS: MULTIVITAMINS/MINERALS THERAP 1 TAB PO SCH (09:53)
[2020-01-31] MEDS: ASPIRIN 81 MG ENTERIC TAB PO SCH (09:53)
[2020-01-31] MEDS: DOCUSATE SODIUM 100 MG CAP PO SCH ×2 (09:53→20:50)
[2020-01-31] MEDS: SODIUM CHLORIDE NASAL 0.65% SPRAY BTL (OCEAN) SCH ×2 (09:53→20:52)
[2020-01-31] MEDS: ursodioL 300 MG CAP PO SCH ×3 (09:53→20:50)
[2020-01-31] MEDS: SPIRONOLACTONE 25 MG TAB PO SCH (09:54)
[2020-01-31] MEDS: FUROSEMIDE 40 MG TAB PO SCH (09:54)
[2020-01-31] MEDS: NEOSPORIN TOP OINT 15GM TOP SCH ×2 (09:54→20:51)
--- NOTE | 2020-01-31 11:31 | IPNPDOC ---
Subjective Date Seen The patient was seen on 01/31/20. Subjective Chief Complaint/HPI Mr. Nava is an 89 year old male with dementia, atrial fibrillation not on anticoagulation, and CHF here with inability to care for at home. No events overnight. This morning, he feels okay. Denies F/C, chest pain, dyspnea, abdominal pain, dysuria, or diarrhea Constitutional: Denies: Chills, Fever ENT: Denies: Head Aches Skin: Reports: Lesions (left leg ulcer that is healing) Pulmonary: Denies: Dyspnea Cardiovascular: Denies: Chest Pain Gastrointestinal: Denies: Abdominal Pain Genitourinary: Denies: Dysuria Objective Physical Examination General Exam: Positive: Cooperative, No Acute Distress Eye Exam: Positive: EOMI ENT Exam: Negative: Atraumatic, Mucous membr. moist/pink Neck Exam: Positive: Supple Chest Exam: Negative: Clear to auscultation Heart Exam: Positive: Rate Normal, Regular Rhythm Abdomen Exam: Positive: Normal bowel sounds, Soft Extremity Exam: Positive: Edema Skin Exam: Positive: Breakdown Neuro Exam: Negative: Normal Gait (Shuffling gait) Psych Exam: Negative: Memory Intact (Dementia) Assessment /Plan Assessment Mr. Nava is an 89 year old male with dementia, atrial fibrillation not on anticoagulation, and CHF here for inability to care for at home. Daughter is hopeful to get him into [facility] where the is located. Plan/VTE VTE Prophylaxis Ordered?: Yes Plan 1. Dementia - Unable to care for self at home. Sometimes awake at night and wanders around. Will place patient on fall precautions. Will need reorientation and redirection. 2. CHF - Last echocardiogram 11/2018 demonstrated EF of 60% - Currently stable. Continue furosemide and spironolactone 3. Paroxysmal atrial fibrillation - Not in atrial fibrillation at this moment - Not on anticoagulation. Family decided against coagulation due to bleed in past requiring multiple transfusions - Continue aspirin 4. Hypothyroidism - Continue levothyroxine 5. 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 Continue with Neomycin and wound dressing 6. Shuffling gait - Daughter concerned about his shuffling gait and risk of falls. Will place patient on fall precautions. PT evaluation requested 7. DVT ppx - Heparin Subq 8. Placement - Not safe at home. He wanders at night. Daughter does not feel safe managing multiple medications or wound care. Request [facility] for placement. Remote Encoding Operations Supervisor referral requested. VS, I&O, 24H, Fishbone Vital Signs/I&O Vital Signs Date Time Temp Pulse Resp B/P (MAP) Pulse Ox O2 Delivery O2 Flow Rate FiO2 01/31/20 06:00 98.5 76 16 140/86 (104) 96 Room Air I&O- Last 24 Hours up to 6 AM 01/31/20 05:59 Intake Total 700 ml Output Total 345 ml Balance 355 ml Laboratory Data 24H LABS Laboratory Tests 2 01/30/20 13:06: Immature Granulocyte % (Auto) 0.3, Neutrophils (%) (Auto) 69.7H, Lymphocytes (%) (Auto) 23.4L, Monocytes (%) (Auto) 5.1H, Eosinophils (%) (Auto) 1.2, Basophils (%) (Auto) 0.3, Neutrophils # (Auto) 4.2, Lymphocytes # (Auto) 1.4L, Monocytes # (Auto) 0.3, Eosinophils # (Auto) 0.1, Basophils # (Auto) 0.0, Nucleated Red Blood Cells % (auto) 0.0, Anion Gap 5L, Glomerular Filtration Rate 57.5, Calcium Level 9.0, Total Bilirubin 1.4H, Aspartate Amino Transf (AST/SGOT) 22, Alanine Aminotransferase (ALT/SGPT) 20, Alkaline Phosphatase 113, Total Protein 8.0, Albumin 3.7, Albumin/Globulin Ratio 0.9 01/31/20 05:24: Immature Granulocyte % (Auto) 0.2, Neutrophils (%) (Auto) 55.7, Lymphocytes (%) (Auto) 33.4, Monocytes (%) (Auto) 8.0H, Eosinophils (%) (Auto) 2.1, Basophils (%) (Auto) 0.6, Neutrophils # (Auto) 2.9, Lymphocytes # (Auto) 1.8, Monocytes # (Auto) 0.4, Eosinophils # (Auto) 0.1, Basophils # (Auto) 0.0, Nucleated Red Blood Cells % (auto) 0.0, Anion Gap 4L, Glomerular Filtration Rate 55.0, Calcium Level 9.5 CBC/BMP Laboratory Tests 01/30/20 13:06 01/31/20 05:24 ISIDRO BAKER DO Jan 31, 2020 11:31
[2020-01-31 14:00] VITALS: BP 141/84
[2020-01-31] MEDS: ATORVASTATIN 20 MG TAB PO SCH (20:50)
[2020-01-31] MEDS: AMITRIPTYLINE 50 MG TAB PO SCH (20:51)
[2020-01-31 22:00] VITALS: BP 125/66
[2020-02-01] MEDS: LEVOTHYROXINE 75MCG TABLET (0.075MG) PO SCH (05:34)
[2020-02-01] MEDS: HEPARIN SOD (PORCINE) 5000UNITS/ML 1ML VIAL/SYRINGE SC SCH ×3 (05:35→20:55)
[2020-02-01 06:00] VITALS: BP 125/70
[2020-02-01] MEDS ORDERED: PNEUMOCOCCAL VACCINE 0.5ML SYRINGE (PNEUMOVAX 23) IM ONE (09:00)
[2020-02-01] MEDS ORDERED: FLUBLOK(EGG FREE)(QUAD)INFLUENZA VACC 0.5ML SYRINGE 18YRS & OLDER IM ONE (09:00)
[2020-02-01] MEDS: SPIRONOLACTONE 25 MG TAB PO SCH (09:30)
[2020-02-01] MEDS: ASPIRIN 81 MG ENTERIC TAB PO SCH (09:30)
[2020-02-01] MEDS: ursodioL 300 MG CAP PO SCH ×3 (09:30→20:56)
[2020-02-01] MEDS: MULTIVITAMINS/MINERALS THERAP 1 TAB PO SCH (09:30)
[2020-02-01] MEDS: DOCUSATE SODIUM 100 MG CAP PO SCH ×2 (09:30→20:56)
[2020-02-01] MEDS: NEOSPORIN TOP OINT 15GM TOP SCH ×2 (09:31→20:51)
[2020-02-01] MEDS: POTASSIUM CHLORIDE 10 MEQ SR TABLET PO SCH (09:31)
[2020-02-01] MEDS: SODIUM CHLORIDE NASAL 0.65% SPRAY BTL (OCEAN) SCH ×2 (09:31→20:50)
[2020-02-01] MEDS: FUROSEMIDE 40 MG TAB PO SCH (09:31)
[2020-02-01] MEDS: ACETAMINOPHEN 650MG ER TAB (TYLENOL ARTHRITIS) PO SCH ×2 (09:31→20:56)
[2020-02-01 14:00] VITALS: BP 124/70
--- NOTE | 2020-02-01 19:33 | IPNPDOC ---
Subjective Date Seen The patient was seen on 02/01/20. Subjective Chief Complaint/HPI Mr. Nava is an 89 year old male with dementia, atrial fibrillation not on anticoagulation, and CHF here with inability to care for at home. No events overnight. Will obtain required testing for planned discharge to [facility] and ensure medical optimization of patient. Constitutional: Denies: Chills, Fever ENT: Denies: Head Aches Pulmonary: Denies: Dyspnea Cardiovascular: Denies: Chest Pain Gastrointestinal: Denies: Abdominal Pain Genitourinary: Denies: Dysuria Objective Physical Examination General Exam: Positive: Cooperative, No Acute Distress Eye Exam: Positive: EOMI ENT Exam: Negative: Atraumatic, Mucous membr. moist/pink Neck Exam: Positive: Supple Chest Exam: Negative: Clear to auscultation Heart Exam: Positive: Rate Normal, Regular Rhythm Abdomen Exam: Positive: Normal bowel sounds, Soft Extremity Exam: Positive: Edema Skin Exam: Positive: Breakdown Neuro Exam: Negative: Normal Gait (Shuffling gait) Psych Exam: Negative: Memory Intact (Dementia) Assessment /Plan Assessment Mr. Nava is an 89 year old male with dementia, atrial fibrillation not on anticoagulation, and CHF here for inability to care for at home. is located at [facility]. Will plan for [facility] once COVID test has been completed. Plan/VTE VTE Prophylaxis Ordered?: Yes Plan 1. Dementia - Unable to care for self at home. Sometimes awake at night and wanders around. Will place patient on fall precautions. Will need reorientation and redirection. 2. CHF/HFpEF - Last echocardiogram 11/2018 demonstrated EF of 60% - Continue furosemide and spironolactone 3. Paroxysmal atrial fibrillation - Not in atrial fibrillation at this moment - Not on anticoagulation. Family decided against coagulation due to bleed in past requiring multiple blood transfusions - Continue aspirin 4. Hypothyroidism - Continue levothyroxine 5. 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 Continue with Neomycin and wound dressing 6. Shuffling gait - Daughter concerned about his shuffling gait and risk of falls. Will place patient on fall precautions. PT evaluation requested 7. DVT ppx - Heparin Subq 8. Placement - Not safe at home. He wanders at night. Daughter does not feel safe managing multiple medications or wound care. Plan for [facility] tomorrow, will obtain COVID test for facility requirements. VS, I&O, 24H, Fishbone Vital Signs/I&O Vital Signs Date Time Temp Pulse Resp B/P (MAP) Pulse Ox O2 Delivery O2 Flow Rate FiO2 02/01/20 14:00 97.4 82 18 124/70 (88) 98 Room Air I&O- Last 24 Hours up to 6 AM 02/01/20 06:00 Intake Total 1050 ml Output Total 200 ml Balance 850 ml Laboratory Data 24H LABS Laboratory Tests 2 02/01/20 16:00: Coronavirus (COVID-19)(PCR) NEGATIVE ISIDRO BAEKR DO Feb 01, 2020 19:33
[2020-02-01] MEDS: AMITRIPTYLINE 50 MG TAB PO SCH (20:56)
[2020-02-01] MEDS: ATORVASTATIN 20 MG TAB PO SCH (20:56)
[2020-02-01 22:00] VITALS: BP 121/71
[2020-02-02] MEDS: LEVOTHYROXINE 75MCG TABLET (0.075MG) PO SCH (04:40)
[2020-02-02] MEDS: HEPARIN SOD (PORCINE) 5000UNITS/ML 1ML VIAL/SYRINGE SC SCH (04:40)
[2020-02-02 06:00] VITALS: BP 159/89
[2020-02-02] MEDS: MULTIVITAMINS/MINERALS THERAP 1 TAB PO SCH (07:30)
[2020-02-02] MEDS: DOCUSATE SODIUM 100 MG CAP PO SCH (07:30)
[2020-02-02] MEDS: FUROSEMIDE 40 MG TAB PO SCH (07:31)
[2020-02-02] MEDS: ACETAMINOPHEN 650MG ER TAB (TYLENOL ARTHRITIS) PO SCH (07:31)
[2020-02-02] MEDS: ASPIRIN 81 MG ENTERIC TAB PO SCH (07:31)
[2020-02-02] MEDS: POTASSIUM CHLORIDE 10 MEQ SR TABLET PO SCH (07:31)
[2020-02-02] MEDS: SPIRONOLACTONE 25 MG TAB PO SCH (07:31)
[2020-02-02] MEDS: ursodioL 300 MG CAP PO SCH (07:31)
[2020-02-02] MEDS: NEOSPORIN TOP OINT 15GM TOP SCH (07:32)
[2020-02-02] MEDS: SODIUM CHLORIDE NASAL 0.65% SPRAY BTL (OCEAN) SCH (07:32)
--- NOTE | 2020-02-02 15:46 | DS.PDOC ---
Discharge Summary General Date of Admission Jan 30, 2020 at 12:46 Date of Discharge 02/02/20 Discharge Summary PROCEDURES PERFORMED DURING STAY: [None]. DISCHARGE DIAGNOSES: 1. Dementia. 2. Cirrhosis. 3. Peripheral vascular disease. 4. Atrial fibrillation. 5. CHF 6. 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 HISTORY OF PRESENT ILLNESS: As per medical record - Mr. Nava is a 89 year old male with dementia, atrial fibrillation not anticoagulation, and CHF here with inability to care for at home. 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 After that hospitalization, he was put in [facility] and has been there since. Due to the COVID pandemic, the daughter was not able to see her father as often as she would like or take him out to nice dinners. Due to this, she signed him out AMA on 01/27/2020 and took him to his own home. Quickly she realized that he would not do well home alone. Afterwards, she took him to her place. In the past two days, he has been up at night wandering her house which made her afraid that he would fall. She had difficulty with her medications. She was afraid to change the bandage for the left leg wound. She wanted him to be safe and realized that she had made a mistake taking him out of the [facility]. She brought him back into a jail. Nursing airflight attendants supervisor contacted family welfare social work professor. property worker spoke with the family and explained that they may have to pay for this admission. Daughter wanted to know how much, but we are unable to obtain this information. Daughter made the decision that she wanted her father to be safe, and she could not care for him at home. She still wanted the admission. She is hoping that he would be able to get into [facility] where his is currently located. HOSPITAL COURSE: As per medical record - 1. Dementia - Unable to care for self at home. Sometimes awake at night and wanders around. Will place patient on fall precautions. Will need reorientation and redirection. 2. CHF/HFpEF - Last echocardiogram 11/2018 demonstrated EF of 60% - Continue furosemide and spironolactone 3. Paroxysmal atrial fibrillation - Not in atrial fibrillation at this moment - Not on anticoagulation. Family decided against coagulation due to bleed in past requiring multiple blood transfusions - Continue aspirin 4. Hypothyroidism - Continue levothyroxine 5. 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 Continue with Neomycin and wound dressing 6. Shuffling gait - Daughter concerned about his shuffling gait and risk of falls. Will place patient on fall precautions. PT evaluation requested 7. DVT ppx - Heparin Subq 8. Placement - Not safe at home. He wanders at night. Daughter does not feel safe managing multiple medications or wound care. Needs placement - discharge today to [facility]. DISCHARGE MEDICATIONS: Please see below. ALLERGIES: Please see below. PHYSICAL EXAMINATION ON DISCHARGE: VITAL SIGNS: Please see below. GENERAL: NAD, sitting comfortably in chair HEENT: NC/AT Ext: no edema LABORATORY DATA: Please see below. ACTIVITY: [As tolerated]. DISCHARGE PLAN: Discharge to [facility] DISPOSITION: [facility] DISCHARGE INSTRUCTIONS: 1. Follow up with PCP in 3-5 days DISCHARGE CONDITION: [Stable]. TIME SPENT ON DISCHARGE: 35 minutes. Vital Signs/I&Os Vital Signs Date Time Temp Pulse Resp B/P (MAP) Pulse Ox O2 Delivery O2 Flow Rate FiO2 02/02/20 06:00 97.4 82 20 159/89 (112) 99 02/01/20 14:00 Room Air I&O- Last 24 Hours up to 6 AM 02/02/20 06:00 Intake Total 1650 ml Output Total 0 ml Balance 1650 ml Laboratory Data Labs 24H Laboratory Tests 2 02/01/20 16:00: Coronavirus (COVID-19)(PCR) NEGATIVE Discharge Medications Scheduled Acetaminophen (Acetaminophen ER) 650 Mg Tablet.er, 650 MG PO BID, (Reported) Amitriptyline HCl (Amitriptyline HCl) 50 Mg Tablet, 50 MG PO QHS, (Reported) Aspirin (Aspirin EC) 81 Mg Tablet.dr, 81 MG PO DAILY, (Reported) Atorvastatin Calcium (Atorvastatin Calcium) 40 Mg Tablet, 40 MG PO QHS, (Reported) Bacitracin Zinc/Polymyxin B (Double Antibiotic Ointment) 28.4 Gm Oint...g., 1 APPLIC TOP BID, (Reported) APPLY TO BUMPS ON HEAD AND NECK Docusate Sodium (Colace) 100 Mg Capsule, 100 MG PO BID, (Reported) Furosemide (Furosemide) 20 Mg Tablet, 40 MG PO DAILY, (Reported) Lactose-Reduced Food (Ensure Enlive) 237 Ml Liquid, 240 ML PO BID, (Reported) Lactose-Reduced Food (Ensure Enlive) 237 Ml Liquid, 120 ML PO DAILY, (Reported) @1400 Lanolin Alcohol/Mo/W.pet/[place] (Eucerin Creme) 454 Gm Cream..g., 1 APPLIC TOP BID, (Reported) APPLY TO LEGS AFTER TAKING MEDIGRIP STOCKINGS OFF Levothyroxine Sodium (Synthroid) 75 Mcg Tablet, 37.5 MCG PO DAILY, (Reported) Multivitamin (Multivitamins) 1 Each Capsule, 1 CAP PO DAILY, (Reported) Potassium Chloride (Potassium Chloride) 20 Meq Tab.er.prt, 20 MEQ PO DAILY, (Reported) Sodium Chloride ([place] Saline) 0.65% [place], 1 SPRAY NARES QID, (Reported) Spironolactone (Spironolactone) 25 Mg Tablet, 25 MG PO DAILY, (Reported) Ursodiol (Ursodiol) 300 Mg Capsule, 300 MG PO TID, (Reported) Scheduled PRN Lidocaine HCl (Aspercreme) 4% Cream..g., 1 APLCT TOP TID PRN for PAIN, (Reported) APPLY TO BILATERAL LEGS, FEET AND KNEES Allergies Coded Allergies: No Known Allergies (Unverified , 10/21/19) SHANTE HICKS MD Feb 02, 2020 15:46
[2020-03-24] MEDS ORDERED: LEVO50TA5 PO (14:32)
[2020-03-24] MEDS ORDERED: ENEMENE6 PR (14:32)
[2020-03-24] MEDS ORDERED: AMIT25TA PO (14:32)
[2020-03-24] MEDS ORDERED: DULC10SU2 PR (14:32)
[2020-03-24] MEDS ORDERED: DOCU8.6T PO (14:32)
[2020-03-24] MEDS ORDERED: FURO80TA2 PO (14:32)
[2020-03-24] MEDS ORDERED: MILKSUS3 PO (14:32)
[2020-03-24] MEDS ORDERED: ARTIDRO OP (14:32)
== END 2020-02-02 13:10 | disposition home or self-care (01) ==
LOC: M ED 12:45 → M ED INP 12:46 → M MSPAV 16:52
PROVIDERS: ADMIT Internal Medicine; ATTEND Internal Medicine
DX: F03.90 Unspecified dementia, unspecified severity, without behavioral disturbance, psychotic disturbance, mood disturbance, and anxiety (principal); K74.60 Unspecified cirrhosis of liver; I73.9 Peripheral vascular disease, unspecified; I50.30 Unspecified diastolic (congestive) heart failure; L97.921 Non-pressure chronic ulcer of unspecified part of left lower leg limited to breakdown of skin; I48.0 Paroxysmal atrial fibrillation; E03.9 Hypothyroidism, unspecified; R26.89 Other abnormalities of gait and mobility; Z79.899 Other long term (current) drug therapy; Z79.82 Long term (current) use of aspirin; Z79.2 Long term (current) use of antibiotics
CPT/HCPCS: 36415; 80048; 80053; 85025; 90682; 90732; 96372; 97161; 99284; G0008; G0009; G0378; J1644; U0002

== ENCOUNTER → 2020-02-25 | Outpatient (REF) | payer MEDICARE, MEDICAID ==
[~2020-02-25] MED LIST changes: +AMIT25TA PO; +ARTIDRO OP; +DOCU8.6T PO; +DULC10SU2 PR; +ENEMENE6 PR; +FURO80TA2 PO; +LEVO50TA5 PO; +URSO300C3 PO
[2020-02-25 09:25] LABS: BLOOD UREA NITROGEN 21 MG/DL (7-18); CALCIUM LEVEL 9.1 MG/DL (8.8-10.2); CARBON DIOXIDE LEVEL 31 MEQ/L (21-32); CHLORIDE LEVEL 104 MEQ/L (98-107); CREATININE FOR GFR 1.18 MG/DL (0.70-1.30); GLOMERULAR FILTRATION RATE > 60.0 (>35); GLUCOSE, FASTING 135 MG/DL (70-100); NT-PRO BNP 1191 PG/ML (<450); POTASSIUM SERUM 4.1 MEQ/L (3.5-5.1); SODIUM LEVEL 141 MEQ/L (136-145)
== END ==
LOC: SKLAB4 10:49
PROVIDERS: ATTEND Internal Medicine
DX: I50.89 Other heart failure (principal); I48.91 Unspecified atrial fibrillation

== ENCOUNTER → 2020-03-03 | Outpatient (REF) | payer MEDICARE, MEDICAID ==
[2020-03-03 11:20] LABS: CREATININE FOR GFR 1.28 MG/DL (0.70-1.30); GLOMERULAR FILTRATION RATE 56.5 (>35); POTASSIUM SERUM 3.9 MEQ/L (3.5-5.1)
== END ==
LOC: SKLAB4 11:02
PROVIDERS: ATTEND Internal Medicine
DX: I50.9 Heart failure, unspecified (principal)

== ENCOUNTER → 2020-03-04 | Outpatient (REF) | payer MEDICARE, MEDICAID ==
[2020-03-04 13:57] LABS: BLOOD UREA NITROGEN 27 MG/DL (7-18); CALCIUM LEVEL 9.3 MG/DL (8.8-10.2); CARBON DIOXIDE LEVEL 35 MEQ/L (21-32); CHLORIDE LEVEL 100 MEQ/L (98-107); GLOMERULAR FILTRATION RATE > 60.0 (>35); GLUCOSE, FASTING 99 MG/DL (70-100); POTASSIUM SERUM 4.3 MEQ/L (3.5-5.1); SODIUM LEVEL 139 MEQ/L (136-145); THYROID STIMULATING HORMONE 0.989 uIU/ML (0.358-3.740)
== END ==
LOC: SKLAB4 10:40
PROVIDERS: ATTEND Internal Medicine
DX: E03.9 Hypothyroidism, unspecified (principal); R25.1 Tremor, unspecified

== ENCOUNTER → 2020-03-10 | Outpatient (REF) | payer MEDICARE, MEDICAID ==
[~2020-03-10] MED LIST changes: -AMIT25TA PO; -ARTIDRO OP; -DOCU8.6T PO; -DULC10SU2 PR; -ENEMENE6 PR; -FURO80TA2 PO; -LEVO50TA5 PO
[2020-03-10 09:20] LABS: HEMATOCRIT 37.9 % (42.0-52.0); HEMOGLOBIN 12.3 g/dl (13.5-17.5); MEAN CORPUSCULAR HEMOGLOBIN 33.1 pg (27.0-33.0); MEAN CORPUSCULAR HGB CONC 32.5 g/dl (32.0-36.5); MEAN CORPUSCULAR VOLUME 101.9 fl (80.0-96.0); PLATELET COUNT, AUTOMATED 245 10^3/uL (150-450); RED BLOOD COUNT 3.72 10^6/uL (4.30-6.10); WHITE BLOOD COUNT 5.4 10^3/uL (4.0-10.0)
[2020-03-10 09:44] LABS: PERCENT SATURATION 42.2 % (19.7-50.0)
== END ==
LOC: SKLAB4 13:40
PROVIDERS: ATTEND Internal Medicine
DX: D64.9 Anemia, unspecified (principal)

== ENCOUNTER → 2020-03-31 | Outpatient (REF) | payer MEDICAID, MEDICARE ==
[~2020-03-31] MED LIST changes: +AMIT25TA PO; +ARTIDRO OP; +DOCU8.6T PO; +DULC10SU2 PR; +ENEMENE6 PR; +FURO80TA2 PO; +LEVO50TA5 PO
== END ==
LOC: SKLAB4 11:54
PROVIDERS: ATTEND Internal Medicine
DX: Z20.828 Contact with and (suspected) exposure to other viral communicable diseases (principal)

== ENCOUNTER → 2020-04-05 | Outpatient (REF) | payer MEDICARE, MEDICAID | LOC: SKLAB4 12:04 | PROVIDERS: ATTEND Internal Medicine | DX: D64.9 Anemia, unspecified (principal) ==

== ENCOUNTER → 2020-04-06 | Outpatient (REF) | payer MEDICARE, MEDICAID ==
[~2020-04-06] MED LIST changes: -AMIT25TA PO; +AMIT25TA17 PO; -CLIN150C14 PO; +CLIN150C15 PO
== END ==
LOC: SKLAB4 04-05 11:33 → EDSTATUS 05-04 08:43
PROVIDERS: ATTEND Internal Medicine
DX: Z20.828 Contact with and (suspected) exposure to other viral communicable diseases (principal)

== ENCOUNTER → 2020-04-13 | Outpatient (REF) | payer MEDICARE, MEDICAID | LOC: SKLAB4 08:00 | PROVIDERS: ATTEND Internal Medicine | DX: Z20.828 Contact with and (suspected) exposure to other viral communicable diseases (principal) ==

== ENCOUNTER → 2020-04-20 | Outpatient (REF) | payer MEDICARE, MEDICAID ==
[~2020-04-20] MED LIST changes: +AMIT25TA PO; -AMIT25TA17 PO; +CLIN150C14 PO; -CLIN150C15 PO
== END ==
LOC: SKLAB4 12:05
PROVIDERS: ATTEND Internal Medicine
DX: Z53.9 Procedure and treatment not carried out, unspecified reason (principal)

== ENCOUNTER → 2020-04-20 | Outpatient (REF) | payer MEDICARE, MEDICAID ==
[~2020-04-20] MED LIST changes: -AMIT25TA PO; +AMIT25TA17 PO; -CLIN150C14 PO; +CLIN150C15 PO
[2020-04-20 18:47] LABS: INFLUENZA A AMPLIFICATION NEGATIVE (NEGATIVE); INFLUENZA B AMPLIFICATION NEGATIVE (NEGATIVE)
== END ==
LOC: SKLAB4 08:00
PROVIDERS: ATTEND Internal Medicine
DX: Z20.828 Contact with and (suspected) exposure to other viral communicable diseases (principal)
CPT/HCPCS: 87502; U0003

== ENCOUNTER → 2020-04-21 | Outpatient (REF) | payer MEDICARE, MEDICAID ==
[~2020-04-21] MED LIST changes: +AMIT25TA PO; -AMIT25TA17 PO; +CLIN150C14 PO; -CLIN150C15 PO
[2020-04-21 08:59] LABS: FREE T4 1.36 NG/DL (0.76-1.46); THYROID STIMULATING HORMONE 2.45 uIU/ML (0.358-3.740)
== END ==
LOC: SKLAB4 09:16
PROVIDERS: ATTEND Internal Medicine
DX: E03.9 Hypothyroidism, unspecified (principal)

== ENCOUNTER → 2020-04-27 | Outpatient (REF) | payer MEDICARE, MEDICAID | LOC: SKLAB4 07:36 | PROVIDERS: ATTEND Internal Medicine | DX: Z20.828 Contact with and (suspected) exposure to other viral communicable diseases (principal) ==

== ENCOUNTER → 2020-05-04 | Outpatient (REF) | payer MEDICARE, MEDICAID | LOC: SKLAB4 08:40 | PROVIDERS: ATTEND Internal Medicine | DX: Z20.828 Contact with and (suspected) exposure to other viral communicable diseases (principal) ==

== ENCOUNTER → 2020-05-10 | Outpatient (REF) | payer MEDICARE, MEDICAID ==
[2020-05-10 11:32] LABS: HEMATOCRIT 33.7 % (42.0-52.0); HEMOGLOBIN 10.9 g/dl (13.5-17.5); MEAN CORPUSCULAR HEMOGLOBIN 32.9 pg (27.0-33.0); MEAN CORPUSCULAR HGB CONC 32.3 g/dl (32.0-36.5); MEAN CORPUSCULAR VOLUME 101.8 fl (80.0-96.0); PLATELET COUNT, AUTOMATED 280 10^3/uL (150-450); RED BLOOD COUNT 3.31 10^6/uL (4.30-6.10); WHITE BLOOD COUNT 5.3 10^3/uL (4.0-10.0)
[2020-05-10 12:10] LABS: FREE T4 1.48 NG/DL (0.76-1.46); THYROID STIMULATING HORMONE 2.02 uIU/ML (0.358-3.740)
== END ==
LOC: SKLAB4 10:51
PROVIDERS: ATTEND Internal Medicine
DX: E03.9 Hypothyroidism, unspecified (principal)

== ENCOUNTER → 2020-05-11 | Outpatient (REF) | payer MEDICARE, MEDICAID | LOC: SKLAB4 06:34 | PROVIDERS: ATTEND Internal Medicine | DX: Z20.828 Contact with and (suspected) exposure to other viral communicable diseases (principal) ==

== ENCOUNTER → 2020-05-18 | Outpatient (REF) | payer MEDICARE, MEDICAID | LOC: SKLAB4 06:14 | PROVIDERS: ATTEND Internal Medicine | DX: Z20.828 Contact with and (suspected) exposure to other viral communicable diseases (principal) ==

== ENCOUNTER → 2020-05-25 | Outpatient (REF) | payer MEDICARE, MEDICAID | LOC: SKLAB4 06:24 | PROVIDERS: ATTEND Internal Medicine | DX: Z11.52 Encounter for screening for COVID-19 (principal) ==

== ENCOUNTER → 2020-06-01 | Outpatient (REF) | payer MEDICARE, MEDICAID ==
[~2020-06-01] MED LIST changes: -AMIT25TA PO; +AMIT25TA17 PO; -CLIN150C14 PO; +CLIN150C15 PO
== END ==
LOC: SKLAB4 06:25
PROVIDERS: ATTEND Internal Medicine
DX: Z20.822 Contact with and (suspected) exposure to COVID-19 (principal)

== ENCOUNTER → 2020-06-07 | Outpatient (REF) | payer MEDICARE, MEDICAID ==
[2020-06-07 10:47] LABS: BLOOD UREA NITROGEN 31 MG/DL (7-18); CARBON DIOXIDE LEVEL 32 MEQ/L (21-32); CHLORIDE LEVEL 102 MEQ/L (98-107); CREATININE FOR GFR 1.12 MG/DL (0.70-1.30); GLOMERULAR FILTRATION RATE > 60.0 (>35); GLUCOSE, FASTING 118 MG/DL (70-100); SODIUM LEVEL 138 MEQ/L (136-145)
== END ==
LOC: SKLAB4 10:48
PROVIDERS: ATTEND Internal Medicine
DX: I50.9 Heart failure, unspecified (principal)

== ENCOUNTER → 2020-06-08 | Outpatient (REF) | payer MEDICARE, MEDICAID | LOC: SKLAB4 06:58 | PROVIDERS: ATTEND Internal Medicine | DX: Z20.822 Contact with and (suspected) exposure to COVID-19 (principal) ==

== ENCOUNTER → 2020-06-14 | Outpatient (REF) | payer MEDICARE, MEDICAID ==
[2020-06-14 09:18] LABS: HEMATOCRIT 35.9 % (42.0-52.0); HEMOGLOBIN 11.8 g/dl (13.5-17.5); MEAN CORPUSCULAR HEMOGLOBIN 32.3 pg (27.0-33.0); MEAN CORPUSCULAR HGB CONC 32.9 g/dl (32.0-36.5); MEAN CORPUSCULAR VOLUME 98.4 fl (80.0-96.0); PLATELET COUNT, AUTOMATED 293 10^3/uL (150-450); RED BLOOD COUNT 3.65 10^6/uL (4.30-6.10); WHITE BLOOD COUNT 5.4 10^3/uL (4.0-10.0)
[2020-06-14 09:48] LABS: ALBUMIN 3.8 GM/DL (3.2-5.2); ALT/SGPT 17 U/L (12-78); BILIRUBIN,TOTAL 1.4 MG/DL (0.2-1.0); BLOOD UREA NITROGEN 29 MG/DL (7-18); CALCIUM LEVEL 9.7 MG/DL (8.8-10.2); CARBON DIOXIDE LEVEL 30 MEQ/L (21-32); CHLORIDE LEVEL 99 MEQ/L (98-107); CREATININE FOR GFR 1.19 MG/DL (0.70-1.30); GLOMERULAR FILTRATION RATE > 60.0 (>35); GLUCOSE, FASTING 106 MG/DL (70-100); POTASSIUM SERUM 4.2 MEQ/L (3.5-5.1); SODIUM LEVEL 139 MEQ/L (136-145); TOTAL PROTEIN 7.7 GM/DL (6.4-8.2)
[2020-06-14 13:23] LABS: IMMUNOGLOBULIN G 960 MG/DL (681-1648)
[2020-06-16 11:58] LABS: ALBUMIN % 52.3 % (55.8-66.1); ALPHA-1-GLOBULIN % 4.4 % (2.9-4.9); ALPHA-2-GLOBULINS % 8.8 % (7.1-11.8); BETA-1-GLOBULINS % 6.1 % (4.7-7.2); BETA-2-GLOBULINS % 18.4 % (3.2-6.5)
[2020-06-16 11:59] LABS: ALBUMIN 4.03 GM/DL (3.29-5.55); ALPHA-1-GLOBULINS 0.34 GM/DL (0.17-0.41); ALPHA-2-GLOBULINS 0.68 GM/DL (0.42-0.99); BETA-1-GLOBULINS 0.47 GM/DL (0.28-0.60); BETA-2-GLOBULINS 1.42 GM/DL (0.19-0.55); GAMMA GLOBULINS 0.77 GM/DL (0.65-1.58)
== END ==
LOC: SKLAB4 07:34
PROVIDERS: ATTEND Internal Medicine
DX: C85.90 Non-Hodgkin lymphoma, unspecified, unspecified site (principal)

== ENCOUNTER → 2020-06-15 | Outpatient (REF) | payer MEDICARE, MEDICAID | LOC: SKLAB4 06:29 | PROVIDERS: ATTEND Internal Medicine | DX: Z20.822 Contact with and (suspected) exposure to COVID-19 (principal) ==

== ENCOUNTER → 2020-06-17 | Outpatient (REF) | payer MEDICARE, MEDICAID ==
[2020-06-17 08:47] LABS: HEMATOCRIT 35.5 % (42.0-52.0); HEMOGLOBIN 11.8 g/dl (13.5-17.5); MEAN CORPUSCULAR HEMOGLOBIN 32.7 pg (27.0-33.0); MEAN CORPUSCULAR HGB CONC 33.2 g/dl (32.0-36.5); MEAN CORPUSCULAR VOLUME 98.3 fl (80.0-96.0); PLATELET COUNT, AUTOMATED 260 10^3/uL (150-450); RED BLOOD COUNT 3.61 10^6/uL (4.30-6.10); WHITE BLOOD COUNT 5.3 10^3/uL (4.0-10.0)
[2020-06-17 09:08] LABS: BLOOD UREA NITROGEN 31 MG/DL (7-18); CALCIUM LEVEL 9.2 MG/DL (8.8-10.2); CARBON DIOXIDE LEVEL 31 MEQ/L (21-32); CHLORIDE LEVEL 99 MEQ/L (98-107); GLOMERULAR FILTRATION RATE > 60.0 (>35); GLUCOSE, FASTING 98 MG/DL (70-100); SODIUM LEVEL 138 MEQ/L (136-145)
== END ==
LOC: SKLAB4 07:01
PROVIDERS: ATTEND Internal Medicine
DX: R07.89 Other chest pain (principal)

== ENCOUNTER → 2020-06-22 | Outpatient (REF) | payer MEDICARE, MEDICAID | LOC: SKLAB4 07:04 | PROVIDERS: ATTEND Internal Medicine | DX: Z20.822 Contact with and (suspected) exposure to COVID-19 (principal) ==

== ENCOUNTER → 2020-06-29 | Outpatient (REF) | payer MEDICARE, MEDICAID | LOC: SKLAB4 06:51 | PROVIDERS: ATTEND Internal Medicine | DX: Z20.822 Contact with and (suspected) exposure to COVID-19 (principal) ==

== ENCOUNTER → 2020-07-05 | Outpatient (REF) | payer MEDICARE, MEDICAID ==
[2020-07-05 11:07] LABS: HEMOGLOBIN 11.1 g/dl (13.5-17.5); MEAN CORPUSCULAR HEMOGLOBIN 31.6 pg (27.0-33.0); MEAN CORPUSCULAR HGB CONC 31.7 g/dl (32.0-36.5); MEAN CORPUSCULAR VOLUME 99.7 fl (80.0-96.0); PLATELET COUNT, AUTOMATED 277 10^3/uL (150-450); RED BLOOD COUNT 3.51 10^6/uL (4.30-6.10); WHITE BLOOD COUNT 5.7 10^3/uL (4.0-10.0)
[2020-07-05 11:39] LABS: FREE T4 1.64 NG/DL (0.76-1.46); THYROID STIMULATING HORMONE 1.7 uIU/ML (0.358-3.740)
== END ==
LOC: SKLAB4 11:06
PROVIDERS: ATTEND Internal Medicine
DX: D64.9 Anemia, unspecified (principal); I10 Essential (primary) hypertension; N28.9 Disorder of kidney and ureter, unspecified

== ENCOUNTER → 2020-07-06 | Outpatient (REF) | payer MEDICARE, MEDICAID | LOC: SKLAB4 06:17 | PROVIDERS: ATTEND Internal Medicine | DX: Z20.822 Contact with and (suspected) exposure to COVID-19 (principal) ==

== ENCOUNTER → 2020-07-13 | Outpatient (REF) | payer MEDICARE, MEDICAID | LOC: SKLAB4 08:11 | PROVIDERS: ATTEND Internal Medicine | DX: Z20.822 Contact with and (suspected) exposure to COVID-19 (principal) ==

== ENCOUNTER → 2020-07-27 | Outpatient (REF) | payer MEDICARE, MEDICAID ==
[~2020-07-27] MED LIST changes: +CELE10TA PO; +MULT-90 PO
== END ==
LOC: SKLAB4 07:00
PROVIDERS: ATTEND Internal Medicine
DX: Z20.822 Contact with and (suspected) exposure to COVID-19 (principal)

== ENCOUNTER → 2020-08-03 | Outpatient (REF) | payer MEDICARE, MEDICAID | LOC: SKLAB4 07:00 | PROVIDERS: ATTEND Internal Medicine | DX: Z20.822 Contact with and (suspected) exposure to COVID-19 (principal) ==

== ENCOUNTER → 2020-08-19 | Outpatient (REF) | payer MEDICARE, MEDICAID | LOC: SKLAB4 06:15 | PROVIDERS: ATTEND Internal Medicine | DX: Z20.822 Contact with and (suspected) exposure to COVID-19 (principal) ==

== ENCOUNTER → 2020-09-06 | Outpatient (REF) | payer MEDICARE, MEDICAID ==
[2020-09-06 09:33] LABS: HEMATOCRIT 35.5 % (42.0-52.0); HEMOGLOBIN 11.4 g/dl (13.5-17.5); MEAN CORPUSCULAR HEMOGLOBIN 32.3 pg (27.0-33.0); MEAN CORPUSCULAR HGB CONC 32.1 g/dl (32.0-36.5); MEAN CORPUSCULAR VOLUME 100.6 fl (80.0-96.0); PLATELET COUNT, AUTOMATED 281 10^3/uL (150-450); RED BLOOD COUNT 3.53 10^6/uL (4.30-6.10); WHITE BLOOD COUNT 5.6 10^3/uL (4.0-10.0)
[2020-09-06 10:13] LABS: CREATININE FOR GFR 1.26 MG/DL (0.70-1.30); FREE T4 1.76 NG/DL (0.76-1.46); GLOMERULAR FILTRATION RATE 57.4 (>35); POTASSIUM SERUM 4.1 MEQ/L (3.5-5.1); THYROID STIMULATING HORMONE 1.29 uIU/ML (0.358-3.740)
== END ==
LOC: SKLAB4 12:54
PROVIDERS: ATTEND Internal Medicine
DX: E03.9 Hypothyroidism, unspecified (principal); D64.9 Anemia, unspecified

== ENCOUNTER → 2020-10-04 | Outpatient (REF) | payer MEDICARE, MEDICAID | LOC: SKLAB4 10:05 | PROVIDERS: ATTEND Internal Medicine | DX: D64.9 Anemia, unspecified (principal) ==

== ENCOUNTER → 2020-11-02 | Outpatient (CLI) | payer MEDICARE, MEDICAID ==
--- NOTE | 2020-11-02 10:19 | REPVR ---
PROCEDURE INFORMATION: Exam: CT Head Without Contrast Exam date and time: 11/02/2020 10:06 AM Age: 89 years old Clinical indication: Injury or trauma; Fall; Blunt trauma (contusions or hematomas); Consciousness not specified; Additional info: Recent fall injury/labs also TECHNIQUE: Imaging protocol: Computed tomography of the head without contrast. Radiation optimization: All CT scans at this facility use at least one of these dose optimization techniques: automated exposure control; mA and/or kV adjustment per patient size (includes targeted exams where dose is matched to clinical indication); or iterative reconstruction. COMPARISON: CT Head without contrast 04/12/2019 1:45 PM FINDINGS: Brain: There is no acute intracranial hemorrhage or mass effect. Moderate diffuse volume loss is within the range of normal for patient age. There are small vessel ischemic changes within the periventricular and subcortical white matter, but the normal sparks-white matter delineation is maintained. Cerebral ventricles: Prominence of the ventricular system is commensurate with volume loss. Paranasal sinuses: Visualized sinuses are unremarkable. No fluid levels. Mastoid air cells: Visualized mastoid air cells are well aerated. Bones/joints: Unremarkable. No acute fracture. Soft tissues: Unremarkable. IMPRESSION: No acute hemorrhage or calvarial fracture. Electronically signed by: Belén Franco On 11/02/2020 10:18:59 AM
== END ==
LOC: M LAB 09:30 → M RAD 09:30
PROVIDERS: ATTEND Nurse Practitioner Adult Health
DX: Z91.81 History of falling (principal)

== ENCOUNTER → 2020-11-02 | Outpatient (REF) | payer MEDICARE, MEDICAID ==
[2020-11-02 10:05] LABS: HEMATOCRIT 33.6 % (42.0-52.0); MEAN CORPUSCULAR HEMOGLOBIN 32.9 pg (27.0-33.0); MEAN CORPUSCULAR HGB CONC 32.7 g/dl (32.0-36.5); MEAN CORPUSCULAR VOLUME 100.6 fl (80.0-96.0); PLATELET COUNT, AUTOMATED 235 10^3/uL (150-450); RED BLOOD COUNT 3.34 10^6/uL (4.30-6.10); WHITE BLOOD COUNT 16.1 10^3/uL (4.0-10.0)
[2020-11-02 10:27] LABS: CALCIUM LEVEL 8.7 MG/DL (8.8-10.2); CREATININE FOR GFR 1.44 MG/DL (0.70-1.30); GLOMERULAR FILTRATION RATE 49.2 (>35); POTASSIUM SERUM 4.4 MEQ/L (3.5-5.1)
[2020-11-02 13:01] LABS: APPEARANCE, URINE CLEAR (CLEAR); BACTERIA, URINE AUTO NEGATIVE (NEGATIVE); BILIRUBIN, URINE AUTO NEGATIVE (NEGATIVE); BLOOD, URINE BLOOD NEGATIVE (NEGATIVE); COLOR, URINE YELLOW (YELLOW); GLUCOSE, URINE (UA) AUTO NEGATIVE (NEGATIVE); KETONE, URINE AUTO NEGATIVE (NEGATIVE); LEUKOCYTE ESTERASE, URINE AUTO NEGATIVE (NEGATIVE); NITRITE, URINE AUTO NEGATIVE (NEGATIVE); PROTEIN, URINE AUTO 1+ mg/dL (NEGATIVE); RBC, URINE AUTO 6 /HPF (0-3); SPECIFIC GRAVITY URINE AUTO 1.016 (1.002-1.035); SQUAMOUS EPITHELIAL CELL UR AU 0 /HPF (0-6); WBC, URINE AUTO 1 /HPF (0-3)
== END ==
LOC: SKLAB4 08:38
PROVIDERS: ATTEND Internal Medicine
DX: Z91.81 History of falling (principal)

== ENCOUNTER → 2020-11-04 | Outpatient (REF) | payer MEDICARE, MEDICAID ==
[2020-11-04 10:50] LABS: CALCIUM LEVEL 8.8 MG/DL (8.8-10.2); CREATININE FOR GFR 1.47 MG/DL (0.70-1.30); POTASSIUM SERUM 3.8 MEQ/L (3.5-5.1)
[2020-11-04 13:26] LABS: HEMOGLOBIN 10.2 g/dl (13.5-17.5); MEAN CORPUSCULAR HEMOGLOBIN 32.5 pg (27.0-33.0); MEAN CORPUSCULAR HGB CONC 32.9 g/dl (32.0-36.5); MEAN CORPUSCULAR VOLUME 98.7 fl (80.0-96.0); PLATELET COUNT, AUTOMATED 278 10^3/uL (150-450); RED BLOOD COUNT 3.14 10^6/uL (4.30-6.10); WHITE BLOOD COUNT 8.8 10^3/uL (4.0-10.0)
--- NOTE | 2020-11-04 15:52 | REP ---
INDICATION: CHF. COMPARISON: 11/03/2020. TECHNIQUE: Single portable AP view of the chest was performed. FINDINGS: Moderate cardiomegaly is unchanged. There is diffuse interstitial prominence, especially in the lung bases, which is chronic in nature. No acute infiltrate is seen. Mediastinal silhouette is unchanged. IMPRESSION: Cardiomegaly. Chronic interstitial changes. No acute infiltrate. <Electronically signed by Lokesh Bear > 11/04/20 [id number]
== END ==
LOC: SKLAB4 06:53
PROVIDERS: ATTEND Internal Medicine
DX: I50.9 Heart failure, unspecified (principal); J98.4 Other disorders of lung

== ENCOUNTER → 2020-11-05 | Outpatient (CLI) | payer MEDICARE, MEDICAID ==
--- NOTE | 2020-11-05 14:56 | REP ---
INDICATION: R/O DVT. COMPARISON: None. TECHNIQUE: Multiple ultrasonographic images of the deep venous structures of the bilateral lower extremity were obtained from the inguinal ligament to the ankle. Venous compression techniques, color doppler imaging, and augmentation techniques were also obtained where appropriate. As per the ACR guidelines the anterior tibial vein can not be effectively evaluated. Only compression techniques in the calf on the peroneal and posterior tibial veins was attempted/performed. FINDINGS: There is no abnormal echogenic material seen within any of the visualized deep venous structures that would suggest acute thrombosis. Coaptation is unremarkable throughout. Doppler interrogation shows an expected response to respiratory variability and augmentation in the thigh. Compression techniques in the calf were unobtainable. The color flow images show what appears to be a normal vascular pattern throughout the thigh. IMPRESSION: There is no ultrasonographic evidence of deep venous thrombosis involving any of the visualized deep venous structures of the bilateral lower extremity as described above. Due to technical parameters calf vein DVT can not be ruled out. <Electronically signed by Mani Yepez > 11/05/20 [id number]
--- NOTE | 2020-11-05 15:18 | REP ---
INDICATION: R/O DVT TECHNIQUE: Four views FINDINGS: There is advanced tricompartmental narrowing and tricompartmental marginal osteophytosis. There is no evidence of an acute fracture. There is bicompartmental subchondral sclerosis. IMPRESSION: Chronic changes as described above. <Electronically signed by Mani Yepez > 11/05/20 0071
--- NOTE | 2020-11-05 15:20 | REP ---
INDICATION: R/O DVT. COMPARISON: None. TECHNIQUE: Four views FINDINGS: No acute fracture or destructive osseous lesion. The mortise is intact. Degenerative changes are seen involving the ankle. There is no acute fracture, dislocation, or subluxation. IMPRESSION: Chronic changes <Electronically signed by Mani Yepez > 11/05/20 2119
--- NOTE | 2020-11-05 15:20 | REP ---
INDICATION: R/O DVT. COMPARISON: None. TECHNIQUE: AP and lateral views FINDINGS: Chronic degenerative changes seen involving the knee and ankle. There is no acute fracture IMPRESSION: Chronic changes <Electronically signed by Mani Yepez > 11/05/20 2565
--- NOTE | 2020-11-05 15:21 | REP ---
INDICATION: R/O DVT. COMPARISON: None. TECHNIQUE: AP and lateral views FINDINGS: The joint spaces are symmetric and relatively well maintained. There is no evidence of acute fracture or destructive osseous lesion. Two views cannot rule out a fracture. The bones are demineralized. Degenerative changes are seen throughout the foot. There is a retrocalcaneal heel spur. IMPRESSION: Chronic change <Electronically signed by Mani Yepez > 11/05/20 [id number]
== END ==
LOC: M RAD 13:53
DX: M79.89 Other specified soft tissue disorders (principal); M17.11 Unilateral primary osteoarthritis, right knee; M19.071 Primary osteoarthritis, right ankle and foot; M77.31 Calcaneal spur, right foot

== ENCOUNTER → 2020-11-07 | Outpatient (REF) | payer MEDICARE, MEDICAID ==
[2020-11-07 08:05] LABS: CALCIUM LEVEL 8.4 MG/DL (8.8-10.2); CREATININE FOR GFR 1.44 MG/DL (0.70-1.30); GLOMERULAR FILTRATION RATE 49.2 (>35); POTASSIUM SERUM 3.5 MEQ/L (3.5-5.1)
== END ==
LOC: SKLAB4 09:01
PROVIDERS: ATTEND Internal Medicine
DX: I50.9 Heart failure, unspecified (principal)

== ENCOUNTER → 2020-11-08 | Outpatient (REF) | payer MEDICARE, MEDICAID ==
[2020-11-08 11:09] LABS: HEMATOCRIT 32.7 % (42.0-52.0); HEMOGLOBIN 10.6 g/dl (13.5-17.5); MEAN CORPUSCULAR HEMOGLOBIN 32.3 pg (27.0-33.0); MEAN CORPUSCULAR HGB CONC 32.4 g/dl (32.0-36.5); MEAN CORPUSCULAR VOLUME 99.7 fl (80.0-96.0); PLATELET COUNT, AUTOMATED 344 10^3/uL (150-450); RED BLOOD COUNT 3.28 10^6/uL (4.30-6.10); WHITE BLOOD COUNT 6.8 10^3/uL (4.0-10.0)
[2020-11-08 11:45] LABS: CALCIUM LEVEL 8.9 MG/DL (8.8-10.2); CREATININE FOR GFR 1.39 MG/DL (0.70-1.30); FREE T4 1.68 NG/DL (0.76-1.46); GLOMERULAR FILTRATION RATE 51.2 (>35); POTASSIUM SERUM 3.7 MEQ/L (3.5-5.1); THYROID STIMULATING HORMONE 0.947 uIU/ML (0.358-3.740)
== END ==
LOC: SKLAB4 09:38
PROVIDERS: ATTEND Internal Medicine
DX: D64.9 Anemia, unspecified (principal); E03.9 Hypothyroidism, unspecified

== ENCOUNTER → 2020-11-10 | Outpatient (REF) | payer MEDICARE, MEDICAID ==
[2020-11-10 11:03] LABS: CALCIUM LEVEL 8.9 MG/DL (8.8-10.2); CREATININE FOR GFR 1.4 MG/DL (0.70-1.30); GLOMERULAR FILTRATION RATE 50.8 (>35); POTASSIUM SERUM 3.5 MEQ/L (3.5-5.1)
== END ==
LOC: SKLAB4 12:21
PROVIDERS: ATTEND Internal Medicine
DX: J18.9 Pneumonia, unspecified organism (principal)

== ENCOUNTER → 2020-12-01 | Outpatient (REF) | payer MEDICARE, MEDICAID ==
[2020-12-01 13:44] LABS: CREATININE FOR GFR 1.4 MG/DL (0.70-1.30); GLOMERULAR FILTRATION RATE 50.8 (>35); POTASSIUM SERUM 4.3 MEQ/L (3.5-5.1)
== END ==
LOC: SKLAB4 11:46
PROVIDERS: ATTEND Internal Medicine
DX: I50.9 Heart failure, unspecified (principal)

== ENCOUNTER → 2020-12-05 | Outpatient (REF) | payer MEDICARE, MEDICAID ==
[2020-12-05 07:36] LABS: CALCIUM LEVEL 8.6 MG/DL (8.8-10.2); CREATININE FOR GFR 1.35 MG/DL (0.70-1.30); POTASSIUM SERUM 3.5 MEQ/L (3.5-5.1)
== END ==
LOC: SKLAB4 11:20
PROVIDERS: ATTEND Internal Medicine
DX: I50.9 Heart failure, unspecified (principal)

== ENCOUNTER → 2020-12-06 | Outpatient (REF) | payer MEDICARE, MEDICAID ==
[2020-12-06 10:00] LABS: CREATININE FOR GFR 1.35 MG/DL (0.70-1.30); POTASSIUM SERUM 3.7 MEQ/L (3.5-5.1)
== END ==
LOC: SKLAB4 12:52
PROVIDERS: ATTEND Internal Medicine
DX: N18.9 Chronic kidney disease, unspecified (principal)

== ENCOUNTER → 2021-01-10 | Outpatient (REF) | payer MEDICARE, MEDICAID ==
[~2021-01-10] MED LIST changes: -CLIN150C15 PO; +CLIN150C17 PO
== END ==
LOC: SKLAB4 11:01
PROVIDERS: ATTEND Internal Medicine
DX: D64.9 Anemia, unspecified (principal)

== ENCOUNTER → 2021-01-13 | Outpatient (REF) | payer MEDICARE, MEDICAID ==
[2021-01-13 12:07] LABS: HEMATOCRIT 28.9 % (42.0-52.0); HEMOGLOBIN 9.4 g/dl (13.5-17.5); MEAN CORPUSCULAR HEMOGLOBIN 31.9 pg (27.0-33.0); MEAN CORPUSCULAR HGB CONC 32.5 g/dl (32.0-36.5); PLATELET COUNT, AUTOMATED 204 10^3/uL (150-450); RED BLOOD COUNT 2.95 10^6/uL (4.30-6.10); WHITE BLOOD COUNT 4.9 10^3/uL (4.0-10.0)
[2021-01-13 12:37] LABS: CALCIUM LEVEL 8.7 MG/DL (8.8-10.2); CREATININE FOR GFR 1.34 MG/DL (0.70-1.30); GLOMERULAR FILTRATION RATE 53.4 (>35); POTASSIUM SERUM 4.3 MEQ/L (3.5-5.1)
== END ==
LOC: SKLAB4 10:50
PROVIDERS: ATTEND Internal Medicine
DX: R41.82 Altered mental status, unspecified (principal)

== ENCOUNTER → 2021-01-14 | Outpatient (CLI) | payer MEDICARE, MEDICAID ==
[2021-01-14 12:35] LABS: APPEARANCE, URINE CLEAR (CLEAR); BACTERIA, URINE AUTO NEGATIVE (NEGATIVE); BILIRUBIN, URINE AUTO NEGATIVE (NEGATIVE); BLOOD, URINE BLOOD NEGATIVE (NEGATIVE); COLOR, URINE YELLOW (YELLOW); GLUCOSE, URINE (UA) AUTO NEGATIVE (NEGATIVE); KETONE, URINE AUTO NEGATIVE (NEGATIVE); LEUKOCYTE ESTERASE, URINE AUTO NEGATIVE (NEGATIVE); MUCUS, URINE SMALL (NEGATIVE); NITRITE, URINE AUTO NEGATIVE (NEGATIVE); PROTEIN, URINE AUTO NEGATIVE (NEGATIVE); RBC, URINE AUTO 2 /HPF (0-3); SPECIFIC GRAVITY URINE AUTO 1.015 (1.002-1.035); SQUAMOUS EPITHELIAL CELL UR AU 0 /HPF (0-6); UROBILINOGEN, URINE AUTO 0.2 mg/dL (0.0-2.0); WBC, URINE AUTO 0 /HPF (0-3)
== END ==
LOC: M LAB 12:20 → SKLAB4 12:20
PROVIDERS: ATTEND Internal Medicine
DX: R41.82 Altered mental status, unspecified (principal)

== ENCOUNTER → 2021-01-17 | Outpatient (REF) | payer MEDICARE, MEDICAID ==
[2021-01-17 08:48] LABS: HEMATOCRIT 32.3 % (42.0-52.0); HEMOGLOBIN 10.5 g/dl (13.5-17.5); MEAN CORPUSCULAR HEMOGLOBIN 31.9 pg (27.0-33.0); MEAN CORPUSCULAR HGB CONC 32.5 g/dl (32.0-36.5); MEAN CORPUSCULAR VOLUME 98.2 fl (80.0-96.0); PLATELET COUNT, AUTOMATED 239 10^3/uL (150-450); RED BLOOD COUNT 3.29 10^6/uL (4.30-6.10); WHITE BLOOD COUNT 5.6 10^3/uL (4.0-10.0)
[2021-01-17 09:12] LABS: CALCIUM LEVEL 8.9 MG/DL (8.8-10.2); CREATININE FOR GFR 1.43 MG/DL (0.70-1.30); GLOMERULAR FILTRATION RATE 49.6 (>35); POTASSIUM SERUM 3.7 MEQ/L (3.5-5.1)
[2021-01-17 09:19] LABS: ATYPICAL LYMPH 4 % (0-5); EOSINOPHILS 4 % (0-3); LYMPHOCYTES 19 % (16-44); METAMYELOCYTES 1 % (0-0); MONOCYTES 2 % (0-5); NEUTROPHILS 70 % (28-66)
[2021-01-17 09:20] LABS: PLATELET ESTIMATE NORMAL (NORMAL)
== END ==
LOC: SKLAB4 10:36
PROVIDERS: ATTEND Internal Medicine
DX: I50.9 Heart failure, unspecified (principal); C85.90 Non-Hodgkin lymphoma, unspecified, unspecified site

== ENCOUNTER → 2021-01-27 | Outpatient (REF) | payer MEDICARE, MEDICAID ==
--- NOTE | 2021-01-27 11:45 | REP ---
INDICATION: CHF. COMPARISON: 11/04/2020 the latest prior also portable TECHNIQUE: Portable FINDINGS: The technique utilized in obtaining the radiograph has magnified the cardiac silhouette and accentuated the interstitial markings. There is global cardiomegaly status quo. There is a diffuse increase in the interstitial markings throughout the lung tenorio with evidence of early airspace opacification as well. This represents a change from the prior exam. IMPRESSION: Global cardiomegaly with interstitial edema and evidence of early airspace edema as well. Due to the size of the heart a pericardial effusion cannot be ruled out. <Electronically signed by Mani Yepez > 01/27/21 [id number]
--- NOTE | 2021-01-28 00:37 | ECGEPIP ---
[facility] Test Date: 2021-01-27 Pat Name: RONALD GILL Department: Room: - Gender: Male Replenishment Analyst: efrain : [id number] Requested By: CHIDI MORTON Order Number: [id number] Reading MD: Dayne Vuong Measurements Intervals [place] Rate: 85 P: RI: QRS: 94 QRSD: 100 T: 42 QT: 386 QTc: 459 Interpretive Statements Atrial fibrillation with premature ventricular or aberrantly conducted complexes Rightward axis Nonspecific T wave abnormality Compared to prior tracings (4) in the system, Atrial Fib is old Electronically Signed on 01-28-2021 0:36:49 EDT by Dayne Vuong
== END ==
LOC: SKLAB4 06:43
PROVIDERS: ATTEND Nurse Practitioner Adult Health
DX: I51.7 Cardiomegaly (principal); J81.1 Chronic pulmonary edema; I48.91 Unspecified atrial fibrillation

== ENCOUNTER → 2021-01-27 | Outpatient (REF) | payer MEDICARE, MEDICAID ==
[2021-01-27 10:14] LABS: CALCIUM LEVEL 8.8 MG/DL (8.8-10.2); CREATININE FOR GFR 1.48 MG/DL (0.70-1.30); GLOMERULAR FILTRATION RATE 47.6 (>35); POTASSIUM SERUM 4.1 MEQ/L (3.5-5.1)
== END ==
LOC: SKLAB4 08:34
PROVIDERS: ATTEND Internal Medicine
DX: I50.9 Heart failure, unspecified (principal)

== ENCOUNTER → 2021-01-30 | Outpatient (REF) | payer MEDICARE, MEDICAID ==
[2021-01-30 12:19] LABS: CALCIUM LEVEL 9.3 MG/DL (8.8-10.2); CREATININE FOR GFR 1.59 MG/DL (0.70-1.30); GLOMERULAR FILTRATION RATE 43.9 (>35); POTASSIUM SERUM 3.7 MEQ/L (3.5-5.1)
== END ==
LOC: SKLAB4 07:56
PROVIDERS: ATTEND Internal Medicine
DX: I50.9 Heart failure, unspecified (principal)

== ENCOUNTER → 2021-02-07 | Outpatient (REF) | payer MEDICARE, MEDICAID ==
[2021-02-07 09:23] LABS: HEMATOCRIT 32.5 % (42.0-52.0); HEMOGLOBIN 10.7 g/dl (13.5-17.5); MEAN CORPUSCULAR HEMOGLOBIN 31.8 pg (27.0-33.0); MEAN CORPUSCULAR HGB CONC 32.9 g/dl (32.0-36.5); MEAN CORPUSCULAR VOLUME 96.7 fl (80.0-96.0); PLATELET COUNT, AUTOMATED 247 10^3/uL (150-450); RED BLOOD COUNT 3.36 10^6/uL (4.30-6.10); WHITE BLOOD COUNT 6.5 10^3/uL (4.0-10.0)
[2021-02-07 10:07] LABS: FREE T4 1.68 NG/DL (0.76-1.46); THYROID STIMULATING HORMONE 1.48 uIU/ML (0.358-3.740)
== END ==
LOC: SKLAB4 06:43
PROVIDERS: ATTEND Internal Medicine
DX: E03.9 Hypothyroidism, unspecified (principal); D64.9 Anemia, unspecified

== ENCOUNTER → 2021-03-01 | Outpatient (REF) | payer MEDICARE, MEDICAID ==
--- NOTE | 2021-03-01 15:21 | REP ---
INDICATION: CHF COMPARISON: 01/27/2021 TECHNIQUE: Portable AP view of the chest FINDINGS: Stable cardiomegaly and chronic interstitial changes. There is right basilar atelectasis and small right pleural effusion. Skeletal structures are intact. IMPRESSION: Cardiomegaly with early interstitial edema including right basilar atelectasis and small right pleural effusion. <Electronically signed by Luis Angel Ash > 03/01/21 1916
[2021-03-01 18:47] LABS: HEMOGLOBIN 10.3 g/dl (13.5-17.5); MEAN CORPUSCULAR HEMOGLOBIN 31.8 pg (27.0-33.0); MEAN CORPUSCULAR HGB CONC 33.2 g/dl (32.0-36.5); MEAN CORPUSCULAR VOLUME 95.7 fl (80.0-96.0); PLATELET COUNT, AUTOMATED 255 10^3/uL (150-450); RED BLOOD COUNT 3.24 10^6/uL (4.30-6.10); WHITE BLOOD COUNT 7.1 10^3/uL (4.0-10.0)
[2021-03-01 19:15] LABS: CALCIUM LEVEL 9.1 MG/DL (8.8-10.2); CREATININE FOR GFR 1.77 MG/DL (0.70-1.30); GLOMERULAR FILTRATION RATE 38.8 (>35); POTASSIUM SERUM 3.6 MEQ/L (3.5-5.1)
== END ==
LOC: SKLAB4 14:53
PROVIDERS: ATTEND Internal Medicine
DX: I51.7 Cardiomegaly (principal); J98.11 Atelectasis; J90 Pleural effusion, not elsewhere classified

== ENCOUNTER → 2021-03-02 | Outpatient (REF) | payer MEDICARE, MEDICAID ==
[2021-03-02 16:08] LABS: HEMATOCRIT 31.7 % (42.0-52.0); HEMOGLOBIN 10.5 g/dl (13.5-17.5); MEAN CORPUSCULAR HEMOGLOBIN 31.6 pg (27.0-33.0); MEAN CORPUSCULAR HGB CONC 33.1 g/dl (32.0-36.5); MEAN CORPUSCULAR VOLUME 95.5 fl (80.0-96.0); PLATELET COUNT, AUTOMATED 265 10^3/uL (150-450); RED BLOOD COUNT 3.32 10^6/uL (4.30-6.10); WHITE BLOOD COUNT 6.2 10^3/uL (4.0-10.0)
[2021-03-02 16:40] LABS: CALCIUM LEVEL 9.1 MG/DL (8.8-10.2); CREATININE FOR GFR 1.77 MG/DL (0.70-1.30); GLOMERULAR FILTRATION RATE 38.8 (>35); POTASSIUM SERUM 3.3 MEQ/L (3.5-5.1)
== END ==
LOC: SKLAB4 10:26
PROVIDERS: ATTEND Internal Medicine
DX: I50.9 Heart failure, unspecified (principal)

== ENCOUNTER → 2021-03-03 | Outpatient (REF) | payer MEDICARE, MEDICAID ==
[~2021-03-03] MED LIST changes: -ARTIDRO OP; +ARTIDRO OU; +CITA20TA7 PO; +METO1TAB32 PO; +POTA10CA32 PO; +SENN-80 PO; +TORS20TA2 PO; +med rec comment
[2021-03-03 12:29] LABS: HEMOGLOBIN 10.3 g/dl (13.5-17.5); MEAN CORPUSCULAR HEMOGLOBIN 31.2 pg (27.0-33.0); MEAN CORPUSCULAR HGB CONC 33.2 g/dl (32.0-36.5); MEAN CORPUSCULAR VOLUME 93.9 fl (80.0-96.0); PLATELET COUNT, AUTOMATED 279 10^3/uL (150-450); WHITE BLOOD COUNT 6.8 10^3/uL (4.0-10.0)
[2021-03-03 13:08] LABS: CALCIUM LEVEL 9.6 MG/DL (8.8-10.2); CREATININE FOR GFR 1.73 MG/DL (0.70-1.30); GLOMERULAR FILTRATION RATE 39.8 (>35); POTASSIUM SERUM 2.7 MEQ/L (3.5-5.1)
== END ==
LOC: SKLAB4 06:57
PROVIDERS: ATTEND Internal Medicine
DX: E87.6 Hypokalemia (principal)

== ENCOUNTER → 2021-03-04 | Outpatient (REF) | payer MEDICARE, MEDICAID | LOC: SKLAB4 08:41 | PROVIDERS: ATTEND Internal Medicine | DX: E87.6 Hypokalemia (principal); Z53.8 Procedure and treatment not carried out for other reasons ==

== ENCOUNTER → 2021-03-04 | Outpatient (REF) | payer MEDICARE, MEDICAID | LOC: SKLAB4 07:40 | PROVIDERS: ATTEND Internal Medicine | DX: Z20.822 Contact with and (suspected) exposure to COVID-19 (principal) ==

== ENCOUNTER 2021-03-05 23:16 | Emergency (ER) | payer MEDICARE, MEDICAID ==
[~2021-03-05] VITALS: Ht 198.1 cm; Wt 81.8 kg
[~2021-03-05 23:16] MED LIST changes: -CITA20TA7 PO; -METO1TAB32 PO; -POTA10CA32 PO; -SENN-80 PO; -TORS20TA2 PO; -med rec comment
--- OUTSIDE RECORDS SUMMARY | 2021-03-05 23:21 | CCD | Continuity of Care Document ---
Author Author Jacobo Ureña MD Organization Unknown Address [address] [address] Phone [phone] Care Team Providers Care Absorber Operator Name Role Phone Devan Ureña JR, MD AUT Unavailable Problems Description No Information Available Social History Type Date Description Comments Sex Unknown Allergies, Adverse Reactions, Alerts Description No Information Available Medications Description No Information Available Immunizations Description No Information Available Vital Signs Description No Information Available Results Test Acquired Date Facility Test Result H/L Range Note CBC With Differential 10/27/[address] [id number] [phone] White Blood Count 6.3 10 Normal 4.0-10.0 Red Blood Count 3.29 10 Low 4.30-6.10 Hemoglobin 10.8 g/dL Low 13.5-17.5 Hematocrit 33.4 % Low 42.0-52.0 Mean Corpuscular Volume 101.5 fl High 80.0-96.0 Mean Corpuscular Hemoglobin 32.8 pg Normal 27.0-33.0 Mean Corpuscular HGB Conc 32.3 g/dL Normal 32.0-36.5 Red Cell Distribution Width 16.8 % High 11.5-14.5 Platelet Count, Automated 271 10 Normal 150-450 Neutrophils % 66.6 % High 36.0-66.0 Lymph % 24.2 % Normal 24.0-44.0 Dade % 7.0 % Normal 2.0-8.0 Eos % 1.4 % Normal 0.0-3.0 Baso % 0.5 % Normal 0.0-1.0 Immature Granulocyte % 0.3 % Normal 0-3.0 Nucleated Red Blood Cell % 0.0 % Normal 0-0 Neutrophils # 4.2 10 Normal 1.5-8.5 Lymph # 1.5 10 Normal 1.5-5.0 Dade # 0.4 10 Normal 0.0-0.8 Eos # 0.1 10 Normal 0.0-0.5 Baso # 0.0 10 Normal 0.0-0.2 Comprehensive Metabolic Profil 10/27/2020 [id number] [place] [address] [phone] Glucose, Fasting 99 mg/dL Normal 70-100 Blood Urea Nitrogen 28 mg/dL High 7-18 Creatinine For GFR 1.29 mg/dL Normal 0.70-1.30 Glomerular Filtration Rate 55.8 Normal >35 1 Sodium Level 138 mEq/L Normal 136-145 Potassium Serum 4.1 mEq/L Normal 3.5-5.1 Chloride Level 102 mEq/L Normal 98-107 Carbon Dioxide Level 32 mEq/L Normal 21-32 Anion Gap 4 mEq/L Low 8-16 Calcium Level 9.1 mg/dL Normal 8.8-10.2 Ast/Sgot 16 U/L Normal 7-37 Alt/SGPT 19 U/L Normal 12-78 Alkaline Phosphatase 106 U/L Normal 45-117 Bilirubin,Total 1.3 mg/dL High 0.2-1.0 Total Protein 7.8 GM/DL Normal 6.4-8.2 Albumin 3.5 GM/DL Normal 3.2-5.2 Albumin/Globulin Ratio 0.8 Normal CBC With Differential 07/28/[address] [address] [phone] White Blood Count 5.9 10 Normal 4.0-10.0 Red Blood Count 3.49 10 Low 4.30-6.10 Hemoglobin 11.4 g/dL Low 13.5-17.5 Hematocrit 34.4 % Low 42.0-52.0 Mean Corpuscular Volume 98.6 fl High 80.0-96.0 Mean Corpuscular Hemoglobin 32.7 pg Normal 27.0-33.0 Mean Corpuscular HGB Conc 33.1 g/dL Normal 32.0-36.5 Red Cell Distribution Width 17.1 % High 11.5-14.5 Platelet Count, Automated 286 10 Normal 150-450 Neutrophils % 61.2 % Normal 36.0-66.0 Lymph % 29.8 % Normal 24.0-44.0 Dade % 7.1 % Normal 2.0-8.0 Eos % 1.3 % Normal 0.0-3.0 Baso % 0.3 % Normal 0.0-1.0 Immature Granulocyte % 0.3 % Normal 0-3.0 Nucleated Red Blood Cell % 0.0 % Normal 0-0 Neutrophils # 3.6 10 Normal 1.5-8.5 Lymph # 1.8 10 Normal 1.5-5.0 Dade # 0.4 10 Normal 0.0-0.8 Eos # 0.1 10 Normal 0.0-0.5 Baso # 0.0 10 Normal 0.0-0.2 Comprehensive Metabolic Profil 07/28/[address] [address] [phone] Glucose, Fasting 128 mg/dL High 70-100 Blood Urea Nitrogen 31 mg/dL High 7-18 Creatinine For GFR 1.21 mg/dL Normal 0.70-1.30 Glomerular Filtration Rate > 60.0 Normal >35 2 Sodium Level 137 mEq/L Normal 136-145 Potassium Serum 4.2 mEq/L Normal 3.5-5.1 Chloride Level 102 mEq/L Normal 98-107 Carbon Dioxide Level 31 mEq/L Normal 21-32 Anion Gap 4 mEq/L Low 8-16 Calcium Level 9.0 mg/dL Normal 8.8-10.2 Ast/Sgot 15 U/L Normal 7-37 Alt/SGPT 15 U/L Normal 12-78 Alkaline Phosphatase 111 U/L Normal 45-117 Bilirubin,Total 0.9 mg/dL Normal 0.2-1.0 Total Protein 7.4 GM/DL Normal 6.4-8.2 Albumin 3.7 GM/DL Normal 3.2-5.2 Albumin/Globulin Ratio 1.0 Normal 1 Units are mL/min/1.73 m2 Chronic Kidney Disease Staging per NKF: Stage I & II GFR >=60 Normal to Mildly Decreased Stage III GFR 30-59 Moderately Decreased Stage IV GFR 15-29 Severely Decreased Stage V GFR <15 Very Little GFR Left ESRD GFR <15 on BRASS BURNISHER 2 Units are mL/min/1.73 m2 Chronic Kidney Disease Staging per NKF: Stage I & II GFR >=60 Normal to Mildly Decreased Stage III GFR 30-59 Moderately Decreased Stage IV GFR 15-29 Severely Decreased Stage V GFR <15 Very Little GFR Left ESRD GFR <15 on BRASS BURNISHER Procedures Date Code Description Status 07/11/2020 [id number] Diabetic Foot Exam Completed Medical Devices Description No Information Available Encounters Description No Information Available Assessments Description No Information Available Plan of Treatment No Information Available Functional Status Description No Information Available Mental Status Description No Information Available Referrals Description No Information Available
--- OUTSIDE RECORDS SUMMARY | 2021-03-05 23:21 | CCD | Continuity of Care Document ---
Author Author Jacobo Ureña MD Organization Unknown Address [address] [address] Phone [phone] Care Team Providers Care Straight Truck Driver Name Role Phone Devan Ureña JR, MD AUT Unavailable Problems Description No Information Available Social History Type Date Description Comments Sex Unknown Allergies, Adverse Reactions, Alerts Description No Information Available Medications Description No Information Available Immunizations Description No Information Available Vital Signs Description No Information Available Results Test Acquired Date Facility Test Result H/L Range Note CBC With Differential 10/27/[address] [id number] [phone] White Blood Count 6.3 10 Normal 4.0-10.0 [...] 36.0-66.0 Lymph % 24.2 % Normal 24.0-44.0 [place] % 7.0 % Normal 2.0-8.0 Eos % 1.4 % Normal 0.0-3.0 Baso % 0.5 % Normal 0.0-1.0 Immature Granulocyte % 0.3 % Normal 0-3.0 Nucleated Red Blood Cell % 0.0 % Normal 0-0 Neutrophils # 4.2 10 Normal 1.5-8.5 Lymph # 1.5 10 Normal 1.5-5.0 [place] # 0.4 10 Normal 0.0-0.8 Eos # 0.1 10 Normal 0.0-0.5 Baso # 0.0 10 Normal 0.0-0.2 Comprehensive Metabolic Profil 10/27/2020 [address] [place] [address] [phone] Glucose, Fasting 99 mg/dL Normal 70-100 Blood [...] Ratio 0.8 Normal CBC With Differential 07/28/[address] [address] [phone] White Blood Count 5.9 10 Normal 4.0-10.0 [...] 36.0-66.0 Lymph % 29.8 % Normal 24.0-44.0 Gibson % 7.1 % Normal 2.0-8.0 Eos % 1.3 % Normal 0.0-3.0 Baso % 0.3 % Normal 0.0-1.0 Immature Granulocyte % 0.3 % Normal 0-3.0 Nucleated Red Blood Cell % 0.0 % Normal 0-0 Neutrophils # 3.6 10 Normal 1.5-8.5 Lymph # 1.8 10 Normal 1.5-5.0 Gibson # 0.4 10 Normal 0.0-0.8 Eos # 0.1 10 Normal 0.0-0.5 Baso # 0.0 10 Normal 0.0-0.2 Comprehensive Metabolic Profil 07/28/[address] [address] [phone] Glucose, Fasting 128 mg/dL High 70-100 Blood [...] Little GFR Left ESRD GFR <15 on EXERCISE PHYSIOLOGY PROFESSOR 2 Units are mL/min/1.73 m2 Chronic Kidney Disease Staging per NKF: Stage I & II GFR >=60 Normal to Mildly Decreased Stage III GFR 30-59 Moderately Decreased Stage IV GFR 15-29 Severely Decreased Stage V GFR <15 Very Little GFR Left ESRD GFR <15 on EXERCISE PHYSIOLOGY PROFESSOR Procedures Date Code Description Status 07/11/2020 [id number] Diabetic Foot Exam Completed Medical Devices Description No Information Available Encounters Description No Information Available Assessments Description No Information Available Plan of Treatment No Information Available Functional Status Description No Information Available Mental Status Description No Information Available Referrals Description No Information Available
--- OUTSIDE RECORDS SUMMARY | 2021-03-05 23:21 | CCD | Continuity of Care Document ---
Author Organization Unknown Address Unknown Phone Unavailable Care Team Providers Care Gas Cutting Machine Operator Name Role Phone Devan Ureña JR, MD AUT Unavailable Problems Description No Information Available Social History Type Date Description Comments Sex Unknown Allergies, Adverse Reactions, Alerts Description No Information Available Medications Description No Information Available Immunizations Description No Information Available Vital Signs Description No Information Available Results Test Acquired Date Facility Test Result H/L Range Note CBC With Differential 10/27/[address] [address] [phone] White Blood Count 6.3 10 Normal 4.0-10.0 [...] 36.0-66.0 Lymph % 24.2 % Normal 24.0-44.0 [place] % 7.0 % Normal 2.0-8.0 Eos % 1.4 % Normal 0.0-3.0 Baso % 0.5 % Normal 0.0-1.0 Immature Granulocyte % 0.3 % Normal 0-3.0 Nucleated Red Blood Cell % 0.0 % Normal 0-0 Neutrophils # 4.2 10 Normal 1.5-8.5 Lymph # 1.5 10 Normal 1.5-5.0 [place] # 0.4 10 Normal 0.0-0.8 Eos # 0.1 10 Normal 0.0-0.5 Baso # 0.0 10 Normal 0.0-0.2 Comprehensive Metabolic Profil 10/27/2020 [address] [place] [address] [phone] Glucose, Fasting 99 mg/dL Normal 70-100 Blood [...] Ratio 0.8 Normal CBC With Differential 07/28/[address] [address] [phone] White Blood Count 5.9 10 Normal 4.0-10.0 [...] 36.0-66.0 Lymph % 29.8 % Normal 24.0-44.0 [place] % 7.1 % Normal 2.0-8.0 Eos % 1.3 % Normal 0.0-3.0 Baso % 0.3 % Normal 0.0-1.0 Immature Granulocyte % 0.3 % Normal 0-3.0 Nucleated Red Blood Cell % 0.0 % Normal 0-0 Neutrophils # 3.6 10 Normal 1.5-8.5 Lymph # 1.8 10 Normal 1.5-5.0 [place] # 0.4 10 Normal 0.0-0.8 Eos # 0.1 10 Normal 0.0-0.5 Baso # 0.0 10 Normal 0.0-0.2 Comprehensive Metabolic Profil 07/28/2020 [id number] [phone] Glucose, Fasting 128 mg/dL High 70-100 Blood [...] Little GFR Left ESRD GFR <15 on DIRECTOR OF BUSINESS DEVELOPMENT 2 Units are mL/min/1.73 m2 Chronic Kidney Disease Staging per NKF: Stage I & II GFR >=60 Normal to Mildly Decreased Stage III GFR 30-59 Moderately Decreased Stage IV GFR 15-29 Severely Decreased Stage V GFR <15 Very Little GFR Left ESRD GFR <15 on DIRECTOR OF BUSINESS DEVELOPMENT Procedures Date Code Description Status 07/11/2020 [id number] Diabetic Foot Exam Completed Medical Devices Description No Information Available Encounters Description No Information Available Assessments Description No Information Available Plan of Treatment No Information Available Functional Status Description No Information Available Mental Status Description No Information Available Referrals Description No Information Available
--- OUTSIDE RECORDS SUMMARY | 2021-03-05 23:21 | CCD ---
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 Name Role Phone Otis TANG, ALLEY, Manoj Sherman Unavailable [phone] Dawson OD, Luis Angel Unavailable [phone] [facility], Bette PP [phone] Jamarcus Humphrey DO Unavailable [phone] Reason for Referral No Reason for Referral Recorded Problems Includes: Active, inactive, and resolved Problems All Visits Onset Date - Time Resolved Date - Time Provider Co ndition Status 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 - 12:00AM Jewel Cantu DO Active 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 Lizzie Cantu DO Active Corneal Foreign Body 11/22/2016 - 12:00AM Unknown - Unknown Aj Cantu DO Resolved Superficial Injury - Abrasion of Cornea 11/22/2016 - 12:00AM Unk nown - Unknown Jewel Cantu DO Resolved Subconjunctival Hemorrhage 10/24/2016 - 12:00AM 03/04/2020 - 3:1 4PM Jewel Cantu DO Resolved Cataract Senile Cortical Bilateral 05/29/2016 - 12:00AM Unknown - Unknown Jewel Alondra DO Resolved Cataract Senile Posterior Subcapsular Polar 09/02/2015 - 12: 00AM Unknown - Unknown Jewel Alondra DO Resolved Note: left eye Vitreous Disorders Degeneration 06/16/2015 - 12:00AM Shayne Cantu DO Active Cataract Senile Cortical 04/08/2015 - 12:00AM Unknown - Unknown Jewel Barbozastein DO Resolved Note: of both eyes Corneal Dystrophy Endothelial Fuchs' 04/08/2015 - 12:00AM Jewel Cantu DO Inactive Note: of both eyes Essential Hypertension 04/08/2015 - 12:00AM Manoj Posada MD, FACS Active Retinopathy Hypertensive Both Eyes 04/08/2015 - 12:00AM Manoj Berg MD, FACS Active Borderline Glaucoma Open Angle with Borderline Finding s Both Eyes 04/08/2015 - 12:00AM Manoj Berg MD, FACS Active Cataract Senile Nuclear 04/08/2015 - 12:00AM Unknown - Unknown M david Cantu DO Resolved Note: of both eyes Dry Eye Syndrome Both Eyes 04/08/2015 - :00AM Manoj Berg MD, FACS Active Plan of Treatment Referrals To Diagnosis Referral to Dr. 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, bilateral Future Appointments Date Time Location Provider 1 Year Follow-Up 03/03/2021 2:40PM Manoj Berg MD [facility] Jewel Cantu DO Findings Encounter Date Ordered an A-Scan An A-Scan is indicate d to determine the axial measurements and factors needed to properly calculate the power of the intraocular lens Cataract Evaluation with Jewel Alondra DO 08/06/2016 Assessments Includes: Assessments for all patient encounters Findings Encounter Date Dry eye syndrome of both eyes 1 Year Follow-Up with Jewel Alondra DO 03/04/2020 Essential hypertension 1 Year Follow-Up with Jewel Avila in DO 03/04/2020 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 1 Year Follow-Up with Jewel Alondra DO 03/04/2020 Hypertensive retinopathy of both eyes 1 Year Follow-Up with Jewel Alondra DO 03/04/2020 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 1 Year Fol low-Up with Jewel Alondra DO 03/04/2020 Dry eye syndrome of both eyes 1 Year Follow-Up & Testi ng with Jewel Alondra DO 02/26/2019 Fuchs' endothelial corneal dystrophy 1 Year Follow-Up & Testing with Jewel Alondra DO 02/26/2019 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 1 Year Fol low-Up & Testing with Jewel Alondra DO 02/26/2019 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 1 Year Follow- Up & Testing with Jewel Alondra DO 02/26/2019 Pseudophakia 1 Year Follow-Up & Testing with Jewel Alondra DO 02/26/2019 Vitreous degeneration 1 Year Follow-Up & Testing with Faizan Cantu DO 02/26/2019 Benign choroid eye neoplasm 1 Year Follow-Up with Jewel solomon DO 01/01/2018 Dry eye syndrome of both eyes 1 Year Follow-Up with Jewel Alondra DO 01/01/2018 Fuchs' endothelial corneal dystrophy 1 Year Follow-Up with Shayne Cantu DO 01/01/2018 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 1 Year Fol low-Up with Jewel Alondra DO 01/01/2018 Bilateral myopia REFRACTION with Jewel Alondra DO 12/2016 Pseudophakia 2 Week Follow-Up with Jewel Alondra DO 11/29/2016 Corneal abrasion TRIAGE NON URGENT LEVEL 1 with Manoj Berg MD, FACS 11/22/2016 Corneal foreign body TRIAGE NON URGENT LEVEL 1 [facility] Manoj Berg MD, FACS 11/22/2016 Nuclear senile cataract 1 Week Post OP with Jewel Dee hassan DO 11/12/2016 Nuclear senile cataract 1 Week Post OP with Jewelshaggy Price n DO 10/31/2016 Pseudophakia 1 Day Post OP with Jewel Alondra DO 10/24/2016 Subconjunctival hemorrhage 1 Day Post OP with Jewel Arden matthewsn DO 10/24/2016 Nuclear senile cataract PRE OP WITH TESTING with Jewel saavedra DO 10/17/2016 Arcus senilis was observed Cataract Evaluation with Jewel Alondra DO 08/06/2016 Dry eye syndrome Cataract Evaluation with Jewel finley DO 08/06/2016 Fuchs' endothelial corneal dystrophy Cataract Evaluati on with Jewel Alondra DO 08/06/2016 Nuclear senile cataract Cataract Evaluation with Jewel saavedra DO 08/06/2016 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 Cataract E valuation with Jewel Alondra DO 08/06/2016 Posterior subcapsular polar senile cataract Cataract E valuation with Jewel Alondra DO 08/06/2016 Vitreous degeneration Cataract Evaluation with Jewel worthy DO 08/06/2016 Bilateral cortical senile cataract 8 Month Follow-Up w [facility] Manoj Berg MD, FACS 05/29/2016 Fuchs' endothelial corneal dystrophy 8 Month Follow-Up with Manoj Berg MD, FACS 05/29/2016 Nuclear senile cataract 8 Month Follow-Up with Manoj Triplett MD, FACS 05/29/2016 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 8 Month Fo llow-Up with Manoj Berg MD, FACS 05/29/2016 Posterior subcapsular polar senile cataract 8 Month Fo llow-Up with Manoj Berg MD, FACS 05/29/2016 Bilateral cortical senile cataract 5 Month Follow-Up w [facility] Manoj Berg MD, FACS 09/02/2015 Nuclear senile cataract 5 Month Follow-Up with Manoj Triplett MD, FACS 09/02/2015 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 5 Month Fo llow-Up with Manoj Berg MD, FACS 09/02/2015 Posterior subcapsular polar senile cataract left eye 5 Month Follow-Up with Manoj Berg MD, FACS 09/02/2015 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 VISUAL FIE LD 24-2 with Manoj Berg MD, FACS 07/27/2015 Cortical senile cataract NEW PATIENT WITH REFERRAL [facility] Manoj Berg MD, FACS 04/08/2015 Dry eye syndrome of both eyes NEW PATIENT WITH REFERRA L with Manoj Berg MD, FACS 04/08/2015 Endothelial corneal dystrophy of both eyes NEW PATIEN T WITH REFERRAL with Manoj Berg MD, FACS 04/08/2015 Essential hypertension NEW PATIENT WITH REFERRAL [facility] Manoj Berg MD, FACS 04/08/2015 Hypertensive retinopathy of both eyes NEW PATIENT WITH REFERRAL with Manoj Berg MD, FACS 04/08/2015 Nuclear senile cataract NEW PATIENT WITH REFERRAL [facility] Manoj Berg MD, FACS 04/08/2015 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 NEW PATIEN T WITH REFERRAL with Manoj Berg MD, FACS 04/08/2015 Instructions Instructions not supported for this document typeNo Instructions Recorded Medical Equipment - Implanted Devices Includes: Current and historical DevicesNo Medical Equipment Recorded Medications Includes: Current and historical Medications Current Medications (continue as prescribed) Furosemide 40 MG Oral Tablet 02/26/2019 Provider: Diagnosis: Mupirocin 2% External Ointment 02/26/2019 Provider: Diagnosis: Shahid Oral Packet 02/26/2019 Provider: Diagnosis: Doxylamine Succinate (Sleep) 25 MG Oral Tablet 02/26/2019 Provider: Diagnosis: Amitriptyline 25 MG Oral Tablet 02/26/2019 Provider : Diagnosis: Ferrous Sulfate 28 MG Oral Tablet 02/26/2019 Provid er: Diagnosis: Eliquis 2.5MG Oral Tablet 08/06/2016 Provider: Diagnosis: Centrum Silver Tablet 04/08/2015 Provider: Diagnosis: Spironolactone 25 MG Tablet 04/08/2015 Provider: Diagnosis: Atenolol 50 MG Tablet 04/08/2015 Provider: Diagnosis: Past Medications on file Pred Forte 1% Ophthalmic Suspension 10/17/2016 - 12/16/2016 Provider: Jewel Cantu DO Diagnosis: Day patch is removed start one drop to left eye four times a day Besivance 0.6% Ophthalmic Suspension 10/17/2016 - 11/16/2016 Provider: Jewel Cantu DO Diagnosis: start 3 days prior to surgery one drop to left eye three michael es a day BromSite 0.075% Ophthalmic Solution 10/17/2016 - 11/16/2016 Provider: Jewel Cantu DO Diagnosis: Age-related nuclear cataract, left eye Start 3 days prior to surgery one drop t o left eye twice a dayIF DENIED PUSH THROUGH![id number] Furosemide 20 MG Tablet 04/08/2015 - 02/26/2019 Provider: Diagnosis: Warfarin Sodium 5 MG Tablet 04/08/2015 - 08/06/2016 Provider : Diagnosis: Medications Administered Includes: Administered Medications in patient's chartNo Administered Medications Recorded Vital Signs Includes: Vital Signs from 01/23/2020 through 01/22/2021No Vital Signs Recorded For Specified Dates Results Includes: Results from 01/23/2020 through 01/22/2021No Results Recorded For Specified Dates History of Present Illness History of Present Illness not supported for this document typeNo History of Present Illness Recorded Social History Description Last Updated No consumption of alcohol 03/04/2020 No tobacco use 03/04/2020 Not using drugs 03/04/2020 Smoking status : Never smoker 03/04/2020 Procedures and Surgical History Includes: Procedures from 01/23/2020 through 01/22/2021 Procedures Code Diagnosis Performing Provider Service Location Service Date Intermediate Eye Exam Established Patient [address] Open angle with borderline findings, low risk, bilateral, Dry eye syndrome of bilateral lacrimal glands, Endothelial corneal dystrophy, bilateral, Hypertensive retinopathy, bilateral Jewel Anaya MD [facility] 03/04/2020 Surgical History Last Updated No surgical / procedural history 03/04/2020 Medical History Includes: Medical History in patient's chart Description Last Updated No recent change in medical history 03/04/2020 Not currently wearing eyeglasses 03/04/2020 History of essential hypertension 04/08/2015 Reported medical history : Atrial Fibril lation, Staph injection in 11/2014, Pancreatitis in 11/201404/08/2015 History of hypothyroidism 04/08/2015 History of arthritis 04/08/2015 History of hypertension 04/08/2015 Family History Includes: Family History in patient's chart Description Last Updated Daughter's history of hypertension 03/04/2020 Maternal history of family history of cancer 0 Paternal history of heart disease 03/04/2020 Family medical history was unknown 04/08/2015 Review of Systems Review of Systems not supported for this document typeNo Review of Systems Recorded Mental Status Mental Status not supported for this document type Description Oriented to time, place, and person Functional Status Functional Status not supported for this document typeNo Functional Status Recorded Physical Exam Physical Exam not supported for this document typeNo Physical Exam Recorded Immunizations Includes: Immunizations in patient's chartNo Immunizations Recorded Allergies Includes: Active, inactive, and resolved AllergiesNo Known Allergies Encounters Includes: Encounters from 01/23/2020 through 01/22/2021 Encounter Provider Location Date Check-In Time Check-Out Time D iagnosis 1 Year Follow-Up Jewel Anaya MD [facility] 02/17 2:48PM 3:18PM Borderline Glaucoma Open Ang le with Borderline Findings Both Eyes, Dry Eye Syndrome Both Eyes, Retinopathy Hypertensive Both Eyes, Essential Hypertension, Corneal Dystrophy Endothelial Fuchs' Bilateral Eyes Insurance Includes: Active Insurance Policies Plan Name Member ID Group # Subscriber Relationship Effective Da joao 1 - Medicare Part B [facility] [id number] Jacobo Nava Self 2 - [facility] [id number] Jacobo Sparrow Advance Directives Includes: Current Advance DirectivesNo Advance Directives Recorded Health Concerns Includes: Active Health ConcernsNo Active Health Concerns Recorded Goals Includes: Active GoalsNo Active Goals Recorded Interventions Includes: Interventions for active GoalsNo Interventions Recorded Evaluations & Outcomes Includes: Evaluations & Outcomes for active GoalsNo Outcomes Recorded
--- OUTSIDE RECORDS SUMMARY | 2021-03-05 23:21 | CCD | Continuity of Care Document ---
Author Author Jacoob Ureña MD Organization Unknown Address [address] [address] Phone [phone] Care Team Providers Care Time Lock Expert Name Role Phone Devan Ureña JR, MD AUT Unavailable Problems Description No Information Available Social History Type Date Description Comments Sex Unknown Allergies, Adverse Reactions, Alerts Description No Information Available Medications Description No Information Available Immunizations Description No Information Available Vital Signs Description No Information Available Results Test Acquired Date Facility Test Result H/L Range Note CBC With Differential 10/27/[address] [id number] [phone] White Blood Count 6.3 10 Normal 4.0-10.0 [...] 36.0-66.0 Lymph % 24.2 % Normal 24.0-44.0 [place] % 7.0 % Normal 2.0-8.0 Eos % 1.4 % Normal 0.0-3.0 Baso % 0.5 % Normal 0.0-1.0 Immature Granulocyte % 0.3 % Normal 0-3.0 Nucleated Red Blood Cell % 0.0 % Normal 0-0 Neutrophils # 4.2 10 Normal 1.5-8.5 Lymph # 1.5 10 Normal 1.5-5.0 [place] # 0.4 10 Normal 0.0-0.8 Eos # 0.1 10 Normal 0.0-0.5 Baso # 0.0 10 Normal 0.0-0.2 Comprehensive Metabolic Profil 10/27/2020 [address] [place] [address] [phone] Glucose, Fasting 99 mg/dL Normal 70-100 Blood [...] Ratio 0.8 Normal CBC With Differential 07/28/[address] [address] [phone] White Blood Count 5.9 10 Normal 4.0-10.0 [...] 36.0-66.0 Lymph % 29.8 % Normal 24.0-44.0 [place] % 7.1 % Normal 2.0-8.0 Eos % 1.3 % Normal 0.0-3.0 Baso % 0.3 % Normal 0.0-1.0 Immature Granulocyte % 0.3 % Normal 0-3.0 Nucleated Red Blood Cell % 0.0 % Normal 0-0 Neutrophils # 3.6 10 Normal 1.5-8.5 Lymph # 1.8 10 Normal 1.5-5.0 [place] # 0.4 10 Normal 0.0-0.8 Eos # 0.1 10 Normal 0.0-0.5 Baso # 0.0 10 Normal 0.0-0.2 Comprehensive Metabolic Profil 07/28/[address] [address] [phone] Glucose, Fasting 128 mg/dL High 70-100 Blood [...] Little GFR Left ESRD GFR <15 on [employer] 2 Units are mL/min/1.73 m2 Chronic Kidney Disease Staging per NKF: Stage I & II GFR >=60 Normal to Mildly Decreased Stage III GFR 30-59 Moderately Decreased Stage IV GFR 15-29 Severely Decreased Stage V GFR <15 Very Little GFR Left ESRD GFR <15 on [employer] RESISTANCE Procedures Date Code Description Status 07/11/2020 [id number] Diabetic Foot Exam Completed Medical Devices Description No Information Available Encounters Description No Information Available Assessments Description No Information Available Plan of Treatment No Information Available Functional Status Description No Information Available Mental Status Description No Information Available Referrals Description No Information Available
--- OUTSIDE RECORDS SUMMARY | 2021-03-05 23:22 | CCD | Continuity of Care Document ---
Author Organization Unknown Address Unknown Phone Unavailable Care Team Providers Care Pilot Instructor Name Role Phone Devan Ureña JR, MD AUT Unavailable Problems Description No Information Available Social History Type Date Description Comments Sex Unknown Allergies, Adverse Reactions, Alerts Description No Information Available Medications Description No Information Available Immunizations Description No Information Available Vital Signs Description No Information Available Results Test Acquired Date Facility Test Result H/L Range Note CBC With Differential 10/27/[address] [address] [phone] White Blood Count 6.3 10 Normal 4.0-10.0 [...] 36.0-66.0 Lymph % 24.2 % Normal 24.0-44.0 [place] % 7.0 % Normal 2.0-8.0 Eos % 1.4 % Normal 0.0-3.0 Baso % 0.5 % Normal 0.0-1.0 Immature Granulocyte % 0.3 % Normal 0-3.0 Nucleated Red Blood Cell % 0.0 % Normal 0-0 Neutrophils # 4.2 10 Normal 1.5-8.5 Lymph # 1.5 10 Normal 1.5-5.0 [place] # 0.4 10 Normal 0.0-0.8 Eos # 0.1 10 Normal 0.0-0.5 Baso # 0.0 10 Normal 0.0-0.2 Comprehensive Metabolic Profil 10/27/2020 [address] [place] [address] [phone] Glucose, Fasting 99 mg/dL Normal 70-100 Blood [...] Ratio 0.8 Normal CBC With Differential 07/28/[address] [address] [phone] White Blood Count 5.9 10 Normal 4.0-10.0 [...] 36.0-66.0 Lymph % 29.8 % Normal 24.0-44.0 [place] % 7.1 % Normal 2.0-8.0 Eos % 1.3 % Normal 0.0-3.0 Baso % 0.3 % Normal 0.0-1.0 Immature Granulocyte % 0.3 % Normal 0-3.0 Nucleated Red Blood Cell % 0.0 % Normal 0-0 Neutrophils # 3.6 10 Normal 1.5-8.5 Lymph # 1.8 10 Normal 1.5-5.0 [place] # 0.4 10 Normal 0.0-0.8 Eos # 0.1 10 Normal 0.0-0.5 Baso # 0.0 10 Normal 0.0-0.2 Comprehensive Metabolic Profil 07/28/2020 [id number] [phone] Glucose, Fasting 128 mg/dL High 70-100 Blood [...] Little GFR Left ESRD GFR <15 on [employer] 2 Units are mL/min/1.73 m2 Chronic Kidney Disease Staging per NKF: Stage I & II GFR >=60 Normal to Mildly Decreased Stage III GFR 30-59 Moderately Decreased Stage IV GFR 15-29 Severely Decreased Stage V GFR <15 Very Little GFR Left ESRD GFR <15 on [employer] Procedures Date Code Description Status 07/11/2020 [id number] Diabetic Foot Exam Completed Medical Devices Description No Information Available Encounters Description No Information Available Assessments Description No Information Available Plan of Treatment No Information Available Functional Status Description No Information Available Mental Status Description No Information Available Referrals Description No Information Available
--- OUTSIDE RECORDS SUMMARY | 2021-03-05 23:22 | CCD ---
Author Author [facility] Organization [facility] Address Unknown Phone Unavailable Care Team Providers Care Computer Programming Professor Name Role Phone ASHLEIGH Unavailable Unavailable Marvel DICKERSON DPM Unavailable Unavailable Marvel DICKERSON DPM Unavailable Unavailable Marvel DICKERSON DPM Unavailable Unavailable Marvel DICKERSON DPM Unavailable Unavailable Marvel DICKERSONW DPM Unavailable Unavailable Marvel DICKERSONW DPM Unavailable Unavailable Marvel DICKERSONW DPM Unavailable Unavailable Marvel DICKERSON DPM Unavailable Unavailable Marvel DICKERSONW DPM Unavailable Unavailable Marvel DICKERSONW DPM Unavailable Unavailable Marvel DICKERSONW DPM Unavailable Unavailable Marvel DICKERSONW DPM Unavailable Unavailable Marvel DICKERSONW DPM Unavailable Unavailable Marvel DICKERSONW DPM Unavailable Unavailable Marvel DICKERSONW DPM Unavailable Unavailable Marvel DICKERSONW DPM Unavailable Unavailable Marvel DICKERSONW DPM Unavailable Unavailable Marvel DICKERSONW DPM Unavailable Unavailable Marvel DICKERSONW DPM Unavailable Unavailable Marvel DICKERSONW DPM Unavailable Unavailable Marvel DICKERSONW DPM Unavailable Unavailable MAJAK, R SYEDA DPM Unavailable Unavailable MAJAK, R SYEDA DPM Unavailable Unavailable MAJAK, R SYEDA DPM Unavailable Unavailable MAJAK, R SYEDA DPM Unavailable Unavailable MAJAK, R SYEDA DPM Unavailable Unavailable MAJAK, R SYEDA DPM Unavailable Unavailable MAJAK, R SYEDA DPM Unavailable Unavailable MAJAK, R SYEDA DPM Unavailable Unavailable MAJAK, R SYEDA DPM Unavailable Unavailable MAJAK, R SYEDA DPM Unavailable Unavailable Dr. RICHI CRABTREE Unavailable [phone] Dr. RICHI CRABTREE Unavailable [phone] Dr. RICHI CRABTREE Unavailable [phone] Luzma Calvin MD Unavailable Unavailable Luzma Calvin MD Unavailable Unavailable Luzma Calvin MD Unavailable Unavailable Luzma Calvin MD Unavailable Unavailable Luzma Calvin MD Unavailable Unavailable Luzma Calvin MD Unavailable Unavailable Luzma Calvin MD Unavailable Unavailable Luzma Calvin MD Unavailable Unavailable Luzma Calvin MD Unavailable Unavailable Luzma Calvin MD Unavailable Unavailable Luzma Calvin MD Unavailable Unavailable Luzma Calvin MD Unavailable Unavailable Luzma Calvin MD Unavailable Unavailable Luzma Calvin MD Unavailable Unavailable Luzma Calvin MD Unavailable Unavailable Luzma Calvin MD Unavailable Unavailable Luzma Calvin MD Unavailable Unavailable Luzma Calvin MD Unavailable Unavailable Luzma Calvin MD Unavailable Unavailable Luzma Calvin MD Unavailable Unavailable Luzma Calvin MD Unavailable Unavailable Luzma Calvin MD Unavailable Unavailable Luzma Calvin MD Unavailable Unavailable Luzma Calvin MD Unavailable Unavailable Luzma Calvin MD Unavailable Unavailable Emily, M Caitlin PA-C Unavailable Unavailable Emily, M Caitlin PA-C Unavailable Unavailable Emily, M Caitlin PA-C Unavailable Unavailable Emily, M Caitlin PA-C Unavailable Unavailable Emily, M Caitlin PA-C Unavailable Unavailable Emily, M Caitlin PA-C Unavailable Unavailable Emily, M Caitlin PA-C Unavailable Unavailable Emily, M Caitlin PA-C Unavailable Unavailable Emily, M Caitlin PA-C Unavailable Unavailable Emily, M Caitlin PA-C Unavailable Unavailable Emily, M Caitlin PA-C Unavailable Unavailable Emily, M Caitlin PA-C Unavailable Unavailable Emily, M Caitlin PA-C Unavailable Unavailable Emily, M Caitlin PA-C Unavailable Unavailable Emily, M Caitlin PA-C Unavailable Unavailable Emily, M Caitlin PA-C Unavailable Unavailable Emily, M Caitlin PA-C Unavailable Unavailable Emily, M Caitlin PA-C Unavailable Unavailable Emily, M Caitlin PA-C Unavailable Unavailable Emily, M Caitlin PA-C Unavailable Unavailable Emily, M Caitlin PA-C Unavailable Unavailable Emily, M Caitlin PA-C Unavailable Unavailable Emily, M Caitlin PA-C Unavailable Unavailable Emily, M Caitlin PA-C Unavailable Unavailable Emily, M Caitlin PA-C Unavailable Unavailable Emily, M Caitlin PA-C Unavailable Unavailable Emily, M Caitlin PA-C Unavailable Unavailable Emily, M Caitlin PA-C Unavailable Unavailable Emily, M Caitlin PA-C Unavailable Unavailable Emily, M Caitlin PA-C Unavailable Unavailable Emily, M Caitlin PA-C Unavailable Unavailable Emily, M Caitlin PA-C Unavailable Unavailable Emily, M Caitlin PA-C Unavailable Unavailable Emily, M Caitlin PA-C Unavailable Unavailable Emily, M Caitlin PA-C Unavailable Unavailable Escamilla Barrera, Neto Aranda MD, FACS Unavailable Unavailable Escamilla Barrera, Neto Aranda MD, FACS Unavailable Unavailable Escamilla Barrera, Neto Aranda MD, FACS Unavailable Unavailable Escamilla Barrera, Neto Aranda MD, FACS Unavailable Unavailable Escamilla Barrera, Neto Aranda MD, FACS Unavailable Unavailable Escamilla Barrera, Neto Aranda MD, FACS Unavailable Unavailable Escamilla Barrera, Neto Aranda MD, FACS Unavailable Unavailable Escamilla Barrera, Neto Aranda MD, FACS Unavailable Unavailable Escamilla Barrera, Neto Aranda MD, FACS Unavailable Unavailable Escamilla Barrera, Neto Aranda MD, FACS Unavailable Unavailable Escamilla Barrera, Neto Aranda MD, FACS Unavailable Unavailable Escamilla Barrera, Neto Aranda MD, FACS Unavailable Unavailable Escamilla Barrera, Neto Aranda MD, FACS Unavailable Unavailable Escamilla Barrera, Neto Aranda MD, FACS Unavailable Unavailable Escamilla Barrera, Neto Aranda MD, FACS Unavailable Unavailable Escamilla Barrera, Neto Aranda MD, FACS Unavailable Unavailable Escamilla Barrera, Neto Aranda MD, FACS Unavailable Unavailable Escamilla Barrera, Neto Aranda MD, FACS Unavailable Unavailable Escamilla Barrera, Neto Aranda MD, FACS Unavailable Unavailable Escamilla Barrera, Neto Aranda MD, FACS Unavailable Unavailable Escamilla Barrera, Neto Aranda MD, FACS Unavailable Unavailable Escamilla Barrera, Neto Aranda MD, FACS Unavailable Unavailable Escamilla Barrera, Neto Aranda MD, FACS Unavailable Unavailable Escamilla Barrera, Neto Aranda MD, FACS Unavailable Unavailable Escamilla Barrera, Neto Aranda MD, FACS Unavailable Unavailable Escamilla Barrera, Neto Aranda MD, FACS Unavailable Unavailable Escamilla Barrera, Neto Aranda MD, FACS Unavailable Unavailable Escamilla Barrera, Neto Aranda MD, FACS Unavailable Unavailable Escamilla Barrera, Neto Aranda MD, FACS Unavailable Unavailable Escamilla Barrera, Neto Aranda MD, FACS Unavailable Unavailable Escamilla Barrera, Neto Aranda MD, FACS Unavailable Unavailable Escamilla Barrera, Neto Aranda MD, FACS Unavailable Unavailable Escamilla Barrera, Neto Aranda MD, FACS Unavailable Unavailable Escamilla Barrera, Neto Aranda MD, FACS Unavailable Unavailable Escamilla Barrera, Neto Aranda MD, FACS Unavailable Unavailable Escamilla Barrera, Neto Aranda MD, FACS Unavailable Unavailable Escamilla Barrera, Neto Aranda MD, FACS Unavailable Unavailable Escamilla Barrera, Neto Aranda MD, FACS Unavailable Unavailable Escamilla Barrera, Neto Aranda MD, FACS Unavailable Unavailable RICH, STEPHANE KEVIN INFORMATION ASSURANCE ANALYST-C, MSN Unavailable Unavailab le RICH, STEPHANE KEVIN INFORMATION ASSURANCE ANALYST-C, MSN Unavailable Unavailab le RICH, STEPAHNE KEVIN INFORMATION ASSURANCE ANALYST-C, MSN Unavailable Unavailab le RICH, STEPHANE KEVIN INFORMATION ASSURANCE ANALYST-C, MSN Unavailable Unavailab le RICH, STEPHANE KEVIN INFORMATION ASSURANCE ANALYST-C, MSN Unavailable Unavailab le RICH, STEPHANE KEVIN INFORMATION ASSURANCE ANALYST-C, MSN Unavailable Unavailab le RICH, STEPHANE KEVIN INFORMATION ASSURANCE ANALYST-C, MSN Unavailable Unavailab le RICH, STEPHANE KEVIN INFORMATION ASSURANCE ANALYST-C, MSN Unavailable Unavailab le RICH, STEPHANE KEVIN INFORMATION ASSURANCE ANALYST-C, MSN Unavailable Unavailab le RICH, STEPHANE KEVIN INFORMATION ASSURANCE ANALYST-C, MSN Unavailable Unavailab le RICH, STEPHANE KEVIN INFORMATION ASSURANCE ANALYST-C, MSN Unavailable Unavailab le RICH, STEPHANE KEVIN INFORMATION ASSURANCE ANALYST-C, MSN Unavailable Unavailab le RICH, STEPHANE KEVIN INFORMATION ASSURANCE ANALYST-C, MSN Unavailable Unavailab le RICH, STEPHANE KEVIN INFORMATION ASSURANCE ANALYST-C, MSN Unavailable Unavailab le RICH, STEPHANE KEVIN INFORMATION ASSURANCE ANALYST-C, MSN Unavailable Unavailab le RICH, STEPHANE KEVIN INFORMATION ASSURANCE ANALYST-C, MSN Unavailable Unavailab le RICH, STEPHANE KEVIN INFORMATION ASSURANCE ANALYST-C, MSN Unavailable Unavailab le RICH, STEPHANE KEVIN INFORMATION ASSURANCE ANALYST-C, MSN Unavailable Unavailab le RICH, STEPHANE KEVIN INFORMATION ASSURANCE ANALYST-C, MSN Unavailable Unavailab le RICH, STEPHANE KEVIN INFORMATION ASSURANCE ANALYST-C, MSN Unavailable Unavailab le RICH, STEPHANE KEVIN INFORMATION ASSURANCE ANALYST-C, MSN Unavailable Unavailab le RICH, STEPHANE KEVIN INFORMATION ASSURANCE ANALYST-C, MSN Unavailable Unavailab le RICH, STEPHANE KEVIN INFORMATION ASSURANCE ANALYST-C, MSN Unavailable Unavailab le RICH, STEPHANE KEVIN INFORMATION ASSURANCE ANALYST-C, MSN Unavailable Unavailab le RICH, STEPHANE KEVIN INFORMATION ASSURANCE ANALYST-C, MSN Unavailable Unavailab le RICH, STEPHANE KEVIN INFORMATION ASSURANCE ANALYST-C, MSN Unavailable Unavailab le RICH, STEPHANE KEVIN INFORMATION ASSURANCE ANALYST-C, MSN Unavailable Unavailab le RICH, STEPHANE KEVIN INFORMATION ASSURANCE ANALYST-C, MSN Unavailable Unavailab le RICH, STEPHANE KEVIN INFORMATION ASSURANCE ANALYST-C, MSN Unavailable Unavailab le RICH, STEPHANE KEVIN INFORMATION ASSURANCE ANALYST-C, MSN Unavailable Unavailab le RICH, STEPHANE KEVIN INFORMATION ASSURANCE ANALYST-C, MSN Unavailable Unavailab le RICH, STEPHANE KEVIN INFORMATION ASSURANCE ANALYST-C, MSN Unavailable Unavailab le RICH, STEPHANE KEVIN INFORMATION ASSURANCE ANALYST-C, MSN Unavailable Unavailab le RICH, STEPHANE KEVIN INFORMATION ASSURANCE ANALYST-C, MSN Unavailable Unavailab le RICH, STEPHANE KEVIN INFORMATION ASSURANCE ANALYST-C, MSN Unavailable Unavailab le RICH, STEPHANE KEVIN INFORMATION ASSURANCE ANALYST-C, MSN Unavailable Unavailab le RICH, STEPHANE KEVIN INFORMATION ASSURANCE ANALYST-C, MSN Unavailable Unavailab le RICH, STEPHANE KEVIN INFORMATION ASSURANCE ANALYST-C, MSN Unavailable Unavailab le RICH, STEPHANE KEVIN INFORMATION ASSURANCE ANALYST-C, MSN Unavailable Unavailab le RICH, STEPHANE KEVIN INFORMATION ASSURANCE ANALYST-C, MSN Unavailable Unavailab le RICH, STEPHANE KEVIN INFORMATION ASSURANCE ANALYST-C, MSN Unavailable Unavailab le RICH, STEPHANE KEVIN INFORMATION ASSURANCE ANALYST-C, MSN Unavailable Unavailab le RICH, STEPHANE KEVIN INFORMATION ASSURANCE ANALYST-C, MSN Unavailable Unavailab le RICH, STEPHANE KEVIN INFORMATION ASSURANCE ANALYST-C, MSN Unavailable Unavailab le RICH, STEPHANE KEVIN INFORMATION ASSURANCE ANALYST-C, MSN Unavailable Unavailab PAMELA Keating MD Unavailable Unavailable PAMELA SOTELO MD Unavailable Unavailable PAMELA SOTELO MD Unavailable Unavailable PAMELA SOTELO MD Unavailable Unavailable PAMELA SOTELO MD Unavailable Unavailable PAMELA SOTELO MD Unavailable Unavailable PAMELA SOTELO MD Unavailable Unavailable PAMELA SOTELO MD Unavailable Unavailable PAMELA SOTELO MD Unavailable Unavailable PAMELA SOTELO MD Unavailable Unavailable PAMELA SOTELO MD Unavailable Unavailable PAMELA SOTELO MD Unavailable Unavailable PAMELA SOTELO MD Unavailable Unavailable PAMELA SOTELO MD Unavailable Unavailable PAMELA SOTELO MD Unavailable Unavailable PAMELA SOTELO MD Unavailable Unavailable PAMELA SOTELO MD Unavailable Unavailable PAMELA SOTELO MD Unavailable Unavailable PAMELA SOTELO MD Unavailable Unavailable PAMELA SOTELO MD Unavailable Unavailable PAMELA SOTELO MD Unavailable Unavailable PAMELA SOTELO MD Unavailable Unavailable PAMELA SOTELO MD Unavailable Unavailable PAMELA SOTELO MD Unavailable Unavailable PAMELA SOTELO MD Unavailable Unavailable PAMELA SOTELO MD Unavailable Unavailable PAMELA SOTELO MD Unavailable Unavailable PAMELA SOTELO MD Unavailable Unavailable PAMELA SOTELO MD Unavailable Unavailable PAMELA SOTELO MD Unavailable Unavailable PAMELA SOTELO MD Unavailable Unavailable PAMELA SOTELO MD Unavailable Unavailable PAMELA SOTELO MD Unavailable Unavailable PAMELA SOTELO MD Unavailable Unavailable PAMELA SOTELO MD Unavailable Unavailable PAMELA SOTELO MD Unavailable Unavailable PAMELA SOTELO MD Unavailable Unavailable PAMELA SOTELO MD Unavailable Unavailable PAMELA SOTELO MD Unavailable Unavailable PAMELA SOTELO MD Unavailable Unavailable PAMELA SOTELO MD Unavailable Unavailable Fish, Colin Hatfield MD Unavailable Unavailable Fish, Colin Hatfield MD Unavailable Unavailable Fish, Colin Hatfield MD Unavailable Unavailable Fish, Colin Hatfield MD Unavailable Unavailable Fish, Colin Hatfield MD Unavailable Unavailable Fish, Colin Hatfield MD Unavailable Unavailable Fish, Colin Hatfield MD Unavailable Unavailable Fish, Colin Hatfield MD Unavailable Unavailable Fish, Colin Hatfield MD Unavailable Unavailable Fish, Colin Hatfield MD Unavailable Unavailable Fish, Colin Hatfield MD Unavailable Unavailable Fish, Colin Hatfield MD Unavailable Unavailable Fish, Colin Hatfield MD Unavailable Unavailable Fish, Colin Hatfield MD Unavailable Unavailable Fish, B Liu TANG Unavailable Unavailable Fish, B Liu TANG Unavailable Unavailable Fish, B Liu TANG Unavailable Unavailable Fish, B Liu TANG Unavailable Unavailable Fish, B Liu TANG Unavailable Unavailable Fish, B Liu TANG Unavailable Unavailable Fish, B Liu TANG Unavailable Unavailable Fish, B Liu TANG Unavailable Unavailable Fish, B Liu TANG Unavailable Unavailable Fish, B Liu TANG Unavailable Unavailable Fish, B Liu TANG Unavailable Unavailable Fish, B Liu TANG Unavailable Unavailable Fish, B Liu TANG Unavailable Unavailable Fish, B Liu TANG Unavailable Unavailable Fish, B Liu TANG Unavailable Unavailable Fish, B Liu TANG Unavailable Unavailable Fish, B Liu TANG Unavailable Unavailable Fish, B Liu TANG Unavailable Unavailable Fish, B Liu TANG Unavailable Unavailable Fish, B Liu TANG Unavailable Unavailable Fish, B Liu TANG Unavailable Unavailable Fish, B Liu TANG Unavailable Unavailable Fish, B Liu TANG Unavailable Unavailable Fish, B Liu TANG Unavailable Unavailable Fish, B Liu TANG Unavailable Unavailable Fish, B Liu TANG Unavailable Unavailable Fish, B Liu TANG Unavailable Unavailable Fish, B Liu TANG Unavailable Unavailable Fish, B Liu TANG Unavailable Unavailable Fish, B Liu TANG Unavailable Unavailable Fish, B Liu TANG Unavailable Unavailable Fish, B Liu TANG Unavailable Unavailable Fish, B Liu TANG Unavailable Unavailable Fish, B Liu TANG Unavailable Unavailable Fish, B Liu TANG Unavailable Unavailable Fish, B Liu TANG Unavailable Unavailable Fish, B Liu TANG Unavailable Unavailable Fish, B Liu TANG Unavailable Unavailable Fish, B Liu TANG Unavailable Unavailable Fish, B Liu TANG Unavailable Unavailable Fish, B Liu TANG Unavailable Unavailable Fish, B Liu TANG Unavailable Unavailable Tyra, Sofía Lagos MD Unavailable Unavailable Tyra, Sofía Lagos MD Unavailable Unavailable Tyra, Sofía Lagos MD Unavailable Unavailable Tyra, Sofía Lagos MD Unavailable Unavailable Tyra, Sofía Lagos MD Unavailable Unavailable Tyra, Sofía Lagos MD Unavailable Unavailable Tyra, Sofía Lagos MD Unavailable Unavailable Tyra, Sofía Lagos MD Unavailable Unavailable Tyra, Sofía Lagos MD Unavailable Unavailable Tyra, Sofía Lagos MD Unavailable Unavailable Tyra, oSfía Lagos MD Unavailable Unavailable Tyra, Sofía Lagos MD Unavailable Unavailable Tyra, Sofía Lagos MD Unavailable Unavailable Tyra, Sofía Lagos MD Unavailable Unavailable Tyra, Sofía Lagos MD Unavailable Unavailable Tyra, Sofía Lagos MD Unavailable Unavailable Tyra, Sofía Lagos MD Unavailable Unavailable Tyra, Sofía Lagos MD Unavailable Unavailable Tyra, Sofía Lagos MD Unavailable Unavailable Tyra, Sofía Lagos MD Unavailable Unavailable Tyra, Sofía Lagos MD Unavailable Unavailable Tyra, Sofía Lagos MD Unavailable Unavailable Tyra, Sofía Lagos MD Unavailable Unavailable Tyra, Sofía Lagos MD Unavailable Unavailable Tyra, Sofía Lagos MD Unavailable Unavailable Tyra, Sofía Lagos MD Unavailable Unavailable Tyra, Sofía Lagos MD Unavailable Unavailable Tyra, Sofía Lagos MD Unavailable Unavailable Tyra, Sofía Lagos MD Unavailable Unavailable Tyra, Sofía Lagos MD Unavailable Unavailable Tyra, Sofía Lagos MD Unavailable Unavailable Tyra, Sofía Lagos MD Unavailable Unavailable Tyra, Sofía Lagos MD Unavailable Unavailable Tyra, Sofía Lagos MD Unavailable Unavailable Tyra, Sofía Lagos MD Unavailable Unavailable Tyra, Sofía Lagos MD Unavailable Unavailable Tyra, Sofía Lagos MD Unavailable Unavailable Tyra, Sofía Lagos MD Unavailable Unavailable Tyra, Sofía Lagos MD Unavailable Unavailable Tyra, Sofía Lagos MD Unavailable Unavailable Tyra, Sofía Lagos MD Unavailable Unavailable Tyra, Sofía Lagos MD Unavailable Unavailable Tyra, Sofía Lagos MD Unavailable Unavailable Tyra, Sofía Lagos MD Unavailable Unavailable Tyra, Sofía Lagos MD Unavailable Unavailable Tyra, Sofía Lagos MD Unavailable Unavailable Tyra, Sofía Lagos MD Unavailable Unavailable Tyra, Sofía Lagos MD Unavailable Unavailable Tyra, Sofía Lagos MD Unavailable Unavailable Tyra, Sofía Lagos MD Unavailable Unavailable Tyra, Sofía Lagos MD Unavailable Unavailable Tyra, Sofía Lagos MD Unavailable Unavailable Tyra, Sofía Lagos MD Unavailable Unavailable Tyra, Sofía Lagos MD Unavailable Unavailable Tyra, Sofía Lagos MD Unavailable Unavailable Tyra, Sofía Lagos MD Unavailable Unavailable Tyra, Sofía Lagos MD Unavailable Unavailable Tyra, Sofía Lagos MD Unavailable Unavailable Tyra, Sofía Lagos MD Unavailable Unavailable Tyra, Sofía Lagos MD Unavailable Unavailable Tyra, Sofía Lagos MD Unavailable Unavailable Tyra, Sofía Lagos MD Unavailable Unavailable Tyra, Sofía Lagos MD Unavailable Unavailable Tyra, Sofía Lagos MD Unavailable Unavailable Tyra, Sofía Lagos MD Unavailable Unavailable Tyra, Sofía Lagos MD Unavailable Unavailable Tyra, Sofía Lagos MD Unavailable Unavailable DOC GUSMAN MD Unavailable Unavailable DOC GUSMAN MD Unavailable Unavailable DOC GUSMAN MD Unavailable Unavailable NASEEM, PRYJMA LUKE MD Unavailable Unavailable NASEEM, PRYJMA LUKE MD Unavailable Unavailable NASEEM, PRYJMA LUKE MD Unavailable Unavailable NASEEM, PRYJMA LUKE MD Unavailable Unavailable NASEEM, PRYJMA LUKE MD Unavailable Unavailable NASEEM, PRYJMA LUKE MD Unavailable Unavailable NASEEM, PRYJMA LUKE MD Unavailable Unavailable NASEEM, PRYJMA LUKE MD Unavailable Unavailable NASEEM, PRYJMA LUKE MD Unavailable Unavailable NASEEM, PRYJMA LUKE MD Unavailable Unavailable NASEEM, PRYJMA LUKE MD Unavailable Unavailable NASEEM, PRYJMA LUKE MD Unavailable Unavailable NASEEM, PRYJMA LUKE MD Unavailable Unavailable NASEEM, PRYJMA LUKE MD Unavailable Unavailable NASEEM, PRYJMA LUKE MD Unavailable Unavailable NASEEM, PRYJMA LUKE MD Unavailable Unavailable NASEEM, PRYJMA LUKE MD Unavailable Unavailable NASEEM, PRYJMA LUKE MD Unavailable Unavailable NASEEM, PRYJMA ULKE MD Unavailable Unavailable NASEEM, PRYJMA LUKE MD Unavailable Unavailable NASEEM, PRYJMA LUKE MD Unavailable Unavailable NASEEM, PRYJMA LUKE MD Unavailable Unavailable NASEEM, PRYJMA LUKE MD Unavailable Unavailable NASEEM, PRYJMA LUKE MD Unavailable Unavailable NASEEM, PRYJMA LUKE MD Unavailable Unavailable NASEEM, PRYJMA LUKE MD Unavailable Unavailable NASEEM, PRYJMA LUKE MD Unavailable Unavailable [place], Agustín PA Unavailable Unavailable [place], Agustín PA Unavailable Unavailable [place], Agustín PA Unavailable Unavailable [place], Agustín PA Unavailable Unavailable [place], Agustín PA Unavailable Unavailable [place], Agustín PA Unavailable Unavailable [place], Agustín PA Unavailable Unavailable [place], Agustín PA Unavailable Unavailable [place], Agustín PA Unavailable Unavailable [place], Agustín PA Unavailable Unavailable [place], Agustín PA Unavailable Unavailable [place], Agustín PA Unavailable Unavailable [place], Agustín PA Unavailable Unavailable [place], Agustín PA Unavailable Unavailable [place], Agustín PA Unavailable Unavailable [place], Agustín PA Unavailable Unavailable [place], Agustín PA Unavailable Unavailable [place], Agustín PA Unavailable Unavailable DURAND, ELIA JON RPA-C Unavailable Unavailable DURAND, ELIA JON RPA-C Unavailable Unavailable DURAND, ELIA JON RPA-C Unavailable Unavailable DURAND, ELIA JON RPA-C Unavailable Unavailable DURAND, ELIA JON RPA-C Unavailable Unavailable DURAND, ELIA JON RPA-C Unavailable Unavailable DURAND, ELIA JON RPA-C Unavailable Unavailable DURAND, ELIA JON RPA-C Unavailable Unavailable DURAND, ELIA JON RPA-C Unavailable Unavailable DURAND, ELIA JON RPA-C Unavailable Unavailable DURAND, ELIA JON RPA-C Unavailable Unavailable DURAND, ELIA JON RPA-C Unavailable Unavailable DURAND, ELIA JON RPA-C Unavailable Unavailable DURAND, ELIA JON RPA-C Unavailable Unavailable DURAND, ELIA JON RPA-C Unavailable Unavailable DURAND, ELIA JON RPA-C Unavailable Unavailable DURAND, ELIA JON RPA-C Unavailable Unavailable DURAND, ELIA JON RPA-C Unavailable Unavailable DURAND, ELIA JON RPA-C Unavailable Unavailable DURAND, ELIA JON RPA-C Unavailable Unavailable DURAND, ELIA JON RPA-C Unavailable Unavailable DURAND, ELIA JON RPA-C Unavailable Unavailable DURAND, ELIA JON RPA-C Unavailable Unavailable DURAND, ELIA JON RPA-C Unavailable Unavailable DURAND, ELIA JON RPA-C Unavailable Unavailable DURAND, ELIA JON RPA-C Unavailable Unavailable DURAND, ELIA JON RPA-C Unavailable Unavailable DURAND, ELIA JON RPA-C Unavailable Unavailable DURAND, ELIA JON RPA-C Unavailable Unavailable DURAND, ELIA JON RPA-C Unavailable Unavailable DURAND, ELIA JON RPA-C Unavailable Unavailable DURAND, ELIA JON RPA-C Unavailable Unavailable DURAND, ELIA JON RPA-C Unavailable Unavailable DURAND, ELIA JON RPA-C Unavailable Unavailable DURAND, ELIA JON RPA-C Unavailable Unavailable DURADN, ELIA JON RPA-C Unavailable Unavailable DURAND, ELIA JON RPA-C Unavailable Unavailable DURAND, ELIA JON RPA-C Unavailable Unavailable DURAND, ELIA JON RPA-C Unavailable Unavailable DURAND, ELIA JON RPA-C Unavailable Unavailable DURAND, ELIA JON RPA-C Unavailable Unavailable DURAND, ELIA JON RPA-C Unavailable Unavailable DURAND, ELIA JON RPA-C Unavailable Unavailable DENNIS ATKINSON Unavailable Unavailable Tea RIGGS PA Unavailable Unavailable KEELYTea PA Unavailable Unavailable KEELY, L CARRIE PA Unavailable Unavailable KEELY, L CARRIE PA Unavailable Unavailable KEELY, L CARRIE PA Unavailable Unavailable KEELY, L CARRIE PA Unavailable Unavailable KEELY, L CARRIE PA Unavailable Unavailable KEELY, L CARRIE PA Unavailable Unavailable KEELY, L CARRIE PA Unavailable Unavailable KEELY, L CARRIE PA Unavailable Unavailable KEELY, L CARRIE PA Unavailable Unavailable KEELY, L CARRIE PA Unavailable Unavailable KEELY, L CARRIE PA Unavailable Unavailable KEELY, L CARRIE PA Unavailable Unavailable KEELY, L CARRIE PA Unavailable Unavailable KEELY, L CARRIE PA Unavailable Unavailable KEELY, L CARRIE PA Unavailable Unavailable KEELY, L CARRIE PA Unavailable Unavailable KEELY, L CARRIE PA Unavailable Unavailable KEELY, L CARRIE PA Unavailable Unavailable KEELY, L CARRIE PA Unavailable Unavailable KEELY, L CARRIE PA Unavailable Unavailable Wood, W Jonathan RPA-C Unavailable Unavailable Wood, W Jonathan RPA-C Unavailable Unavailable Wood, W Jonathan RPA-C Unavailable Unavailable Wood, W Jonathan RPA-C Unavailable Unavailable Wood, W Jonathan RPA-C Unavailable Unavailable Wood, W Jonathan RPA-C Unavailable Unavailable Wood, W Jonathan RPA-C Unavailable Unavailable Wood, W Jonathan RPA-C Unavailable Unavailable Wood, W Jonathan RPA-C Unavailable Unavailable Wood, W Jonathan RPA-C Unavailable Unavailable Wood, W Jonathan RPA-C Unavailable Unavailable Wood, W Jonathan RPA-C Unavailable Unavailable Wood, W Jonathan RPA-C Unavailable Unavailable Wood, W Jonathan RPA-C Unavailable Unavailable Wood, W Jonathan RPA-C Unavailable Unavailable Wood, W Jonathan RPA-C Unavailable Unavailable [place], W Jonathan RPA-C Unavailable Unavailable CRYSTAL, A SOFÍA DO Unavailable Unavailable CRYSTAL, A SOFÍA DO Unavailable Unavailable CRYSTAL, A SOFÍA DO Unavailable Unavailable CRYSTAL, A SOFÍA DO Unavailable Unavailable CRYSTAL, A SOFÍA DO Unavailable Unavailable CRYSTAL, A SOFÍA DO Unavailable Unavailable CRYSTAL, A SOFÍA DO Unavailable Unavailable CRYSTAL, A SOFÍA DO Unavailable Unavailable CRYSTAL, A SOFÍA DO Unavailable Unavailable CRYSTAL, A SOFÍA DO Unavailable Unavailable CRYSTAL, A SOFÍA DO Unavailable Unavailable CRYSTAL, A SOFÍA DO Unavailable Unavailable CRYSTAL, A SOFÍA DO Unavailable Unavailable CRYSTAL, A SOFÍA DO Unavailable Unavailable CRYSTAL, A SOFÍA DO Unavailable Unavailable CRYSTAL, A SOFÍA DO Unavailable Unavailable CRYSTAL, A SOFÍA DO Unavailable Unavailable CRYSTAL, A SOFÍA DO Unavailable Unavailable CRYSTAL, A SOFÍA DO Unavailable Unavailable CRYSTAL, A SOFÍA DO Unavailable Unavailable CRYSTAL, A SOFÍA DO Unavailable Unavailable CRYSTAL, A SOFÍA DO Unavailable Unavailable Re-disclosure Warning The records that you are about to access may contain information from federally-assisted alcohol or drug abuse programs. If such information is present, then the following federally mandated warning applies: This information has been disclosed to you from records protected by federal confidentiality rules (42 CFR part 2). The federal rules prohibit you from making any further disclosure of this information unless further disclosure is expressly permitted by the written consent of the person to whom it pertains or as otherwise permitted by 42 CFR part 2. A general authorization for the release of medical or other information is NOT sufficient for this purpose. The Federal rules restrict any use of the information to criminally investigate or prosecute any alcohol or drug abuse patient.The records that you are about to access may contain highly sensitive health information, the redisclosure of which is protected by Article 27-F of the [facility] Public Health law. If you continue you may have access to information: Regarding HIV / AIDS; Provided by facilities licensed or operated by the [facility] Office of Mental Health; or Provided by the [facility] Office for People With Developmental Disabilities. If such information is present, then the following [facility] mandated warning applies: This information has been disclosed to you from confidential records which are protected by state law. State law prohibits you from making any further disclosure of this information without the specific written consent of the person to whom it pertains, or as otherwise permitted by law. Any unauthorized further disclosure in violation of state law may result in a fine or fpc sentence or both. A general authorization for the release of medical or other information is NOT sufficient authorization for further disc losure. Allergies and Adverse Reactions Type Description Substance Reaction Status Data Source(s ) Allergy to substance No Known Allergies No known allergies (situation ) [place] (Richi Barrera MD [facility]) Allergy to substance No Known Allergies No known allergies (situation ) [place] (Richi Barrera MD [facility]) Encounters Encounter Providers Location Date Indications Data Source(s ) [place] [address] [facility] [address] 12/15/2020 12:00:00 AM EDT eCW1 ([facility]) Outpatient Attender: SYEDA DICKERSON [facility] Office 06/21 07:30:00 AM EST [facility] [place] [address] [facility] [address] 06/16/2020 12:00:00 AM EST eCW1 ([facility]) [place] [address] [facility] [address] 03/15/2020 12:00:00 AM EDT eCW1 ([facility]) Outpatient [address] [facility] [address] 03/09/2020 12:00:00 AM EDT eCW1 ([facility]) Outpatient<td ID="encounterTypeDescripti onID0">1 Year Follow-Up</td><td>Sofía Cantu DO</td><td>Richi Berg MD [facility]</td><td>03/04/2020</td><td>2:48PM</td><td>3:18PM</td><td><content ID="encounterDiagnosisID0-0">Borderline Glaucoma Open Angle with Borderline Findings Both Eyes</content>, <content ID="encounterDiagnosisID0-1">Dry Eye Syndrome Both Eyes</content>, <content ID="encounterDiagnosisID0-2">Retinopathy Hypertensive Both Eyes</content>, <content ID="encounterDiagnosisID0- 3">Essential Hypertension</content>, <content ID="encounterDiagnosisID0-4"> Corneal Dystrophy Endothelial Fuchs' Bilateral Eyes</content></td> Attender: SOFÍA Anaya MD [facility] 03/04/2020 02:48:00 PM EDT - 03/04/2020 03:18:00 PM EDT Corneal Dystrophy Endothelial Fuchs' Pete ateral EyesCorneal Dystrophy Endothelial Fuchs' Bilateral EyesEssential HypertensionRetinopathy Hypertensive Both EyesDry Eye Syndrome Both Eyes Borderline Glaucoma Open Angle with Borderline Findings Both EyesEssential HypertensionRetinopathy Hypertensive Both EyesDry Eye Syndrome Both EyesBorderline Glaucoma Open Angle with Borderline Findings Both Eyes [place] (Richi Barrera MD [facility]) Corneal Dystrophy Endothelial Fuchs' Pete ateral Eyes Corneal Dystrophy Endothelial Fuchs' Pete ateral Eyes Essential Hypertension 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 Borderline Glaucoma Open Angle with Bord sarah Findings Both Eyes Essential Hypertension 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 Emergency Attender: SHASHA ATKINSONReferrer: CINDA MCMILLAN, MARIAMA EMERGENCY ROOM-ER 06/15/2018 07:47:00 AM [facility] - 06/15/2018 10:38:00 AM [facility] Emergency Attender: CARRIE RIGGS PAReferrer: Eduardo Calvin MD EMERGENCY ROOM-ER 08/07/2017 10:43:00 PM EDT - 08/08/2017 02:27:00 AM [facility] Outpatient Attender: Demond COXeferrer: KEVIN NOLAN, MARIAMA 07/09/2017 06:53:00 AM [facility] Outpatient Attender: JON DURAND RPA-CReferrer: MARIAMA WOODS EMERGENCY ROOM-LAB 03/04/2017 10:24:00 AM EDT - 03/04/2017 10:24:00 AM [facility] Outpatient Attender: Richi Manjarrez, FACSReferrer: MARIAMA THOMAS EMERGENCY ROOM-LABOTHPROV 10/08/2016 08:09:00 AM EDT - 10/08/2016 08:09:00 AM [facility] Inpatient Attender: Agustín Hernandez mitter: Dr. RICHI CRABTREEReferrer: JOSE SOTELO MD EMERGENCY ROOM-2N 11/18/2014 11:09:00 AM EDT - 11/21/2014 12:50:00 PM [facility] Emergency Attender: Jonathan Wood RPA-CReferrer: LOLITA SOTELO MD EMERGENCY ROOM-ER 11/18/2014 08:19:00 AM EDT - 11/18/2014 11:09:00 AM [facility] Outpatient Attender: Liu De La Rosa MDReferrer: JOSE SOTELO MD EMERGENCY ROOM-LABOTHPROV 01/08/2014 08:10:00 AM [facility] Outpatient Attender: ASHLEIGHReferrer: JOSE SOTELO MD 07/15/2013 01:00:00 PM [facility] Outpatient Attender: LUKE GUSMAN MDReferrer: JOSE Manjarrez 07/06/2013 06:52:00 PM [facility] Outpatient Attender: LUKE COXeferrer: JOSE Manjarrez 05/01/2013 04:09:00 PM [facility] Immunizations Vaccine Date Status Description Data Source(s) COVID-19 VACCINE Pfizer 06/14/2020 12:00:00 AM EST completed [facility] Vaccine Series Complete: YESThis Data wa s Submitted to [facility] Via [employer]. COVID-19 VACCINE Pfizer 05/24/2020 12:00:00 AM EST completed [facility] Vaccine Series Complete: NOThis Data was Submitted to [facility] [employer]. influenza, recombinant, quadrIvalent,injectable, prese rvative free 03/02/2020 02:14:00 PM EDT completed [facility] influenza, recombinant, quadrIvalent,injectable, prese rvative free 03/02/2020 02:14:00 PM EDT completed eCW1 ([facility] hospital) influenza, recombinant, quadrIvalent,injectable, prese rvative free 03/02/2020 02:14:00 PM EDT completed eCW1 ([facility] hospital) influenza, recombinant, quadrIvalent,injectable, prese rvative free 03/02/2020 02:14:00 PM EDT completed eCW1 ([facility] hospital) influenza, recombinant, quadrIvalent,injectable, prese rvative free 03/02/2020 02:14:00 PM EDT completed eCW1 ([facility]) Medications Medication Brand Name Start Date Product Form Dose Route Admi nistrative Instructions Pharmacy Instructions Status Indications Reaction Description Data Source(s) 20 mg 01/27/2020 12:00:00 AM EDT tablet 90 TAKE THREE TABLETS BY MOUTH EVERY DAY TAKE THREE TABLETS BY MOUTH EVERY DAY SOLD: 01/27/2020 [facility] 75 mcg 01/27/2020 12:00:00 AM EDT tablet 15 TAKE ONE-HALF TABLET BY MOUTH EVERY DAY TAKE ONE-HALF TABLET BY MOUTH EVERY DAY SOLD: 01/27/2020 [facility] 25 mg 01/27/2020 12:00:00 AM EDT tablet 30 TAKE 1 TABLET BY MOUTH ONCE DAILY TAKE 1 TABLET BY MOUTH ONCE DAILY SOLD: 01/27/2020 [facility] atorvastatin 40 MG Oral Tablet ATORVASTATIN CALCIUM 01/27/2020 1 2:00:00 AM EDT tablet 30 TAKE 1 TABLET BY MOUTH ONCE A DAY TAKE 1 TABLET BY MOUTH ONCE A DAY SOLD: 01/27/2020 [facility] Ursodiol 300 MG Oral Capsule URSODIOL 01/27/2020 12:00:00 AM EDT caps ule 81 TAKE 1 CAPSULE BY MOUTH THREE TIMES A DAY TAKE 1 CAPSULE BY MOUTH THREE TIMES A DAY SOLD: 01/29/2020 [facility] 20 mEq 01/27/2020 12:00:00 AM EDT tablet,ER particles/cry stals 30 TAKE 1 TABLET BY MOUTH ONCE A DAY TAKE 1 TABLET BY MOUTH ONCE A DAY SOLD: 01/27/2020 [facility] Insurance Providers Payer name Policy type / Coverage type Policy ID Covered democrat ID Covered democrat's relationship to townsend Policy [place] Plan Information [place]IC[place] - [place] [id number] S [id number] [facility] HEALTH CARE OPTIONS [id number] SP [id number] [employer] MED[employer]ARE [employer]ISION [id number] S [id number] [place] [id number] S [id number] MEDICARE [id number] Archana [id number] [employer] MED[employer]ARE DIVISION [id number] S [id number] [place] [id number] S [id number] MEDICARE A [id number] Self [id number] [place] MED[employer]ARE DIVISION [id number] S [id number] MEDICARE [id number] SP [id number] E62 MEDICARE [id number] SP [id number] [facility] HEALTH CARE OPTIONS [id number] SP [id number] [facility] [id number] Archana [id number] [facility] HEALTH CARE OPTIONS [id number] SP [id number] [facility] [id number] Self [id number] [facility] HEALTH CARE OPTIONS [id number] S [id number] [employer] MEDICARE DIVISION [id number] S [id number] [place]IC[place] [id number] S [id number] [place] MED[employer]ARE DIVISION [id number] S [id number] SELF PAY UNAVAILABLE UNA[place] BLE AAR HEALTH CARE OPTIONS [id number] SP [id number] ANSI-Medicare Part B [id number] ANSI-Commercial [id number] ANSI-Medicare Part B [id number] ANSI-Commercial [id number] ANSI-Commercial [id number] ANSI-Medicare Part B [id number] ANSI-Commercial [id number] ANSI-Medicare Part B [id number] ANSI-Commercial [id number] ANSI-Medicare Part B [id number] ANSI-Medicare Part B [id number] ANSI-Commercial [id number] ANSI-Medicare Part B [id number] ANSI-Commercial [id number] [employer] MED[employer]ARE DIVISION [id number] S [id number] [place]ICARE - [place] [id number] S [id number] [facility] HEALTH CARE OPTIONS [id number] S [id number] ANSI-Commercial [id number] ANSI-Medicare Part B [id number] ANSI-Medicare Part B [id number] ANSI-Commercial [id number] ANSI-Medicare Part B [id number] ANSI-Commercial [id number] ANSI-Commercial [id number] ANSI-Medicare Part B [id number] ANSI-Commercial [id number] ANSI-Medicare Part B [id number] MCRB [id number] S [id number] [employer]ARP HEALTH CARE OPTIONS [id number] S [id number] MEDICARE [id number] S [id number] E62 MEDICARE C [id number] S [id number] A AARP O [id number] S [id number] MEDICARE [id number] SP [id number] A [employer] C [id number] S [id number] MEDICARE [id number] SP [id number] [place] [facility] P [id number] S [id number] [facility] P UNAVAILABLE S UNAVAILABLE [facility] MCRO [id number] SP [id number] A [facility] MEDICAID [id number] SP [id number] D [facility] [id number] SP [id number] Medicare Part B [facility] Other 0 [id number] Self 0 MEDICARE [id number] SP [id number] Medicare Part B [facility] Other 0 [id number] Self 0 [facility] [id number] SP [id number] MEDICARE COMPLETE [id number] SP [id number] EMEDNY [id number] SP [id number] AAR HEALTH CARE OPTIONS [id number] SP [id number] AARP HEALTH CARE OPTIONS [id number] SP [id number] AARP O [id number] S [id number] MEDICARE C [id number] S [id number] [employer] MEDICARE DIVISION [id number] S [id number] [facility] [id number] S [id number] Problems, Conditions, and Diagnoses Code Display Name Description Problem Type Effective Dates Data Source(s) F03.90 Unspecified dementia without behavioral disturbance UNSPECIFIED DEMENTIA WITHOUT BEHAVIORAL DISTURBANC Diagnosis 01/27/2020 03:29:00 PM EDT [facility] S81.802D Unspecified open wound, left lower leg, subsequent encounter UNSPECIFIED OPEN WOUND, LEFT LOWER LEG, SUBSEQUENT Diagnosis 01/2020 03:29:00 PM [facility] I48.91 Unspecified atrial fibrillation UNSPECIFIED ATRI AL FIBRILLATION Diagnosis 01/27/2020 03:29:00 PM [facility] E03.9 Hypothyroidism, unspecified HYPOTHYROIDISM, UNSPECIFIE D Diagnosis 01/27/2020 03:29:00 PM [facility] E78.2 Mixed hyperlipidemia MIXED HYPERLIPIDEMIA Diagnosis 01/27/2020 03:29:00 PM [facility] N18.3 Chronic kidney disease, stage 3 (moderat e) CHRONIC KIDNEY DISEASE, STAGE 3 (MODERATE) Diagnosis 01/27/2020 03:29:00 PM [facility] l 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, or unspecified chronic kidney disease HYPERTENSIVE CHRONIC KIDNEY DISEASE W STG 1-4/UNSP CHR KDNY Diagnosis 01/27/2020 03:29:00 P M [facility] B35.1 Onychomycosis Onychomycosis Problem 07/19/2020 12:00:00 AM EST [facility] ([facility] I73.89 Peripheral vascular disease Peripheral vascular diseas e Problem 07/19/2020 12:00:00 AM EST [facility] ([facility] M79.676 Pain in limb Pain in limb Problem 07/19/2020 12:00:00 A M EST [facility] ([facility] [id number] Fuchs' corneal dystrophy (disorder) [place] eal Dystrophy Endothelial Fuchs' Bilateral Eyes Problem 03/04/2020 12:00:00 AM EDT [place] (Loki Barrera MD [facility]) [id number] Fuchs' corneal dystrophy (disorder) [place] eal Dystrophy Endothelial Fuchs' Bilateral Eyes Problem 03/04/2020 12:00:00 AM EDT [place] (Loki Barrera MD [facility]) 372.72 Subconjunctival Hemorrhage Subconjunctival Hemorrhage Problem 10/24/2016 12:00:00 AM EDT - 03/04/2020 12:00:00 AM EDT [place] (Richi Barrera MD [facility]) 372.72 Subconjunctival Hemorrhage Subconjunctival Hemorrhage Problem 10/24/2016 12:00:00 AM EDT - 03/04/2020 12:00:00 AM EDT [place] (Richi [facility]rera [facility]) Surgeries/Procedures Procedure Description Date Indications Data Source(s) DEBRIDEMENT NAIL ANY METHOD 10/10/2020 12:00:00 AM EDT [facility] Diabetic Foot Exam 07/11/2020 12:00:00 AM EST [facility] ([facility]) DEBRIDEMENT NAIL ANY METHOD 07/11/2020 12:00:00 AM EST [facility] ([facility] FINE NEEDLE ASPIRATION W/O IMAGING GUIDANCE 03/09/2020 12:00:00 AM EDT eCW1 ([facility]) No surgical / procedural history No surgical / procedural hi story 03/04/2020 12:00:00 AM EDT [place] (Richi [facility]rera MD [facility]) Intermediate Eye Exam Established Patient Intermediate Eye Exam Established Patient 03/04/2020 12:00:00 AM EDT [place] (Jeremy Barrera MD [facility]) FINE NEEDLE ASPIRATION W/O IMAGING GUIDANCE 03/02/2020 12:00:00 AM EDT eCW1 ([facility]) Results ID Date Data Source [id number] 02/27/2021 12:00:00 AM EDT [facility] Name Value Range Interpretation Code Description Data Susan rce(s) Supporting Document(s) SARS coronavirus 2 Ag NEGATIVE [facility] This lab was ordered by [facility] and reported by [facility]. ID Date Data Source [id number] 02/20/2021 12:00:00 AM EDT [facility] Name Value Range Interpretation Code Description Data Susan rce(s) Supporting Document(s) SARS coronavirus 2 Ag NEGATIVE [facility] This lab was ordered by [facility] and reported by [facility]. ID Date Data Source 105 02/08/2021 12:00:00 AM EDT [facility] Name Value Range Interpretation Code Description Data Susan rce(s) Supporting Document(s) SARS coronavirus 2 Ag NEGATIVE [facility] This lab was ordered by [facility] and reported by [facility]. ID Date Data Source [id number] 01/25/2021 12:00:00 AM EDT [facility] Name Value Range Interpretation Code Description Data Susan rce(s) Supporting Document(s) SARS coronavirus 2 Ag NEGATIVE [facility] This lab was ordered by [facility] and reported by [facility]. ID Date Data Source [id number] 10/27/2020 02:16:00 PM EDT [facility] ([facility]) Name Value Range Interpretation Code Description Data Susan rce(s) Supporting Document(s) Glucose, Fasting 99 mg/dL 70-100 [facility] ([facility] Creatinine For GFR 1.29 mg/dL 0.70-1.30 [facility] ([facility]) Blood Urea Nitrogen 28 mg/dL 7-18 [facility] ([facility]) Sodium Level 138 meq/L 136-145 [facility] ([facility]) Glomerular Filtration Rate 55.8 [facility] ([facility]) <content>Units are mL/min/1.73 m2</content>
<content></content>
<content>Chronic Kidney Disease Staging per NKF:</content>
<content></content>
<content>Stage I & II GFR >=60 Normal to Mildly Decreased</content>
<content>Stage III GFR 30-59 Moderately Decreased</content>
<content>Stage IV GFR 15-29 Severely Decreased</content>
<content>Stage V GFR <15 Very Little GFR Left</content>
<content>ESRD GFR <15 on WINDOW AND SIDING [employer]RA[employer]SMAN</content>
<content></content> Potassium Serum 4.1 meq/L 3.5-5.1 [facility] ([facility]) Chloride Level 102 meq/L 98-107 [facility] ([facility]) Carbon Dioxide Level 32 meq/L 21-32 [facility] ([facility]) Anion Gap 4 meq/L 8-16 [facility] ([facility]) Calcium Level 9.1 mg/dL 8.8-10.2 [facility] ([facility]) Ast/Sgot 16 U/L 7-37 [facility] ([facility] [place]) Alt/SGPT 19 U/L 12-78 [facility] ([facility]) Bilirubin,Total 1.3 mg/dL 0.2-1.0 [facility] ([facility]) Alkaline Phosphatase 106 U/L 45-117 [facility] ([facility]) Total Protein 7.8 GM/DL 6.4-8.2 [facility] ([facility]) Albumin 3.5 GM/DL 3.2-5.2 [facility] ([facility] [place] Albumin/Globulin Ratio 0.8 [facility] ([facility]) ID Date Data Source [id number] 10/27/2020 02:16:00 PM EDT [facility] ([facility]) Name Value Range Interpretation Code Description Data Susan e(s) Supporting Document(s) White Blood Count 6.3 10 4.0-10.0 [facility] ([facility]) Red Blood Count 3.29 10 4.30-6.10 [facility] ([facility]) Hematocrit 33.4 % 42.0-52.0 [facility] ([facility]) Hemoglobin 10.8 g/dL 13.5-17.5 [facility] ([facility]) Mean Corpuscular Hemoglobin 32.8 pg 27.0-33.0 ME DENT ([facility]) Mean Corpuscular Volume 101.5 fl 80.0-96.0 [facility] ([facility]) Mean Corpuscular HGB Conc 32.3 g/dL 32.0-36.5 MEDE NT ([facility]) Red Cell Distribution Width 16.8 % 11.5-14.5 ME [facility]ENT ([facility]) Platelet Count, Automated 271 10 150-450 MEDE NT ([facility]) Neutrophils % 66.6 % 36.0-66.0 [facility] ([facility]) Coleman % 7.0 % 2.0-8.0 [facility] Lymph % 24.2 % 24.0-44.0 [facility] Eos % 1.4 % 0.0-3.0 [facility] Baso % 0.5 % 0.0-1.0 [facility] Immature Granulocyte % 0.3 % 0-3.0 [facility] ([facility]) Neutrophils # 4.2 10 1.5-8.5 [facility] ([facility]) Nucleated Red Blood Cell % 0.0 % 0-0 MED E[facility] ([facility]) Lymph # 1.5 10 1.5-5.0 [facility] Coleman # 0.4 10 0.0-0.8 [facility] Eos # 0.1 10 0.0-0.5 [facility] Baso # 0.0 10 0.0-0.2 [facility]) ID Date Data Source [id number] 10/20/2020 12:00:00 AM EDT [facility] Name Value Range Interpretation Code Description Data Susan rce(s) Supporting Document(s) SARS coronavirus 2 Ag NEGATIVE [facility] This lab was ordered by [facility] and reported by [facility]. ID Date Data Source [id number] 10/06/2020 12:00:00 AM EDT [facility] Name Value Range Interpretation Code Description Data Susan rce(s) Supporting Document(s) SARS coronavirus 2 Ag NEGATIVE [facility] This lab was ordered by [facility] and reported by [facility]. ID Date Data Source [id number] 10/03/2020 12:00:00 AM EDT [facility] Name Value Range Interpretation Code Description Data Susan rce(s) Supporting Document(s) SARS coronavirus 2 Ag NEGATIVE [facility] This lab was ordered by [facility] and reported by [facility]. ID Date Data Source [id number] 09/26/2020 12:00:00 AM EDT [facility] Name Value Range Interpretation Code Description Data Susan rce(s) Supporting Document(s) SARS coronavirus 2 Ag NEGATIVE [facility] This lab was ordered by [facility] and reported by [facility]. ID Date Data Source [id number] 09/13/2020 12:00:00 AM EDT [facility] Name Value Range Interpretation Code Description Data Susan rce(s) Supporting Document(s) SARS coronavirus 2 Ag NEGATIVE [facility] This lab was ordered by [facility] and reported by [facility]. ID Date Data Source [id number] 08/19/2020 07:12:00 AM EDT [facility] Name Value Range Interpretation Code Description Data Susan rce(s) Supporting Document(s) SARS-CoV-2 (COVID-19) RNA [Presence] in Respiratory specimen by RALPH with probe detection Not Detected [place] This lab was ordered by [facility] and reported by [facility]. ID Date Data Source [id number] 08/03/2020 10:00:00 AM EDT [place] Name Value Range Interpretation Code Description Data Susan rce(s) Supporting Document(s) SARS coronavirus 2 RNA Not Detected [place] This lab was ordered by [facility] and reported by [facility]. ID Date Data Source [id number] 07/28/2020 03:59:00 PM EST MED[facility] ([facility]) Name Value Range Interpretation Code Description Data Susan rce(s) Supporting Document(s) Glucose, Fasting 128 mg/dL 70-100 MEDENT ([facility]) Blood Urea Nitrogen 31 mg/dL 7-18 MEDENT ([facility]) Creatinine For GFR 1.21 mg/dL 0.70-1.30 MEDENT ([facility]) Sodium Level 137 meq/L 136-145 [facility] ([facility]) Glomerular Filtration Rate Laboratory test result [facility] <content>Units are mL/min/1.73 m2</content>
<content></content>
<content>Chronic Kidney Disease Staging per NKF:</content>
<content></content>
<content>Stage I & II GFR >=60 Normal to Mildly Decreased</content>
<content>Stage III GFR 30- 59 Moderately Decreased</content>
<content>Stage IV GFR 15-29 Severely Decreased</content>
<content>Stage V GFR <15 Very Little GFR Left</content>
<content>ESRD GFR <15 on WINDOW AND SIDING CRAFTSMAN</content>
<content></content> Potassium Serum 4.2 meq/L 3.5-5.1 MEDENT ([facility]) Chloride Level 102 meq/L 98-107 [facility] ([facility]) Carbon Dioxide Level 31 meq/L 21-32 MED[facility] ([facility]) Anion Gap 4 meq/L 8-16 [facility] ([facility]) Ast/Sgot 15 U/L 7-37 [facility] ([facility]) Calcium Level 9.0 mg/dL 8.8-10.2 MEDENT ([facility]) Alkaline Phosphatase 111 U/L 45-117 MED[facility] ([facility]) Alt/SGPT 15 U/L 12-78 [facility] ([facility] [place]) Total Protein 7.4 GM/DL 6.4-8.2 MEDENT ([facility]) Bilirubin,Total 0.9 mg/dL 0.2-1.0 MED[facility] ([facility]) Albumin/Globulin Ratio 1.0 [facility] ([facility]) Albumin 3.7 GM/DL 3.2-5.2 [facility] ([facility] [place]) ID Date Data Source [id number] 07/28/2020 03:59:00 PM EST MEDENT ([facility]) Name Value Range Interpretation Code Description Data Susan rce(s) Supporting Document(s) White Blood Count 5.9 10 4.0-10.0 MEDENT ([facility]) Hematocrit 34.4 % 42.0-52.0 MEDENT ([facility]) Red Blood Count 3.49 10 4.30-6.10 MED[facility] ([facility]) Hemoglobin 11.4 g/dL 13.5-17.5 [facility] Mean Corpuscular Volume 98.6 fl 80.0-96.0 [facility] ([facility]) Mean Corpuscular Hemoglobin 32.7 pg 27.0-33.0 AL DENT ([facility]) Red Cell Distribution Width 17.1 % 11.5-14.5 AL DENT ([facility]) Mean Corpuscular HGB Conc 33.1 g/dL 32.0-36.5 MEDE NT ([facility]) Platelet Count, Automated 286 10 150-450 MEDE NT ([facility]) Neutrophils % 61.2 % 36.0-66.0 [facility] ([place]) Coleman % 7.1 % 2.0-8.0 [facility] ([facility]) Lymph % 29.8 % 24.0-44.0 [facility]) Eos % 1.3 % 0.0-3.0 [facility]) Baso % 0.3 % 0.0-1.0 [facility]) Immature Granulocyte % 0.3 % 0-3.0 MED[facility] ([facility]) Nucleated Red Blood Cell % 0.0 % 0-0 MED ENT ([facility]) Neutrophils # 3.6 10 1.5-8.5 [facility] ([facility]) Lymph # 1.8 10 1.5-5.0 [facility]) Eos # 0.1 10 0.0-0.5 [facility] ([facility]) Coleman # 0.4 10 0.0-0.8 [facility]) Baso # 0.0 10 0.0-0.2 [facility] ([facility]) ID Date Data Source [id number] 07/27/2020 07:00:00 AM EST [facility] Name Value Range Interpretation Code Description Data Susan rce(s) Supporting Document(s) SARS coronavirus 2 RNA Not Detected [facility] [place] This lab was ordered by [facility] and reported by [facility]. ID Date Data Source [id number] 07/13/2020 10:00:00 AM EST [facility] Name Value Range Interpretation Code Description Data Susan rce(s) Supporting Document(s) SARS coronavirus 2 RNA Not Detected [facility] [place] This lab was ordered by [facility] and reported by [facility]. ID Date Data Source [id number] 07/06/2020 09:30:00 AM EST [facility] Name Value Range Interpretation Code Description Data Susan rce(s) Supporting Document(s) SARS coronavirus 2 RNA Not Detected [facility] [place] This lab was ordered by [facility] and reported by [facility]. ID Date Data Source [id number] 06/29/2020 10:00:00 AM EST [facility] Name Value Range Interpretation Code Description Data Susan rce(s) Supporting Document(s) SARS coronavirus 2 RNA Not Detected [facility] [place] This lab was ordered by [facility] and reported by [facility]. ID Date Data Source [id number] 06/22/2020 10:00:00 AM EST [facility] Name Value Range Interpretation Code Description Data Susan rce(s) Supporting Document(s) SARS coronavirus 2 RNA Not Detected [place] [place] This lab was ordered by [facility] and reported by [facility]. ID Date Data Source [id number] 06/15/2020 06:30:00 AM EST [facility] Name Value Range Interpretation Code Description Data Susan rce(s) Supporting Document(s) SARS coronavirus 2 RNA Not Detected [place] [place] This lab was ordered by [facility] and reported by [facility]. ID Date Data Source [id number] 06/08/2020 09:00:00 AM EST [facility] Name Value Range Interpretation Code Description Data Susan rce(s) Supporting Document(s) SARS coronavirus 2 RNA Not Detected [place] [place] This lab was ordered by [facility] and reported by [facility]. ID Date Data Source [id number] 2020 07:15:00 AM EST [facility] Name Value Range Interpretation Code Description Data Susan rce(s) Supporting Document(s) SARS coronavirus 2 RNA Not Detected [facility] [place] This lab was ordered by [facility] and reported by [facility]. ID Date Data Source [id number] 05/25/2020 10:00:00 AM EST [facility] Name Value Range Interpretation Code Description Data Susan rce(s) Supporting Document(s) SARS coronavirus 2 RNA Not Detected [facility] [place] This lab was ordered by [facility] and reported by [facility]. ID Date Data Source [id number] 05/18/2020 09:00:00 AM EST [facility] Name Value Range Interpretation Code Description Data Susan rce(s) Supporting Document(s) SARS coronavirus 2 RNA [facility] This lab was ordered by [facility] and reported by [facility]. ID Date Data Source [id number] 05/11/2020 01:15:00 PM EST [facility] Name Value Range Interpretation Code Description Data Susan rce(s) Supporting Document(s) SARS coronavirus 2 RNA [facility] This lab was ordered by [facility] and reported by [facility]. ID Date Data Source [id number] 05/04/2020 12:16:00 PM EST [facility] Name Value Range Interpretation Code Description Data Susan rce(s) Supporting Document(s) SARS coronavirus 2 RNA [facility] This lab was ordered by [facility] and reported by [facility]. ID Date Data Source [id number] 04/27/2020 12:00:00 PM EST [facility] Name Value Range Interpretation Code Description Data Susan rce(s) Supporting Document(s) SARS coronavirus 2 RNA [facility] This lab was ordered by [facility] and reported by [facility]. ID Date Data Source [id number] 04/20/2020 12:00:00 PM EST [facility] Name Value Range Interpretation Code Description Data Susan rce(s) Supporting Document(s) SARS coronavirus 2 RNA [facility] This lab was ordered by [facility] and reported by [facility]. ID Date Data Source [id number] 04/13/2020 11:00:00 AM EST [facility] Name Value Range Interpretation Code Description Data Susan rce(s) Supporting Document(s) SARS coronavirus 2 RNA [facility] This lab was ordered by [facility] and reported by [facility]. ID Date Data Source [id number] 04/06/2020 10:25:00 AM EST [facility] Name Value Range Interpretation Code Description Data Susan rce(s) Supporting Document(s) SARS coronavirus 2 RNA [facility] This lab was ordered by [facility] and reported by [facility]. ID Date Data Source [id number] 03/31/2020 12:37:00 PM EST [facility] Name Value Range Interpretation Code Description Data Susan rce(s) Supporting Document(s) SARS coronavirus 2 RNA [facility] This lab was ordered by [facility] and reported by [facility]. ID Date Data Source [id number] 03/24/2020 02:03:00 PM EST MEDENT ([facility]) Name Value Range Interpretation Code Description Data Susan rce(s) Supporting Document(s) Albumin % 52.2 % 55.8-66.1 [facility] ([facility]) Gvfsi-1-Gigexuum % 4.9 % 2.9-4.9 [facility] ([facility] Bqakm-4-Ltspvogcc % 9.8 % 7.1-11.8 [facility] ([facility] Cwaq-4-Obhzmlryz % 17.0 % 3.2-6.5 [facility] ([facility] Vbgy-0-Gpqtadgdx % 5.9 % 4.7-7.2 [facility] ([facility]) Gamma Globulin % 10.2 % 11.1-18.8 [facility] ([facility]) Rmqyz-3-Onhpnidln 0.36 GM/DL 0.17-0.41 MED[facility] ([facility]) Albumin 3.81 GM/DL 3.29-5.55 [facility] ([facility]) Gamma Globulins 0.74 GM/DL 0.65-1.58 [facility] ([facility]) Kujgq-4-Wlrewwwpw 0.72 GM/DL 0.42-0.99 [facility] ([facility] Mwnb-7-Bpqhooxmd 1.24 GM/DL 0.19-0.55 [facility] ([facility]) Hbih-8-Qlueufbcz 0.43 GM/DL 0.28-0.60 [facility] ([facility]) Spep Interpretation Laboratory test result [facility] ([facility]) M-SPIKE NOTED IN BETA 2 REGION. CONCENTRATION = 0.72 GM/DL M-SPIKE NOTED IN MID-GAMMA REGION. CONCENTRATION = 0.44 GM/DL Total Protein 7.3 GM/DL 6.4-8.2 [facility] ([facility]) Laboratory test finding (navigational concept) Laboratory test result [facility] ([facility]) ID Date Data Source [id number] 03/24/2020 02:03:00 PM EST [facility] ([facility]) Name Value Range Interpretation Code Description Data Susan rce(s) Supporting Document(s) Immunotyping Serum Igm Laboratory test result [facility] ([facility]) Laboratory test finding (navigational concept) Laboratory test result [facility] ([facility]) It Serum Interpretation Laboratory test result [facility] ([facility]) MONOCLONAL BANDS IGM KAPPA IN BETA 2, IG M KAPPA IN EARLY GAMMA Immunotyping Serum [place] Laboratory test result [facility] ID Date Data Source [id number] 03/24/2020 02:03:00 PM EST MED[facility] ([facility]) Name Value Range Interpretation Code Description Data Susan rce(s) Supporting Document(s) Immunoglobulin A 377.0 mg/dL 70-400 MED[facility] ([facility]) Immunoglobulin G 1020 mg/dL 681-1648 MED[facility] ([facility]) Immunoglobulin M 1050.0 mg/dL 40-230 [facility] ([facility]) ID Date Data Source [id number] 03/24/2020 02:03:00 PM EST MED[facility] ([facility]) Name Value Range Interpretation Code Description Data Susan rce(s) Supporting Document(s) Blood Urea Nitrogen 30 mg/dL 7-18 [facility] ([facility]) Glucose, Fasting 87 mg/dL 70-100 [facility] ([facility]) Creatinine For GFR 1.31 mg/dL 0.70-1.30 [facility] ([facility]) Potassium Serum 4.2 meq/L 3.5-5.1 MED[facility] ([facility]) Sodium Level 138 meq/L 136-145 [facility] ([facility]) Glomerular Filtration Rate 55.0 MED ENT ([facility]) <content>Units are mL/min/1.73 m2</content>
<content></content>
<content>Chronic Kidney Disease Staging per NKF:</content>
<content></content>
<content>Stage I & II GFR >=60 Normal to Mildly Decreased</content>
<content>Stage III GFR 30- 59 Moderately Decreased</content>
<content>Stage IV GFR 15-29 Severely Decreased</content>
<content>Stage V GFR <15 Very Little GFR Left</content>
<content>ESRD GFR <15 on WINDOW AND SIDING CRAFTSMAN</content>
<content></content> Anion Gap 6 meq/L 8-16 [facility] ([facility]) Chloride Level 99 meq/L 98-107 [facility] ([facility]) Carbon Dioxide Level 33 meq/L 21-32 [facility] Alt/SGPT 17 U/L 12-78 [facility] ([facility] [place] [facility]) Calcium Level 9.0 mg/dL 8.8-10.2 [facility] ([facility]) Ast/Sgot 17 U/L 7-37 [facility] ([facility] [place] [facility]) Total Protein 7.3 GM/DL 6.4-8.2 [facility] ([facility]) Bilirubin,Total 1.3 mg/dL 0.2-1.0 [facility] ([facility]) Alkaline Phosphatase 110 U/L 45-117 [facility] ([facility]) Albumin/Globulin Ratio 0.9 [facility] ([facility]) Albumin 3.5 GM/DL 3.2-5.2 [facility] ([facility] [place]) ID Date Data Source [id number] 03/24/2020 02:03:00 PM EST MED[facility] ([facility]) Name Value Range Interpretation Code Description Data Susan rce(s) Supporting Document(s) Viscosity of Serum 1.8 rel.saline 1.4-2.1 [facility] ([facility]) Values above 2.7 may indicate paraprotei nemia is present. Please note reference interval change Performed at: [address] [id number] [employer] President Sales [employer] Marketing: Jeremias Chavez MD, Phone: [phone] ID Date Data Source [id number] 03/24/2020 02:03:00 PM EST MEDENT ([facility]) Name Value Range Interpretation Code Description Data Susan rce(s) Supporting Document(s) White Blood Count 6.5 10 4.0-10.0 MED[facility] ([facility]) Red Blood Count 3.47 10 4.30-6.10 [facility] ([facility]) Mean Corpuscular Volume 100.6 fl 80.0-96.0 [facility] ([facility]) Hematocrit 34.9 % 42.0-52.0 [facility]) Hemoglobin 11.3 g/dL 13.5-17.5 [facility]) Mean Corpuscular HGB Conc 32.4 g/dL 32.0-36.5 MEDE NT ([facility]) Mean Corpuscular Hemoglobin 32.6 pg 27.0-33.0 ME DENT ([facility]) Red Cell Distribution Width 16.2 % 11.5-14.5 ME DENT ([facility]) Lymph % 30.0 % 24.0-44.0 [facility]) Platelet Count, Automated 298 10 150-450 MEDE NT ([facility]) Neutrophils % 59.6 % 36.0-66.0 [facility] ([facility]) Eos % 2.2 % 0.0-3.0 [facility]) Coleman % 7.7 % 0.0-5.0 [facility]) Baso % 0.2 % 0.0-1.0 [facility]) Neutrophils # 3.9 10 1.5-8.5 [facility] ([facility]) Immature Granulocyte % 0.3 % 0-3.0 [facility] ([facility]) Nucleated Red Blood Cell % 0.0 % 0-0 MED ENT ([facility]) Lymph # 2.0 10 1.5-5.0 [facility]) Eos # 0.1 10 0.0-0.5 [facility]) Coleman # 0.5 10 0.0-0.8 [facility]) Baso # 0.0 10 0.0-0.2 [facility]) Procedure Social History Code Duration Value Status Description Data Source(s ) Smoking 01/22/2021 09:50:06 PM EDT Never smoked tobacco (findi ng) completed Never smoked tobacco (finding) [facility] (Richi Barrera MD [facility]) Smoking 12/15/2020 12:00:00 AM EDT Never Smoker completed Never S moker eCW1 ([facility]) Smoking 12/01/2020 01:51:37 PM EDT Never smoked tobacco (findi ng) completed Never smoked tobacco (finding) [facility] (Richi Barrera MD [facility]) Smoking 06/16/2020 12:00:00 AM EST Never Smoker completed Never S moker eCW1 ([facility]) Smoking 03/15/2020 12:00:00 AM EDT Never Smoker completed Never S moker eCW1 ([facility]) Smoking 03/15/2020 12:00:00 AM EDT Never Smoker completed Never S moker eCW1 ([facility]) Smoking 03/09/2020 12:00:00 AM EDT Never Smoker completed Never S moker eCW1 ([facility]) Vital Signs ID Date Data Source UNK Name Value Range Interpretation Code Description Data Source(s) Body weight 223.4 [lb_av] 223.4 [lb_av] eCW1 ([facility]) Body height 78 [in_i] 78 [in_i] W1 ([facility]) Body mass index (BMI) [Ratio] 25.81 kg/m2 25.81 kg/m2 [facility] [place]) Systolic blood pressure 124 mm[Hg] 124 mm[Hg] e CW1 ([facility]) Diastolic blood pressure 62 mm[Hg] 62 mm[Hg] eCW1 ([facility]) Body height 75 [in_i] 75 [in_i] [facility] ([facility] 6'3" Body weight 209.00 [lb_av] 209.00 [lb_av] MEDEN T ([facility] Systolic blood pressure 104 mm[Hg] 104 mm[Hg] M EDENT ([facility] Diastolic blood pressure 64 mm[Hg] 64 mm[Hg] [facility] ([facility] Heart rate 88 /min 88 /min MED[facility] ([facility] Body mass index (BMI) [Ratio] 26.1 kg/m2 26.1 k g/m2 [facility] ([facility] Body weight 204.6 [lb_av] 204.6 [lb_av] eCW1 ([facility]) Diastolic blood pressure 62 mm[Hg] 62 mm[Hg] eCW1 ([facility]) Body height 78 [in_i] 78 [in_i] eCW1 ([facility]) Body mass index (BMI) [Ratio] 23.64 kg/m2 23.64 kg/m2 eCW1 ([facility]) Systolic blood pressure 100 mm[Hg] 100 mm[Hg] e CW1 ([facility]) Body weight 191 [lb_av] 191 [lb_av] eCW1 ([facility]) Body height 78 [in_i] 78 [in_i] eCW1 ([facility]) Body mass index (BMI) [Ratio] 22.07 kg/m2 22.07 kg/m2 eCW1 ([facility]) Systolic blood pressure 118 mm[Hg] 118 mm[Hg] e CW1 ([facility]) Diastolic blood pressure 64 mm[Hg] 64 mm[Hg] eCW1 ([facility]) Body temperature 96.9 [degF] 96.9 [degF] eCW1 ( [facility]) Body weight 180 [lb_av] 180 [lb_av] eCW1 ([facility]) Body weight kg eCW1 ([facility]) Body height 78 [in_i] 78 [in_i] eCW1 ([facility]) Body mass index (BMI) [Ratio] 20.80 kg/m2 20.80 kg/m2 W1 ([facility]) Heart rate 87 /min 87 /min eCW1 ([facility]) Respiratory rate 18 /min 18 /min eCW1 ([facility]) Systolic blood pressure 136 mm[Hg] 136 mm[Hg] e CW1 ([facility]) Diastolic blood pressure 63 mm[Hg] 63 mm[Hg] eCW1 ([facility]) Body temperature 96.9 [degF] 96.9 [degF] eCW1 ( [facility]) Systolic blood pressure 141 mm[Hg] 141 mm[Hg] e CW1 ([facility]) Diastolic blood pressure 74 mm[Hg] 74 mm[Hg] eCW1 ([facility]) Body weight 180 [lb_av] 180 [lb_av] eCW1 ([facility]) Body weight kg eCW1 ([facility]) Body height 78 [in_i] 78 [in_i] eCW1 ([facility]) Body mass index (BMI) [Ratio] 20.80 kg/m2 20.80 kg/m2 eCW1 ([facility]) Heart rate 98 /min 98 /min eCW1 ([facility] hospital) Respiratory rate 16 /min 16 /min eCW1 ([facility]) Body weight 86.184 kg 86.[address] [facility], ) Systolic blood pressure 138 mm[Hg] 138 mm[Hg] M EDENT ([facility], ) Diastolic blood pressure 85 mm[Hg] 85 mm[Hg] MEDENT ([facility], ) Body height 78 [in_i] 78 [in_i] [facility] ([facility], ) 6'6" Body weight 190.00 [lb_av] 190.00 [lb_av] MEDEN T ([facility], ) Body mass index (BMI) [Ratio] 22.0 kg/m2 22.0 k g/m2 [facility] ([facility], ) [place] body weight 214 [lb_av] 214 [lb_av] MEDEN T ([facility], ) ID Date Data Source [id number] 01/27/2020 03:29:00 PM EDT [facility] l Name Value Range Interpretation Code Description Data Source(s) WEIGHT 80.695459 kilos 80.746522 [facility] HEIGHT 198.12 centimeters 198.12 centimeter [facility] WEIGHT 80.522920 kilos 80.145561 [facility] HEIGHT 198.12 centimeters 198.12 centimeter [facility]
--- OUTSIDE RECORDS SUMMARY | 2021-03-05 23:22 | CCD | Continuity of Care Document ---
Author Author Jacobo Ureña MD Organization Unknown Address [address] [address] Phone [phone] Care Team Providers Care Shoe Lay Out Planner Name Role Phone Devan Ureña JR, MD AUT Unavailable Problems Description No Information Available Social History Type Date Description Comments Sex Unknown Allergies, Adverse Reactions, Alerts Description No Information Available Medications Description No Information Available Immunizations Description No Information Available Vital Signs Description No Information Available Results Test Acquired Date Facility Test Result H/L Range Note CBC With Differential 10/27/[address] [id number] [phone] White Blood Count 6.3 10 Normal 4.0-10.0 [...] 36.0-66.0 Lymph % 24.2 % Normal 24.0-44.0 [place] % 7.0 % Normal 2.0-8.0 Eos % 1.4 % Normal 0.0-3.0 Baso % 0.5 % Normal 0.0-1.0 Immature Granulocyte % 0.3 % Normal 0-3.0 Nucleated Red Blood Cell % 0.0 % Normal 0-0 Neutrophils # 4.2 10 Normal 1.5-8.5 Lymph # 1.5 10 Normal 1.5-5.0 [place] # 0.4 10 Normal 0.0-0.8 Eos # 0.1 10 Normal 0.0-0.5 Baso # 0.0 10 Normal 0.0-0.2 Comprehensive Metabolic Profil 10/27/2020 [address] [place] [address] [phone] Glucose, Fasting 99 mg/dL Normal 70-100 Blood [...] Ratio 0.8 Normal CBC With Differential 07/28/[address] [address] [phone] White Blood Count 5.9 10 Normal 4.0-10.0 [...] 36.0-66.0 Lymph % 29.8 % Normal 24.0-44.0 [place] % 7.1 % Normal 2.0-8.0 Eos % 1.3 % Normal 0.0-3.0 Baso % 0.3 % Normal 0.0-1.0 Immature Granulocyte % 0.3 % Normal 0-3.0 Nucleated Red Blood Cell % 0.0 % Normal 0-0 Neutrophils # 3.6 10 Normal 1.5-8.5 Lymph # 1.8 10 Normal 1.5-5.0 [place] # 0.4 10 Normal 0.0-0.8 Eos # 0.1 10 Normal 0.0-0.5 Baso # 0.0 10 Normal 0.0-0.2 Comprehensive Metabolic Profil 07/28/[address] [address] [phone] Glucose, Fasting 128 mg/dL High 70-100 Blood [...] Little GFR Left ESRD GFR <15 on NODE JS DEVELOPER 2 Units are mL/min/1.73 m2 Chronic Kidney Disease Staging per NKF: Stage I & II GFR >=60 Normal to Mildly Decreased Stage III GFR 30-59 Moderately Decreased Stage IV GFR 15-29 Severely Decreased Stage V GFR <15 Very Little GFR Left ESRD GFR <15 on NODE JS DEVELOPER Procedures Date Code Description Status 07/11/2020 [id number] Diabetic Foot Exam Completed Medical Devices Description No Information Available Encounters Description No Information Available Assessments Description No Information Available Plan of Treatment No Information Available Functional Status Description No Information Available Mental Status Description No Information Available Referrals Description No Information Available
--- OUTSIDE RECORDS SUMMARY | 2021-03-05 23:22 | CCD ---
Author Author [facility] Organization [facility] Address Unknown Phone Unavailable Care Team Providers Care Lead Material Handler Name Role Phone Komal Huang Unavailable PROBLEMS Type Condition ICD9-CM Code [id number] Code Onset Dates Condition S tatus W/U Status Risk SNOMED Code Notes Problem Neoplasm of uncertain behavior of skin D48.5 A ctive confirmed 15642632 thick keratotic plaque right hand, recom mend bx, right nose, hemorrhagic crust, recheck at next appt Problem Actinic keratosis L57.0 Active confirmed 20 8521376 greatly improved, has a few more to treat today but I think we are finally making progress Problem 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 The lesion on left cheek we are bx is below this area and in close opposition. 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 The entire area was curetted after the biopsy so I think the SCC has been treated, but he has aks diffusely on both cheeks, L > R so we will treat those Problem Non-pressure chronic ulcer o f other part of left lower leg with fat layer exposed L97.822 Active confirmed 08248227 Problem Actinic keratoses L57.0 Active confirmed 40 3691645 Many AKs, he prefers having the LN2 to other treatments. 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 Active confirmed 827593503 Problem Open wound of right lower leg, subsequent encounter S81.801D Active confirmed [id number] Problem Open wound of left lower leg, subsequent encounter S81.802D Active confirmed [id number] ALLERGIES No Known Allergies ENCOUNTERS from 1931 to 2020-12-26 Encounter Location Date Provider Diagnosis [facility] Dermatology [address] [place] [address] [place] [address] Nov, Komal Huang Actinic keratoses L57.0 IMMUNIZATIONS Vaccine Route Administration Date Status Influenza 18 yrs & older Flublok Unknown Mar 02, 2020 Refused Influenza 18 yrs & older Flublok Unknown Mar 18, 2019 Refused SOCIAL HISTORY Tobacco Use: Social History Observation Description Date Details (start date - stop date) Never Smoker Sex Assigned At : Social History Observation Description Sex Assigned At Unknown Tobacco Use: Question Answer Notes Are you a: never smoker REASON FOR REFERRAL No Information VITAL SIGNS Weight 223.4 lbs Nov, Height 78 in Nov, BMI 25.81 kg/m2 Nov, Blood pressure systolic 124 mm Hg Nov, Blood pressure diastolic 62 mm Hg Nov, MEDICATIONS Medication SIG (Take, Route, Frequency, Duration) Notes Start Da te End Date Status Senokot 8.6 MG 2 tablets Orally BID Not-Taking Polytrim 62748-7.1 UNIT/ML 1 drop into affected eye Ophthalm ic Four times a day Not-Taking Lipitor 40 MG 1 tablet Orally Once a day for 30 day(s) Active Aspirin 81 MG 1 tablet Orally daily for 30 day(s) Not-Taking Triamcinolone Acetonide 0.1 % 1 application Externally Two times a We ek Not-Taking Acetaminophen 325 MG 2 tablet as needed Orally every 4 hrs Active Ensure Enlive - 0.08 gram-1.5kcal/ml 240 ml Orally twice a day Active Enema Disposable - as directed Rectal Daily as needed for constipatio n Active traZODone HCl 50 MG 1 tablet at bedtime Orally Once a day Not-Taking Acetaminophen 8 Hour 650mg 1 tablet orally NEEDED EVERY 8 HOURS Active Keflex 500 MG 1 capsule Orally every 12 hrs Not-Taking Atenolol 25 MG 1 tablet Orally Once a day Not-Taking Eucerin - as directed Externally daily Not-Taking Amitriptyline HCl 50 MG 1 tablet at bedtime Orally Once a day Active Aspercreme 10 % as directed Externally three times per day to bilateral legs, feet, and knees Not-Taking Doxylamine Succinate - as directed Orally before bedtime Not-Taking Saline Nasal [place] 0.65 % Nasally FOUR TIMES PER DAY Not-Taking Benadryl 25 mg 2 tablet Orally before bedtime Not-Taking Multivitamins 1 1 tablet Orally once a day Active Potassium Chloride 20 MEQ 1 packet with food Orally Once a day f or 30 day(s) Active GlycoLax - as directed Orally twice a day Not-Taking Synthroid 25 MCG 1.5 TABLETS Orally Once a day Not-Taking Colace 100 MG 1 capsule Orally THREE TIMES PER DAY Not-Taking Spironolactone 25 MG 1 tablet Orally once a day Active Shahid - 23G as directed Orally twice daily Not-Taking Procrit 70824 UNIT/ML as directed Injection EVERY 14 DAYS Not-Taking Ferrous Sulfate 325 (65 Fe) MG 1 tablet Orally Once a day for 30 day( s) Not-Taking Levothyroxine Sodium 25 MCG 1 tablet in the morning on an empty stomach Orally Once a day for 30 day(s) Active Drain 0.65 % as directed Nasally 4 times a day Not-Taking Eliquis 2.5 MG 1 tab Orally twice a day Not-Taking Bisacodyl 10 MG 1 suppository as needed Rectal Once a day for 30 day( s) Active Acetaminophen PM 500-25 MG 1 tablet at bedtime as need ed Orally Once a day for 30 day(s) Active oxyCODONE HCl 5 MG 1 tablet as needed Orally at bedtime Not-Taking Milk of Magnesia 400 MG/5ML 30 ml as needed Orally Daily for constipa tion Active Lasix 20 MG 3 tabletS Orally BID Act sven [place] 1.4 % as directed Externally Not-Taking Ensure Enlive - 0.08-1.5 kcal/mL 120 mg Orally once a day Active Aspirin Childrens 81 MG 1 tablet Orally Once a day for 30 day(s) Not-Taking Actigall 300 MG I capsule Orally TID Active Lasix 20 MG 3 tabletS Orally bid Act sven Drain Saline Nasal - as directed Nasally two times daily Not-Taking Acetaminophen 500 MG 1 tablet as needed Orally 2 times daily 650 mg Active Bacitracin-Polymyxin B 500-47286 UNIT/GM 1 application as needed Externally Twice a day Not-Taking Probiotic - as directed Orally NALINI-BID 2 tablets Not-Taking MiraLax - as directed Orally twice daily Not-Taking Aspirin 81 MG 1 tablet Orally Once a day for 30 day(s) Active PROCEDURES No Information RESULTS No Results REASON FOR VISIT AK recheck MEDICAL (GENERAL) HISTORY Type Description Date Medical History hypertension Medical History A-Fib Medical History history of BCC, SCC in situ Medical History ED Medical History ENLARGED HEART Medical History COPD Surgical History appendectomy Surgical History right knee surgery - cartilage removal Hospitalization History R/T cellulitis 11/2014 Hospitalization History GALLBLADDER 04/2019 Goals Section No Information Health Concerns No Information MEDICAL EQUIPMENT No Information MENTAL STATUS No Information FUNCTIONAL STATUS No Information ASSESSMENTS Encounter Date Diagnosis Assessment Notes Treatment Notes Treatm ent Clinical Notes Nov, Actinic keratoses (ICD-10 - L57.0) Cryotherapy x [ 3] number of sites. Adrian protocol was followed in compliance with [facility] standards. Patient was counseled regarding the indication for treatment (precancerous state for actinic keratosis or cosmetic reasons if done for seborrheic keratoses, acrochordons or warts) as well as, the method and expected results to include compromise of the skin barrier, bleeding, scarring/white area, redness at site, lesion recurrence, and pain. Patient was consented to the risks and benefits of the procedure and gave informed consent. Lesion(s) with locations as indicated in the physical examination were treated. Lesion(s) were treated with 2 cycles of liquid nitrogen with a thaw time of at least ten seconds. Therapy was applied in a pulsed fashion to minimize collateral tissue injury. Patient was instructed to use Vaseline ointment to the area(s) until healed. Patient tolerated the procedure well and left in stable condition. Pain before and after the procedure were assessed to not be significantly different than baseline. PLAN OF TREATMENT Treatment Notes Assessment Notes Clinical Notes Actinic keratoses Cryotherapy x [ 3] n umber of sites. Adrian protocol was followed in compliance with [facility] standards. Patient was counseled regarding the indication for treatment (precancerous state for actinic keratosis or cosmetic reasons if done for seborrheic keratoses, acrochordons or warts) as well as, the method and expected results to include compromise of the skin barrier, bleeding, scarring/white area, redness at site, lesion recurrence, and pain. Patient was consented to the risks and benefits of the procedure and gave informed consent. Lesion(s) with locations as indicated in the physical examination were treated. Lesion(s) were treated with 2 cycles of liquid nitrogen with a thaw time of at least ten seconds. Therapy was applied in a pulsed fashion to minimize collateral tissue injury. Patient was instructed to use Vaseline ointment to the area(s) until healed. Patient tolerated the procedure well and left in stable condition. Pain before and after the procedure were assessed to not be significantly different than baseline. Next Appt Details 1 Year Reason:AK check Provider Name:Komal Huang, 2022-01-01 09:45:00 AM, [address] [place] [address], , [place], [place], [facility], Follow Up:1 YearAK check Insurance Providers Payer Name Payer Address Payer Phone Insured Name Patient Relati onship to Insured Coverage Start Date Coverage End Date MEDICAID [employer] [address] [facility] [id number] [place] MEDICARE Part A and B [address] [facility] [phone] [place]
--- OUTSIDE RECORDS SUMMARY | 2021-03-05 23:22 | CCD | Continuity of Care Document ---
Author Author Jacobo Ureña MD Organization Unknown Address [address] [address] Phone [phone] Care Team Providers Care Milk Collector Name Role Phone Devan Ureña JR, MD AUT Unavailable Problems Description No Information Available Social History Type Date Description Comments Sex Unknown Allergies, Adverse Reactions, Alerts Description No Information Available Medications Description No Information Available Immunizations Description No Information Available Vital Signs Description No Information Available Results Test Acquired Date Facility Test Result H/L Range Note CBC With Differential 10/27/[address] [id number] [phone] White Blood Count 6.3 10 Normal 4.0-10.0 [...] 36.0-66.0 Lymph % 24.2 % Normal 24.0-44.0 [place] % 7.0 % Normal 2.0-8.0 Eos % 1.4 % Normal 0.0-3.0 Baso % 0.5 % Normal 0.0-1.0 Immature Granulocyte % 0.3 % Normal 0-3.0 Nucleated Red Blood Cell % 0.0 % Normal 0-0 Neutrophils # 4.2 10 Normal 1.5-8.5 Lymph # 1.5 10 Normal 1.5-5.0 [place] # 0.4 10 Normal 0.0-0.8 Eos # 0.1 10 Normal 0.0-0.5 Baso # 0.0 10 Normal 0.0-0.2 Comprehensive Metabolic Profil 10/27/2020 [address] [place] [address] [phone] Glucose, Fasting 99 mg/dL Normal 70-100 Blood [...] Ratio 0.8 Normal CBC With Differential 07/28/[address] [address] [phone] White Blood Count 5.9 10 Normal 4.0-10.0 [...] 36.0-66.0 Lymph % 29.8 % Normal 24.0-44.0 [place] % 7.1 % Normal 2.0-8.0 Eos % 1.3 % Normal 0.0-3.0 Baso % 0.3 % Normal 0.0-1.0 Immature Granulocyte % 0.3 % Normal 0-3.0 Nucleated Red Blood Cell % 0.0 % Normal 0-0 Neutrophils # 3.6 10 Normal 1.5-8.5 Lymph # 1.8 10 Normal 1.5-5.0 [place] # 0.4 10 Normal 0.0-0.8 Eos # 0.1 10 Normal 0.0-0.5 Baso # 0.0 10 Normal 0.0-0.2 Comprehensive Metabolic Profil 07/28/[address] [address] [phone] Glucose, Fasting 128 mg/dL High 70-100 Blood [...] Little GFR Left ESRD GFR <15 on [employer] 2 Units are mL/min/1.73 m2 Chronic Kidney Disease Staging per NKF: Stage I & II GFR >=60 Normal to Mildly Decreased Stage III GFR 30-59 Moderately Decreased Stage IV GFR 15-29 Severely Decreased Stage V GFR <15 Very Little GFR Left ESRD GFR <15 on [employer] Procedures Date Code Description Status 07/11/2020 [id number] Diabetic Foot Exam Completed Medical Devices Description No Information Available Encounters Description No Information Available Assessments Description No Information Available Plan of Treatment No Information Available Functional Status Description No Information Available Mental Status Description No Information Available Referrals Description No Information Available
[2021-03-06] MEDS ORDERED: KCL 10MEQ/100ML SWI (KRUN) 10 MEQ in IV 1 EA IV ONE (00:40)
[2021-03-06] MEDS ORDERED: POTASSIUM CHLORIDE 10MEQ SR TABLET PO ONE ×2 (00:40→08:50)
[2021-03-06] MEDS ORDERED: MOM 30ML SUSPENSION UDC PO PRN (01:10)
[2021-03-06] MEDS ORDERED: ACETAMINOPHEN TAB 650MG DOSE (2X325MG) PO PRN (01:10)
[2021-03-06] MEDS ORDERED: MAALOX 30 ML SUSP *UDC PO PRN (01:10)
--- NOTE | 2021-03-06 01:12 | HPEPDOC ---
[facility] Medical History & Physical Date of Admission Mar 06, 2021 Date of Service: Mar 06, 2021 Primary Care Physician: Jr Ureña Collins Attending Physician: JEOVANY HU MD History and Physical TIME OF SERVICE: 155AM CHIEF COMPLAINT: sent from ID HISTORY OF PRESENT ILLNESS: The history was obtained from , the patient has dementia. is a 89 yr old w dementia who was noted to have low potassium on Mar 02, despite oral repletion and reducing the dose of his Lasix his potassium has continued to trend downwards therefore ID staff sent him to the ER for IV repletion. Per ER intake notes when EMS arrived the patients O2 sats were 96% on RA when they arrived. The patient denied feeling short of breath or having any acute c/o at the time of my assessment. 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 HOME MEDICATIONS: Please see below. PHYSICAL EXAMINATION: Vital Signs Date Time Temp Pulse Resp B/P (MAP) Pulse Ox O2 Delivery O2 Flow Rate FiO2 03/05/21 23:25 99.1 89 18 123/65 (84) 94 Room Air 03/06/21 00:32 3.0 GENERAL APPEARANCE: well-nourished and developed/ NAD HEENT: NC in place/ mucus membranes dry CARDIOVASCULAR: RRR/NMRG / no BLE edema LUNGS: CTAB on RA ABDOMEN: contour flat : wearing diaper MUSCULOSKELETAL: muscle wasting of extremities NEUROLOGICAL: hard of hearing / speech not dysarthric PSYCHIATRIC: A&O / able to understand and follow simple commands LABORATORY DATA: WBC 5.6, Hg 10.2, Plts 265 Na 136, K 2.4, Cl 94, CO2 36, AG 6, Bun 47, Cr 1.82, GFR 37.5, Glucose 143, Mag 1.9, AST 36, ALT 20, Alk P 103, LDH 273 APTT 42/ D-Dimer 1001.96 IMAGING: Chest xray Mar 01 IMPRESSION: Cardiomegaly with early interstitial edema including right basilar atelectasis and small right pleural effusion. MICROBIOLOGY: + COVID Mar 04 2021 ASSESSMENT: is an 89 yr old w Dementia, COPD, PVD, Paroxysmal Atrial fibrillation, Hypothyroidism, Lymphoplasmacytic lymphoma, CKD 3 w Anemia of chronic disease, Severe Tricuspid Insufficiency with Moderate Pulmonary HTN & Bi-atrial enlargement (Echo 2019 EF 60%) who is admitted for hypokalemia. PLAN: 1 Hypokalemia -2/2 Lasix -He received PO & IV KCl in the ER Plan: admit to medical floor / telemetry / f/u labs in the morning 2 Mild COVID 19 - When I removed the supplemental O2 his sats were 98-99% -He may qualify for MABs if he hasnt already received them Plan: f/u w PCP to schedule infusion 3 Hypothyroidism Plan: Levothyroxine 5 Bi- atrial enlargement / Severe Tricuspid Insufficiency with Moderate Pulmonary HTN (Echo 2019 EF 60%) Euvolemic Plan: the day time team may resume Lasix and Spironolactone in the morning 6 Paroxysmal Atrial fibrillation His family decided against coagulation due to bleed in past requiring multiple blood transfusions 7 Dementia 8 COPD 9 PVD 10 CKD 3 w Anemia of chronic dz EPO (Hg, CR and GFR at basline) 11 Lymphoplasmacytic lymphoma 12 Sarcopenia - PCP may consider ordering PT at [facility] DVT px w Heparin Disposition: [facility] after less than 2 midnights stay Home Medications Scheduled Amitriptyline HCl (Amitriptyline HCl) 25 Mg Tablet, 25 MG PO QHS Aspirin (Aspirin EC) 81 Mg Tablet.dr, 81 MG PO DAILY Citalopram Hydrobromide (Citalopram HBr) 20 Mg Tablet, 20 MG PO DAILY Lactose-Reduced Food (Ensure Enlive) 237 Ml Liquid, 120 ML PO DAILY Levothyroxine Sodium (Levothyroxine Sodium) 50 Mcg Tablet, 50 MCG PO DAILY Metoprolol Succinate (Metoprolol Succinate) 25 Mg Tab.er.24h, 25 MG PO DAILY hold if apical pulse is <60 Multivitamin (Multivitamin) 1 Each Tablet, 1 EACH PO DAILY Potassium Chloride (Potassium Chloride) 10 Meq Capsule.er, 20 MEQ PO DAILY Sennosides (Senna) 8.6 Mg Tablet, 17.2 MG PO BID Spironolactone (Spironolactone) 25 Mg Tablet, 25 MG PO DAILY Torsemide (Torsemide) 20 Mg Tablet, 40 MG PO BID 800 and 1400 Ursodiol (Ursodiol) 300 Mg Capsule, 300 MG PO TID Scheduled PRN Acetaminophen (Acetaminophen ER) 650 Mg Tablet.er, 650 MG PO TID PRN for pain Bisacodyl (Dulcolax) 10 Mg Supp.rect, 1 SUP GA DAILY PRN for CONSTIPATION Sodium Phosphate,Petroleum-Dibasic (Enema Ready To Use) 133 Ml Enema, 118 ML GA DAILYPRN PRN for CONSTIPATION Allergies Coded Allergies: No Known Allergies (Unverified , 10/21/19) A-FIB/CHADSVASC A-FIB History Current/History of A-Fib/PAF?: Yes Current PO Anticoag Therapy: No Treatment Treatment ordered: NONE Reason Anticoagulant not given: Other (family declined bc of hx of bleeding) Other reason anticoagulant not: family declined JEOVANY HU MD Mar 06, 2021 01:12
--- OUTSIDE RECORDS SUMMARY | 2021-03-06 01:21 | CCD ---
Author Author [facility] Organization [facility] Address Unknown Phone Unavailable Care Team Providers Care Car Supplier Name Role Phone ASHLEIGH Unavailable Unavailable Marvel [...] DPM Unavailable Unavailable Dr. RICHI CRABTREE Unavailable [phone] Dr. RICHI CRABTREE Unavailable [phone] Dr. RICHI CRABTREE Unavailable [phone] Luzma Calvin MD Unavailable Unavailable Luzma Calvin [...] Unavailable Unavailable Luzma Calvin MD Unavailable Unavailable uLzma Calvin MD Unavailable Unavailable Luzma Calvin MD [...] Unavailable Emily, M Caitlin PA-C Unavailable Unavailable Emliy, M Caitlin PA-C Unavailable Unavailable Emily, M [...] MD, FACS Unavailable Unavailable RICH, STEPHANE KEVIN DIRECTOR WHOLESALE-C, MSN Unavailable Unavailab le RICH, STEPHANE KEVIN DIRECTOR WHOLESALE-C, MSN Unavailable Unavailab le RICH, STEPHANE KEVIN DIRECTOR WHOLESALE-C, MSN Unavailable Unavailab le RICH, STEPHANE KEVIN DIRECTOR WHOLESALE-C, MSN Unavailable Unavailab le RICH, STEPHANE KEVIN DIRECTOR WHOLESALE-C, MSN Unavailable Unavailab le RICH, STEPHANE KEVIN DIRECTOR WHOLESALE-C, MSN Unavailable Unavailab le RICH, STEPHANE KEVIN DIRECTOR WHOLESALE-C, MSN Unavailable Unavailab le RICH, STEPHANE KEVIN DIRECTOR WHOLESALE-C, MSN Unavailable Unavailab le RICH, STEPHANE KEVIN DIRECTOR WHOLESALE-C, MSN Unavailable Unavailab le RICH, STEPHANE KEVIN DIRECTOR WHOLESALE-C, MSN Unavailable Unavailab le RICH, STEPHANE KEVIN DIRECTOR WHOLESALE-C, MSN Unavailable Unavailab le RICH, STEPHANE KEVIN DIRECTOR WHOLESALE-C, MSN Unavailable Unavailab le RICH, STEPHANE KEVIN DIRECTOR WHOLESALE-C, MSN Unavailable Unavailab le RICH, STEPHANE KEVIN DIRECTOR WHOLESALE-C, MSN Unavailable Unavailab le RICH, STEPHANE KEVIN DIRECTOR WHOLESALE-C, MSN Unavailable Unavailab le RICH, STEPHANE KEVIN DIRECTOR WHOLESALE-C, MSN Unavailable Unavailab le RICH, STEPHANE KEVIN DIRECTOR WHOLESALE-C, MSN Unavailable Unavailab le RICH, STEPHANE KEVIN DIRECTOR WHOLESALE-C, MSN Unavailable Unavailab le RICH, STEPHANE KEVIN DIRECTOR WHOLESALE-C, MSN Unavailable Unavailab le RICH, STEPHANE KEVIN DIRECTOR WHOLESALE-C, MSN Unavailable Unavailab le RICH, STEPHANE KEVIN DIRECTOR WHOLESALE-C, MSN Unavailable Unavailab le RICH, STEPHANE KEVIN DIRECTOR WHOLESALE-C, MSN Unavailable Unavailab le RICH, STEPHANE KEVIN DIRECTOR WHOLESALE-C, MSN Unavailable Unavailab le RICH, STEPHANE KEVIN DIRECTOR WHOLESALE-C, MSN Unavailable Unavailab le RICH, STEPHANE KEVIN DIRECTOR WHOLESALE-C, MSN Unavailable Unavailab le RICH, STEPHANE KEVIN DIRECTOR WHOLESALE-C, MSN Unavailable Unavailab le RICH, STEPHANE KEVIN DIRECTOR WHOLESALE-C, MSN Unavailable Unavailab le RICH, STEPHANE KEVIN DIRECTOR WHOLESALE-C, MSN Unavailable Unavailab le RICH, STEPHANE KEVIN DIRECTOR WHOLESALE-C, MSN Unavailable Unavailab le RICH, STEPHANE KEVIN DIRECTOR WHOLESALE-C, MSN Unavailable Unavailab le RICH, STEPHANE KEVIN DIRECTOR WHOLESALE-C, MSN Unavailable Unavailab le RICH, STEPHANE KEVIN DIRECTOR WHOLESALE-C, MSN Unavailable Unavailab le RICH, STEPHANE KEVIN DIRECTOR WHOLESALE-C, MSN Unavailable Unavailab le RICH, STEPHANE KEVIN DIRECTOR WHOLESALE-C, MSN Unavailable Unavailab le RICH, STEPHANE KEVIN DIRECTOR WHOLESALE-C, MSN Unavailable Unavailab le RICH, STEPHANE KEVIN DIRECTOR WHOLESALE-C, MSN Unavailable Unavailab le RICH, STEPHANE KEVIN DIRECTOR WHOLESALE-C, MSN Unavailable Unavailab le RICH, STEPHANE KEVIN DIRECTOR WHOLESALE-C, MSN Unavailable Unavailab le RICH, STEPHANE KEVIN DIRECTOR WHOLESALE-C, MSN Unavailable Unavailab le RICH, STEPHANE KEVIN DIRECTOR WHOLESALE-C, MSN Unavailable Unavailab le RICH, STEPHANE KEVIN DIRECTOR WHOLESALE-C, MSN Unavailable Unavailab le RICH, STEPHANE KEVIN DIRECTOR WHOLESALE-C, MSN Unavailable Unavailab le RICH, STEPHANE KEVIN DIRECTOR WHOLESALE-C, MSN Unavailable Unavailab le RICH, STEPHANE KEVIN DIRECTOR WHOLESALE-C, MSN Unavailable Unavailab le RICH, STEPHANE KEVIN DIRECTOR WHOLESALE-C, MSN Unavailable Unavailab PAMELA Keating MD Unavailable [...] Unavailable Unavailable PAMELA SOTELO MD Unavailable Unavailable Sofía Mary MD Unavailable Unavailable Sofía Mary MD Unavailable Unavailable Sofía Mary MD Unavailable Unavailable Sofía Mary MD Unavailable Unavailable Sofía Mary MD Unavailable Unavailable Sofía Mary MD Unavailable Unavailable Sofía Mary MD Unavailable Unavailable Sofía Mary MD Unavailable Unavailable Sofía Mary MD Unavailable Unavailable Sofía Mary MD Unavailable Unavailable Sofía Mary MD Unavailable Unavailable Tyra, Sofía Lagos MD [...] Unavailable Tyra, Sofía Lagos MD Unavailable Unavailable NASEEM, PRYJMA LUKE MD [...] PRYJMA LUKE MD Unavailable Unavailable NASEEM, PRYJMA LUEK MD Unavailable Unavailable NASEEM, PRYJMA LUKE MD [...] Unavailable NASEEM, PRYJMA LUKE MD Unavailable Unavailable Orr, Agustín PA Unavailable Unavailable Orr, Agustín PA Unavailable Unavailable Orr, Agustín PA Unavailable Unavailable Orr, Agustín PA Unavailable Unavailable Orr, Agustín PA Unavailable Unavailable Orr, Agustín PA Unavailable Unavailable Orr, Agustín PA Unavailable Unavailable Orr, Agustín PA Unavailable Unavailable Orr, Agustín PA Unavailable Unavailable Orr, Agustín PA Unavailable Unavailable Orr, Agustín PA Unavailable Unavailable Orr, Agustín PA Unavailable Unavailable Orr, Agustín PA Unavailable Unavailable Orr, Agustín PA Unavailable Unavailable Orr, Agustín PA Unavailable Unavailable Orr, Agustín PA Unavailable Unavailable Orr, Agustín PA Unavailable Unavailable Orr, Agustín PA Unavailable Unavailable DURAND, ELIA JON [...] RPA-C Unavailable Unavailable DENNIS ATKINSON Unavailable Unavailable KEELY, L CARRIE PA Unavailable [...] Unavailable KEELY, L CARRIE PA Unavailable Unavailable Fish, B Liu TANG Unavailable [...] Unavailable Fish, B Liu TANG Unavailable Unavailable Wood, W Jonathan RPA-C Unavailable [...] is protected by Article 27-F of the [facility] Public Health law. If you continue you may have access to information: Regarding HIV / AIDS; Provided by facilities licensed or operated by the [facility] Office of Mental Health; or Provided by the [facility] Office for People With Developmental Disabilities. If such information is present, then the following [facility] mandated warning applies: This information has [...] law may result in a fine or care home sentence or both. A general authorization for the release of medical or other information is NOT sufficient authorization for further disc losure. Allergies and Adverse Reactions Type Description Substance Reaction Status Data Source(s ) Allergy to substance No Known Allergies No known allergies (situation ) BONDUEL (Richi Barrera MD [facility]) Allergy to substance No Known Allergies No known allergies (situation ) [facility]ISON (Richi Barrera MD [facility]) Encounters Encounter Providers Location Date Indications Data Source(s ) [place] [address] [facility] [address] 12/15/2020 12:00:00 AM EDT eCW1 ([facility]) Outpatient Attender: SYEDA DICKERSON [facility] Office 06/21 07:30:00 AM EST [facility] [place] [address] [facility] [address] 06/16/2020 12:00:00 AM EST eCW1 ([facility]) [place] [address] [facility] [address] 03/15/2020 12:00:00 AM EDT eCW1 ([facility]) Outpatient [address] [facility] [address] 03/09/2020 12:00:00 AM EDT eCW1 ([facility]) <td ID="encounterTypeDescriptionID0">1 Y ear Follow-Up</td><td>Sofía Cantu DO</td><td>Richi Berg MD [facility]</td><td>03/04/2020</td><td>2:48PM</td><td>3:18PM</td><td><content ID="encounterDiagnosisID0-0">Borderline Glaucoma Open Angle with Borderline Findings Both Eyes</content>, <content ID="encounterDiagnosisID0-1">Dry Eye Syndrome Both Eyes</content>, <content ID="encounterDiagnosisID0-2">Retinopathy Hypertensive Both Eyes</content>, <content ID="encounterDiagnosisID0- 3">Essential Hypertension</content>, <content ID="encounterDiagnosisID0-4"> Corneal Dystrophy Endothelial Fuchs' Bilateral Eyes</content></td>Outpatient Attender: SOÍFA Anaya MD [facility] 03/04/2020 02:48:00 PM EDT - 03/04/2020 03:18:00 PM EDT Corneal Dystrophy Endothelial Fuchs' Pete ateral EyesCorneal Dystrophy Endothelial Fuchs' Bilateral EyesEssential HypertensionRetinopathy Hypertensive Both EyesDry Eye Syndrome Both Eyes Borderline Glaucoma Open Angle with Borderline Findings Both EyesEssential HypertensionRetinopathy Hypertensive Both EyesDry Eye Syndrome Both EyesBorderline Glaucoma Open Angle with Borderline Findings Both Eyes HARRISON (Richi Barrera MD [facility]) Corneal Dystrophy Endothelial Fuchs' Pete ateral Eyes Corneal Dystrophy Endothelial Fuchs' Pete ateral Eyes Essential Hypertension 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 Emergency Attender: SHASHA ATKINSONReferrer: CINDA MCMILLAN, MARIAMA EMERGENCY ROOM-ER 06/15/2018 07:47:00 AM [facility] - 06/15/2018 10:38:00 AM [facility] Emergency Attender: CARRIE RIGGS PAReferrer: Eduardo Calvin MD EMERGENCY ROOM-ER 08/07/2017 10:43:00 PM EDT - 08/08/2017 02:27:00 AM [facility] Outpatient Attender: Demond COXeferrer: KEVIN NOLAN, MARIAMA 07/09/2017 06:53:00 AM [facility] Outpatient Attender: JON DURAND RPA-CReferrer: MARIAMA WOODS EMERGENCY ROOM-LAB 03/04/2017 10:24:00 AM EDT - 03/04/2017 10:24:00 AM [facility] Outpatient Attender: Richi Manjarrez, FACSReferrer: MARIAMA THOMAS EMERGENCY ROOM-LABOTHPROV 10/08/2016 08:09:00 AM EDT - 10/08/2016 08:09:00 AM [facility] Inpatient Attender: Agustín Hernandez mitter: Dr. RICHI CRABTREEReferrer: JOSE SOTELO MD EMERGENCY ROOM-2N 11/18/2014 11:09:00 AM EDT - 11/21/2014 12:50:00 PM [facility] Emergency Attender: Jonathan Wood RPA-CReferrer: LOLITA SOTELO MD EMERGENCY ROOM-ER 11/18/2014 08:19:00 AM EDT - 11/18/2014 11:09:00 AM [facility] Outpatient Attender: Liu De La Rosa MDReferrer: JOSE SOTELO MD EMERGENCY ROOM-LABOTHPROV 01/08/2014 08:10:00 AM [facility] Outpatient Attender: ASHLEIGHReferrer: JOSE SOTELO MD 07/15/2013 01:00:00 PM [facility] Outpatient Attender: LUKE GUSMAN MDReferrer: JOSE Manjarrez 07/06/2013 06:52:00 PM [facility] Outpatient Attender: LUKE COXeferrer: JOSE Manjarrez 05/01/2013 04:09:00 PM [facility] Immunizations Vaccine Date Status Description Data Source(s) COVID-19 VACCINE Pfizer 06/14/2020 12:00:00 AM EST completed [facility] Vaccine Series Complete: YESThis Data wa s Submitted to [facility] Via [employer]. COVID-19 VACCINE Pfizer 05/24/2020 12:00:00 AM EST completed [facility] Vaccine Series Complete: NOThis Data was Submitted to [facility] Via [employer]. influenza, recombinant, quadrIvalent,injectable, prese rvative free 03/02/2020 02:14:00 PM EDT completed eCW1 ([facility]) influenza, recombinant, quadrIvalent,injectable, prese rvative free 03/02/2020 02:14:00 PM EDT completed eCW1 ([facility]) influenza, recombinant, quadrIvalent,injectable, prese rvative free 03/02/2020 02:14:00 PM EDT completed eCW1 ([facility]) influenza, recombinant, quadrIvalent,injectable, prese rvative free 03/02/2020 02:14:00 PM EDT completed eCW1 ([facility]) influenza, recombinant, quadrIvalent,injectable, prese rvative free 03/02/2020 02:14:00 PM EDT completed eCW1 ([facility]) Medications Medication Brand Name Start Date Product [...] type / Coverage type Policy ID Covered alliance party ID Covered alliance party's relationship to townsend Policy [place]send Plan Information [place]IC[place] - [place] [id number] [facility] HEALTH CARE OPTIONS [id number] SP [id number] [employer] MEDICARE DIVISION [id number] S [id number] [place]IC[place] [id number] S [id number] MEDICARE [id number] Archana [id number] [employer] MEDICARE DIVISION [id number] S [id number] [place] [id number] S [id number] MEDICARE A [id number] Self [id number] [employer] MEDICARE DIVISION [id number] S [id number] MEDICARE [id number] SP [id number] E62 MEDICARE [id number] SP [id number] [facility] HEALTH CARE OPTIONS [id number] SP [id number] [facility] [id number] Archana [id number] [facility] HEALTH CARE OPTIONS [id number] SP [id number] [facility] [id number] Self [id number] [facility] HEALTH CARE OPTIONS [id number] S [id number] [employer] MEDICARE DIVISION [id number] S [id number] [place]IC[place] [id number] S [id number] [place] MEDICARE DIVISION [id number] S [id number] SELF PAY UNAVAILABLE UNAVAILA BLE AAR HEALTH CARE OPTIONS [id number] SP [id number] ANSI-Medicare Part B [id number] ANSI-Commercial [id number] ANSI-Medicare Part B [id number] ANSI-Commercial [id number] ANSI-Commercial [id number] ANSI-Medicare Part B [id number] ANSI-Commercial [id number] ANSI-Medicare Part B [id number] ANSI-Commercial [id number] ANSI-Medicare Part B [id number] ANSI-Medicare Part B [id number] ANSI-Commercial [id number] ANSI-Medicare Part B [id number] ANSI-Commercial [id number] [employer] MEDICARE DIVISION [id number] S [id number] [place]ICARE - [place] [id number] S [id number] [facility] HEALTH CARE OPTIONS [id number] S [id number] ANSI-Commercial [id number] ANSI-Medicare Part B [id number] ANSI-Medicare Part B [id number] ANSI-Commercial [id number] ANSI-Medicare Part B [id number] ANSI-Commercial [id number] ANSI-Commercial [id number] ANSI-Medicare Part B [id number] ANSI-Commercial [id number] ANSI-Medicare Part B [id number] [id number] S [id number] AARP HEALTH CARE OPTIONS [id number] S [id number] MEDICARE [id number] S [id number] MEDICARE C [id number] S [id number] A AARP O [id number] S [id number] 1 MEDICARE [id number] SP [id number] A [employer] C [id number] S [id number] MEDICARE [id number] SP [id number] A [place] [facility] [place] P [id number] S [id number] [facility] P UNAVAILABLE S UNAVAILABLE [facility] MCRO [id number] SP [id number] A [facility] MEDICAID [id number] SP [id number] D [facility] [id number] SP [id number] Medicare Part B [facility] Other 0 [id number] Self 0 MEDICARE [id number] SP [id number] Medicare Part B [facility] Other 0 [id number] Self 0 [facility] [id number] SP [id number] MEDICARE COMPLETE [id number] SP [id number] EMED[place] [id number] SP [id number] AAR HEALTH CARE OPTIONS [id number] SP [id number] AARP HEALTH CARE OPTIONS [id number] SP [id number] AARP O [id number] S [id number] MEDICARE C [id number] S [id number] [employer] MEDICARE DIVISION [id number] S [id number] [facility] [id number] S [id number] Problems, Conditions, and Diagnoses Code Display Name Description Problem Type Effective Dates Data Source(s) F03.90 Unspecified dementia without behavioral disturbance UNSPECIFIED DEMENTIA WITHOUT BEHAVIORAL DISTURBANC Diagnosis 01/27/2020 03:29:00 PM EDT [facility] S81.802D Unspecified open wound, left lower leg, subsequent encounter UNSPECIFIED OPEN WOUND, LEFT LOWER LEG, SUBSEQUENT Diagnosis 01/2020 03:29:00 PM [facility] I48.91 Unspecified atrial fibrillation UNSPECIFIED ATRI AL FIBRILLATION Diagnosis 01/27/2020 03:29:00 PM [facility] E03.9 Hypothyroidism, unspecified HYPOTHYROIDISM, UNSPECIFIE D Diagnosis 01/27/2020 03:29:00 PM [facility] E78.2 Mixed hyperlipidemia MIXED HYPERLIPIDEMIA Diagnosis 01/27/2020 03:29:00 PM [facility] N18.3 Chronic kidney disease, stage 3 (moderat e) CHRONIC KIDNEY DISEASE, STAGE 3 (MODERATE) Diagnosis 01/27/2020 03:29:00 PM [facility] 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, or unspecified chronic kidney disease HYPERTENSIVE CHRONIC KIDNEY DISEASE W STG 1-4/UNSP CHR KDNY Diagnosis 01/27/2020 03:29:00 P M [facility] B35.1 Onychomycosis Onychomycosis Problem 07/19/2020 12:00:00 AM EST [facility] ([facility] I73.89 Peripheral vascular disease Peripheral vascular diseas e Problem 07/19/2020 12:00:00 AM EST [facility] ([facility] M79.676 Pain in limb Pain in limb Problem 07/19/2020 12:00:00 A M EST [facility] ([facility] [id number] Fuchs' corneal dystrophy (disorder) [place] eal Dystrophy Endothelial Fuchs' Bilateral Eyes Problem 03/04/2020 12:00:00 AM EDT [facility] (Loki Barrera MD [facility]) [id number] Fuchs' corneal dystrophy (disorder) [place] eal Dystrophy Endothelial Fuchs' Bilateral Eyes Problem 03/04/2020 12:00:00 AM EDT [facility] (Loki Barrera MD [facility]) 372.72 Subconjunctival Hemorrhage Subconjunctival Hemorrhage Problem 10/24/2016 12:00:00 AM EDT - 03/04/2020 12:00:00 AM EDT [facility] (Richi Barrera MD [facility]) 372.72 Subconjunctival Hemorrhage Subconjunctival Hemorrhage Problem 10/24/2016 12:00:00 AM EDT - 03/04/2020 12:00:00 AM EDT [facility] (Richi Barrera MD [facility]) Surgeries/Procedures Procedure Description Date Indications Data Source(s) DEBRIDEMENT NAIL ANY METHOD 10/10/2020 12:00:00 AM EDT [facility] Diabetic Foot Exam 07/11/2020 12:00:00 AM EST [facility] ([facility]) DEBRIDEMENT NAIL ANY METHOD 07/11/2020 12:00:00 AM EST [facility] ([facility] FINE NEEDLE ASPIRATION W/O IMAGING GUIDANCE 03/09/2020 12:00:00 AM EDT eCW1 ([facility]) No surgical / procedural history No surgical / procedural hi story 03/04/2020 12:00:00 AM EDT [facility] (Richi Barrera MD [facility]) Intermediate Eye Exam Established Patient Intermediate Eye Exam Established Patient 03/04/2020 12:00:00 AM EDT [facility] (Jeremy Barrera MD [facility]) FINE NEEDLE ASPIRATION W/O IMAGING GUIDANCE 03/02/2020 12:00:00 AM EDT eCW1 ([facility]) Results ID Date Data Source [id number] 02/27/2021 12:00:00 AM EDT [facility] Name Value Range Interpretation Code Description Data Susan rce(s) Supporting Document(s) SARS coronavirus 2 Ag NEGATIVE [facility] This lab was ordered by [facility] and reported by [facility]. ID Date Data Source [id number] 02/20/2021 12:00:00 AM EDT [facility] Name Value Range Interpretation Code Description Data Susan rce(s) Supporting Document(s) SARS coronavirus 2 Ag NEGATIVE [facility] This lab was ordered by [facility] and reported by [facility]. ID Date Data Source [id number] 02/08/2021 12:00:00 AM EDT [facility] Name Value Range Interpretation Code Description Data Susan rce(s) Supporting Document(s) SARS coronavirus 2 Ag NEGATIVE [facility] This lab was ordered by [facility] and reported by [facility]. ID Date Data Source [id number] 01/25/2021 12:00:00 AM EDT [facility] Name Value Range Interpretation Code Description Data Susan rce(s) Supporting Document(s) SARS coronavirus 2 Ag NEGATIVE [facility] This lab was ordered by [facility] and reported by [facility]. ID Date Data Source [id number] 10/27/2020 02:16:00 PM EDT [facility] ([facility]) Name Value Range Interpretation Code Description Data Susan rce(s) Supporting Document(s) Glucose, Fasting 99 mg/dL 70-100 [facility] ([facility]) Creatinine For GFR 1.29 mg/dL 0.70-1.30 MED[facility] ([facility]) Blood Urea Nitrogen 28 mg/dL 7-18 [facility] ([facility]) Sodium Level 138 meq/L 136-145 [facility] ([facility]) Glomerular Filtration Rate 55.8 MED ENT ([facility]) <content>Units are mL/min/1.73 m2</content>
<content></content>
<content>Chronic Kidney Disease Staging per NKF:</content>
<content></content>
<content>Stage I & II GFR >=60 Normal to Mildly Decreased</content>
<content>Stage III GFR 30-59 Moderately Decreased</content>
<content>Stage IV GFR 15-29 Severely Decreased</content>
<content>Stage V GFR <15 Very Little GFR Left</content>
<content>ESRD GFR <15 on INDEPENDENT JEWELER</content>
<content></content> Potassium Serum 4.1 meq/L 3.5-5.1 [facility] ([facility]) Chloride Level 102 meq/L 98-107 [facility] ([facility]) Carbon Dioxide Level 32 meq/L 21-32 [facility] ([facility]) Anion Gap 4 meq/L 8-16 [facility] ([place] [facility]) Calcium Level 9.1 mg/dL 8.8-10.2 [facility] ([facility]) Ast/Sgot 16 U/L 7-37 [facility] ([place] [facility]) Alt/SGPT 19 U/L 12-78 [facility] ([facility]) Bilirubin,Total 1.3 mg/dL 0.2-1.0 [facility] ([facility]) Alkaline Phosphatase 106 U/L 45-117 [facility] ([facility]) Total Protein 7.8 GM/DL 6.4-8.2 [facility] ([facility]) Albumin 3.5 GM/DL 3.2-5.2 [facility] ([place] [facility]) Albumin/Globulin Ratio 0.8 [facility] ([facility]) ID Date Data Source [id number] 10/27/2020 02:16:00 PM EDT [facility] ([facility]) Name Value Range Interpretation Code Description Data Susan e(s) Supporting Document(s) White Blood Count 6.3 10 4.0-10.0 [facility] ([facility]) Red Blood Count 3.29 10 4.30-6.10 [facility] ([facility]) Hematocrit 33.4 % 42.0-52.0 [facility] ([place] [facility]) Hemoglobin 10.8 g/dL 13.5-17.5 MEDENT ([facility]) Mean Corpuscular Hemoglobin 32.8 pg 27.0-33.0 ME DENT ([facility]) Mean Corpuscular Volume 101.5 fl 80.0-96.0 MEDENT ([facility]) Mean Corpuscular HGB Conc 32.3 g/dL 32.0-36.5 MEDE NT ([facility]) Red Cell Distribution Width 16.8 % 11.5-14.5 ME DENT ([facility]) Platelet Count, Automated 271 10 150-450 MEDE NT ([facility]) Neutrophils % 66.6 % 36.0-66.0 MEDENT ([facility]) Emery % 7.0 % 2.0-8.0 [facility] Lymph % 24.2 % 24.0-44.0 [facility] Eos % 1.4 % 0.0-3.0 [facility] [facility] Baso % 0.5 % 0.0-1.0 [facility] [facility] Immature Granulocyte % 0.3 % 0-3.0 MEDENT ([facility]) Neutrophils # 4.2 10 1.5-8.5 MEDENT ([facility]) Nucleated Red Blood Cell % 0.0 % 0-0 MED ENT ([facility]) Lymph # 1.5 10 1.5-5.0 [facility]) Emery # 0.4 10 0.0-0.8 [facility] Eos # 0.1 10 0.0-0.5 [facility] Baso # 0.0 10 0.0-0.2 [facility]) ID Date Data Source [id number] 10/20/2020 12:00:00 AM EDT [facility] Name Value Range Interpretation Code Description Data Susan rce(s) Supporting Document(s) SARS coronavirus 2 Ag NEGATIVE [facility] This lab was ordered by [facility] and reported by [facility]. ID Date Data Source [id number] 10/06/2020 12:00:00 AM EDT [facility] Name Value Range Interpretation Code Description Data Susan rce(s) Supporting Document(s) SARS coronavirus 2 Ag NEGATIVE [facility] This lab was ordered by [facility] and reported by [facility]. ID Date Data Source [id number] 10/03/2020 12:00:00 AM EDT [facility] Name Value Range Interpretation Code Description Data Susan rce(s) Supporting Document(s) SARS coronavirus 2 Ag NEGATIVE [facility] This lab was ordered by [facility] and reported by [facility]. ID Date Data Source [id number] 09/26/2020 12:00:00 AM EDT [facility] Name Value Range Interpretation Code Description Data Susan rce(s) Supporting Document(s) SARS coronavirus 2 Ag NEGATIVE [facility] This lab was ordered by [facility] and reported by [facility]. ID Date Data Source [id number] 09/13/2020 12:00:00 AM EDT [facility] Name Value Range Interpretation Code Description Data Susan rce(s) Supporting Document(s) SARS coronavirus 2 Ag NEGATIVE [facility] This lab was ordered by [facility] and reported by [facility]. ID Date Data Source [id number] 08/19/2020 07:12:00 AM EDT [facility] Name Value Range Interpretation Code Description Data Susan rce(s) Supporting Document(s) SARS-CoV-2 (COVID-19) RNA [Presence] in Respiratory specimen by RALPH with probe detection Not Detected [facility] This lab was ordered by [facility] and reported by [employer]. ID Date Data Source [id number] 08/03/2020 10:00:00 AM EDT [facility] Name Value Range Interpretation Code Description Data Susan rce(s) Supporting Document(s) SARS coronavirus 2 RNA Not Detected [facility] [place] This lab was ordered by [facility] and reported by [facility]. ID Date Data Source [id number] 07/28/2020 03:59:00 PM EST MEDENT ([facility]) Name Value Range Interpretation Code Description Data Susan rce(s) Supporting Document(s) Glucose, Fasting 128 mg/dL 70-100 [facility] ([facility]) Blood Urea Nitrogen 31 mg/dL 7-18 MED[facility] ([facility]) Creatinine For GFR 1.21 mg/dL 0.70-1.30 [facility] ([facility]) Sodium Level 137 meq/L 136-145 [facility] ([facility]) Glomerular Filtration Rate Laboratory test result [facility] <content>Units are mL/min/1.73 m2</content>
<content></content>
<content>Chronic Kidney Disease Staging per NKF:</content>
<content></content>
<content>Stage I & II GFR >=60 Normal to Mildly Decreased</content>
<content>Stage III GFR 30- 59 Moderately Decreased</content>
<content>Stage IV GFR 15-29 Severely Decreased</content>
<content>Stage V GFR <15 Very Little GFR Left</content>
<content>ESRD GFR <15 on INDEPENDENT JEWELER</content>
<content></content> Potassium Serum 4.2 meq/L 3.5-5.1 [facility]ENT ([facility]) Chloride Level 102 meq/L 98-107 MED[facility] ([facility]) Carbon Dioxide Level 31 meq/L 21-32 MED[facility] ([facility]) Anion Gap 4 meq/L 8-16 [facility] [facility]) Ast/Sgot 15 U/L 7-37 [facility] ([place] [facility]) Calcium Level 9.0 mg/dL 8.8-10.2 MEDENT ([facility]) Alkaline Phosphatase 111 U/L 45-117 [facility] ([facility]) Alt/SGPT 15 U/L 12-78 [facility] ([place] [facility]) Total Protein 7.4 GM/DL 6.4-8.2 [facility] ([facility]) Bilirubin,Total 0.9 mg/dL 0.2-1.0 [facility] ([facility]) Albumin/Globulin Ratio 1.0 [facility] ([facility]) Albumin 3.7 GM/DL 3.2-5.2 [facility] ([place] [facility]) ID Date Data Source [id number] 07/28/2020 03:59:00 PM EST MEDENT ([facility]) Name Value Range Interpretation Code Description Data Susan rce(s) Supporting Document(s) White Blood Count 5.9 10 4.0-10.0 MEDENT ([facility]) Hematocrit 34.4 % 42.0-52.0 MEDENT ([facility]) Red Blood Count 3.49 10 4.30-6.10 [facility] ([facility]) Hemoglobin 11.4 g/dL 13.5-17.5 [facility] Mean Corpuscular Volume 98.6 fl 80.0-96.0 MED[facility] ([facility]) Mean Corpuscular Hemoglobin 32.7 pg 27.0-33.0 DC DENT ([facility]) Red Cell Distribution Width 17.1 % 11.5-14.5 DC DENT ([facility]) Mean Corpuscular HGB Conc 33.1 g/dL 32.0-36.5 MEDE NT ([facility]) Platelet Count, Automated 286 10 150-450 MEDE NT ([facility]) Neutrophils % 61.2 % 36.0-66.0 [facility] ([facility]) Emery % 7.1 % 2.0-8.0 [facility]) Lymph % 29.8 % 24.0-44.0 [facility]) Eos % 1.3 % 0.0-3.0 [facility]) Baso % 0.3 % 0.0-1.0 [facility]) Immature Granulocyte % 0.3 % 0-3.0 MEDENT ([facility]) Nucleated Red Blood Cell % 0.0 % 0-0 MED ENT ([facility]) Neutrophils # 3.6 10 1.5-8.5 [facility] ([facility]) Lymph # 1.8 10 1.5-5.0 [facility] [facility]) Eos # 0.1 10 0.0-0.5 [facility] [facility]) Emery # 0.4 10 0.0-0.8 [facility] [facility]) Baso # 0.0 10 0.0-0.2 [facility] [facility]) ID Date Data Source [id number] 07/27/2020 07:00:00 AM EST [facility] Name Value Range Interpretation Code Description Data Susan rce(s) Supporting Document(s) SARS coronavirus 2 RNA Not Detected [facility] [place] This lab was ordered by [facility] and reported by [facility]. ID Date Data Source [id number] 07/13/2020 10:00:00 AM EST [facility] Name Value Range Interpretation Code Description Data Susan rce(s) Supporting Document(s) SARS coronavirus 2 RNA Not Detected [facility] [place] This lab was ordered by [facility] and reported by [facility]. ID Date Data Source [id number] 07/06/2020 09:30:00 AM EST [facility] Name Value Range Interpretation Code Description Data Susan rce(s) Supporting Document(s) SARS coronavirus 2 RNA Not Detected [facility] [place] This lab was ordered by [facility] and reported by [facility]. ID Date Data Source [id number] 06/29/2020 10:00:00 AM EST [facility] Name Value Range Interpretation Code Description Data Susan rce(s) Supporting Document(s) SARS coronavirus 2 RNA Not Detected [facility] [place] This lab was ordered by [facility] and reported by [facility]. ID Date Data Source [id number] 06/22/2020 10:00:00 AM EST [facility] Name Value Range Interpretation Code Description Data Susan rce(s) Supporting Document(s) SARS coronavirus 2 RNA Not Detected [facility] [place] This lab was ordered by [facility] and reported by [facility]. ID Date Data Source [id number] 06/15/2020 06:30:00 AM EST [facility] Name Value Range Interpretation Code Description Data Susan rce(s) Supporting Document(s) SARS coronavirus 2 RNA Not Detected [facility] [place] This lab was ordered by [facility] and reported by [facility]. ID Date Data Source [id number] 06/08/2020 09:00:00 AM EST [facility] Name Value Range Interpretation Code Description Data Susan rce(s) Supporting Document(s) SARS coronavirus 2 RNA Not Detected [facility] [place] This lab was ordered by [facility] and reported by [facility]. ID Date Data Source [id number] 2020 07:15:00 AM EST [facility] Name Value Range Interpretation Code Description Data Susan rce(s) Supporting Document(s) SARS coronavirus 2 RNA Not Detected [facility] [place] This lab was ordered by [facility] and reported by [facility]. ID Date Data Source [id number] 05/25/2020 10:00:00 AM EST [facility] Name Value Range Interpretation Code Description Data Susan rce(s) Supporting Document(s) SARS coronavirus 2 RNA Not Detected [facility] [place] This lab was ordered by [facility] and reported by [facility]. ID Date Data Source [id number] 05/18/2020 09:00:00 AM EST [facility] Name Value Range Interpretation Code Description Data Susan rce(s) Supporting Document(s) SARS coronavirus 2 RNA [facility] This lab was ordered by [facility] and reported by [facility]. ID Date Data Source [id number] 05/11/2020 01:15:00 PM EST [facility] Name Value Range Interpretation Code Description Data Susan rce(s) Supporting Document(s) SARS coronavirus 2 RNA [facility] This lab was ordered by [facility] and reported by [facility]. ID Date Data Source [id number] 05/04/2020 12:16:00 PM EST [facility] Name Value Range Interpretation Code Description Data Susan rce(s) Supporting Document(s) SARS coronavirus 2 RNA [facility] This lab was ordered by [facility] and reported by [facility]. ID Date Data Source [id number] 04/27/2020 12:00:00 PM EST [facility] Name Value Range Interpretation Code Description Data Susan rce(s) Supporting Document(s) SARS coronavirus 2 RNA [facility] This lab was ordered by [facility] and reported by [facility]. ID Date Data Source [id number] 04/20/2020 12:00:00 PM EST [facility] Name Value Range Interpretation Code Description Data Susan rce(s) Supporting Document(s) SARS coronavirus 2 RNA [facility] This lab was ordered by [facility] and reported by [facility]. ID Date Data Source [id number] 04/13/2020 11:00:00 AM EST [facility] Name Value Range Interpretation Code Description Data Susan rce(s) Supporting Document(s) SARS coronavirus 2 RNA [facility] This lab was ordered by [facility] and reported by [facility]. ID Date Data Source [id number] 04/06/2020 10:25:00 AM EST [facility] Name Value Range Interpretation Code Description Data Susan rce(s) Supporting Document(s) SARS coronavirus 2 RNA [facility] This lab was ordered by [facility] and reported by [facility]. ID Date Data Source [id number] 03/31/2020 12:37:00 PM EST [facility] Name Value Range Interpretation Code Description Data Susan rce(s) Supporting Document(s) SARS coronavirus 2 RNA [facility] This lab was ordered by [facility] and reported by [facility]. ID Date Data Source [id number] 03/24/2020 02:03:00 PM EST MEDENT ([facility]) Name Value Range Interpretation Code Description Data Susan rce(s) Supporting Document(s) Albumin % 52.2 % 55.8-66.1 [facility] [facility]) Kpuqp-0-Vfcgyixf % 4.9 % 2.9-4.9 [facility] Lhopp-1-Tforjkmwe % 9.8 % 7.1-11.8 [facility] ([facility] Ilrw-1-Saeqpxrwg % 17.0 % 3.2-6.5 [facility] ([facility] Oedh-0-Yxfxpcnjl % 5.9 % 4.7-7.2 MED[facility] ([facility]) Gamma Globulin % 10.2 % 11.1-18.8 MEDENT ([facility]) Kfdea-9-Hdgguxpqi 0.36 GM/DL 0.17-0.41 MED[facility] ([facility]) Albumin 3.81 GM/DL 3.29-5.55 [facility] Gamma Globulins 0.74 GM/DL 0.65-1.58 MED[facility] ([facility]) Idxpa-9-Ykqscidoc 0.72 GM/DL 0.42-0.99 MED[facility] ([facility] Lebe-0-Tcezwvjjm 1.24 GM/DL 0.19-0.55 MED[facility] Tugc-7-Kckyaedwe 0.43 GM/DL 0.28-0.60 MEDENT ([facility]) Spep Interpretation Laboratory test result MEDENT ([facility]) M-SPIKE NOTED IN BETA 2 REGION. CONCENTRATION = 0.72 GM/DL M-SPIKE NOTED IN MID-GAMMA REGION. CONCENTRATION = 0.44 GM/DL Total Protein 7.3 GM/DL 6.4-8.2 MEDENT ([facility]) Laboratory test finding (navigational concept) Laboratory test result [facility] ([facility]) ID Date Data Source [id number] 03/24/2020 02:03:00 PM EST MEDENT ([facility]) Name Value Range Interpretation Code Description Data Susan rce(s) Supporting Document(s) Immunotyping Serum Igm Laboratory test result MEDENT ([facility]) Laboratory test finding (navigational concept) Laboratory test result MED[facility] ([facility]) It Serum Interpretation Laboratory test result [facility] ([facility]) MONOCLONAL BANDS IGM KAPPA IN BETA 2, IG M KAPPA IN EARLY GAMMA Immunotyping Serum [place] Laboratory test result [facility] ID Date Data Source [id number] 03/24/2020 02:03:00 PM EST MEDENT ([facility]) Name Value Range Interpretation Code Description Data Susan rce(s) Supporting Document(s) Immunoglobulin A 377.0 mg/dL 70-400 MEDENT ([facility]) Immunoglobulin G 1020 mg/dL 681-1648 MEDENT ([facility]) Immunoglobulin M 1050.0 mg/dL 40-230 MEDENT ([facility]) ID Date Data Source [id number] 03/24/2020 02:03:00 PM EST MEDENT ([facility]) Name Value Range Interpretation Code Description Data Susan rce(s) Supporting Document(s) Blood Urea Nitrogen 30 mg/dL 7-18 MEDENT ([facility]) Glucose, Fasting 87 mg/dL 70-100 MEDENT ([facility]) Creatinine For GFR 1.31 mg/dL 0.70-1.30 MEDENT ([facility]) Potassium Serum 4.2 meq/L 3.5-5.1 [facility] ([facility]) Sodium Level 138 meq/L 136-145 MEDENT ([facility]) Glomerular Filtration Rate 55.0 MED ENT ([facility]) <content>Units are mL/min/1.73 m2</content>
<content></content>
<content>Chronic Kidney Disease Staging per NKF:</content>
<content></content>
<content>Stage I & II GFR >=60 Normal to Mildly Decreased</content>
<content>Stage III GFR 30- 59 Moderately Decreased</content>
<content>Stage IV GFR 15-29 Severely Decreased</content>
<content>Stage V GFR <15 Very Little GFR Left</content>
<content>ESRD GFR <15 on INDEPENDENT JEWELER</content>
<content></content> Anion Gap 6 meq/L 8-16 [facility] ([place] [facility]) Chloride Level 99 meq/L 98-107 MED[facility] ([facility]) Carbon Dioxide Level 33 meq/L 21-32 [facility] ( [facility] Alt/SGPT 17 U/L 12-78 [facility] ([place] [facility]) Calcium Level 9.0 mg/dL 8.8-10.2 [facility] ([facility]) Ast/Sgot 17 U/L 7-37 [facility] ([place] [facility]) Total Protein 7.3 GM/DL 6.4-8.2 MED[facility] ([facility]) Bilirubin,Total 1.3 mg/dL 0.2-1.0 MED[facility] ([facility]) Alkaline Phosphatase 110 U/L 45-117 MEDENT ([facility]) Albumin/Globulin Ratio 0.9 MED[facility] ([facility]) Albumin 3.5 GM/DL 3.2-5.2 [facility] ([place] [facility]) ID Date Data Source [id number] 03/24/2020 02:03:00 PM EST MEDENT ([facility]) Name Value Range Interpretation Code Description Data Susan rce(s) Supporting Document(s) Viscosity of Serum 1.8 rel.saline 1.4-2.1 MEDENT ([facility]) Values above 2.7 may indicate paraprotei nemia is present. Please note reference interval change Performed at: [address] [id number] [place]: Jeremias Chavez MD, Phone: [phone] ID Date Data Source [id number] 03/24/2020 02:03:00 PM EST MEDENT ([facility]) Name Value Range Interpretation Code Description Data Susan rce(s) Supporting Document(s) White Blood Count 6.5 10 4.0-10.0 MEDENT ([facility]) Red Blood Count 3.47 10 4.30-6.10 MED[facility] ([facility]) Mean Corpuscular Volume 100.6 fl 80.0-96.0 MEDENT ([facility]) Hematocrit 34.9 % 42.0-52.0 [facility] [facility] Hemoglobin 11.3 g/dL 13.5-17.5 [facility] Mean Corpuscular HGB Conc 32.4 g/dL 32.0-36.5 MEDE NT ([facility]) Mean Corpuscular Hemoglobin 32.6 pg 27.0-33.0 ME DENT ([facility]) Red Cell Distribution Width 16.2 % 11.5-14.5 ME DENT ([facility]) Lymph % 30.0 % 24.0-44.0 [facility] [facility]) Platelet Count, Automated 298 10 150-450 MEDE NT ([facility]) Neutrophils % 59.6 % 36.0-66.0 MED[facility] ([facility]) Eos % 2.2 % 0.0-3.0 [facility] [facility]) Emery % 7.7 % 0.0-5.0 [facility] [facility]) Baso % 0.2 % 0.0-1.0 [facility] ([place] [facility]) Neutrophils # 3.9 10 1.5-8.5 MEDENT ([facility]) Immature Granulocyte % 0.3 % 0-3.0 MEDENT ([facility]) Nucleated Red Blood Cell % 0.0 % 0-0 MED ENT ([facility]) Lymph # 2.0 10 1.5-5.0 [facility] [facility]) Eos # 0.1 10 0.0-0.5 [facility] [facility]) Emery # 0.5 10 0.0-0.8 [facility] ([place] [facility]) Baso # 0.0 10 0.0-0.2 [facility] ([place] [facility]) Procedure Social History Code Duration Value Status Description Data Source(s ) Smoking 01/22/2021 09:50:06 PM EDT Never smoked tobacco (findi ng) completed Never smoked tobacco (finding) [facility] (Richi Barrera MD [facility]) Smoking 12/15/2020 12:00:00 AM EDT Never Smoker completed Never S moker eCW1 ([facility]) Smoking 12/01/2020 01:51:37 PM EDT Never smoked tobacco (findi ng) completed Never smoked tobacco (finding) [facility] (Richi Barrera MD [facility]) Smoking 06/16/2020 12:00:00 AM EST Never Smoker completed Never S moker eCW1 ([facility]) Smoking 03/15/2020 12:00:00 AM EDT Never Smoker completed Never S moker eCW1 ([facility]) Smoking 03/15/2020 12:00:00 AM EDT Never Smoker completed Never S moker eCW1 ([facility]) Smoking 03/09/2020 12:00:00 AM EDT Never Smoker completed Never S moker eCW1 ([facility]) Vital Signs ID Date Data Source UNK Name Value Range Interpretation Code Description Data Source(s) Body weight 223.4 [lb_av] 223.4 [lb_av] eCW1 ([facility]) Body height 78 [in_i] 78 [in_i] W1 ([facility]) Body mass index (BMI) [Ratio] 25.81 kg/m2 25.81 kg/m2 [facility] ([facility]) Systolic blood pressure 124 mm[Hg] 124 mm[Hg] e CW1 ([facility]) Diastolic blood pressure 62 mm[Hg] 62 mm[Hg] eCW1 ([facility]) Body height 75 [in_i] 75 [in_i] MEDENT [...] [Ratio] 26.1 kg/m2 26.1 k g/m2 MEDENT ([facility] Diastolic blood pressure 62 mm[Hg] 62 mm[Hg] eCW1 ([facility]) Body weight 204.6 [lb_av] 204.6 [lb_av] eCW1 ([facility]) Body height 78 [in_i] 78 [in_i] eCW1 ([facility]) Body mass index (BMI) [Ratio] 23.64 kg/m2 23.64 kg/m2 eCW1 ([facility]) Systolic blood pressure 100 mm[Hg] 100 mm[Hg] e CW1 ([facility]) Body weight 191 [lb_av] 191 [lb_av] eCW1 ([facility]) Body height 78 [in_i] 78 [in_i] eCW1 ([facility]) Body mass index (BMI) [Ratio] 22.07 kg/m2 22.07 kg/m2 eCW1 ([facility]) Systolic blood pressure 118 mm[Hg] 118 mm[Hg] e CW1 ([facility]) Diastolic blood pressure 64 mm[Hg] 64 mm[Hg] eCW1 ([facility]) Respiratory rate 18 /min 18 /min eCW1 ([facility]) Body weight 180 [lb_av] 180 [lb_av] eCW1 ([facility]) Body weight kg eCW1 ([facility]) Body height 78 [in_i] 78 [in_i] eCW1 ([facility]) Body mass index (BMI) [Ratio] 20.80 kg/m2 20.80 kg/m2 eCW1 ([facility]) Heart rate 87 /min 87 /min eCW1 ([facility]) Body temperature 96.9 [degF] 96.9 [degF] eCW1 ( [facility]) Systolic blood pressure 136 mm[Hg] 136 mm[Hg] e CW1 ([facility]) Diastolic blood pressure 63 mm[Hg] 63 mm[Hg] eCW1 ([facility]) Body temperature 96.9 [degF] 96.9 [degF] eCW1 ( [facility]) Body weight 180 [lb_av] 180 [lb_av] eCW1 ([facility]) Body weight kg eCW1 ([facility]) Body height 78 [in_i] 78 [in_i] eCW1 ([facility]) Body mass index (BMI) [Ratio] 20.80 kg/m2 20.80 kg/m2 eCW1 ([facility]) Heart rate 98 /min 98 /min eCW1 ([facility]) Respiratory rate 16 /min 16 /min eCW1 ([facility]) Systolic blood pressure 141 mm[Hg] 141 mm[Hg] e CW1 ([facility]) Diastolic blood pressure 74 mm[Hg] 74 mm[Hg] eCW1 ([facility]) Body weight 86.184 kg 86.184 [facility] Systolic blood pressure 138 mm[Hg] 138 mm[Hg] M EDENT ([facility], ) Diastolic blood pressure 85 mm[Hg] 85 mm[Hg] MEDENT ([facility], ) Body height 78 [in_i] 78 [in_i] [facility] ([facility], ) 6'6" Body weight 190.00 [lb_av] 190.00 [lb_av] MEDEN T ([facility], ) Body mass index (BMI) [Ratio] 22.0 kg/m2 22.0 k g/m2 [facility] ([facility], ) [place] body weight 214 [lb_av] 214 [lb_av] MEDEN T ([facility], ) ID Date Data Source [id number] 01/27/2020 03:29:00 PM EDT [facility] l Name Value Range Interpretation Code Description Data Source(s) WEIGHT 80.156778 kilos 80.737147 [facility] HEIGHT 198.12 centimeters 198.12 centimeter [facility] WEIGHT 80.413823 kilos 80.206945 [facility] HEIGHT 198.12 centimeters 198.12 centimeter [facility]
--- OUTSIDE RECORDS SUMMARY | 2021-03-06 01:22 | CCD ---
Author Author [facility] Organization [facility] Address Unknown Phone Unavailable Care Team Providers Care Engineer Steam Name Role Phone ASHLEIGH Unavailable Unavailable Marvel [...] MAJAK, R SYEDA DPM Unavailable Unavailable Dr. RIHCI CRABTREE Unavailable [phone] Dr. RICHI CRABTREE Unavailable [phone] Dr. RICHI CRABTREE Unavailable [phone] Luzma Calvin MD Unavailable Unavailable Luzma Calvin [...] Unavailable Unavailable Luzma Calvin MD Unavailable Unavailable Lzuma Calvin MD Unavailable Unavailable Luzma Calvin MD [...] M Caitlin PA-C Unavailable Unavailable Emily, M Ciatlin PA-C Unavailable Unavailable Emily, M Caitlin PA-C [...] Aranda MD, FACS Unavailable Unavailable Escamilla Barrera, eNto Aranda MD, FACS Unavailable Unavailable Escamilla Barrera, Neto Aranda MD, FACS Unavailable Unavailable Escamilla Barrera, Neto Aranda MD, FACS Unavailable Unavailable Escamilla Barrera, Neto Aranda MD, FACS Unavailable Unavailable Escamilla Barrera, Neto Aranda MD, FACS Unavailable Unavailable Escamilla Barrera, Neto Arnada MD, FACS Unavailable Unavailable Escamilla Barrera, Neto [...] MD, FACS Unavailable Unavailable RICH, STEPHANE KEVIN [employer] DIRECTOR-C, MSN Unavailable Unavailab le RICH, STEPHANE KEVIN [employer] DIRECTOR-C, MSN Unavailable Unavailab le RICH, STEPHANE KEVIN [employer] DIRECTOR-C, MSN Unavailable Unavailab le RICH, STEPHANE KEVIN [employer] DIRECTOR-C, MSN Unavailable Unavailab le RICH, STEPHANE KEVIN [employer] DIRECTOR-C, MSN Unavailable Unavailab le RICH, STEPHANE KEVIN [employer] DIRECTOR-C, MSN Unavailable Unavailab le RICH, STEPHANE KEVIN [employer] DIRECTOR-C, MSN Unavailable Unavailab le RICH, STEPHANE KEVIN [employer] DIRECTOR-C, MSN Unavailable Unavailab le RICH, STEPHANE KEVIN [employer] DIRECTOR-C, MSN Unavailable Unavailab le RICH, STEPHANE KEVIN [employer] DIRECTOR-C, MSN Unavailable Unavailab le RICH, STEPHANE KEVIN [employer] DIRECTOR-C, MSN Unavailable Unavailab le RICH, STEPHANE KEVIN [employer] DIRECTOR-C, MSN Unavailable Unavailab le RICH, STEPHANE KEVIN [employer] DIRECTOR-C, MSN Unavailable Unavailab le RICH, STEPHANE KEVIN [employer] DIRECTOR-C, MSN Unavailable Unavailab le RICH, STEPHANE KEVIN [employer] DIRECTOR-C, MSN Unavailable Unavailab le RICH, STEPHANE KEIVN [employer]OL DIRECTOR-C, MSN Unavailable Unavailab le RICH, STEPHANE KEVIN [employer] DIRECTOR-C, MSN Unavailable Unavailab le RICH, STEPHANE KEVIN [employer] DIRECTOR-C, MSN Unavailable Unavailab le RICH, STEPHANE KEVIN [employer] DIRECTOR-C, MSN Unavailable Unavailab le RICH, STEPHANE KEVIN [employer] DIRECTOR-C, MSN Unavailable Unavailab le RICH, STEPHANE KEVIN [employer] DIRECTOR-C, MSN Unavailable Unavailab le RICH, STEPHANE KEVIN [employer] DIRECTOR-C, MSN Unavailable Unavailab le RICH, STEPHANE KEVIN [employer] DIRECTOR-C, MSN Unavailable Unavailab le RICH, STEPHANE KEVIN [employer] DIRECTOR-C, MSN Unavailable Unavailab le RICH, STEPHANE KEVIN [employer] DIRECTOR-C, MSN Unavailable Unavailab le RICH, STEPHANE KEVIN [employer] DIRECTOR-C, MSN Unavailable Unavailab le RICH, STEPHANE KEVIN [employer] DIRECTOR-C, MSN Unavailable Unavailab le RICH, STEPHANE KEVIN [employer] DIRECTOR-C, MSN Unavailable Unavailab le RICH, STEPHANE KEVIN [employer] DIRECTOR-C, MSN Unavailable Unavailab le RICH, STEPHANE KEVIN [employer] DIRECTOR-C, MSN Unavailable Unavailab le RICH, STEPHANE KEVIN [employer] DIRECTOR-C, MSN Unavailable Unavailab le RICH, STEPHANE KEVIN [employer] DIRECTOR-C, MSN Unavailable Unavailab le RICH, STEPHANE KEVIN [employer] DIRECTOR-C, MSN Unavailable Unavailab le RICH, STEPHANE KEVIN [employer] DIRECTOR-C, MSN Unavailable Unavailab le RICH, STEPHANE KEVIN [employer] DIRECTOR-C, MSN Unavailable Unavailab le RICH, STEPHANE KEVIN [employer] S[employer] DIRECTOR-C, MSN Unavailable Unavailab le RICH, STEPHANE KEVIN [employer] DIRECTOR-C, MSN Unavailable Unavailab le RICH, STEPHANE KEVIN [employer] DIRECTOR-C, MSN Unavailable Unavailab le RICH, STEPHANE KEVIN [employer] DIRECTOR-C, MSN Unavailable Unavailab le RICH, STEPHANE KEVIN [employer] DIRECTOR-C, MSN Unavailable Unavailab le RICH, STEPHANE KEVIN [employer] S[employer]OL DIRECTOR-C, MSN Unavailable Unavailab le RICH, STEPHANE KEVIN [employer] DIRECTOR-C, MSN Unavailable Unavailab le RICH, STEPHANE KEVIN [employer] DIRECTOR-C, MSN Unavailable Unavailab le RICH, STEPHANE KEVIN [employer] S[employer] DIRECTOR-C, MSN Unavailable Unavailab le RICH, STEPHANE KEVIN [employer] DIRECTOR-C, MSN Unavailable Unavailab PAMELA Keating MD Unavailable [...] Tyra, Sofía Lagos MD Unavailable Unavailable Tyra, Soífa Lagos MD Unavailable Unavailable Tyra, Sofía Lagos [...] Unavailable NASEEM, PRYJMA LUKE MD Unavailable Unavailable Daniels, Agustín PA Unavailable Unavailable Daniels, Agustín PA Unavailable Unavailable Daniels, Agustín PA Unavailable Unavailable Daniels, Agustín PA Unavailable Unavailable Daniels, Agustín PA Unavailable Unavailable Daniels, Agustní PA Unavailable Unavailable Daniels, Agustín PA Unavailable Unavailable Daniels, Agustín PA Unavailable Unavailable Daniels, Agustín PA Unavailable Unavailable Daniels, Agustín PA Unavailable Unavailable Daniels, Agustín PA Unavailable Unavailable Daniels, Agustín PA Unavailable Unavailable Daniels, Agustín PA Unavailable Unavailable Daniels, Agustín PA Unavailable Unavailable Daniels, Agustín PA Unavailable Unavailable Daniels, Agustín PA Unavailable Unavailable Daniels, Agustín PA Unavailable Unavailable Daniels, Agustín PA Unavailable Unavailable DURAND, ELIA JON [...] DURAND, ELIA JON RPA-C Unavailable Unavailable DURAND, LEIA JON RPA-C Unavailable Unavailable DURAND, ELIA JON [...] L CARRIE PA Unavailable Unavailable KEELY, L CRARIE PA Unavailable Unavailable KEELY, L CARRIE PA [...] is protected by Article 27-F of the [facility] Public Health law. If you continue you may have access to information: Regarding HIV / AIDS; Provided by facilities licensed or operated by the [facility] Office of Mental Health; or Provided by the [facility] Office for People With Developmental Disabilities. If such information is present, then the following [facility] mandated warning applies: This information has [...] law may result in a fine or chcf sentence or both. A general authorization for the release of medical or other information is NOT sufficient authorization for further disc losure. Allergies and Adverse Reactions Type Description Substance Reaction Status Data Source(s ) Allergy to substance No Known Allergies No known allergies (situation ) [place] (Richi Barrera MD [facility]) Allergy to substance No Known Allergies No known allergies (situation ) [place] (Richi Barrera MD [facility]) Encounters Encounter Providers Location Date Indications Data Source(s ) Outpatient [address] [facility] [address] 12/15/2020 12:00:00 AM EDT eCW1 ([facility]) Outpatient Attender: SYEDA DICKERSON [facility] Office 06/21 07:30:00 AM EST [facility] ([facility] [address] [facility] [address] 06/16/2020 12:00:00 AM EST eCW1 ([facility]) Outpatient [address] [facility] [address] 03/15/2020 12:00:00 AM EDT eCW1 ([facility]) Outpatient [address] [facility] [address] 03/09/2020 12:00:00 AM EDT eCW1 ([facility]) Outpatient<td ID="encounterTypeDescripti onID0">1 Year Follow-Up</td><td>Sofía Cantu DO</td><td>Richi Berg MD [facility]</td><td>03/04/2020</td><td>2:48PM</td><td>3:18PM</td><td><content ID="encounterDiagnosisID0-0">Borderline Glaucoma Open Angle with Borderline Findings Both Eyes</content>, <content ID="encounterDiagnosisID0-1">Dry Eye Syndrome Both Eyes</content>, <content ID="encounterDiagnosisID0-2">Retinopathy Hypertensive Both Eyes</content>, <content ID="encounterDiagnosisID0- 3">Essential Hypertension</content>, <content ID="encounterDiagnosisID0-4"> Corneal Dystrophy Endothelial Fuchs' Bilateral Eyes</content></td> Attender: SOFÍA Anaya MD [facility] 03/04/2020 02:48:00 PM EDT - 03/04/2020 03:18:00 PM EDT Corneal Dystrophy Endothelial Fuchs' [place] ateral EyesCorneal Dystrophy Endothelial Fuchs' Bilateral EyesEssential HypertensionRetinopathy Hypertensive Both EyesDry Eye Syndrome Both Eyes Borderline Glaucoma Open Angle with Borderline Findings Both EyesEssential HypertensionRetinopathy Hypertensive Both EyesDry Eye Syndrome Both EyesBorderline Glaucoma Open Angle with Borderline Findings Both Eyes [place] (Richi Barrera MD [facility]) Corneal Dystrophy Endothelial Fuchs' Pete ateral Eyes Corneal Dystrophy Endothelial Fuchs' Pete ateral Eyes Essential Hypertension 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 Borderline Glaucoma Open Angle with Bord sarah Findings Both Eyes Essential Hypertension 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 Emergency Attender: SHASHA ATKINSONReferrer: CINDA MCMILLAN, MARIAMA EMERGENCY ROOM-ER 06/15/2018 07:47:00 AM [facility] - 06/15/2018 10:38:00 AM [facility] Emergency Attender: CARRIE RIGGS PAReferrer: Eduardo Calvin MD EMERGENCY ROOM-ER 08/07/2017 10:43:00 PM EDT - 08/08/2017 02:27:00 AM [facility] Outpatient Attender: Demond COXeferrer: KEVIN NOLAN, MARIAMA 07/09/2017 06:53:00 AM [facility] Outpatient Attender: JON DURAND RPA-CReferrer: MARIAMA WOODS EMERGENCY ROOM-LAB 03/04/2017 10:24:00 AM EDT - 03/04/2017 10:24:00 AM [facility] Outpatient Attender: Richi Manjarrez, FACSReferrer: MARIAMA THOMAS EMERGENCY ROOM-LABOTHPROV 10/08/2016 08:09:00 AM EDT - 10/08/2016 08:09:00 AM [facility] Inpatient Attender: Agustín Hernandez mitter: Dr. RICHI CRABTREEReferrer: JOSE SOTELO MD EMERGENCY ROOM-2N 11/18/2014 11:09:00 AM EDT - 11/21/2014 12:50:00 PM [facility] Emergency Attender: Jonathan Wood RPA-CReferrer: LOLITA SOTELO MD EMERGENCY ROOM-ER 11/18/2014 08:19:00 AM EDT - 11/18/2014 11:09:00 AM [facility] Outpatient Attender: Liu De La Rosa MDReferrer: JOSE SOTELO MD EMERGENCY ROOM-LABOTHPROV 01/08/2014 08:10:00 AM [facility] Outpatient Attender: ASHLEIGHReferrer: JOSE SOTELO MD 07/15/2013 01:00:00 PM [facility] Outpatient Attender: LUKE GUSMAN MDReferrer: JOSE Manjarrez 07/06/2013 06:52:00 PM [facility] Outpatient Attender: LUKE COXeferrer: JOSE Manjarrez 05/01/2013 04:09:00 PM [facility] Immunizations Vaccine Date Status Description Data Source(s) COVID-19 VACCINE Pfizer 06/14/2020 12:00:00 AM EST completed [facility] Vaccine Series Complete: YESThis Data wa s Submitted to [facility] Via [employer]. COVID-19 VACCINE Pfizer 05/24/2020 12:00:00 AM EST completed [facility] Vaccine Series Complete: NOThis Data was Submitted to [facility] Via [employer]. influenza, recombinant, quadrIvalent,injectable, prese rvative free 03/02/2020 02:14:00 PM EDT completed eCW1 ([facility]) influenza, recombinant, quadrIvalent,injectable, prese rvative free 03/02/2020 02:14:00 PM EDT completed eCW1 ([facility]) influenza, recombinant, quadrIvalent,injectable, prese rvative free 03/02/2020 02:14:00 PM EDT completed eCW1 ([facility]) influenza, recombinant, quadrIvalent,injectable, prese rvative free 03/02/2020 02:14:00 PM EDT completed eCW1 ([facility]) influenza, recombinant, quadrIvalent,injectable, prese rvative free 03/02/2020 02:14:00 PM EDT completed eCW1 ([facility]) Medications Medication Brand Name Start [...] Policy [place] Plan Information [place]ICARE - [place] [id number] S [id number] [facility] HEALTH CARE OPTIONS [id number] SP [id number] [employer] MEDICARE DIVISION [id number] S [id number] [place] [id number] S [id number] MEDICARE [id number] Archana [id number] [employer] MEDICARE DIVISION [id number] S [id number] [place] [id number] S [id number] MEDICARE A [id number] Self [id number] E62 [place] MEDICARE DIVISION [id number] S [id number] MEDICARE [id number] SP [id number] E62 MEDICARE [id number] SP [id number] [facility] HEALTH CARE OPTIONS [id number] SP [id number] [facility] [id number] Archana [id number] [facility] HEALTH CARE OPTIONS [id number] SP [id number] [facility] [id number] Self [id number] [facility] HEALTH CARE OPTIONS [id number] S [id number] [employer] MEDICARE DIVISION [id number] S [id number] [place] [id number] S [id number] [place] MEDICARE DIVISION [id number] S [id number] SELF PAY UNAVAILABLE [facility] HEALTH CARE OPTIONS [id number] SP [id number] ANSI-Medicare Part B [id number] ANSI-Commercial [id number] ANSI-Medicare Part B [id number] ANSI-Commercial [id number] ANSI-Commercial [id number] ANSI-Medicare Part B [id number] ANSI-Commercial [id number] ANSI-Medicare Part B [id number] ANSI-Commercial [id number] ANSI-Medicare Part B [id number] ANSI-Medicare Part B [id number] ANSI-Commercial [id number] ANSI-Medicare Part B [id number] ANSI-Commercial [id number] [employer] MEDICARE DIVISION [id number] S [id number] MEDICARE - [place] [id number] S [id number] [facility] HEALTH CARE OPTIONS [id number] S [id number] ANSI-Commercial [id number] ANSI-Medicare Part B [id number] ANSI-Medicare Part B [id number] ANSI-Commercial [id number] ANSI-Medicare Part B [id number] ANSI-Commercial [id number] ANSI-Commercial [id number] ANSI-Medicare Part B [id number] ANSI-Commercial [id number] ANSI-Medicare Part B [id number] MCRB [id number] S [id number] E62 AARP HEALTH CARE OPTIONS [id number] S [id number] MEDICARE [id number] S [id number] E62 MEDICARE C [id number] S [id number] A AARP O [id number] MEDICARE [id number] SP [id number] A [employer] C [id number] S [id number] MEDICARE [id number] SP [id number] A [place] [facility] [place] P [id number] S [id number] [facility] P UNAVAILABLE S UNAVAILABLE [facility] MCRO [id number] SP [id number] A [facility] MEDICAID [id number] SP [id number] SP [id number] Medicare Part B [facility] Other 0 [id number] Self 0 MEDICARE [id number] SP [id number] E62 Medicare Part B [facility] Other 0 [id number] [id number] SP [id number] MEDICARE COMPLETE [id number] SP [id number] [place]ED[place] [id number] SP [id number] AAR HE[employer] CARE OPTIONS [id number] SP [id number] AARP HEALTH CARE OPTIONS [id number] SP [id number] AARP O [id number] S [id number] MEDICARE C [id number] S [id number] [employer] MEDICARE DIVISION [id number] S [id number] [facility] [id number] S [id number] Problems, Conditions, and Diagnoses Code Display Name Description Problem Type Effective Dates Data Source(s) F03.90 Unspecified dementia without behavioral disturbance UNSPECIFIED DEMENTIA WITHOUT BEHAVIORAL DISTURBANC Diagnosis 01/27/2020 03:29:00 PM EDT [facility] S81.802D Unspecified open wound, left lower leg, subsequent encounter UNSPECIFIED OPEN WOUND, LEFT LOWER LEG, SUBSEQUENT Diagnosis 01/2020 03:29:00 PM [facility] I48.91 Unspecified atrial fibrillation UNSPECIFIED ATRI AL FIBRILLATION Diagnosis 01/27/2020 03:29:00 PM [facility] E03.9 Hypothyroidism, unspecified HYPOTHYROIDISM, UNSPECIFIE D Diagnosis 01/27/2020 03:29:00 PM [facility] E78.2 Mixed hyperlipidemia MIXED HYPERLIPIDEMIA Diagnosis 01/27/2020 03:29:00 PM [facility] N18.3 Chronic kidney disease, stage 3 (moderat e) CHRONIC KIDNEY DISEASE, STAGE 3 (MODERATE) Diagnosis 01/27/2020 03:29:00 PM [facility] l 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, or unspecified chronic kidney disease HYPERTENSIVE CHRONIC KIDNEY DISEASE W STG 1-4/UNSP CHR KDNY Diagnosis 01/27/2020 03:29:00 P M [facility] B35.1 Onychomycosis Onychomycosis Problem 07/19/2020 12:00:00 AM EST [facility] ([facility] I73.89 Peripheral vascular disease Peripheral vascular diseas e Problem 07/19/2020 12:00:00 AM EST [facility] ([facility] M79.676 Pain in limb Pain in limb Problem 07/19/2020 12:00:00 A M EST [facility] ([facility] [id number] Fuchs' corneal dystrophy (disorder) [place] eal Dystrophy Endothelial Fuchs' Bilateral Eyes Problem 03/04/2020 12:00:00 AM EDT [place] (Loki Barrera MD [facility]) [id number] Fuchs' corneal dystrophy (disorder) [place] eal Dystrophy Endothelial Fuchs' Bilateral Eyes Problem 03/04/2020 12:00:00 AM EDT [place] (Loki Barrera MD [facility]) 372.72 Subconjunctival Hemorrhage Subconjunctival Hemorrhage Problem 10/24/2016 12:00:00 AM EDT - 03/04/2020 12:00:00 AM EDT [place] (Richi Barrera MD [facility]) 372.72 Subconjunctival Hemorrhage Subconjunctival Hemorrhage Problem 10/24/2016 12:00:00 AM EDT - 03/04/2020 12:00:00 AM EDT [place] (Richi Barrera MD [facility]) Surgeries/Procedures Procedure Description Date Indications Data Source(s) DEBRIDEMENT NAIL ANY METHOD 10/10/2020 12:00:00 AM EDT [facility] Diabetic Foot Exam 07/11/2020 12:00:00 AM EST [facility] ([facility]) DEBRIDEMENT NAIL ANY METHOD 07/11/2020 12:00:00 AM EST [facility] ([facility] FINE NEEDLE ASPIRATION W/O IMAGING GUIDANCE 03/09/2020 12:00:00 AM EDT eCW1 ([facility]) No surgical / procedural history No surgical / procedural hi story 03/04/2020 12:00:00 AM EDT [place] (Richi Barrera MD [facility]) Intermediate Eye Exam Established Patient Intermediate Eye Exam Established Patient 03/04/2020 12:00:00 AM EDT [place] (Jeremy Barrera MD [facility]) FINE NEEDLE ASPIRATION W/O IMAGING GUIDANCE 03/02/2020 12:00:00 AM EDT eCW1 ([facility]) Results ID Date Data Source [id number] 02/27/2021 12:00:00 AM EDT [facility] Name Value Range Interpretation Code Description Data Susan rce(s) Supporting Document(s) SARS coronavirus 2 Ag NEGATIVE [facility] This lab was ordered by [facility] and reported by [facility]. ID Date Data Source [id number] 02/20/2021 12:00:00 AM EDT [facility] Name Value Range Interpretation Code Description Data Susan rce(s) Supporting Document(s) SARS coronavirus 2 Ag NEGATIVE [facility] This lab was ordered by [facility] and reported by [facility]. ID Date Data Source 105 02/08/2021 12:00:00 AM EDT [facility] Name Value Range Interpretation Code Description Data Susan rce(s) Supporting Document(s) SARS coronavirus 2 Ag NEGATIVE [facility] This lab was ordered by [facility] and reported by [facility]. ID Date Data Source [id number] 01/25/2021 12:00:00 AM EDT [facility] Name Value Range Interpretation Code Description Data Susan rce(s) Supporting Document(s) SARS coronavirus 2 Ag NEGATIVE [facility] This lab was ordered by [facility] and reported by [facility]. ID Date Data Source [id number] 10/27/2020 02:16:00 PM EDT [facility] ([facility]) Name Value Range Interpretation Code Description Data Susan rce(s) Supporting Document(s) Glucose, Fasting 99 mg/dL 70-100 [facility] ([facility]) Creatinine For GFR 1.29 mg/dL 0.70-1.30 [facility] ([facility]) Blood Urea Nitrogen 28 mg/dL 7-18 [facility] ([facility]) Sodium Level 138 meq/L 136-145 [facility] ([facility]) Glomerular Filtration Rate 55.8 [facility] ([facility]) <content>Units are mL/min/1.73 m2</content>
<content></content>
<content>Chronic Kidney Disease Staging per NKF:</content>
<content></content>
<content>Stage I & II GFR >=60 Normal to Mildly Decreased</content>
<content>Stage III GFR 30-59 Moderately Decreased</content>
<content>Stage IV GFR 15-29 Severely Decreased</content>
<content>Stage V GFR <15 Very Little GFR Left</content>
<content>ESRD GFR <15 on [employer]</content>
<content></content> Potassium Serum 4.1 meq/L 3.5-5.1 [facility] ([facility]) Chloride Level 102 meq/L 98-107 [facility] ([facility]) Carbon Dioxide Level 32 meq/L 21-32 [facility] ([facility]) Anion Gap 4 meq/L 8-16 [facility] ([facility]) Calcium Level 9.1 mg/dL 8.8-10.2 [facility] ([facility]) Ast/Sgot 16 U/L 7-37 [facility] ([facility]) Alt/SGPT 19 U/L 12-78 [facility] ([facility]) Bilirubin,Total 1.3 mg/dL 0.2-1.0 [facility] ([facility]) Alkaline Phosphatase 106 U/L 45-117 [facility] ([facility]) Total Protein 7.8 GM/DL 6.4-8.2 [facility] ([facility]) Albumin 3.5 GM/DL 3.2-5.2 [facility] ([facility]) Albumin/Globulin Ratio 0.8 [facility] ([facility]) ID Date Data Source [id number] 10/27/2020 02:16:00 PM EDT [facility] ([facility]) Name Value Range Interpretation Code Description Data Susan e(s) Supporting Document(s) White Blood Count 6.3 10 4.0-10.0 MEDENT ([facility]) Red Blood Count 3.29 10 4.30-6.10 MEDENT ([facility]) Hematocrit 33.4 % 42.0-52.0 MEDENT ([facility]) Hemoglobin 10.8 g/dL 13.5-17.5 MEDENT ([facility]) Mean Corpuscular Hemoglobin 32.8 pg 27.0-33.0 ME DENT ([facility]) Mean Corpuscular Volume 101.5 fl 80.0-96.0 MEDENT ([facility]) Mean Corpuscular HGB Conc 32.3 g/dL 32.0-36.5 MEDE NT ([facility]) Red Cell Distribution Width 16.8 % 11.5-14.5 ME DENT ([facility]) Platelet Count, Automated 271 10 150-450 MEDE NT ([facility]) Neutrophils % 66.6 % 36.0-66.0 MEDENT ([facility]) [place] % 7.0 % 2.0-8.0 [facility]) Lymph % 24.2 % 24.0-44.0 [facility]) Eos % 1.4 % 0.0-3.0 [facility] Baso % 0.5 % 0.0-1.0 [facility] Immature Granulocyte % 0.3 % 0-3.0 MEDENT ([facility]) Neutrophils # 4.2 10 1.5-8.5 MEDENT ([facility]) Nucleated Red Blood Cell % 0.0 % 0-0 MED ENT ([facility]) Lymph # 1.5 10 1.5-5.0 [facility]) [place] # 0.4 10 0.0-0.8 [facility]) Eos # 0.1 10 0.0-0.5 [facility]) Baso # 0.0 10 0.0-0.2 [facility]) ID Date Data Source [id number] 10/20/2020 12:00:00 AM EDT [facility] Name Value Range Interpretation Code Description Data Susan rce(s) Supporting Document(s) SARS coronavirus 2 Ag NEGATIVE [facility] This lab was ordered by [facility] and reported by [facility]. ID Date Data Source [id number] 10/06/2020 12:00:00 AM EDT [facility] Name Value Range Interpretation Code Description Data Susan rce(s) Supporting Document(s) SARS coronavirus 2 Ag NEGATIVE [facility] This lab was ordered by [facility] and reported by [facility]. ID Date Data Source [id number] 10/03/2020 12:00:00 AM EDT [facility] Name Value Range Interpretation Code Description Data Susan rce(s) Supporting Document(s) SARS coronavirus 2 Ag NEGATIVE [facility] This lab was ordered by [facility] and reported by [facility]. ID Date Data Source [id number] 09/26/2020 12:00:00 AM EDT [facility] Name Value Range Interpretation Code Description Data Susan rce(s) Supporting Document(s) SARS coronavirus 2 Ag NEGATIVE [facility] This lab was ordered by [facility] and reported by [facility]. ID Date Data Source [id number] 09/13/2020 12:00:00 AM EDT [facility] Name Value Range Interpretation Code Description Data Susan rce(s) Supporting Document(s) SARS coronavirus 2 Ag NEGATIVE [facility] This lab was ordered by [facility] and reported by [facility]. ID Date Data Source [id number] 08/19/2020 07:12:00 AM EDT [facility] Name Value Range Interpretation Code Description Data Susan rce(s) Supporting Document(s) SARS-CoV-2 (COVID-19) RNA [Presence] in Respiratory specimen by RALPH with probe detection Not Detected [facility] This lab was ordered by [facility] and reported by [facility]. ID Date Data Source [id number] 08/03/2020 10:00:00 AM EDT [facility] Name Value Range Interpretation Code Description Data Susan rce(s) Supporting Document(s) SARS coronavirus 2 RNA Not Detected [facility] [place] This lab was ordered by [facility] and reported by [facility]. ID Date Data Source [id number] 07/28/2020 03:59:00 PM EST MEDENT ([facility]) Name Value Range Interpretation Code Description Data Susan rce(s) Supporting Document(s) Glucose, Fasting 128 mg/dL 70-100 MEDENT ([facility]) Blood Urea Nitrogen 31 mg/dL 7-18 MEDENT ([facility]) Creatinine For GFR 1.21 mg/dL 0.70-1.30 MEDENT ([facility]) Sodium Level 137 meq/L 136-145 MEDENT ([facility]) Glomerular Filtration Rate Laboratory test result [facility] <content>Units are mL/min/1.73 m2</content>
<content></content>
<content>Chronic Kidney Disease Staging per NKF:</content>
<content></content>
<content>Stage I & II GFR >=60 Normal to Mildly Decreased</content>
<content>Stage III GFR 30- 59 Moderately Decreased</content>
<content>Stage IV GFR 15-29 Severely Decreased</content>
<content>Stage V GFR <15 Very Little GFR Left</content>
<content>ESRD GFR <15 on GREENHOUSE FLORIST</content>
<content></content> Potassium Serum 4.2 meq/L 3.5-5.1 MEDENT ([facility]) Chloride Level 102 meq/L 98-107 MEDENT ([facility]) Carbon Dioxide Level 31 meq/L 21-32 MEDENT ([facility]) Anion Gap 4 meq/L 8-16 MEDENT ([facility]) Ast/Sgot 15 U/L 7-37 MEDENT ([facility]) Calcium Level 9.0 mg/dL 8.8-10.2 MEDENT ([facility]) Alkaline Phosphatase 111 U/L 45-117 MEDENT ([facility]) Alt/SGPT 15 U/L 12-78 MEDENT ([facility]) Total Protein 7.4 GM/DL 6.4-8.2 MEDENT ([facility]) Bilirubin,Total 0.9 mg/dL 0.2-1.0 MEDENT ([facility]) Albumin/Globulin Ratio 1.0 MEDENT ([facility]) Albumin 3.7 GM/DL 3.2-5.2 MEDENT ([facility]) ID Date Data Source [id number] 07/28/2020 03:59:00 PM EST MEDENT ([facility]) Name Value Range Interpretation Code Description Data Susan rce(s) Supporting Document(s) White Blood Count 5.9 10 4.0-10.0 MEDENT ([facility]) Hematocrit 34.4 % 42.0-52.0 MEDENT ([facility]) Red Blood Count 3.49 10 4.30-6.10 MEDENT ([facility]) Hemoglobin 11.4 g/dL 13.5-17.5 [facility] Mean Corpuscular Volume 98.6 fl 80.0-96.0 MEDENT ([facility]) Mean Corpuscular Hemoglobin 32.7 pg 27.0-33.0 [place] ([facility]) Red Cell Distribution Width 17.1 % 11.5-14.5 [place] [facility] ([facility]) Mean Corpuscular HGB Conc 33.1 g/dL 32.0-36.5 MEDE NT ([facility]) Platelet Count, Automated 286 10 150-450 MEDE NT ([facility]) Neutrophils % 61.2 % 36.0-66.0 [facility] ([facility]) [place] % 7.1 % 2.0-8.0 [facility]) Lymph % 29.8 % 24.0-44.0 [facility]) Eos % 1.3 % 0.0-3.0 [facility]) Baso % 0.3 % 0.0-1.0 [facility]) Immature Granulocyte % 0.3 % 0-3.0 MEDENT ([facility]) Nucleated Red Blood Cell % 0.0 % 0-0 MED ENT ([facility]) Neutrophils # 3.6 10 1.5-8.5 [facility] ([facility]) Lymph # 1.8 10 1.5-5.0 [facility]) Eos # 0.1 10 0.0-0.5 [facility]) [place] # 0.4 10 0.0-0.8 [facility]) Baso # 0.0 10 0.0-0.2 [facility]) ID Date Data Source [id number] 07/27/2020 07:00:00 AM EST [facility] Name Value Range Interpretation Code Description Data Susan rce(s) Supporting Document(s) SARS coronavirus 2 RNA Not Detected [facility] [place] This lab was ordered by [facility] and reported by [facility]. ID Date Data Source [id number] 07/13/2020 10:00:00 AM EST [facility] Name Value Range Interpretation Code Description Data Susan rce(s) Supporting Document(s) SARS coronavirus 2 RNA Not Detected [facility] [place] This lab was ordered by [facility] and reported by [facility]. ID Date Data Source [id number] 07/06/2020 09:30:00 AM EST [facility] Name Value Range Interpretation Code Description Data Susan rce(s) Supporting Document(s) SARS coronavirus 2 RNA Not Detected [facility] [place] This lab was ordered by [facility] and reported by [facility]. ID Date Data Source [id number] 06/29/2020 10:00:00 AM EST [facility] Name Value Range Interpretation Code Description Data Susan rce(s) Supporting Document(s) SARS coronavirus 2 RNA Not Detected [facility] [place] This lab was ordered by [facility] and reported by [facility]. ID Date Data Source [id number] 06/22/2020 10:00:00 AM EST [facility] Name Value Range Interpretation Code Description Data Susan rce(s) Supporting Document(s) SARS coronavirus 2 RNA Not Detected [facility] [place] This lab was ordered by [facility] and reported by [facility]. ID Date Data Source [id number] 06/15/2020 06:30:00 AM EST [facility] Name Value Range Interpretation Code Description Data Susan rce(s) Supporting Document(s) SARS coronavirus 2 RNA Not Detected [facility] [place] This lab was ordered by [facility] and reported by [facility]. ID Date Data Source [id number] 06/08/2020 09:00:00 AM EST [facility] Name Value Range Interpretation Code Description Data Susan rce(s) Supporting Document(s) SARS coronavirus 2 RNA Not Detected [facility] [place] This lab was ordered by [facility] and reported by [facility]. ID Date Data Source [id number] 2020 07:15:00 AM EST [facility] Name Value Range Interpretation Code Description Data Susan rce(s) Supporting Document(s) SARS coronavirus 2 RNA Not Detected [facility] [place] This lab was ordered by [facility] and reported by [facility]. ID Date Data Source [id number] 05/25/2020 10:00:00 AM EST [facility] Name Value Range Interpretation Code Description Data Susan rce(s) Supporting Document(s) SARS coronavirus 2 RNA Not Detected [facility] [place] This lab was ordered by [facility] and reported by [facility]. ID Date Data Source [id number] 05/18/2020 09:00:00 AM EST [facility] Name Value Range Interpretation Code Description Data Susan rce(s) Supporting Document(s) SARS coronavirus 2 RNA [facility] This lab was ordered by [facility] and reported by [facility]. ID Date Data Source [id number] 05/11/2020 01:15:00 PM EST [facility] Name Value Range Interpretation Code Description Data Susan rce(s) Supporting Document(s) SARS coronavirus 2 RNA [facility] This lab was ordered by [facility] and reported by [facility]. ID Date Data Source [id number] 05/04/2020 12:16:00 PM EST [facility] Name Value Range Interpretation Code Description Data Susan rce(s) Supporting Document(s) SARS coronavirus 2 RNA [facility] This lab was ordered by [facility] and reported by [facility]. ID Date Data Source [id number] 04/27/2020 12:00:00 PM EST [facility] Name Value Range Interpretation Code Description Data Susan rce(s) Supporting Document(s) SARS coronavirus 2 RNA [facility] This lab was ordered by [facility] and reported by [facility]. ID Date Data Source [id number] 04/20/2020 12:00:00 PM EST [facility] Name Value Range Interpretation Code Description Data Susan rce(s) Supporting Document(s) SARS coronavirus 2 RNA [facility] This lab was ordered by [facility] and reported by [facility]. ID Date Data Source [id number] 04/13/2020 11:00:00 AM EST [facility] Name Value Range Interpretation Code Description Data Susan rce(s) Supporting Document(s) SARS coronavirus 2 RNA [facility] This lab was ordered by [facility] and reported by [facility]. ID Date Data Source [id number] 04/06/2020 10:25:00 AM EST [facility] Name Value Range Interpretation Code Description Data Susan rce(s) Supporting Document(s) SARS coronavirus 2 RNA [facility] This lab was ordered by [facility] and reported by [facility]. ID Date Data Source [id number] 03/31/2020 12:37:00 PM EST [facility] Name Value Range Interpretation Code Description Data Susan rce(s) Supporting Document(s) SARS coronavirus 2 RNA [facility] This lab was ordered by [facility] and reported by [facility]. ID Date Data Source [id number] 03/24/2020 02:03:00 PM EST MEDENT ([facility]) Name Value Range Interpretation Code Description Data Susan rce(s) Supporting Document(s) Albumin % 52.2 % 55.8-66.1 [facility] ([facility]) Kglso-5-Frwekxtj % 4.9 % 2.9-4.9 [facility] Djfas-6-Mpqunvbfm % 9.8 % 7.1-11.8 [facility] Ywkc-0-Brsnzkiea % 17.0 % 3.2-6.5 MEDENT ([facility] Uncg-1-Mauyeedlo % 5.9 % 4.7-7.2 MEDENT ([facility]) Gamma Globulin % 10.2 % 11.1-18.8 MEDENT ([facility]) Utodi-0-Lrpkzefmr 0.36 GM/DL 0.17-0.41 MEDENT ([facility]) Albumin 3.81 GM/DL 3.29-5.55 [facility]) Gamma Globulins 0.74 GM/DL 0.65-1.58 MEDENT ([facility]) Cdaqz-4-Bviiolljd 0.72 GM/DL 0.42-0.99 MEDENT ([facility] Mreq-5-Ircanwhcr 1.24 GM/DL 0.19-0.55 MED[facility] ([facility] Aguo-4-Fuyohqffu 0.43 GM/DL 0.28-0.60 MEDENT ([facility]) Spep Interpretation Laboratory test result MEDENT ([facility]) M-SPIKE NOTED IN BETA 2 REGION. CONCENTRATION = 0.72 GM/DL M-SPIKE NOTED IN MID-GAMMA REGION. CONCENTRATION = 0.44 GM/DL Total Protein 7.3 GM/DL 6.4-8.2 MEDENT ([facility]) Laboratory test finding (navigational concept) Laboratory test result MED[facility] ([facility]) ID Date Data Source [id number] 03/24/2020 02:03:00 PM EST MEDENT ([facility]) Name Value Range Interpretation Code Description Data Susan rce(s) Supporting Document(s) Immunotyping Serum Igm Laboratory test result MEDENT ([facility]) Laboratory test finding (navigational concept) Laboratory test result MEDENT ([facility]) It Serum Interpretation Laboratory test result MEDENT ([facility]) MONOCLONAL BANDS IGM KAPPA IN BETA 2, IG M KAPPA IN EARLY GAMMA Immunotyping Serum [place] Laboratory [facility] ID Date Data Source [id number] 03/24/2020 02:03:00 PM EST MEDENT ([facility]) Name Value Range Interpretation Code Description Data Susan rce(s) Supporting Document(s) Immunoglobulin A 377.0 mg/dL 70-400 MEDENT ([facility]) Immunoglobulin G 1020 mg/dL 681-1648 MEDENT ([facility]) Immunoglobulin M 1050.0 mg/dL 40-230 MEDENT ([facility]) ID Date Data Source [id number] 03/24/2020 02:03:00 PM EST MEDENT ([facility]) Name Value Range Interpretation Code Description Data Susan rce(s) Supporting Document(s) Blood Urea Nitrogen 30 mg/dL 7-18 MEDENT ([facility]) Glucose, Fasting 87 mg/dL 70-100 MEDENT ([facility]) Creatinine For GFR 1.31 mg/dL 0.70-1.30 MEDENT ([facility]) Potassium Serum 4.2 meq/L 3.5-5.1 MEDENT ([facility]) Sodium Level 138 meq/L 136-145 MEDENT ([facility]) Glomerular Filtration Rate 55.0 MED ENT ([facility]) <content>Units are mL/min/1.73 m2</content>
<content></content>
<content>Chronic Kidney Disease Staging per NKF:</content>
<content></content>
<content>Stage I & II GFR >=60 Normal to Mildly Decreased</content>
<content>Stage III GFR 30- 59 Moderately Decreased</content>
<content>Stage IV GFR 15-29 Severely Decreased</content>
<content>Stage V GFR <15 Very Little GFR Left</content>
<content>ESRD GFR <15 on GREENHOUSE FLORIST</content>
<content></content> Anion Gap 6 meq/L 8-16 MEDENT ([facility]) Chloride Level 99 meq/L 98-107 MEDENT ([facility]) Carbon Dioxide Level 33 meq/L 21-32 [facility] Alt/SGPT 17 U/L 12-78 MED[facility] ([facility]) Calcium Level 9.0 mg/dL 8.8-10.2 MEDENT ([facility]) Ast/Sgot 17 U/L 7-37 MEDENT ([facility]) Total Protein 7.3 GM/DL 6.4-8.2 MEDENT ([facility]) Bilirubin,Total 1.3 mg/dL 0.2-1.0 MEDENT ([facility]) Alkaline Phosphatase 110 U/L 45-117 MEDENT ([facility]) Albumin/Globulin Ratio 0.9 MED[facility] ([facility]) Albumin 3.5 GM/DL 3.2-5.2 MED[facility] ([facility]) ID Date Data Source [id number] 03/24/2020 02:03:00 PM EST MEDENT ([facility]) Name Value Range Interpretation Code Description Data Susan rce(s) Supporting Document(s) Viscosity of Serum 1.8 rel.saline 1.4-2.1 MEDENT ([facility]) Values above 2.7 may indicate paraprotei nemia is present. Please note reference interval change Performed at: [address] [id number] [address] [place] Ob: Jeremias Chavez MD, Phone: [phone] ID Date Data Source [id number] 03/24/2020 02:03:00 PM EST MEDENT ([facility]) Name Value Range Interpretation Code Description Data Susan rce(s) Supporting Document(s) White Blood Count 6.5 10 4.0-10.0 MEDENT ([facility]) Red Blood Count 3.47 10 4.30-6.10 MEDENT ([facility]) Mean Corpuscular Volume 100.6 fl 80.0-96.0 MEDENT ([facility]) Hematocrit 34.9 % 42.0-52.0 [facility]) Hemoglobin 11.3 g/dL 13.5-17.5 [facility]) Mean Corpuscular HGB Conc 32.4 g/dL 32.0-36.5 MEDE NT ([facility]) Mean Corpuscular Hemoglobin 32.6 pg 27.0-33.0 ME DENT ([facility]) Red Cell Distribution Width 16.2 % 11.5-14.5 ME DENT ([facility]) Lymph % 30.0 % 24.0-44.0 [facility]) Platelet Count, Automated 298 10 150-450 MEDE NT ([facility]) Neutrophils % 59.6 % 36.0-66.0 MEDENT ([facility]) Eos % 2.2 % 0.0-3.0 [facility] ([facility]) [place] % 7.7 % 0.0-5.0 [facility]) Baso % 0.2 % 0.0-1.0 [facility]) Neutrophils # 3.9 10 1.5-8.5 MEDENT ([facility]) Immature Granulocyte % 0.3 % 0-3.0 MEDENT ([facility]) Nucleated Red Blood Cell % 0.0 % 0-0 MED ENT ([facility]) Lymph # 2.0 10 1.5-5.0 [facility]) Eos # 0.1 10 0.0-0.5 [facility] ([facility]) [place] # 0.5 10 0.0-0.8 [facility]) Baso # 0.0 10 0.0-0.2 [facility]) Procedure Social History Code Duration Value Status Description Data Source(s ) Smoking 01/22/2021 09:50:06 PM EDT Never smoked tobacco (findi ng) completed Never smoked tobacco (finding) [facility] (Richi Barrera MD [facility]) Smoking 12/15/2020 12:00:00 AM EDT Never Smoker completed Never S moker eCW1 ([facility]) Smoking 12/01/2020 01:51:37 PM EDT Never smoked tobacco (findi ng) completed Never smoked tobacco (finding) [facility] (Richi Barrera MD [facility]) Smoking 06/16/2020 12:00:00 AM EST Never Smoker completed Never S moker eCW1 ([facility]) Smoking 03/15/2020 12:00:00 AM EDT Never Smoker completed Never S moker eCW1 ([facility]) Smoking 03/15/2020 12:00:00 AM EDT Never Smoker completed Never S moker eCW1 ([facility]) Smoking 03/09/2020 12:00:00 AM EDT Never Smoker completed Never S moker eCW1 ([facility]) Vital Signs ID Date Data Source UNK Name Value Range Interpretation Code Description Data Source(s) Body weight 223.4 [lb_av] 223.4 [lb_av] eCW1 ([facility]) Body height 78 [in_i] 78 [in_i] W1 ([facility]) Body mass index (BMI) [Ratio] 25.81 kg/m2 25.81 kg/m2 [facility] ([facility]) Systolic blood pressure 124 mm[Hg] 124 mm[Hg] e CW1 ([facility]) Diastolic blood pressure 62 mm[Hg] 62 mm[Hg] eCW1 ([facility]) Body height 75 [in_i] 75 [in_i] MEDENT ([facility] 6'3" Body weight 209.00 [lb_av] 209.00 [lb_av] MEDEN T ([facility] Systolic blood pressure 104 mm[Hg] 104 mm[Hg] M EDENT ([facility] Diastolic blood pressure 64 mm[Hg] 64 mm[Hg] MEDENT ([facility] Heart rate 88 /min 88 /min MEDENT ([facility] Body mass index (BMI) [Ratio] 26.1 kg/m2 26.1 k g/m2 MEDENT ([facility] Body weight 204.6 [lb_av] 204.6 [lb_av] eCW1 ([facility]) Body height 78 [in_i] 78 [in_i] eCW1 ([facility]) Body mass index (BMI) [Ratio] 23.64 kg/m2 23.64 kg/m2 eCW1 ([facility]) Systolic blood pressure 100 mm[Hg] 100 mm[Hg] e CW1 ([facility]) Diastolic blood pressure 62 mm[Hg] 62 mm[Hg] eCW1 ([facility]) Body weight 191 [lb_av] 191 [lb_av] eCW1 ([facility]) Body height 78 [in_i] 78 [in_i] eCW1 ([facility]) Body mass index (BMI) [Ratio] 22.07 kg/m2 22.07 kg/m2 eCW1 ([facility]) Systolic blood pressure 118 mm[Hg] 118 mm[Hg] e CW1 ([facility]) Diastolic blood pressure 64 mm[Hg] 64 mm[Hg] eCW1 ([facility]) Body weight 180 [lb_av] 180 [lb_av] eCW1 ([facility]) Body weight kg eCW1 ([facility]) Body height 78 [in_i] 78 [in_i] eCW1 ([facility]) Body mass index (BMI) [Ratio] 20.80 kg/m2 20.80 kg/m2 eCW1 ([facility]) Heart rate 87 /min 87 /min eCW1 ([facility]) Respiratory rate 18 /min 18 /min eCW1 ([facility]) Body temperature 96.9 [degF] 96.9 [degF] eCW1 ( [facility]) Systolic blood pressure 136 mm[Hg] 136 mm[Hg] e CW1 ([facility]) Diastolic blood pressure 63 mm[Hg] 63 mm[Hg] eCW1 ([facility]) Body weight 180 [lb_av] 180 [lb_av] eCW1 ([facility]) Body weight kg eCW1 ([facility]) Body height 78 [in_i] 78 [in_i] eCW1 ([facility]) Body mass index (BMI) [Ratio] 20.80 kg/m2 20.80 kg/m2 eCW1 ([facility]) Heart rate 98 /min 98 /min eCW1 ([facility]) Respiratory rate 16 /min 16 /min eCW1 ([facility]) Body temperature 96.9 [degF] 96.9 [degF] eCW1 ( [facility]) Systolic blood pressure 141 mm[Hg] 141 mm[Hg] e CW1 ([facility]) Diastolic blood pressure 74 mm[Hg] 74 mm[Hg] eCW1 ([facility]) Systolic blood pressure 138 mm[Hg] 138 mm[Hg] M EDENT ([facility], ) Diastolic blood pressure 85 mm[Hg] 85 mm[Hg] MEDILIANA ([facility], ) Body height 78 [in_i] 78 [in_i] [facility] 6'6" Body weight 190.00 [lb_av] 190.00 [lb_av] MEDEN T ([facility], ) Body mass index (BMI) [Ratio] 22.0 kg/m2 22.0 k g/m2 MEDILIANA ([facility], ) [place] body weight 214 [lb_av] 214 [lb_av] MEDEN T ([facility], ) Body weight 86.184 kg 86.184 kg BLAINE ([facility], ) ID Date Data Source [id number] 01/27/2020 03:29:00 PM EDT [facility] l Name Value Range Interpretation Code Description Data Source(s) WEIGHT 80.232211 kilos 80.526791 [facility] HEIGHT 198.12 centimeters 198.12 centimeter [facility] WEIGHT 80.462775 kilos 80.830343 [facility] [facility] HEIGHT 198.12 centimeters 198.12 centimeter [facility]
--- OUTSIDE RECORDS SUMMARY | 2021-03-06 01:40 | CCD ---
Author Author [facility] Organization [facility] Address Unknown Phone Unavailable Care Team Providers Care Valve Steamer Name Role Phone ASHLEIGH Unavailable Unavailable Marvel [...] DPM Unavailable Unavailable Dr. RICHI CRABTREE Unavailable [phone] Dr. RICHI CRABTREE Unavailable [phone] Dr. RICHI CRABTREE Unavailable [phone] Luzma Calvin MD Unavailable Unavailable Luzma Calvin [...] MD, FACS Unavailable Unavailable RICH, STEPHANE KEVIN CLINICAL NURSING PROFESSOR-C, MSN Unavailable Unavailab le RICH, STEPHANE KEVIN CLINICAL NURSING PROFESSOR-C, MSN Unavailable Unavailab le RICH, STEPHANE KEVIN CLINICAL NURSING PROFESSOR-C, MSN Unavailable Unavailab le RICH, STEPHANE KEVIN CLINICAL NURSING PROFESSOR-C, MSN Unavailable Unavailab le RICH, STEPHANE KEVIN CLINICAL NURSING PROFESSOR-C, MSN Unavailable Unavailab le RICH, STEPHANE KEVIN CLINICAL NURSING PROFESSOR-C, MSN Unavailable Unavailab le RICH, STEPHANE KEVIN CLINICAL NURSING PROFESSOR-C, MSN Unavailable Unavailab le RICH, STEPHANE KEVIN CLINICAL NURSING PROFESSOR-C, MSN Unavailable Unavailab le RICH, STEPHANE KEVIN CLINICAL NURSING PROFESSOR-C, MSN Unavailable Unavailab le RICH, STEPHANE KEVIN CLINICAL NURSING PROFESSOR-C, MSN Unavailable Unavailab le RICH, STEPHANE KEVIN CLINICAL NURSING PROFESSOR-C, MSN Unavailable Unavailab le RICH, STEPHANE KEVIN CLINICAL NURSING PROFESSOR-C, MSN Unavailable Unavailab le RICH, STEPHANE KEVIN CLINICAL NURSING PROFESSOR-C, MSN Unavailable Unavailab le RICH, STEPHANE KEVIN CLINICAL NURSING PROFESSOR-C, MSN Unavailable Unavailab le RICH, STEPHANE KEVIN CLINICAL NURSING PROFESSOR-C, MSN Unavailable Unavailab le RICH, STEPHANE KEVIN CLINICAL NURSING PROFESSOR-C, MSN Unavailable Unavailab le RICH, STEPHANE KEVIN CLINICAL NURSING PROFESSOR-C, MSN Unavailable Unavailab le RICH, STEPHANE KEVIN CLINICAL NURSING PROFESSOR-C, MSN Unavailable Unavailab le RICH, STEPHANE KEVIN CLINICAL NURSING PROFESSOR-C, MSN Unavailable Unavailab le RICH, STEPHANE KEVIN CLINICAL NURSING PROFESSOR-C, MSN Unavailable Unavailab le RICH, STEPHANE KEVIN CLINICAL NURSING PROFESSOR-C, MSN Unavailable Unavailab le RICH, STEPHANE KEVIN CLINICAL NURSING PROFESSOR-C, MSN Unavailable Unavailab le RICH, STEPHANE KEVIN CLINICAL NURSING PROFESSOR-C, MSN Unavailable Unavailab le RICH, STEPHANE KEVIN CLINICAL NURSING PROFESSOR-C, MSN Unavailable Unavailab le RICH, STEPHANE KEVIN CLINICAL NURSING PROFESSOR-C, MSN Unavailable Unavailab le RICH, STEPHANE KEVIN CLINICAL NURSING PROFESSOR-C, MSN Unavailable Unavailab le RICH, STEPHANE KEVIN CLINICAL NURSING PROFESSOR-C, MSN Unavailable Unavailab le RICH, STEPHANE KEVIN CLINICAL NURSING PROFESSOR-C, MSN Unavailable Unavailab le RICH, STEPHANE KEVIN CLINICAL NURSING PROFESSOR-C, MSN Unavailable Unavailab le RICH, STEPHANE KEVIN CLINICAL NURSING PROFESSOR-C, MSN Unavailable Unavailab le RICH, STEPHANE KEVIN CLINICAL NURSING PROFESSOR-C, MSN Unavailable Unavailab le RICH, STEPHANE KEVIN CLINICAL NURSING PROFESSOR-C, MSN Unavailable Unavailab le RICH, STEPHANE KEVIN CLINICAL NURSING PROFESSOR-C, MSN Unavailable Unavailab le RICH, STEPHANE KEVIN CLINICAL NURSING PROFESSOR-C, MSN Unavailable Unavailab le RICH, STEPHANE KEVIN CLINICAL NURSING PROFESSOR-C, MSN Unavailable Unavailab le RICH, STEPHANE KEVIN CLINICAL NURSING PROFESSOR-C, MSN Unavailable Unavailab le RICH, STEPHANE KEVIN CLINICAL NURSING PROFESSOR-C, MSN Unavailable Unavailab le RICH, STEPHANE KEVIN CLINICAL NURSING PROFESSOR-C, MSN Unavailable Unavailab le RICH, STEPHANE KEVIN CLINICAL NURSING PROFESSOR-C, MSN Unavailable Unavailab le RICH, STEPHANE KEVIN CLINICAL NURSING PROFESSOR-C, MSN Unavailable Unavailab le RICH, STEPHANE KEVIN CLINICAL NURSING PROFESSOR-C, MSN Unavailable Unavailab le RICH, STEPHANE KEVIN CLINICAL NURSING PROFESSOR-C, MSN Unavailable Unavailab le RICH, STEPHANE KEVIN CLINICAL NURSING PROFESSOR-C, MSN Unavailable Unavailab le RICH, STEPHANE KEVIN CLINICAL NURSING PROFESSOR-C, MSN Unavailable Unavailab le RICH, STEPHANE KEVIN CLINICAL NURSING PROFESSOR-C, MSN Unavailable Unavailab PAMELA Keating MD Unavailable [...] Sofía Lagos MD Unavailable Unavailable Tyra, Sofía Lagso MD Unavailable Unavailable Tyra, Sofía Lagos MD Unavailable Unavailable Tyra, Sofía Lagos MD Unavailable Unavailable Tyra, Sofaí Lagos MD Unavailable Unavailable Tyra, Sofía Lagos [...] Unavailable Tyra, Sofía Lagos MD Unavailable Unavailable yTra, Sofía Lagos MD Unavailable Unavailable Tyra, Sofía [...] Unavailable NASEEM, PRYJMA LUKE MD Unavailable Unavailable Kenvil, Agustín PA Unavailable Unavailable Kenvil, Agustín PA Unavailable Unavailable Kenvil, Agustín PA Unavailable Unavailable Kenvil, Agustín PA Unavailable Unavailable Kenvil, Agustín PA Unavailable Unavailable Kenvil, Agustín PA Unavailable Unavailable Kenvil, Agustín PA Unavailable Unavailable Kenvil, Agustín PA Unavailable Unavailable Kenvil, Agustín PA Unavailable Unavailable Kenvil, Agustín PA Unavailable Unavailable Kenvil, Agustín PA Unavailable Unavailable Kenvil, Agustín PA Unavailable Unavailable Kenvil, Agustín PA Unavailable Unavailable Kenvil, Agustín PA Unavailable Unavailable Kenvil, Agustín PA Unavailable Unavailable Kenvil, Agustín PA Unavailable Unavailable Kenvil, Agustín PA Unavailable Unavailable Kenvil, Agustín PA Unavailable Unavailable DURAND, ELIA JON [...] B Liu TANG Unavailable Unavailable Fish, B iLu TANG Unavailable Unavailable Fish, B Liu TANG [...] is protected by Article 27-F of the [place] Public Health law. If you continue you may have access to information: Regarding HIV / AIDS; Provided by facilities licensed or operated by the [place] Office of Mental Health; or Provided by the [place] Office for People With Developmental Disabilities. If such information is present, then the following [place] mandated warning applies: This information has been [...] Known Allergies No known allergies (situation ) [place] (Richi Barrera MD [facility]) Allergy to substance No Known Allergies No known allergies (situation ) [place] (Richi [facility]rera MD [facility]) Encounters Encounter Providers Location Date Indications Data Source(s ) [place] [address] [facility] [address] 12/15/2020 12:00:00 AM EDT eCW1 (Formerly [facility]) Outpatient Attender: SYEDA DICKERSON [facility] Office 06/21 07:30:00 AM EST [facility] ([facility] [place] [address] [facility] [address] 06/16/2020 12:00:00 AM EST eCW1 (Formerly [facility]) [place] [address] [facility] [address] 03/15/2020 12:00:00 AM EDT eCW1 (Formerly [facility]) Outpatient [address] [facility] [address] 03/09/2020 12:00:00 AM EDT eCW1 (Formerly [facility]) <td ID="encounterTypeDescriptionID0">1 Y ear Follow-Up</td><td>Sofía Cantu DO</td><td>Richi Berg MD [facility]</td><td>03/04/2020</td><td>2:48PM</td><td>3:18PM</td><td><content ID="encounterDiagnosisID0-0">Borderline Glaucoma Open Angle with Borderline Findings Both Eyes</content>, <content ID="encounterDiagnosisID0-1">Dry Eye Syndrome Both Eyes</content>, <content ID="encounterDiagnosisID0-2">Retinopathy Hypertensive Both Eyes</content>, <content ID="encounterDiagnosisID0- 3">Essential Hypertension</content>, <content ID="encounterDiagnosisID0-4"> Corneal Dystrophy Endothelial Fuchs' Bilateral Eyes</content></td>Outpatient Attender: SOFÍA Anaya MD [facility] 03/04/2020 02:48:00 PM EDT - 03/04/2020 03:18:00 PM EDT Corneal Dystrophy Endothelial Fuchs' [place] ateral EyesCorneal Dystrophy Endothelial Fuchs' Bilateral EyesEssential HypertensionRetinopathy Hypertensive Both EyesDry Eye Syndrome Both Eyes Borderline Glaucoma Open Angle with Borderline Findings Both EyesEssential HypertensionRetinopathy Hypertensive Both EyesDry Eye Syndrome Both EyesBorderline Glaucoma Open Angle with Borderline Findings Both Eyes [place] (Richi Barrera MD [facility]) Corneal Dystrophy Endothelial Fuchs' Pete ateral Eyes Corneal Dystrophy Endothelial Fuchs' Pete ateral Eyes Essential Hypertension 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 Emergency Attender: SHASHA ATKINSONReferrer: CINDA MCMILLAN, MARIAMA EMERGENCY ROOM-ER 06/15/2018 07:47:00 AM [facility] - 06/15/2018 10:38:00 AM [facility] Emergency Attender: CARRIE RIGGS PAReferrer: Eduardo Calvin MD EMERGENCY ROOM-ER 08/07/2017 10:43:00 PM EDT - 08/08/2017 02:27:00 AM [facility] Outpatient Attender: Demond COXeferrer: KEVIN NOLAN, MARIAMA 07/09/2017 06:53:00 AM [facility] Outpatient Attender: JON DURAND RPA-CReferrer: MARIAMA WOODS EMERGENCY ROOM-LAB 03/04/2017 10:24:00 AM EDT - 03/04/2017 10:24:00 AM [facility] Outpatient Attender: Richi Manjarrez, FACSReferrer: MARIAMA THOMAS EMERGENCY ROOM-LABOTHPROV 10/08/2016 08:09:00 AM EDT - 10/08/2016 08:09:00 AM [facility] Inpatient Attender: Agustín Hernandez mitter: Dr. RICHI CRABTREEReferrer: JOSE SOTELO MD EMERGENCY ROOM-2N 11/18/2014 11:09:00 AM EDT - 11/21/2014 12:50:00 PM [facility] Emergency Attender: Jonathan Wood RPA-CReferrer: LOLITA SOTELO MD EMERGENCY ROOM-ER 11/18/2014 08:19:00 AM EDT - 11/18/2014 11:09:00 AM [facility] Outpatient Attender: Liu De La Rosa MDReferrer: JOSE SOTELO MD EMERGENCY ROOM-LABOTHPROV 01/08/2014 08:10:00 AM [facility] Outpatient Attender: ASHLEIGHReferrer: JOSE SOTELO MD 07/15/2013 01:00:00 PM [facility] Outpatient Attender: LUKE GUSMAN MDReferrer: JOSE Manjarrez 07/06/2013 06:52:00 PM [facility] Outpatient Attender: LUKE COXeferrer: JOSE Manjarrez 05/01/2013 04:09:00 PM [facility] Immunizations Vaccine Date Status Description Data Source(s) COVID-19 VACCINE Pfizer 06/14/2020 12:00:00 AM EST completed [facility] Vaccine Series Complete: YESThis Data wa s Submitted to [facility] Via [facility]. COVID-19 VACCINE Pfizer 05/24/2020 12:00:00 AM EST completed [facility] Vaccine Series Complete: NOThis Data was Submitted to [facility] Via [facility]. influenza, recombinant, quadrIvalent,injectable, prese rvative free 03/02/2020 02:14:00 PM EDT completed eCW1 ([facility]) influenza, recombinant, quadrIvalent,injectable, prese rvative free 03/02/2020 02:14:00 PM EDT completed eCW1 ([facility]) influenza, recombinant, quadrIvalent,injectable, prese rvative free 03/02/2020 02:14:00 PM EDT completed eCW1 ([facility]) influenza, recombinant, quadrIvalent,injectable, prese rvative free 03/02/2020 02:14:00 PM EDT completed eCW1 ([facility]) influenza, recombinant, quadrIvalent,injectable, prese rvative free 03/02/2020 02:14:00 PM EDT completed eCW1 ([facility]) Medications Medication Brand Name Start [...] Policy [place] Plan Information [place] [id number] S [id number] [facility] OPTIONS [id number] SP [id number] [facility] MED[employer] [id number] S [id number] [place] [id number] S [id number] MEDICARE [id number] Archana [id number] E62 [employer] MEDICARE DIVISION [id number] S [id number] [place] [id number] S [id number] MEDICARE A [id number] Self [id number] E62 [place] MEDICARE DIVISION [id number] S [id number] MEDICARE [id number] SP [id number] E62 MEDICARE [id number] SP [id number] [facility] OPTIONS [id number] SP [id number] [facility] [id number] Archana [id number] [facility] OPTIONS [id number] SP [id number] [facility] [id number] Self [id number] [facility] OPTIONS [id number] S [id number] [place] MED[employer]ARE DIVISION [id number] S [id number] [place]IC[place] [id number] S [id number] [place] MEDICARE DIVISION [id number] S [id number] SELF PAY UNAVAILABLE UNAVAILA BLE AAR HEALTH CARE OPTIONS [id number] SP [id number] ANSI-Medicare Part B [id number] ANSI-Commercial [id number] ANSI-Medicare Part B [id number] ANSI-Commercial [id number] ANSI-Commercial [id number] ANSI-Medicare Part B [id number] ANSI-Commercial [id number] ANSI-Medicare Part B [id number] ANSI-Commercial [id number] ANSI-Medicare Part B [id number] ANSI-Medicare Part B [id number] ANSI-Commercial [id number] ANSI-Medicare Part B [id number] ANSI-Commercial [id number] [employer] MEDICARE DIVISION [id number] S [id number] [place]ICARE - [place] [id number] S [id number] [facility] CARE OPTIONS [id number] S [id number] ANSI-Commercial [id number] ANSI-Medicare Part B [id number] ANSI-Medicare Part B [id number] ANSI-Commercial [id number] ANSI-Medicare Part B [id number] ANSI-Commercial [id number] ANSI-Commercial [id number] ANSI-Medicare Part B [id number] ANSI-Commercial [id number] ANSI-Medicare Part B [id number] MCRB [id number] S [id number] [employer]ARP HEALTH CARE OPTIONS [id number] S [id number] MEDICARE [id number] S [id number] E62 MEDICARE C [id number] S [id number] A AARP O [id number] S [id number] MEDICARE [id number] SP [id number] A [employer] C [id number] S [id number] MEDICARE [id number] SP [id number] A [place] [facility] [place] P [id number] S [id number] [facility] P UNAVAILABLE S UNAVAILABLE [facility] MCRO [id number] SP [id number] A [facility] MEDICAID [id number] SP [id number] [id number] SP [id number] Medicare Part B [facility] Other 0 [id number] Self 0 MEDICARE [id number] SP [id number] Medicare Part B [facility] Other 0 [id number] Self [id number] SP [id number] MEDICARE COMPLETE [id number] SP [id number] [place] [id number] SP [id number] AAR HEALTH CARE OPTIONS [id number] SP [id number] AARP HEALTH CARE OPTIONS [id number] SP [id number] AARP O [id number] S [id number] MEDICARE C [id number] S [id number] [employer] MEDICARE DIVISION [id number] S [id number] [facility] [id number] S [id number] Problems, Conditions, and Diagnoses Code Display Name Description Problem Type Effective Dates Data Source(s) F03.90 Unspecified dementia without behavioral disturbance UNSPECIFIED DEMENTIA WITHOUT BEHAVIORAL DISTURBANC Diagnosis 01/27/2020 03:29:00 PM EDT [facility] S81.802D Unspecified open wound, left lower leg, subsequent encounter UNSPECIFIED OPEN WOUND, LEFT LOWER LEG, SUBSEQUENT Diagnosis 01/2020 03:29:00 PM [facility] I48.91 Unspecified atrial fibrillation UNSPECIFIED ATRI AL FIBRILLATION Diagnosis 01/27/2020 03:29:00 PM [facility] E03.9 Hypothyroidism, unspecified HYPOTHYROIDISM, UNSPECIFIE D Diagnosis 01/27/2020 03:29:00 PM [facility] E78.2 Mixed hyperlipidemia MIXED HYPERLIPIDEMIA Diagnosis 01/27/2020 03:29:00 PM [facility] N18.3 Chronic kidney disease, stage 3 (moderat e) CHRONIC KIDNEY DISEASE, STAGE 3 (MODERATE) Diagnosis 01/27/2020 03:29:00 PM [facility] 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, or unspecified chronic kidney disease HYPERTENSIVE CHRONIC KIDNEY DISEASE W STG 1-4/UNSP CHR KDNY Diagnosis 01/27/2020 03:29:00 P M [facility] B35.1 Onychomycosis Onychomycosis Problem 07/19/2020 12:00:00 AM EST [facility] ([facility] I73.89 Peripheral vascular disease Peripheral vascular diseas e Problem 07/19/2020 12:00:00 AM EST [facility] ([facility] M79.676 Pain in limb Pain in limb Problem 07/19/2020 12:00:00 A M EST [facility] ([facility] [id number] Fuchs' corneal dystrophy (disorder) [place] eal Dystrophy Endothelial Fuchs' Bilateral Eyes Problem 03/04/2020 12:00:00 AM EDT [place] (Loki Barrera [facility]) [id number] Fuchs' corneal dystrophy (disorder) [place] eal Dystrophy Endothelial Fuchs' Bilateral Eyes Problem 03/04/2020 12:00:00 AM EDT [place] (Loki Barrera MD [facility]) 372.72 Subconjunctival Hemorrhage Subconjunctival Hemorrhage Problem 10/24/2016 12:00:00 AM EDT - 03/04/2020 12:00:00 AM EDT [place] (Richi [facility]rera [facility]) 372.72 Subconjunctival Hemorrhage Subconjunctival Hemorrhage Problem 10/24/2016 12:00:00 AM EDT - 03/04/2020 12:00:00 AM EDT [place] (Richi Barrera MD [facility]) Surgeries/Procedures Procedure Description Date Indications Data Source(s) DEBRIDEMENT NAIL ANY METHOD 10/10/2020 12:00:00 AM EDT [facility] Diabetic Foot Exam 07/11/2020 12:00:00 AM EST [facility] ([facility]) DEBRIDEMENT NAIL ANY METHOD 07/11/2020 12:00:00 AM EST [facility] ([facility] FINE NEEDLE ASPIRATION W/O IMAGING GUIDANCE 03/09/2020 12:00:00 AM EDT eCW1 ([facility]) No surgical / procedural history No surgical / procedural hi story 03/04/2020 12:00:00 AM EDT [place] ([facility]i [facility]) Intermediate Eye Exam Established Patient Intermediate Eye Exam Established Patient 03/04/2020 12:00:00 AM EDT [place] (Jeremy Barrera MD [facility]) FINE NEEDLE ASPIRATION W/O IMAGING GUIDANCE 03/02/2020 12:00:00 AM EDT eCW1 ([facility]) Results ID Date Data Source [id number] 02/27/2021 12:00:00 AM EDT [facility] Name Value Range Interpretation Code Description Data Susan rce(s) Supporting Document(s) SARS coronavirus 2 Ag NEGATIVE [facility] This lab was ordered by [facility] and reported by [facility]. ID Date Data Source [id number] 02/20/2021 12:00:00 AM EDT [facility] Name Value Range Interpretation Code Description Data Susan rce(s) Supporting Document(s) SARS coronavirus 2 Ag NEGATIVE [facility] This lab was ordered by [facility] and reported by [facility]. ID Date Data Source [id number] 02/08/2021 12:00:00 AM EDT [facility] Name Value Range Interpretation Code Description Data Susan rce(s) Supporting Document(s) SARS coronavirus 2 Ag NEGATIVE [facility] This lab was ordered by [facility] and reported by [facility]. ID Date Data Source [id number] 01/25/2021 12:00:00 AM EDT [facility] Name Value Range Interpretation Code Description Data Susan rce(s) Supporting Document(s) SARS coronavirus 2 Ag NEGATIVE [facility] This lab was ordered by [facility] and reported by [facility]. ID Date Data Source [id number] 10/27/2020 02:16:00 PM EDT [facility] ([facility]) Name Value Range Interpretation Code Description Data Susan rce(s) Supporting Document(s) Glucose, Fasting 99 mg/dL 70-100 [facility] ([facility]) Creatinine For GFR 1.29 mg/dL 0.70-1.30 [facility] ([facility]) Blood Urea Nitrogen 28 mg/dL 7-18 [facility] ([facility]) Sodium Level 138 meq/L 136-145 [facility] ([facility]) Glomerular Filtration Rate 55.8 [facility] ([facility]) <content>Units are mL/min/1.73 m2</content>
<content></content>
<content>Chronic Kidney Disease Staging per NKF:</content>
<content></content>
<content>Stage I & II GFR >=60 Normal to Mildly Decreased</content>
<content>Stage III GFR 30-59 Moderately Decreased</content>
<content>Stage IV GFR 15-29 Severely Decreased</content>
<content>Stage V GFR <15 Very Little GFR Left</content>
<content>ESRD GFR <15 on SSIS ETL DEVELOPER</content>
<content></content> Potassium Serum 4.1 meq/L 3.5-5.1 [facility] ([facility]) Chloride Level 102 meq/L 98-107 [facility] ([facility]) Carbon Dioxide Level 32 meq/L 21-32 [facility] ([facility]) Anion Gap 4 meq/L 8-16 [facility] ([facility]) Calcium Level 9.1 mg/dL 8.8-10.2 [facility] ([facility]) Ast/Sgot 16 U/L 7-37 [facility] ([place] [facility]) Alt/SGPT 19 U/L 12-78 [facility] ([facility]) Bilirubin,Total 1.3 mg/dL 0.2-1.0 [facility] ([facility]) Alkaline Phosphatase 106 U/L 45-117 [facility] ([facility]) Total Protein 7.8 GM/DL 6.4-8.2 [facility] ([facility]) Albumin 3.5 GM/DL 3.2-5.2 [facility] ([place] [facility]) Albumin/Globulin Ratio 0.8 [facility] ([facility]) ID Date Data Source [id number] 10/27/2020 02:16:00 PM EDT [facility] ([facility]) Name Value Range Interpretation Code Description Data Susan e(s) Supporting Document(s) White Blood Count 6.3 10 4.0-10.0 [facility] ([facility]) Red Blood Count 3.29 10 4.30-6.10 [facility] ([facility]) Hematocrit 33.4 % 42.0-52.0 [facility] ([facility]) Hemoglobin 10.8 g/dL 13.5-17.5 [facility] ([facility]) Mean Corpuscular Hemoglobin 32.8 pg 27.0-33.0 ME DENT ([facility]) Mean Corpuscular Volume 101.5 fl 80.0-96.0 [facility] ([facility]) Mean Corpuscular HGB Conc 32.3 g/dL 32.0-36.5 MEDE NT ([facility]) Red Cell Distribution Width 16.8 % 11.5-14.5 ME DENT ([facility]) Platelet Count, Automated 271 10 150-450 MEDE NT ([facility]) Neutrophils % 66.6 % 36.0-66.0 [facility] ([facility]) Mcd[place] % 7.0 % 2.0-8.0 [facility] [facility] Lymph % 24.2 % 24.0-44.0 [facility] [facility]) Eos % 1.4 % 0.0-3.0 [facility] [facility] Baso % 0.5 % 0.0-1.0 [facility] [facility] Immature Granulocyte % 0.3 % 0-3.0 [facility] ([facility]) Neutrophils # 4.2 10 1.5-8.5 [facility] [facility]) Nucleated Red Blood Cell % 0.0 % 0-0 MED ENT ([facility]) Lymph # 1.5 10 1.5-5.0 [facility] Mcdonough # 0.4 10 0.0-0.8 [facility] Eos # 0.1 10 0.0-0.5 [facility] Baso # 0.0 10 0.0-0.2 [facility] ID Date Data Source [id number] 10/20/2020 12:00:00 AM EDT [facility] Name Value Range Interpretation Code Description Data Susan rce(s) Supporting Document(s) SARS coronavirus 2 Ag NEGATIVE [facility] This lab was ordered by [facility] and reported by [facility]. ID Date Data Source [id number] 10/06/2020 12:00:00 AM EDT [facility] Name Value Range Interpretation Code Description Data Susan rce(s) Supporting Document(s) SARS coronavirus 2 Ag NEGATIVE [facility] This lab was ordered by [facility] and reported by [facility]. ID Date Data Source [id number] 10/03/2020 12:00:00 AM EDT [facility] Name Value Range Interpretation Code Description Data Susan rce(s) Supporting Document(s) SARS coronavirus 2 Ag NEGATIVE [facility] This lab was ordered by [facility] and reported by [facility]. ID Date Data Source [id number] 09/26/2020 12:00:00 AM EDT [facility] Name Value Range Interpretation Code Description Data Susan rce(s) Supporting Document(s) SARS coronavirus 2 Ag NEGATIVE [facility] This lab was ordered by [facility] and reported by [facility]. ID Date Data Source [id number] 09/13/2020 12:00:00 AM EDT [facility] Name Value Range Interpretation Code Description Data Susan rce(s) Supporting Document(s) SARS coronavirus 2 Ag NEGATIVE [facility] This lab was ordered by [facility] and reported by [facility]. ID Date Data Source [id number] 08/19/2020 07:12:00 AM EDT [facility] Name Value Range Interpretation Code Description Data Susan rce(s) Supporting Document(s) SARS-CoV-2 (COVID-19) RNA [Presence] in Respiratory specimen by RALPH with probe detection Not Detected [facility] This lab was ordered by [facility] and reported by [facility]. ID Date Data Source [id number] 08/03/2020 10:00:00 AM EDT [facility] Name Value Range Interpretation Code Description Data Susan rce(s) Supporting Document(s) SARS coronavirus 2 RNA Not Detected [facility] [place] This lab was ordered by [facility] and reported by [facility]. ID Date Data Source [id number] 07/28/2020 03:59:00 PM EST MEDENT ([facility]) Name Value Range Interpretation Code Description Data Susan rce(s) Supporting Document(s) Glucose, Fasting 128 mg/dL 70-100 MEDENT ([facility]) Blood Urea Nitrogen 31 mg/dL 7-18 MEDENT ([facility]) Creatinine For GFR 1.21 mg/dL 0.70-1.30 MEDENT ([facility]) Sodium Level 137 meq/L 136-145 MEDENT ([facility]) Glomerular Filtration Rate Laboratory test result [facility] <content>Units are mL/min/1.73 m2</content>
<content></content>
<content>Chronic Kidney Disease Staging per NKF:</content>
<content></content>
<content>Stage I & II GFR >=60 Normal to Mildly Decreased</content>
<content>Stage III GFR 30- 59 Moderately Decreased</content>
<content>Stage IV GFR 15-29 Severely Decreased</content>
<content>Stage V GFR <15 Very Little GFR Left</content>
<content>ESRD GFR <15 on SSIS ETL DEVELOPER</content>
<content></content> Potassium Serum 4.2 meq/L 3.5-5.1 MEDENT ([facility]) Chloride Level 102 meq/L 98-107 MEDENT ([facility]) Carbon Dioxide Level 31 meq/L 21-32 MEDENT ([facility]) Anion Gap 4 meq/L 8-16 [facility]) Ast/Sgot 15 U/L 7-37 [facility] [facility]) Calcium Level 9.0 mg/dL 8.8-10.2 MEDENT ([facility]) Alkaline Phosphatase 111 U/L 45-117 MEDENT ([facility]) Alt/SGPT 15 U/L 12-78 [facility] [facility]) Total Protein 7.4 GM/DL 6.4-8.2 MEDENT ([facility]) Bilirubin,Total 0.9 mg/dL 0.2-1.0 MEDENT ([facility]) Albumin/Globulin Ratio 1.0 MEDENT ([facility]) Albumin 3.7 GM/DL 3.2-5.2 [facility] [facility]) ID Date Data Source [id number] 07/28/2020 03:59:00 PM EST MEDENT ([facility]) Name Value Range Interpretation Code Description Data Susan rce(s) Supporting Document(s) White Blood Count 5.9 10 4.0-10.0 MEDENT ([facility]) Hematocrit 34.4 % 42.0-52.0 MEDENT ([facility]) Red Blood Count 3.49 10 4.30-6.10 MEDENT ([facility]) Hemoglobin 11.4 g/dL 13.5-17.5 [facility] Mean Corpuscular Volume 98.6 fl 80.0-96.0 MEDENT ([facility]) Mean Corpuscular Hemoglobin 32.7 pg 27.0-33.0 CT DENT ([facility]) Red Cell Distribution Width 17.1 % 11.5-14.5 CT DENT ([facility]) Mean Corpuscular HGB Conc 33.1 g/dL 32.0-36.5 MEDE NT ([facility]) Platelet Count, Automated 286 10 150-450 MEDE NT ([facility]) Neutrophils % 61.2 % 36.0-66.0 [facility] ([place] [facility]) Mcdonough % 7.1 % 2.0-8.0 [facility] Lymph % 29.8 % 24.0-44.0 [facility] Eos % 1.3 % 0.0-3.0 [facility] Baso % 0.3 % 0.0-1.0 [facility]) Immature Granulocyte % 0.3 % 0-3.0 [facility] ([facility]) Nucleated Red Blood Cell % 0.0 % 0-0 MED ENT ([facility]) Neutrophils # 3.6 10 1.5-8.5 [facility] ([place] [facility]) Lymph # 1.8 10 1.5-5.0 [facility] Eos # 0.1 10 0.0-0.5 [facility]) Mcdonough # 0.4 10 0.0-0.8 [facility] Baso # 0.0 10 0.0-0.2 [facility] ID Date Data Source [id number] 07/27/2020 07:00:00 AM EST [facility] Name Value Range Interpretation Code Description Data Susan rce(s) Supporting Document(s) SARS coronavirus 2 RNA Not Detected [facility] [place] This lab was ordered by [facility] and reported by [facility]. ID Date Data Source [id number] 07/13/2020 10:00:00 AM EST [facility] Name Value Range Interpretation Code Description Data Susan rce(s) Supporting Document(s) SARS coronavirus 2 RNA Not Detected [facility] [place] This lab was ordered by [facility] and reported by [facility]. ID Date Data Source [id number] 07/06/2020 09:30:00 AM EST [facility] Name Value Range Interpretation Code Description Data Susan rce(s) Supporting Document(s) SARS coronavirus 2 RNA Not Detected [facility] [place] This lab was ordered by [facility] and reported by [facility]. ID Date Data Source [id number] 06/29/2020 10:00:00 AM EST [facility] Name Value Range Interpretation Code Description Data Susan rce(s) Supporting Document(s) SARS coronavirus 2 RNA Not Detected [place] [place] This lab was ordered by [facility] and reported by [facility]. ID Date Data Source [id number] 06/22/2020 10:00:00 AM EST [facility] Name Value Range Interpretation Code Description Data Susan rce(s) Supporting Document(s) SARS coronavirus 2 RNA Not Detected [facility] [place] This lab was ordered by [facility] and reported by [facility]. ID Date Data Source [id number] 06/15/2020 06:30:00 AM EST [facility] Name Value Range Interpretation Code Description Data Susan rce(s) Supporting Document(s) SARS coronavirus 2 RNA Not Detected [place] [place] This lab was ordered by [facility] and reported by [facility]. ID Date Data Source [id number] 06/08/2020 09:00:00 AM EST [facility] Name Value Range Interpretation Code Description Data Susan rce(s) Supporting Document(s) SARS coronavirus 2 RNA Not Detected [facility] [place] This lab was ordered by [facility] and reported by [facility]. ID Date Data Source [id number] 2020 07:15:00 AM EST [facility] Name Value Range Interpretation Code Description Data Susan rce(s) Supporting Document(s) SARS coronavirus 2 RNA Not Detected [facility] [place] This lab was ordered by [facility] and reported by [facility]. ID Date Data Source [id number] 05/25/2020 10:00:00 AM EST [facility] Name Value Range Interpretation Code Description Data Susan rce(s) Supporting Document(s) SARS coronavirus 2 RNA Not Detected [facility] [place] This lab was ordered by [facility] and reported by [facility]. ID Date Data Source [id number] 05/18/2020 09:00:00 AM EST [facility] Name Value Range Interpretation Code Description Data Susan rce(s) Supporting Document(s) SARS coronavirus 2 RNA [facility] This lab was ordered by [facility] and reported by [facility]. ID Date Data Source [id number] 05/11/2020 01:15:00 PM EST [facility] Name Value Range Interpretation Code Description Data Susan rce(s) Supporting Document(s) SARS coronavirus 2 RNA [facility] This lab was ordered by [facility] and reported by [facility]. ID Date Data Source [id number] 05/04/2020 12:16:00 PM EST [facility] Name Value Range Interpretation Code Description Data Susan rce(s) Supporting Document(s) SARS coronavirus 2 RNA [facility] This lab was ordered by [facility] and reported by [facility]. ID Date Data Source [id number] 04/27/2020 12:00:00 PM EST [facility] Name Value Range Interpretation Code Description Data Susan rce(s) Supporting Document(s) SARS coronavirus 2 RNA [facility] This lab was ordered by [facility] and reported by [facility]. ID Date Data Source [id number] 04/20/2020 12:00:00 PM EST [facility] Name Value Range Interpretation Code Description Data Susan rce(s) Supporting Document(s) SARS coronavirus 2 RNA [facility] This lab was ordered by [facility] and reported by [facility]. ID Date Data Source [id number] 04/13/2020 11:00:00 AM EST [facility] Name Value Range Interpretation Code Description Data Susan rce(s) Supporting Document(s) SARS coronavirus 2 RNA [facility] This lab was ordered by [facility] and reported by [facility]. ID Date Data Source [id number] 04/06/2020 10:25:00 AM EST [facility] Name Value Range Interpretation Code Description Data Susan rce(s) Supporting Document(s) SARS coronavirus 2 RNA [facility] This lab was ordered by [facility] and reported by [facility]. ID Date Data Source [id number] 03/31/2020 12:37:00 PM EST [facility] Name Value Range Interpretation Code Description Data Susan rce(s) Supporting Document(s) SARS coronavirus 2 RNA [facility] This lab was ordered by [facility] and reported by [facility]. ID Date Data Source [id number] 03/24/2020 02:03:00 PM EST MEDENT ([facility]) Name Value Range Interpretation Code Description Data Susan rce(s) Supporting Document(s) Albumin % 52.2 % 55.8-66.1 [facility] Dgdmw-2-Ecvcuufh % 4.9 % 2.9-4.9 MED[facility] ([facility] Vmlqj-9-Ngjctdlrg % 9.8 % 7.1-11.8 [facility] ([facility] Rrvy-6-Jjsddisjb % 17.0 % 3.2-6.5 MEDENT ([facility] Umya-4-Ircwuwxbm % 5.9 % 4.7-7.2 MEDENT ([facility]) Gamma Globulin % 10.2 % 11.1-18.8 MEDENT ([facility]) Dsqdx-4-Gaoffkjqw 0.36 GM/DL 0.17-0.41 MEDENT ([facility]) Albumin 3.81 GM/DL 3.29-5.55 [facility] Gamma Globulins 0.74 GM/DL 0.65-1.58 MEDENT ([facility]) Asrij-8-Trnjirjgh 0.72 GM/DL 0.42-0.99 MEDENT ([facility] Ptmt-5-Padcgntxw 1.24 GM/DL 0.19-0.55 MED[facility] ([facility]) Qmbx-0-Wwhgablff 0.43 GM/DL 0.28-0.60 MEDENT ([facility]) Spep Interpretation Laboratory test result MEDENT ([facility]) M-SPIKE NOTED IN BETA 2 REGION. CONCENTRATION = 0.72 GM/DL M-SPIKE NOTED IN MID-GAMMA REGION. CONCENTRATION = 0.44 GM/DL Total Protein 7.3 GM/DL 6.4-8.2 MEDENT ([facility]) Laboratory test finding (navigational concept) Laboratory test result MEDENT ([facility]) ID Date Data Source [id number] 03/24/2020 02:03:00 PM EST MEDENT ([facility]) Name Value Range Interpretation Code Description Data Susan rce(s) Supporting Document(s) Immunotyping Serum Igm Laboratory test result MEDENT ([facility]) Laboratory test finding (navigational concept) Laboratory test result MEDENT ([facility]) It Serum Interpretation Laboratory test result [facility]ENT ([facility]) MONOCLONAL BANDS IGM KAPPA IN BETA 2, IG M KAPPA IN EARLY GAMMA Immunotyping Serum [place] Laboratory [facility] ID Date Data Source [id number] 03/24/2020 02:03:00 PM EST MEDENT ([facility]) Name Value Range Interpretation Code Description Data Susan rce(s) Supporting Document(s) Immunoglobulin A 377.0 mg/dL 70-400 MEDENT ([facility]) Immunoglobulin G 1020 mg/dL 681-1648 MEDENT ([facility]) Immunoglobulin M 1050.0 mg/dL 40-230 MEDENT ([facility]) ID Date Data Source [id number] 03/24/2020 02:03:00 PM EST MEDENT ([facility]) Name Value Range Interpretation Code Description Data Susan rce(s) Supporting Document(s) Blood Urea Nitrogen 30 mg/dL 7-18 MEDENT ([facility]) Glucose, Fasting 87 mg/dL 70-100 MEDENT ([facility]) Creatinine For GFR 1.31 mg/dL 0.70-1.30 MEDENT ([facility]) Potassium Serum 4.2 meq/L 3.5-5.1 MEDENT ([facility]) Sodium Level 138 meq/L 136-145 MEDENT ([facility]) Glomerular Filtration Rate 55.0 MED ENT ([facility]) <content>Units are mL/min/1.73 m2</content>
<content></content>
<content>Chronic Kidney Disease Staging per NKF:</content>
<content></content>
<content>Stage I & II GFR >=60 Normal to Mildly Decreased</content>
<content>Stage III GFR 30- 59 Moderately Decreased</content>
<content>Stage IV GFR 15-29 Severely Decreased</content>
<content>Stage V GFR <15 Very Little GFR Left</content>
<content>ESRD GFR <15 on SSIS ETL DEVELOPER</content>
<content></content> Anion Gap 6 meq/L 8-16 [facility] [facility]) Chloride Level 99 meq/L 98-107 MEDENT ([facility]) Carbon Dioxide Level 33 meq/L 21-32 [facility] ( [facility] Alt/SGPT 17 U/L 12-78 [facility] [facility]) Calcium Level 9.0 mg/dL 8.8-10.2 MEDENT ([facility]) Ast/Sgot 17 U/L 7-37 [facility] ([place] [facility]) Total Protein 7.3 GM/DL 6.4-8.2 MEDENT ([facility]) Bilirubin,Total 1.3 mg/dL 0.2-1.0 MEDENT ([facility]) Alkaline Phosphatase 110 U/L 45-117 MEDENT ([facility]) Albumin/Globulin Ratio 0.9 [facility] ([facility]) Albumin 3.5 GM/DL 3.2-5.2 [facility] ([place] [facility]) ID Date Data Source [id number] 03/24/2020 02:03:00 PM EST MEDENT ([facility]) Name Value Range Interpretation Code Description Data Susan rce(s) Supporting Document(s) Viscosity of Serum 1.8 rel.saline 1.4-2.1 MEDENT ([facility]) Values above 2.7 may indicate paraprotei nemia is present. Please note reference interval change Performed at: [address] [id number] Buckle Assembler: Jeremias Chavez MD, Phone: [phone] ID Date Data Source [id number] 03/24/2020 02:03:00 PM EST MEDENT ([facility]) Name Value Range Interpretation Code Description Data Susan rce(s) Supporting Document(s) White Blood Count 6.5 10 4.0-10.0 MEDENT ([facility]) Red Blood Count 3.47 10 4.30-6.10 MEDENT ([facility]) Mean Corpuscular Volume 100.6 fl 80.0-96.0 MEDENT ([facility]) Hematocrit 34.9 % 42.0-52.0 [facility] [facility]) Hemoglobin 11.3 g/dL 13.5-17.5 [facility]) Mean Corpuscular HGB Conc 32.4 g/dL 32.0-36.5 MEDE NT ([facility]) Mean Corpuscular Hemoglobin 32.6 pg 27.0-33.0 ME DENT ([facility]) Red Cell Distribution Width 16.2 % 11.5-14.5 ME DENT ([facility]) Lymph % 30.0 % 24.0-44.0 [facility]) Platelet Count, Automated 298 10 150-450 MEDE NT ([facility]) Neutrophils % 59.6 % 36.0-66.0 MEDENT ([facility]) Eos % 2.2 % 0.0-3.0 [facility]) Mcdonough % 7.7 % 0.0-5.0 [facility]) Baso % 0.2 % 0.0-1.0 [facility]) Neutrophils # 3.9 10 1.5-8.5 MEDENT ([facility]) Immature Granulocyte % 0.3 % 0-3.0 MEDENT ([facility]) Nucleated Red Blood Cell % 0.0 % 0-0 MED ENT ([facility]) Lymph # 2.0 10 1.5-5.0 [facility]) Eos # 0.1 10 0.0-0.5 [facility]) Mcdonough # 0.5 10 0.0-0.8 [facility]) Baso # 0.0 10 0.0-0.2 [facility]) Procedure Social History Code Duration Value Status Description Data Source(s ) Smoking 01/22/2021 09:50:06 PM EDT Never smoked tobacco (findi ng) completed Never smoked tobacco (finding) [facility] (Richi Barrera MD [facility]) Smoking 12/15/2020 12:00:00 AM EDT Never Smoker completed Never S moker eCW1 ([facility]) Smoking 12/01/2020 01:51:37 PM EDT Never smoked tobacco (findi ng) completed Never smoked tobacco (finding) [facility] (Richi Barrera MD [facility]) Smoking 06/16/2020 12:00:00 AM EST Never Smoker completed Never S moker eCW1 ([facility]) Smoking 03/15/2020 12:00:00 AM EDT Never Smoker completed Never S moker eCW1 ([facility]) Smoking 03/15/2020 12:00:00 AM EDT Never Smoker completed Never S moker eCW1 ([facility]) Smoking 03/09/2020 12:00:00 AM EDT Never Smoker completed Never S moker eCW1 ([facility]) Vital Signs ID Date Data Source UNK Name Value Range Interpretation Code Description Data Source(s) Body weight 223.4 [lb_av] 223.4 [lb_av] eCW1 ([facility]) Body height 78 [in_i] 78 [in_i] W1 ([facility]) Body mass index (BMI) [Ratio] 25.81 kg/m2 25.81 kg/m2 [facility] ([facility]) Systolic blood pressure 124 mm[Hg] 124 mm[Hg] e CW1 ([facility]) Diastolic blood pressure 62 mm[Hg] 62 mm[Hg] eCW1 ([facility]) Body height 75 [in_i] 75 [in_i] MEDENT [...] Body weight 204.6 [lb_av] 204.6 [lb_av] eCW1 ([facility]) Body height 78 [in_i] 78 [in_i] eCW1 ([facility]) Diastolic blood pressure 62 mm[Hg] 62 mm[Hg] eCW1 ([facility]) Body mass index (BMI) [Ratio] 23.64 kg/m2 23.64 kg/m2 eCW1 ([facility]) Systolic blood pressure 100 mm[Hg] 100 mm[Hg] e CW1 ([facility]) Body weight 191 [lb_av] 191 [lb_av] eCW1 ([facility]) Body height 78 [in_i] 78 [in_i] eCW1 ([facility]) Body mass index (BMI) [Ratio] 22.07 kg/m2 22.07 kg/m2 eCW1 ([facility]) Systolic blood pressure 118 mm[Hg] 118 mm[Hg] e CW1 ([facility]) Diastolic blood pressure 64 mm[Hg] 64 mm[Hg] eCW1 ([facility]) Body weight 180 [lb_av] 180 [lb_av] eCW1 ([facility]) Body weight kg eCW1 ([facility]) Body height 78 [in_i] 78 [in_i] eCW1 ([facility]) Body mass index (BMI) [Ratio] 20.80 kg/m2 20.80 kg/m2 eCW1 ([facility]) Heart rate 87 /min 87 /min eCW1 ([facility]) Respiratory rate 18 /min 18 /min eCW1 ([facility]) Body temperature 96.9 [degF] 96.9 [degF] eCW1 ( [facility]) Systolic blood pressure 136 mm[Hg] 136 mm[Hg] e CW1 ([facility]) Diastolic blood pressure 63 mm[Hg] 63 mm[Hg] eCW1 ([facility]) Body weight 180 [lb_av] 180 [lb_av] eCW1 ([facility]) Body weight kg eCW1 ([facility]) Body height 78 [in_i] 78 [in_i] eCW1 ([facility]) Body temperature 96.9 [degF] 96.9 [degF] eCW1 ( [facility]) Systolic blood pressure 141 mm[Hg] 141 mm[Hg] e CW1 ([facility]) Body mass index (BMI) [Ratio] 20.80 kg/m2 20.80 kg/m2 eCW1 ([facility]) Diastolic blood pressure 74 mm[Hg] 74 mm[Hg] eCW1 ([facility]) Heart rate 98 /min 98 /min eCW1 ([facility]) Respiratory rate 16 /min 16 /min eCW1 ([facility]) Systolic blood pressure 138 mm[Hg] 138 mm[Hg] M EDENT ([facility], ) Diastolic blood pressure 85 mm[Hg] 85 mm[Hg] MEDIILANA ([facility], ) Body height 78 [in_i] 78 [in_i] [facility] 6'6" Body weight 190.00 [lb_av] 190.00 [lb_av] MEDEN T ([facility], ) Body mass index (BMI) [Ratio] 22.0 kg/m2 22.0 k g/m2 MEDILIANA ([facility], ) Garrett body weight 214 [lb_av] 214 [lb_av] MEDEN T ([facility], ) Body weight 86.184 kg 86.184 kg [facility] ([facility], ) ID Date Data Source [id number] 01/27/2020 03:29:00 PM EDT [facility] l Name Value Range Interpretation Code Description Data Source(s) WEIGHT 80.504949 kilos 80.512170 [facility] HEIGHT 198.12 centimeters 198.12 centimeter [facility] WEIGHT 80.502247 kilos 80.405043 [facility] HEIGHT 198.12 centimeters 198.12 centimeter [facility]
[2021-03-06] MEDS ORDERED: LEVO25TA5 PO (02:40)
[2021-03-06] MEDS ORDERED: ATOR40TA75 PO (02:40)
[2021-03-06] MEDS ORDERED: AMIT50TA PO (02:40)
[2021-03-06] MEDS ORDERED: FURO20TA2 PO (02:40)
[2021-03-06] MEDS ORDERED: ASPI81CH33 PO (02:44)
[2021-03-06] MEDS ORDERED: AMIT25TA17 PO (02:49)
[2021-03-06] MEDS ORDERED: LEVO50TA5 PO (02:49)
[2021-03-06] MEDS ORDERED: FURO40TA2 PO (02:49)
[2021-03-06] MEDS ORDERED: CITA20TA7 PO (02:49)
[2021-03-06] MEDS ORDERED: med rec comment (02:51)
[2021-03-06] MEDS ORDERED: POTA10CA32 PO (02:52)
[2021-03-06] MEDS ORDERED: HOME MED LIST COMPLETE! XX SCH (02:55)
[2021-03-06] MEDS ORDERED: TORS20TA2 PO (04:15)
[2021-03-06] MEDS ORDERED: ASPI81TA26 PO (04:15)
[2021-03-06] MEDS ORDERED: METO1TAB32 PO (04:15)
[2021-03-06] MEDS ORDERED: SENN-80 PO (04:18)
[2021-03-06] MEDS ORDERED: QUEtiapine FUMARATE 12.5 MG HALF-TAB PO ONE (04:35)
--- NOTE | 2021-03-06 05:34 | ECGEPIP ---
[facility] - ED Test Date: 2021-03-05 Pat Name: RONALD GILL Department: Room: - Gender: Male Budder: PRASHANT : [phone] Requested By: SOFÍA Manjarrez Order Number: [id number] Reading MD: Ced Mayfield Measurements Intervals [place] Rate: 84 P: VA: QRS: 83 QRSD: 102 T: 122 QT: 370 QTc: 437 Interpretive Statements Atrial fibrillation with premature ventricular complexes ST & T wave abnormality, consider lateral ischemia BASELINE ARTIFACT AFFECTS INTERPRETATION SIMILAR TO 01/27/21 Electronically Signed on 03-06-2021 5:34:00 EDT by Ced Mayfield
[2021-03-06] MEDS ORDERED: LEVOTHYROXINE 50MCG TABLET (0.05MG) PO SCH (06:00)
[2021-03-06] MEDS ORDERED: HEPARIN SOD (PORCINE) 5000UNITS/ML 1ML VIAL/SYRINGE SC SCH (06:00)
[2021-03-06] MEDS ORDERED: BISACODYL 10 MG SUPP PR PRN (07:30)
[2021-03-06 08:10] LABS: HEMATOCRIT 31.1 % (42.0-52.0); HEMOGLOBIN 10.4 g/dl (13.5-17.5); MEAN CORPUSCULAR HEMOGLOBIN 30.9 pg (27.0-33.0); MEAN CORPUSCULAR HGB CONC 33.4 g/dl (32.0-36.5); MEAN CORPUSCULAR VOLUME 92.3 fl (80.0-96.0); PLATELET COUNT, AUTOMATED 250 10^3/uL (150-450); RED BLOOD COUNT 3.37 10^6/uL (4.30-6.10)
[2021-03-06 08:34] LABS: CALCIUM LEVEL 9.5 MG/DL (8.8-10.2); CREATININE FOR GFR 1.79 MG/DL (0.70-1.30); GLOMERULAR FILTRATION RATE 38.3 (>35)
[2021-03-06 08:45] VITALS: BP 137/65
[2021-03-06] MEDS ORDERED: METOPROLOL SUCC *XL* 25MG TAB (TopROL *XL*) PO SCH (09:00)
[2021-03-06] MEDS ORDERED: ursodioL 300 MG CAP PO SCH (09:00)
[2021-03-06] MEDS ORDERED: ASPIRIN 81MG ENTERIC TABLET PO SCH (09:00)
[2021-03-06] MEDS ORDERED: CitaloPRAM (CeleXA) 20 MG TAB PO SCH (09:00)
[2021-03-06] MEDS ORDERED: SENNA 8.6 MG TAB (SENOKOT) PO SCH (09:00)
--- NOTE | 2021-03-06 10:53 | IPNPDOC ---
Text Note Date of Service The patient was seen on 03/06/21. NOTE S: Patient seen and evaluated at bedside this a.m. He tells me he is feeling well and wishes to be discharged. Denies cough, chest pain, palpitations, shortness of breath. Denies abdominal pain, nausea, vomiting, changes in urination, bowel movements. O: GEN: Alert, awake, sitting on edge of bed eating breakfast, NAD HEENT: NC/AT, EOMI, nares patent, moist mucous membranes CARDIO: RRR, normal heart sounds, no MRG PULM: CTA b/l, no WRR, no accessory muscles used ABD: soft, nontender, nondistended, diminished BS EXTREMITIES: no edema, venous stasis changes bilateral lower extremities, normal ROM PSYCH: Oriented to person only. A/P: Len is an 89-year-old male with dementia who was found to have asx h ypokalemia, which is improved following potassium supplementation in ER. #Hypokalemia, likely secondary to thiazide recently giving in skilled nursing as needed- asx, improving (03/05) K+ 2.4; (03/06) K+ 3.0 Patient has received p.o. and IV KCl in the ER Patient's spironolactone and torsemide has been held, pending hypokalemia improvement Of note, patient is noncompliant with telemetry and IV access. Patient was seen and deemed not to meet criteria for admission. Admission order was canceled and spoke with the ED provider and stated the patient could be discharged from the emergency department back to [facility]. 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 CXR (03/01): Cardiomegaly with early interstitial edema including right basilar atelectasis and small right pleural effusion (2018) Echo EF 60% Patient remains euvolemic Will resume Torsemide and Spironolactone upon discharge #PAF- controlled Patient's family has decided against chronic AC due to patient's elevated bleeding risk #Dementia- stable #COPD- stable #PVD- stable #CKD3 w/ Anemia of chronic disease- stable (03/06) H&H 10.4 & 31.1 Kidney fxn at patient's baseline; BUN 47, Cr 1.79, GFR 38.8 #Lymphoplasmacytic lymphoma- stable #Sarcopenia- stable PCP may consider PT to be done at [facility] #DVT Prophylaxis On Heparin DIET: regular ACTIVITY: as tolerated w/ assist DISPO: Discharged by emergency department to [facility] home VS,Fishbone, I+O VS, Fishbone, I+O Laboratory Tests 03/06/21 07:55 Vital Signs Date Time Temp Pulse Resp B/P (MAP) Pulse Ox O2 Delivery O2 Flow Rate FiO2 03/06/21 08:45 89 137/65 03/06/21 08:00 100.5 20 100 Room Air 03/06/21 00:32 3.0 I&O- Last 24 Hours up to 6 AM 03/06/21 06:00 Intake Total 580 ml Output Total 400 ml Balance 180 ml GME ATTESTATION GME ATTESTATION My faculty preceptor for this patient encounter was physically present during the encounter and was fully available. All aspects of the patient interview, examination, medical decision making process, and medical care plan development were reviewed and approved by the faculty preceptor. The faculty preceptor is aware and concurs with the plan as stated in the body of this note and will attest to such by his/her cosignature. ATTENDING NOTE I, Gomez Mckoy DO, have independently examined this patient and performed my own physical exam, as well as reviewed the documentation and edited where necessary. I have discussed in detail with the resident the findings and plan of treatment as documented by the resident and edited their note. I agree with their findings and treatment plan and have edited their documentation. I will continue to follow the patient during this hospital stay. Lyn Amin DO Mar 06, 2021 10:53 GOMEZ MCKOY DO Mar 06, 2021 16:17
[2021-03-06 11:58] VITALS: BP 119/56
[2021-03-06] MEDS ORDERED: AMITRIPTYLINE 25MG TABLET PO SCH (21:00)
== END 2021-03-06 12:10 | disposition home or self-care (01) ==
LOC: M ED 23:16 → UNDOADMIN 03-06 01:08 → M ED INP 03-06 01:08 → UNDOADMOB 03-06 01:31 → M ED 03-06 12:10
DX: E87.6 Hypokalemia (principal); U07.1 COVID-19; I50.9 Heart failure, unspecified; N18.30 Chronic kidney disease, stage 3 unspecified; J44.9 Chronic obstructive pulmonary disease, unspecified; C83.00 Small cell B-cell lymphoma, unspecified site; F03.90 Unspecified dementia, unspecified severity, without behavioral disturbance, psychotic disturbance, mood disturbance, and anxiety; D63.1 Anemia in chronic kidney disease; I48.0 Paroxysmal atrial fibrillation; Z79.899 Other long term (current) drug therapy; Z79.82 Long term (current) use of aspirin
CPT/HCPCS: 36415; 80048; 83735; 85027; 93005; 96365; 96366; 99284; J1644; J3480

== ENCOUNTER → 2021-03-05 | Outpatient (REF) | payer MEDICARE, MEDICAID ==
[2021-03-05 21:38] LABS: HEMATOCRIT 31.5 % (42.0-52.0); HEMOGLOBIN 10.2 g/dl (13.5-17.5); MEAN CORPUSCULAR HEMOGLOBIN 30.6 pg (27.0-33.0); MEAN CORPUSCULAR HGB CONC 32.4 g/dl (32.0-36.5); MEAN CORPUSCULAR VOLUME 94.6 fl (80.0-96.0); PLATELET COUNT, AUTOMATED 265 10^3/uL (150-450); RED BLOOD COUNT 3.33 10^6/uL (4.30-6.10); WHITE BLOOD COUNT 5.6 10^3/uL (4.0-10.0)
[2021-03-05 22:10] LABS: ALBUMIN 2.9 GM/DL (3.2-5.2); BILIRUBIN,TOTAL 1.5 MG/DL (0.2-1.0); C REACTIVE PROTEIN QUANTITATIV 15.1 MG/DL (0.00-0.30); CALCIUM LEVEL 9.4 MG/DL (8.8-10.2); CREATININE FOR GFR 1.82 MG/DL (0.70-1.30); GLOMERULAR FILTRATION RATE 37.5 (>35); POTASSIUM SERUM 2.4 MEQ/L (3.5-5.1); TOTAL PROTEIN 7.4 GM/DL (6.4-8.2)
[2021-03-05 23:32] LABS: MAGNESIUM LEVEL 1.9 MG/DL (1.8-2.4)
== END ==
LOC: SKLAB2 07:34
PROVIDERS: ATTEND Internal Medicine
DX: U07.1 COVID-19 (principal); Z79.899 Other long term (current) drug therapy

== ENCOUNTER → 2021-03-06 | Outpatient (CLI) | payer MEDICARE, MEDICAID ==
[~2021-03-06] MED LIST changes: +ACETAMINOPHEN TAB 650MG DOSE (2X325MG) PO ONE; +ALBUTEROL 90 MCG/ACT 8GM HFA INHALER INH PRN; +ALBUTEROL SULFATE 2.5 MG/0.5 ML INH NEB SOLN INH PRN; +BAMLANIVIMAB 700 MG, ETESEVIMAB 1,400 MG in NS 250 ML IV ONE; +CITA20TA7 PO; +EPINEPHrine INJ 1 MG/ML 1ML AMP IM PRN; +METO1TAB32 PO; +NS 1,000 ML IV SCH; +POTA10CA32 PO; +SENN-80 PO; +TORS20TA2 PO; +diphenhydrAMINE 50MG/ML VIAL (J1200) IV PRN; +med rec comment; +methylPREDNISolone 125MG 2ML VIAL IV ONE; +methylPREDNISolone 125MG 2ML VIAL IV PRN
== END ==
LOC: SKLAB4 16:51
PROVIDERS: ATTEND Internal Medicine
DX: U07.1 COVID-19 (principal)

== ENCOUNTER → 2021-03-06 | Outpatient (REF) | payer MEDICARE, MEDICAID ==
[2021-03-06 16:38] LABS: CALCIUM LEVEL 9.2 MG/DL (8.8-10.2); CREATININE FOR GFR 1.98 MG/DL (0.70-1.30); GLOMERULAR FILTRATION RATE 34.1 (>35)
== END ==
LOC: SKLAB4 08:42
PROVIDERS: ATTEND Internal Medicine
DX: E87.6 Hypokalemia (principal)

== ENCOUNTER → 2021-03-07 | Outpatient (REF) | payer MEDICARE, MEDICAID ==
[~2021-03-07] MED LIST changes: -ACETAMINOPHEN TAB 650MG DOSE (2X325MG) PO ONE; -ALBUTEROL 90 MCG/ACT 8GM HFA INHALER INH PRN; -ALBUTEROL SULFATE 2.5 MG/0.5 ML INH NEB SOLN INH PRN; -BAMLANIVIMAB 700 MG, ETESEVIMAB 1,400 MG in NS 250 ML IV ONE; -EPINEPHrine INJ 1 MG/ML 1ML AMP IM PRN; -NS 1,000 ML IV SCH; -diphenhydrAMINE 50MG/ML VIAL (J1200) IV PRN; -methylPREDNISolone 125MG 2ML VIAL IV ONE; -methylPREDNISolone 125MG 2ML VIAL IV PRN
[2021-03-07 10:02] LABS: HEMATOCRIT 28.6 % (42.0-52.0); HEMOGLOBIN 9.5 g/dl (13.5-17.5); MEAN CORPUSCULAR HEMOGLOBIN 31.3 pg (27.0-33.0); MEAN CORPUSCULAR HGB CONC 33.2 g/dl (32.0-36.5); MEAN CORPUSCULAR VOLUME 94.1 fl (80.0-96.0); PLATELET COUNT, AUTOMATED 194 10^3/uL (150-450); RED BLOOD COUNT 3.04 10^6/uL (4.30-6.10); WHITE BLOOD COUNT 3.3 10^3/uL (4.0-10.0)
[2021-03-07 10:26] LABS: CALCIUM LEVEL 8.9 MG/DL (8.8-10.2); CREATININE FOR GFR 1.76 MG/DL (0.70-1.30); POTASSIUM SERUM 3.2 MEQ/L (3.5-5.1)
== END ==
LOC: SKLAB2 09:03
PROVIDERS: ATTEND Internal Medicine
DX: U07.1 COVID-19 (principal); N18.9 Chronic kidney disease, unspecified; K74.60 Unspecified cirrhosis of liver; F03.90 Unspecified dementia, unspecified severity, without behavioral disturbance, psychotic disturbance, mood disturbance, and anxiety

== ENCOUNTER → 2021-03-08 | Outpatient (REF) | payer MEDICARE, MEDICAID ==
[2021-03-08 17:28] LABS: CALCIUM LEVEL 8.6 MG/DL (8.8-10.2); CREATININE FOR GFR 2.12 MG/DL (0.70-1.30); GLOMERULAR FILTRATION RATE 31.5 (>35); POTASSIUM SERUM 4.5 MEQ/L (3.5-5.1)
== END ==
LOC: SKLAB2 13:50
PROVIDERS: ATTEND Internal Medicine
DX: U07.1 COVID-19 (principal)

== ENCOUNTER → 2021-03-09 | Outpatient (REF) | payer MEDICARE, MEDICAID ==
[2021-03-09 12:02] LABS: HEMATOCRIT 32.1 % (42.0-52.0); HEMOGLOBIN 10.6 g/dl (13.5-17.5); MEAN CORPUSCULAR HEMOGLOBIN 31.1 pg (27.0-33.0); MEAN CORPUSCULAR VOLUME 94.1 fl (80.0-96.0); PLATELET COUNT, AUTOMATED 276 10^3/uL (150-450); RED BLOOD COUNT 3.41 10^6/uL (4.30-6.10); WHITE BLOOD COUNT 7.5 10^3/uL (4.0-10.0)
[2021-03-09 12:29] LABS: CREATININE FOR GFR 1.91 MG/DL (0.70-1.30); GLOMERULAR FILTRATION RATE 35.5 (>35)
[2021-03-09 12:30] LABS: ALBUMIN 3.2 GM/DL (3.2-5.2); BILIRUBIN,TOTAL 1.2 MG/DL (0.2-1.0); CALCIUM LEVEL 8.9 MG/DL (8.8-10.2); POTASSIUM SERUM 4.3 MEQ/L (3.5-5.1); TOTAL PROTEIN 7.5 GM/DL (6.4-8.2)
== END ==
LOC: SKLAB2 07:00
PROVIDERS: ATTEND Internal Medicine
DX: U07.1 COVID-19 (principal); Z79.899 Other long term (current) drug therapy

== ENCOUNTER → 2021-03-13 | Outpatient (REF) | payer MEDICARE, MEDICAID ==
[2021-03-13 13:07] LABS: HEMATOCRIT 31.8 % (42.0-52.0); HEMOGLOBIN 10.4 g/dl (13.5-17.5); MEAN CORPUSCULAR HEMOGLOBIN 30.9 pg (27.0-33.0); MEAN CORPUSCULAR HGB CONC 32.7 g/dl (32.0-36.5); MEAN CORPUSCULAR VOLUME 94.4 fl (80.0-96.0); PLATELET COUNT, AUTOMATED 338 10^3/uL (150-450); RED BLOOD COUNT 3.37 10^6/uL (4.30-6.10); WHITE BLOOD COUNT 10.8 10^3/uL (4.0-10.0)
[2021-03-13 15:00] LABS: ALBUMIN 3.3 GM/DL (3.2-5.2); BILIRUBIN,TOTAL 1.5 MG/DL (0.2-1.0); CALCIUM LEVEL 9.3 MG/DL (8.8-10.2); CREATININE FOR GFR 1.69 MG/DL (0.70-1.30); GLOMERULAR FILTRATION RATE 40.9 (>35); POTASSIUM SERUM 3.9 MEQ/L (3.5-5.1); TOTAL PROTEIN 7.5 GM/DL (6.4-8.2)
== END ==
LOC: SKLAB2 09:48
PROVIDERS: ATTEND Internal Medicine
DX: U07.1 COVID-19 (principal); Z79.899 Other long term (current) drug therapy

== ENCOUNTER → 2021-03-15 | Outpatient (REF) | payer MEDICARE, MEDICAID ==
[2021-03-15 10:58] LABS: HEMATOCRIT 31.8 % (42.0-52.0); HEMOGLOBIN 10.3 g/dl (13.5-17.5); MEAN CORPUSCULAR HEMOGLOBIN 30.2 pg (27.0-33.0); MEAN CORPUSCULAR HGB CONC 32.4 g/dl (32.0-36.5); MEAN CORPUSCULAR VOLUME 93.3 fl (80.0-96.0); PLATELET COUNT, AUTOMATED 321 10^3/uL (150-450); RED BLOOD COUNT 3.41 10^6/uL (4.30-6.10); WHITE BLOOD COUNT 9.7 10^3/uL (4.0-10.0)
[2021-03-15 11:29] LABS: ALBUMIN 3.2 GM/DL (3.2-5.2); BILIRUBIN,TOTAL 1.4 MG/DL (0.2-1.0); CALCIUM LEVEL 9.6 MG/DL (8.8-10.2); CREATININE FOR GFR 1.62 MG/DL (0.70-1.30); GLOMERULAR FILTRATION RATE 42.9 (>35); POTASSIUM SERUM 3.9 MEQ/L (3.5-5.1); TOTAL PROTEIN 7.6 GM/DL (6.4-8.2)
[2021-03-15 15:01] LABS: APPEARANCE, URINE CLEAR (CLEAR); BACTERIA, URINE AUTO NEGATIVE (NEGATIVE); BILIRUBIN, URINE AUTO NEGATIVE (NEGATIVE); BLOOD, URINE BLOOD NEGATIVE (NEGATIVE); COLOR, URINE YELLOW (YELLOW); GLUCOSE, URINE (UA) AUTO NEGATIVE (NEGATIVE); KETONE, URINE AUTO NEGATIVE (NEGATIVE); LEUKOCYTE ESTERASE, URINE AUTO NEGATIVE (NEGATIVE); NITRITE, URINE AUTO NEGATIVE (NEGATIVE); PROTEIN, URINE AUTO NEGATIVE (NEGATIVE); RBC, URINE AUTO 2 /HPF (0-3); SPECIFIC GRAVITY URINE AUTO 1.009 (1.002-1.035); SQUAMOUS EPITHELIAL CELL UR AU 0 /HPF (0-6); UROBILINOGEN, URINE AUTO 0.2 mg/dL (0.0-2.0); WBC, URINE AUTO 1 /HPF (0-3)
== END ==
LOC: SKLAB2 13:29
PROVIDERS: ATTEND Internal Medicine
DX: U07.1 COVID-19 (principal); Z79.899 Other long term (current) drug therapy

== ENCOUNTER → 2021-03-16 | Outpatient (CLI) | payer MEDICARE, MEDICAID ==
[~2021-03-16] MED LIST changes: +ISOVUE-370 76% 100ML VIAL As Ordered ONE
--- NOTE | 2021-03-16 11:06 | REPVR ---
PROCEDURE INFORMATION: Exam: CT Abdomen And Pelvis With Contrast Exam date and time: 03/16/2021 10:12 AM Age: 89 years old Clinical indication: Other: Dysuria; Additional info: Dysuria PT in CT holding area TECHNIQUE: Imaging protocol: Computed tomography of the abdomen and pelvis with contrast. Radiation optimization: All CT scans at this facility use at least one of these dose optimization techniques: automated exposure control; mA and/or kV adjustment per patient size (includes targeted exams where dose is matched to clinical indication); or iterative reconstruction. Contrast material: ISOVUE 370; Contrast volume: 100 ml; Contrast route: INTRAVENOUS (IV); COMPARISON: CT ABD/PEL W/IV ORAL CONTRAS 10/21/2019 5:19 AM FINDINGS: Lungs: Dependent and linear atelectasis at the bilateral lung bases. Atelectasis or scarring in the right middle lobe and lingula. Heart: Cardiomegaly. Suggestion of right heart failure. Calcifications of the aortic valve leaflets. Liver: Normal. No mass. Gallbladder and bile ducts: Cholelithiasis. No evidence of acute cholecystitis. Pancreas: Normal. No ductal dilation. Spleen: Normal. No splenomegaly. Adrenal glands: Normal. No mass. Kidneys and ureters: Bilateral renal cortical atrophy and scarring. Right renal cyst. Stomach and bowel: Diverticulosis of colon. No evidence of acute diverticulitis. Appendix: No evidence of appendicitis. Intraperitoneal space: Unremarkable. No free air. No significant fluid collection. Vasculature: Atherosclerotic disease of the abdominal aorta. Lymph nodes: Unremarkable. No enlarged lymph nodes. Urinary bladder: Distended urinary bladder. Reproductive: Unremarkable as visualized. Bones/joints: Severe multilevel degenerative disease and facet arthropathy of the lumbar spine. Stenosis of the spinal canal and neural foramina at several levels. Osteoarthritis of the right hip. Mild scoliosis. Soft tissues: Trace amount of gas in the subcutaneous fat of the ventral abdominal wall. IMPRESSION: Marked cardiomegaly with suggestion of right heart failure. Cholelithiasis. No evidence of acute cholecystitis. Diverticulosis of colon. No evidence of acute diverticulitis. COMMENTS: Consistent with the [employer]'s Incidental Findings Committee white paper (J Am Padmini Radiol 2018): Any incidental renal lesion less than 1 cm or classified as too small to characterize, or any incidental cystic renal lesion characterized as simple-appearing, is likely benign. No follow-up imaging is recommended for these lesions per consensus recommendations based on imaging criteria. Electronically signed by: Raffi Ricks On 03/16/2021 11:06:15 AM
== END ==
LOC: M RAD 09:37
PROVIDERS: ATTEND Nurse Practitioner Adult Health
DX: R30.0 Dysuria (principal); K80.70 Calculus of gallbladder and bile duct without cholecystitis without obstruction; I51.7 Cardiomegaly; K57.30 Diverticulosis of large intestine without perforation or abscess without bleeding
CPT/HCPCS: 74177; Q9967

== ENCOUNTER → 2021-03-23 | Outpatient (CLI) | payer MEDICARE, MEDICAID ==
[~2021-03-23] MED LIST changes: -ISOVUE-370 76% 100ML VIAL As Ordered ONE
--- NOTE | 2021-03-23 09:53 | REP ---
INDICATION: ABD PAIN. COMPARISON: Multiple the latest 03/16/2021 a contrast-enhanced exam TECHNIQUE: Standard helical technique without intravenous contrast or oral bowel preparatory contrast FINDINGS: There is no significant change in appearance of the lung bases. There is cholelithiasis status quo. Limited evaluation of the liver, spleen, pancreas, adrenal glands, and kidneys show no gross abnormalities or significant changes from the prior exam. Limited evaluation of the abdominal aorta and para-aortic regions show no significant changes from the prior exam. No free fluid or free air has developed since the last exam. There is no significant change in appearance of the bowel loops. There is no significant change in the osseous structures. 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 IMPRESSION: No significant change compared to the prior exam. Findings as described above. <Electronically signed by Mani Yepez > 03/23/21 7002
== END ==
LOC: M RAD 09:15
PROVIDERS: ATTEND Nurse Practitioner
DX: R10.9 Unspecified abdominal pain (principal); M51.9 Unspecified thoracic, thoracolumbar and lumbosacral intervertebral disc disorder

== ENCOUNTER → 2021-03-23 | Outpatient (REF) | payer MEDICARE, MEDICAID ==
[~2021-03-23] MED LIST changes: -LEVO250T12 PO; +LEVO250T3 PO; -LEVO500T3 PO; +LEVO500T4 PO; +POTA-151 PO; -POTA20TA6 PO
[2021-03-23 13:23] LABS: HEMATOCRIT 31.3 % (42.0-52.0); MEAN CORPUSCULAR HGB CONC 31.9 g/dl (32.0-36.5); PLATELET COUNT, AUTOMATED 232 10^3/uL (150-450); RED BLOOD COUNT 3.33 10^6/uL (4.30-6.10); WHITE BLOOD COUNT 9.2 10^3/uL (4.0-10.0)
[2021-03-23 13:55] LABS: ALBUMIN 2.8 GM/DL (3.2-5.2); BILIRUBIN,TOTAL 1.8 MG/DL (0.2-1.0); CREATININE FOR GFR 1.62 MG/DL (0.70-1.30); GLOMERULAR FILTRATION RATE 42.9 (>35); POTASSIUM SERUM 3.8 MEQ/L (3.5-5.1); TOTAL PROTEIN 6.8 GM/DL (6.4-8.2)
== END ==
LOC: SKLAB4 08:00
PROVIDERS: ATTEND Internal Medicine
DX: R10.9 Unspecified abdominal pain (principal)